=== PATIENT | male | born 1940 | race Caucasian/White ===

== ENCOUNTER 2016-05-23 11:22 | Inpatient (IN) | payer MEDICARE, OTHER ==
[~2016-05-23] VITALS: Ht 175.3 cm; Wt 95.2 kg
[~2016-05-23 11:22] MED LIST: ALBU17IN INH; AMOX500T2 PO; ASPI1TAB PO; BOOSLIQ PO; CALC1CAP31 PO; CARV6.25 PO; DIPH25CA PO; DRIS50002 PO; FERRCAP PO; FURO20TA2 PO; GLIP-163 PO; HYDR-3719 PO; HYDR-4266 PO; ISOS20TAB PO; NITR4TASL SL; OMEP40CA2 PO; PROC1INJ2 IV; REFR1DRO8 OU; SIMV20TA2 PO; TELM1TAB2 PO
[2016-05-23 12:51] LABS: BASO # 0.1 K/mm3 (0.0-0.2); BASO % 1.5 % (0.0-1.0); EOS # 0.1 K/mm3 (0.0-0.50); EOS % 1.3 % (0.0-3.0); LARGE UNSTAINED CELL # 0.1 K/mm3 (0.0-0.4); LARGE UNSTAINED CELL % 1.2 % (0.0-4.0); LYMPH # 0.3 K/mm3 (1.5-4.5); LYMPH % 3.6 % (24.0-44.0); MEAN CORPUSCULAR HEMOGLOBIN 32.7 pg (27.0-33.0); MEAN CORPUSCULAR HGB CONC 31.9 g/dl (32.0-36.5); MEAN CORPUSCULAR VOLUME 102.7 fl (80.0-96.0); MONO # 0.3 K/mm3 (0.0-0.8); MONO % 5.7 % (0.0-5.0); NEUTROPHILS # 4.9 K/mm3 (1.8-7.7); NEUTROPHILS % 86.7 % (36.0-66.0); PLATELET COUNT, AUTOMATED 142 k/mm3 (150-450); RED CELL DISTRIBUTION WIDTH 17.3 % (11.5-14.5); WHITE BLOOD COUNT 5.7 K/mm3 (4.0-10.0)
[2016-05-23 13:06] LABS: CREATININE FOR GFR 1.47 MG/DL (0.70-1.30); GLOMERULAR FILTRATION RATE 49.9 (>42); POTASSIUM SERUM 3.7 MEQ/L (3.5-5.1)
[2016-05-23] MEDS ORDERED: DEXA4TA PO (13:50)
[2016-05-23] MEDS ORDERED: MORP15TA2 PO (13:50)
[2016-05-23] MEDS ORDERED: TELM1TAB2 PO (13:50)
[2016-05-23] MEDS ORDERED: CLAR1TAB2 PO (13:50)
[2016-05-23] MEDS ORDERED: MIRA3350 PO (13:50)
[2016-05-23] MEDS ORDERED: TUMS500C PO (13:50)
[2016-05-23] MEDS ORDERED: RENATAB5 PO (13:50)
[2016-05-23] MEDS ORDERED: CARV3.12 PO (13:50)
[2016-05-23] MEDS ORDERED: REVL5CAP2 PO (13:50)
[2016-05-23] MEDS ORDERED: HYDR25T PO (13:50)
[2016-05-23] MEDS ORDERED: MELA5TAB14 PO (13:50)
[2016-05-23] MEDS ORDERED: NEPHTAB PO (13:50)
--- NOTE | 2016-05-23 13:56 | REP ---
LEFT FOOT SERIES, COMPLETE: 05/23/2016 CLINICAL HISTORY: Diabetic foot ulcer, concern for infection. Four views are provided. There is a dressing over the lateral aspect of the distal forefoot. There appears to be resection of the 2nd toe previously with only the articular aspect of the proximal phalanx remaining. There is extensive subcutaneous emphysema adjacent to the distal ends of the 4th and 5th metatarsals at the MTP joints. There is been fusion of the DIP joint of the 5th toe. The 3rd through 5th toes show no definite or displaced fracture. Lucencies in the subcutaneous tissues are consistent with air in the subcutaneous tissues. They make determination of destruction of bone very difficult. I cannot deftly confirm a pathologic fracture in this region or destructive lesion. Small vessel arterial calcifications noted between metatarsals and into the great toe. There is a Charcot's joint with extensive spurring sclerosis and partial fusion of 2nd and 3rd CMP joints with separation of the 1st and 2nd metatarsals, which all appear to be chronic Charcot's joint changes. Soft tissue swelling over the foot. There is loss of subtalar joint delineation. There are arterial calcifications about the ankle and hind foot as well as plantar and Achilles insertional spurs. Rocker arm/foot appearance on the lateral view from the advanced Charcot foot changes. There is a tiny metallic foreign body about 4 mm long in the tissues adjacent to the proximal shaft of the 1st metatarsal along the plantar aspect of the subcutaneous region. IMPRESSION: Some osteoporosis and advanced Charcot joint changes seen in the tarsal bones with subcutaneous emphysema from large soft tissue ulceration over the distal forefoot at the distal heads of the 4th and 5th metatarsals. Some chronic degenerative changes as described. The possibility of infection within the bone is not excluded. Soft tissue swelling, small vessel arterial calcification and degenerative changes along with those Charcot joint changes particularly in the tarsal bones and TMT joints. Signed by Ajit Lopes MD 05/23/2016 02:56 P
[2016-05-23] MEDS ORDERED: ACETAMINOPHEN TAB 650MG DOSE (2X325MG) PO PRN (14:00)
[2016-05-23] MEDS ORDERED: BISACODYL 5 MG TAB PO PRN (14:00)
[2016-05-23] MEDS ORDERED: MORPHINE 2 MG/ML 1ML SYRINGE IV PRN (14:00)
[2016-05-23] MEDS ORDERED: ONDANSETRON 4MG/2ML VIAL (J2405) IV PRN (14:00)
[2016-05-23] MEDS ORDERED: GLUCOSE 4 GM CHEW TABLET PO PRN (14:15)
[2016-05-23] MEDS ORDERED: GLUCAGON FOR INJ 1 MG VIAL (J1610) SC PRN (14:15)
[2016-05-23] MEDS ORDERED: DEXTROSE 50% 50 ML SYRINGE IV PRN (14:15)
[2016-05-23] MEDS ORDERED: NS 1,000 ML IV SCH (14:30)
[2016-05-23 14:41] LABS: RETIC HEMOGLOBIN CONTENT CHr 35.3 PG (24-36); RETICULOCYTE ABSOLUTE ADVIA212 55 x10(9)/L (17-77)
[2016-05-23 14:56] LABS: REASON FOR REVIEW COMPREHENSIVE REVIEW
[2016-05-23 15:00] LABS: ALBUMIN 2.3 GM/DL (3.2-5.2); ALBUMIN/GLOBULIN RATIO 0.62 (1.00-1.93); BILIRUBIN,DIRECT 0.6 MG/DL (0.0-0.2); BILIRUBIN,TOTAL 0.9 MG/DL (0.2-1.0); PERCENT SATURATION 25.8 % (19.7-37.4)
[2016-05-23] MEDS ORDERED: LORATADINE 10 MG TAB PO PRN (15:30)
[2016-05-23] MEDS ORDERED: CALCIUM CARBONATE 500 MG CHEW U/D PO PRN (15:30)
[2016-05-23] MEDS ORDERED: hydrOXYzine 25 MG TAB PO PRN (15:30)
[2016-05-23] MEDS ORDERED: MIRALAX *UNIT DOSE* 17GM PACKET PO PRN (15:30)
[2016-05-23] MEDS ORDERED: ALBUTEROL 90 MCG/ACT 8GM HFA INHALER INH PRN (15:30)
[2016-05-23] MEDS ORDERED: NITROGLYCERIN 0.4 MG SUBL TABLET SL PRN (15:30)
--- NOTE | 2016-05-23 15:41 | HPEPDOC ---
General Date of Admission May 23, 2016 at 13:58 Chief Complaint The patient is a 75-year-old male admitted with a reason for visit of Gangrene Of Foot. Source: Patient Exam Limitations: No limitations Timing/Duration: Day(s) Severity: Severe Associated Symptoms: Denies Symptoms History of Present Illness Patient hit his toe against a table about a week ago. He started noticing that his toes were becoming darker about 4 days ago. The home health care nurse urged him to go to the hospital but the patient refused. It wasn't until he came for his dialysis session today when he was told to go directly to the ER for his gangrene. Otherwise, he states that if it weren't for them he probably would not have come today either. He is otherwise feeling well and has no complaint. Home Medications Scheduled (Faye-You) 1 Tab Tab 1 TAB PO DAILY (Reported) Aspirin (Aspirin 81) 81 Mg Tab 81 MG PO DAILY (Reported) Calcitriol (Calcitriol) 0.25 Mcg Cap 0.25 MCG PO DAILY (Reported) Carvedilol (Carvedilol) 3.125 Mg Tab 3.125 MG PO BID (Reported) Dexamethasone (Dexamethasone) 4 Mg Tab 20 MG PO QWEEK (Reported) SUNDAYS Glipizide (Glipizide Xl) 2.5 Mg Tab 2.5 MG PO DAILY (Reported) Omeprazole (Omeprazole) 40 Mg Cap 40 MG PO DAILY (Reported) Telmisartan (Telmisartan) 80 Mg Tab 80 MG PO DAILY (Reported) Vitamin B Cmplx/Vitc/Folic Ac (Nephro-You Rx 1 mg) 1 Tab Tab 1 TAB PO DAILY ( Reported) Scheduled PRN Acetaminophen/Hydrocodone (Hydrocodone/Acetaminophen 10-325 mg) 1 Tab Tab 1 TAB PO TID PRN PRN PAIN (Reported) Albuterol Sulfate (Ventolin Hfa) 200 Puff/8 Gm Aers 2 PUFF INH Q4H PRN PRN SHORTNESS OF BREATH (Reported) Calcium Carbonate (Tums) 500 Mg Chw 500 MG PO PRN INDIGESTION (Reported) Hydroxyzine HCl (Hydroxyzine HCl) 25 Mg Tab 25 MG PO QHS PRN PRN SLEEP (Reported ) Loratadine (Claritin) 10 Mg Tab 10 MG PO DAILY PRN PRN ITCHING (Reported) Melatonin (Melatonin) 5 Mg Tab 5 MG PO QHS PRN PRN SLEEP (Reported) Morphine Sulfate (Morphine Sulfate) 15 Mg Tab 1-2 TABS PO Q4H PRN PRN PAIN ( Reported) Nitroglycerin (Nitrostat) 0.4 Mg Subl 0.4 MG SL PRN PRN PRN CHEST PAIN (Reported ) Polyethylene Glycol (Miralax) 1 Pow Pow 17 GM PO DAILY PRN PRN CONSTIPATION ( Reported) Miscellaneous Medications Lenalidomide (Revlimid) 5 Mg Cap 5 MG PO (Reported) Allergies Coded Allergies: No Known Allergies (Unverified , 07/20/15) Past Medical History Medical History Diabetes, CAD, HTN, Hyperlipidemia, Asthma, End stage Kidney failure (been on dialysis since July), and heartburn, Chronic anemia Surgical History Appendicectomy 54 years ago, Hearth cath with stent placement April 2016, 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 Family History Significant Family History: Heart disease (Both his sisters had coronary stent placement as well) Social History * Smoker: former Smoker (quit 25-30 years ago after smoking for 30 years) Alcohol: denies (stopped drinking about a year ago after being diagnosed with kidney failure. ) Drugs: denies Recent Travel/Sick Contacts: Denies: Recent sick contacts, Recent travel Psychosocial History: No pertinent psych hx Review of Symptoms Constitutional: Denies: Chills, Fatigue, Fever, Malaise, Weight Loss Skin: Reports: Lesions (darkening of his left toes) Pulmonary: Reports: Dyspnea (Patient has asthma and uses Albuterol PRN and is not on Oxygen at home), Denies: Cough Cardiovascular: Denies: Chest Pain, Palpitations Gastrointestinal: Reports: Diarrhea (had a bout of diarrhea yesterday. ), Denies: Abdominal Pain, Nausea, Vomiting Genitourinary: Denies: Dysuria, Incontinence Musculoskeletal: Denies: Foot Pain Neurological: Denies: Change in speech, Confusion, Weakness Psych: Reports: Mood Normal Physical Examination General Exam: Positive: Alert, Cooperative, No Acute Distress Eye Exam: Positive: EOMI, PERRLA Neck Exam: Positive: Supple, Negative: JVD Chest Exam: Positive: Clear to auscultation, Normal air movement Heart Exam: Positive: Normal S1, Normal S2, Negative: Gallops, Murmurs, Rubs Abdomen Exam: Positive: Normal bowel sounds, Soft, Negative: Tenderness Extremity Exam: Positive: Edema, Other (black left 3rd, 4th, and 5th toes. There is also an area of gangrene on the lateral side of his left foot and at the bottom of his left heel. There's alos an ulcer on the plantar surface of his left foot. There is darkening and scarring of his left lower leg. On the right leg there's a dark scab on the plantar surface of the first right toe and remnant scar of a healing ulcer of the right heel. Pulse is present in the right foot and not appreciated in dorsalis pedis in the left foot. ), Negative: Clubbing, Tenderness Vital Signs BP 148/70, Pulse 102, Resp 18, T 99.9, O2 100% 2L NC, Weight 51 Kg Laboratory Data Labs 24H Laboratory Tests 2 05/23/16 12:36: Absolute Reticulocyte Count 55, Anion Gap 8, White Blood Count 5.7, Red Blood Count 2.55L, Hemoglobin 8.3L, Hematocrit 26.2L, Mean Corpuscular Volume 102.7H, Mean Corpuscular Hemoglobin 32.7, Mean Corpuscular Hemoglobin Concent 31.9L, Red Cell Distribution Width 17.3H, Platelet Count 142L, Neutrophils (%) (Auto) 86.7H, Lymphocytes (%) (Auto) 3.6L, Monocytes (%) (Auto) 5.7H, Eosinophils (%) ( Auto) 1.3, Basophils (%) (Auto) 1.5H, Neutrophils # (Auto) 4.9, Lymphocytes # ( Auto) 0.3L, Monocytes # (Auto) 0.3, Eosinophils # (Auto) 0.1, Basophils # (Auto ) 0.1, Calcium Level 8.0L, Glomerular Filtration Rate 49.9, Large Unclassified Cells # 0.1, Large Unclassified Cells % 1.2, Percent Reticulocyte Count 2.20H, Reticulocyte Hgb Content (CHr) 35.3 CBC/BMP Laboratory Tests 05/23/16 12:36 Red Blood Count 2.55 L, Mean Corpuscular Volume 102.7 H, Mean Corpuscular Hemoglobin 32.7, Mean Corpuscular Hemoglobin Concent 31.9 L, Red Cell Distribution Width 17.3 H, Neutrophils (%) (Auto) 86.7 H, Lymphocytes (%) (Auto ) 3.6 L, Monocytes (%) (Auto) 5.7 H, Eosinophils (%) (Auto) 1.3, Basophils (%) ( Auto) 1.5 H, Neutrophils # (Auto) 4.9, Lymphocytes # (Auto) 0.3 L, Monocytes # ( Auto) 0.3, Eosinophils # (Auto) 0.1, Basophils # (Auto) 0.1 Microbiology Microbiology 05/23/16 Blood Culture, Received Pending 05/23/16 Wound Culture, Received Pending Assessment/Plan Problems: (1) Gangrene of foot Status: Acute Problem Text: Dr. Pitt is consulted for evaluation. He would likely go to the OR tomorrow for amputation of gangrene. Xray foot showed osteoporosis, advanced charcot joint changes, subcutaneous emphysema. (2) End stage renal disease on dialysis Status: Chronic Problem Text: Patient is on dialysis since last july. Sessions are Monday, Monday, and Monday. Last session was done today. Will need to consult Nephrology for management of dialysis while inpatient. (3) Anemia Status: Chronic (4) Foot ulcer Status: Chronic Problem Text: Being followed by Dr. Kilgore outpatient, will consult her for further recommendations on antibiotics. (5) Diabetes Status: Chronic (6) HTN (hypertension) Status: Chronic (7) PVD (peripheral vascular disease) Status: Chronic (8) CAD (coronary artery disease) Status: Chronic (9) Diabetic neuropathy Status: Chronic Plan / VTE VTE Prophylaxis Ordered?: Yes (TEDs) GME ATTESTATION GME ATTESTATION My preceptor for this patient encounter was physically present in the building during the encounter and was fully available. As needed, all aspects of the patient interview, examination, medical decision making process, and medical care plan development were reviewed and approved by the preceptor. Preceptor is aware and concurs with the plan as stated in the body of this note and will attest to such by his/her cosignature. LUZ MARINA BERGMAN DO May 23, 2016 15:08
[2016-05-23 16:12] VITALS: BP 142/67
--- NOTE | 2016-05-23 16:15 | EDDOCDS ---
Physician Documentation [facility] Name: Charles Figueroa Age: 75 yrs Sex: Male : 1940 Arrival Date: 05/23/2016 Time: 11:22 Bed 10 Private MD: Disposition: 05/23/16 13:43 Hospitalization ordered by Myrna Murry for Inpatient Admission. 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 - Bed requested for 5 Vale. - Status is Inpatient Admission. srm - Condition is Stable. - Problem is chronic. - Symptoms have worsened. Historical: - Allergies: no known allergies; - Home Meds: 1. albuterol sulfate 90 mcg/actuation Inhl HFAA 2 puffs every 6 hours 2. aspirin 81 mg Oral tab 1 tab once daily 3. calcitriol 0.25 mcg oral cap 1 cap once daily 4. Coreg 6.25 mg Oral tab 1 tab 2 times per day 5. melatonin 5 mg Oral tab nightly 6. Miralax 17 gram Oral pwpk 1 packet once daily 7. nephrovite daily 8. omeprazole 40 mg Oral cpDR 1 cap once daily 9. oxycodone 5 mg Oral tab 1 tab every 4 hours 10. Plavix 75 mg Oral tab 1 tab once daily 11. renavite .8 mg 12. Tums 200 mg calcium (500 mg) Oral chew 2 tabs three times a day - PMHx: Anemia; Asthma; Diabetes - NIDDM: controlled; GERD; Hypercholesterolemia; Hypertension; Multiple Myeloma; Myocardial infarction; Renal Failure with Dialysis; - PSHx: Cardiac stents; Appendectomy; Dialysis Catherter Insertion; - Family history: Not pertinent. - Social history: Smoking status: Patient states former smoker of tobacco. No barriers to communication noted, The patient speaks fluent Upper Sorbian, Speaks appropriately for age. - : The pt / caregiver states he / she is on anticoagulants: Plavix. Home medication list is obtained from the patient. - Exposure Risk Screening:: None identified. Vital Signs: 05/23 11:39 BP 141 / 67; Pulse 105; Resp 18; Temp 98.8(TE); Pulse Ox 97% on R/A; Weight 51.26 kg / ct3 113.01 lbs (R); Height 5 ft. 9 in. (175.26 cm) (R); 11:52 Pulse 102 MON; Pulse Ox 90% on R/A; srm 11:53 BP 135 / 72 (auto/); srm 12:08 Pulse 96 MON; Pulse Ox 98% ; srm 12:08 BP 142 / 77 (auto/); srm 12:23 Pulse 98 MON; Pulse Ox 97% ; srm 12:23 BP 154 / 76 (auto/); srm 12:38 BP 129 / 63 (auto/); srm 12:38 Pulse 96 MON; Pulse Ox 99% on 2 lpm NC; srm 12:53 Pulse 94 MON; srm 12:53 BP 146 / 74 (auto/); srm 13:08 BP 148 / 79 (auto/); srm 13:08 Pulse 94 MON; srm 13:23 BP 151 / 79 (auto/); srm 13:23 Pulse 94 MON; srm 13:38 BP 145 / 80 (auto/); srm 13:38 Pulse 96 MON; Pulse Ox 100% on 2 lpm NC; srm 13:53 Pulse 92 MON; srm 13:53 BP 142 / 73 (auto/); srm 14:08 BP 143 / 79 (auto/); srm 14:08 Pulse 92 MON; srm 14:21 Pulse 98 MON; Pulse Ox 93% ; srm 14:23 BP 148 / 80 (auto/); srm 14:38 BP 119 / 56 (auto/); srm 14:38 Pulse 102 MON; Pulse Ox 80% ; srm 15:08 BP 151 / 71 (auto/); srm 15:09 Pulse 102 MON; Pulse Ox 100% ; srm 15:14 BP 148 / 70 (auto/); srm 15:14 Pulse 102 MON; Resp 18; Temp 99.9(TE); Pulse Ox 100% on 2 lpm NC; srm 16:08 BP 141 / 67 (auto/); srm 16:08 Pulse 102 MON; Resp 20; Temp 96.3; Pulse Ox 92% on R/A; Pain 0/10; srm 11:39 Body Mass Index 16.69 (51.26 kg, 175.26 cm) ct3 MDM: 11:32 IV Saline Lock ordered. fg 11:33 CBC with Diff Ordered. EDMS 11:33 Basic Metabolic Profile Ordered. EDMS 11:34 Foot, Complete Ordered. EDMS 11:53 -Blood Culture (Adults Only), peripheral from different site, or from device/port/PICC fg etc. if present ordered. 11:53 -Blood Culture Ordered. EDMS 11:56 -Blood Culture (Adults Only), peripheral from different site, or from device/port/PICC deg etc. if present complete. 11:58 BLOOD CULTURES Ordered. EDMS 13:10 Wound Culture - Other Unlisted Source Ordered. EDMS 13:38 [facility] Payment Agreement was scanned into [employer] and attached to record. jp5 13:38 Financial registration complete. jp5 14:02 ECG WITH READING ER PHYS+CARDIAG ordered. EDMS 14:04 Admission / Observation Status ordered. EDMS 14:04 CONSISTENT CARBOHYDRATES ordered. EDMS 14:06 PHYSICAL THERAPY EVAL & TREAT ordered. EDMS 14:08 PATHOLOGIST REVIEW COMPREHENSI Ordered. EDMS 14:24 LIVER PROFILE Ordered. EDMS 14:26 FERRITIN Ordered. EDMS 14:26 TOTAL IRON BINDING CAPACIT Ordered. EDMS 14:26 RETICULOCYTE COUNT Ordered. EDMS Signatures: Dispatcher [employer] EDMS Teresa Brown, [employer] deg Shiraz BlasRN RN Shaylee Dela Cruz, RN RN [facility] Clark Card jp5 Lexii Orta MD MD fg Andrews, Steven, DUGLAS ARDON sa The chart was reviewed and I authenticate all verbal orders and agree with the evaluation and treatment provided.Corrections: (The following items were deleted from the chart) 14:24 13:02 LIVER PROFILE+LAB ordered. EDMS EDMS 14:27 14:07 IRON (FE) ordered. EDMS EDMS 14:27 14:08 TOTAL IRON BINDING CAPACIT ordered. EDMS EDMS 14:27 14:08 FERRITIN ordered. EDMS EDMS 14:27 14:08 RETICULOCYTE COUNT ordered. EDMS EDMS 15:17 14:05 BLOOD CULTURES ordered. EDMS EDMS Attachments: 13:38 [facility] Payment Agreement jp5 [email or web address]
--- NOTE | 2016-05-23 16:15 | EDDOCDS ---
Nurse's Notes [facility] Name: Charles Figueroa Age: 75 yrs Sex: Male : 1940 Arrival Date: 05/23/2016 Time: 11:22 Bed 10 Private MD: Diagnosis: Idiopathic aseptic necrosis of left foot Presentation: 05/23 11:30 Presenting complaint: EMS states: infected left foot. symptoms for awhile. pt states srm its black- dressing intact at this time. had dialysis today. Adult Sepsis Screening: The patient does not have new or worsening altered mentation. Patient's respiratory rate is less than 22. Systolic blood pressure is greater than 100. Patient has a qSOFA score of 0- Negative Sepsis Screen. Suicide/Homicide risk assessment- the patient denies having any suicidal and/or homicidal ideations and does not present with any other emotional, behavioral or mental health complaints. Status: Patient is not a health services rn or dependent. Transition of care: patient was received from dialysis. 11:30 Acuity: [place] Level 3 [facility] 11:30 Method Of Arrival: Ambulance [facility] 11:34 Presenting complaint: Patient states: states he stubbed his toe on left foot 1 week ago srm and 2 days ago noticed his foot turning black and infectious. Triage Assessment: 11:40 Musculoskeletal: toes 3-5 on left foot black. large areas open and draining to top and srm bottom of lft foot. drainage is purulent and odorous. also blackened area to bottom of left foot. Historical: - Allergies: no known allergies; - Home Meds: 1. albuterol sulfate 90 mcg/actuation Inhl HFAA 2 puffs every 6 hours 2. aspirin 81 mg Oral tab 1 tab once daily 3. calcitriol 0.25 mcg oral cap 1 cap once daily 4. Coreg 6.25 mg Oral tab 1 tab 2 times per day 5. melatonin 5 mg Oral tab nightly 6. Miralax 17 gram Oral pwpk 1 packet once daily 7. nephrovite daily 8. omeprazole 40 mg Oral cpDR 1 cap once daily 9. oxycodone 5 mg Oral tab 1 tab every 4 hours 10. Plavix 75 mg Oral tab 1 tab once daily 11. renavite .8 mg 12. Tums 200 mg calcium (500 mg) Oral chew 2 tabs three times a day - PMHx: Anemia; Asthma; Diabetes - NIDDM: controlled; GERD; Hypercholesterolemia; Hypertension; Multiple Myeloma; Myocardial infarction; Renal Failure with Dialysis; - PSHx: Cardiac stents; Appendectomy; Dialysis Catherter Insertion; - Family history: Not pertinent. - Social history: Smoking status: Patient states former smoker of tobacco. No barriers to communication noted, The patient speaks fluent Latvian, Speaks appropriately for age. - : The pt / caregiver states he / she is on anticoagulants: Plavix. Home medication list is obtained from the patient. - Exposure Risk Screening:: None identified. Screenin:26 Screening information is obtained from the patient. Fall risk: At risk due to gait srm disturbance, The following interventions are performed due to a positive Fall Risk Screen: Fall Risk is added to Special Handling on the patient Summary Screen. A Fall Risk Bracelet was applied to the patient. Side Rails are placed in the up position. A Call Schroeder is given with instruction to call for help when getting out of bed. Fall Alert bracelet is placed on the patient. Assistance ADL's: requires no assistance with activities of daily living. Abuse/DV Screen: The patient / caregiver reports he/she is: not in a situation that causes fear, pain or injury. Nutritional screening: No deficits noted. Advance Directives: Currently, there is a health care proxy, johnie evans or brother amy. home support is adequate. Assessment: 13:09 General: Appears in no apparent distress, Behavior is appropriate for age, cooperative. srm Neurological: No deficits noted. EENT: No deficits noted. Respiratory: No deficits noted. GI: No deficits noted. Derm: Skin is pale. Musculoskeletal: toes 3-5 and johnny;f cuircle looping down top of foot black. large open area draining purulent drainage. also wound to bottom aspect of foot . white large round area noptedt to heel of left foot. wet to dry DSD applied and secured with lyndsey wrap. pedal pulse noted by doppler. 15:20 General: Appears in no apparent distress, Behavior is appropriate for age, cooperative, srm ate lunch. talking with visitor voices no c/oat this time. foot remains dressed. toes 3-5 black in color. 16:11 General: Appears in no apparent distress, Behavior is appropriate for age, cooperative. srm Pain: Denies pain. Neurological: No deficits noted. EENT: No deficits noted. Respiratory: No deficits noted. GI: No deficits noted. Vital Signs: 11:39 BP 141 / 67; Pulse 105; Resp 18; Temp 98.8(TE); Pulse Ox 97% on R/A; Weight 51.26 kg ct3 (R); Height 5 ft. 9 in. (175.26 cm) (R); 11:52 Pulse 102 MON; Pulse Ox 90% on R/A; srm 11:53 BP 135 / 72 (auto/); srm 12:08 Pulse 96 MON; Pulse Ox 98% ; srm 12:08 BP 142 / 77 (auto/); srm 12:23 Pulse 98 MON; Pulse Ox 97% ; srm 12:23 BP 154 / 76 (auto/); srm 12:38 BP 129 / 63 (auto/); srm 12:38 Pulse 96 MON; Pulse Ox 99% on 2 lpm NC; srm 12:53 Pulse 94 MON; srm 12:53 BP 146 / 74 (auto/); srm 13:08 BP 148 / 79 (auto/); srm 13:08 Pulse 94 MON; srm 13:23 BP 151 / 79 (auto/); srm 13:23 Pulse 94 MON; srm 13:38 BP 145 / 80 (auto/); srm 13:38 Pulse 96 MON; Pulse Ox 100% on 2 lpm NC; srm 13:53 Pulse 92 MON; srm 13:53 BP 142 / 73 (auto/); srm 14:08 BP 143 / 79 (auto/); srm 14:08 Pulse 92 MON; srm 14:21 Pulse 98 MON; Pulse Ox 93% ; srm 14:23 BP 148 / 80 (auto/); srm 14:38 BP 119 / 56 (auto/); srm 14:38 Pulse 102 MON; Pulse Ox 80% ; srm 15:08 BP 151 / 71 (auto/); srm 15:09 Pulse 102 MON; Pulse Ox 100% ; srm 15:14 BP 148 / 70 (auto/); srm 15:14 Pulse 102 MON; Resp 18; Temp 99.9(TE); Pulse Ox 100% on 2 lpm NC; srm 16:08 BP 141 / 67 (auto/); srm 16:08 Pulse 102 MON; Resp 20; Temp 96.3; Pulse Ox 92% on R/A; Pain 0/10; srm 11:39 Body Mass Index 16.69 (51.26 kg, 175.26 cm) ct3 Vitals: 11:39 Log In Time N/A - ambulance arrival. ct3 ED Course: 11:23 Patient visited by Teresa Brown, Returned Materials Inspector. deg 11:23 Patient moved to Waiting deg 11:26 Joanne Hernandez,RN is Primary Nurse. deg 11:26 Patient moved to 10 deg 11:27 Patient moved to I9 / 22 deg 11:29 Patient moved to 10 srm 11:31 Triage Initiated srm 11:32 Patient visited by Shaylee High, DUGLAS. srm 11:35 Patient visited by Shaylee High, DUGLAS. srm 11:39 Patient has correct armband on for positive identification. Placed in gown. Bed in low ct3 position. Call light in reach. Side rails up X2. vehicle monitor technician on. Pulse ox on. NIBP on. 11:40 Patient visited by Charlotte Romo PCA. ct3 11:49 Inserted saline lock: 20 gauge in right wrist. pt tolerated well. srm 11:55 Lexii Orta MD is Attending Physician. fg 12:47 Patient visited by Lexii Orta MD. fg 13:01 BLOOD CULTURES Sent. srm 13:12 Patient visited by Shaylee High RN. srm 13:38 [facility] Payment Agreement was scanned into [employer] and attached to record. jp5 13:41 Myrna Murry is Hospitalizing Provider. fg 14:31 Foot, Complete Returned. EDMS 15:24 Patient visited by Shaylee High RN. srm 15:26 The patient / caregiver is instructed regarding the plan of care and ED course. srm 15:37 Patient visited by Shaylee High RN. srm 15:37 REPORT TUBED TO 5 TERRY. srm 16:08 No procedures done that require assistance. srm Order Results: Lab Order: CBC with Diff; SPEC'M 05/23/16 12:36 Test: WHITE BLOOD COUNT; Value: 5.7; Range: 4.0-10.0; Units: K/mm3; Status: F Test: RED BLOOD COUNT; Value: 2.55; Range: 4.30-6.10; Abnormal: Below low normal; Units: M/mm3; Status: F Test: HEMOGLOBIN; Value: 8.3; Range: 14.0-18.0; Abnormal: Below low normal; Units: g/dl; Status: F Test: HEMATOCRIT; Value: 26.2; Range: 42.0-52.0; Abnormal: Below low normal; Units: %; Status: F Test: MEAN CORPUSCULAR VOLUME; Value: 102.7; Range: 80.0-96.0; Abnormal: Above high normal; Units: fl; Status: F Test: MEAN CORPUSCULAR HEMOGLOBIN; Value: 32.7; Range: 27.0-33.0; Units: pg; Status: F Test: MEAN CORPUSCULAR HGB CONC; Value: 31.9; Range: 32.0-36.5; Abnormal: Below low normal; Units: g/dl; Status: F Test: RED CELL DISTRIBUTION WIDTH; Value: 17.3; Range: 11.5-14.5; Abnormal: Above high normal; Units: %; Status: F Test: PLATELET COUNT, AUTOMATED; Value: 142; Range: 150-450; Abnormal: Below low normal; Units: k/mm3; Status: F Test: NEUTROPHILS %; Value: 86.7; Range: 36.0-66.0; Abnormal: Above high normal; Units: %; Status: F Test: LYMPH %; Value: 3.6; Range: 24.0-44.0; Abnormal: Below low normal; Units: %; Status: F Test: MONO %; Value: 5.7; Range: 0.0-5.0; Abnormal: Above high normal; Units: %; Status: F Test: EOS %; Value: 1.3; Range: 0.0-3.0; Units: %; Status: F Test: BASO %; Value: 1.5; Range: 0.0-1.0; Abnormal: Above high normal; Units: %; Status: F Test: LARGE UNSTAINED CELL %; Value: 1.2; Range: 0.0-4.0; Units: %; Status: F Test: NEUTROPHILS #; Value: 4.9; Range: 1.8-7.7; Units: K/mm3; Status: F Test: LYMPH #; Value: 0.3; Range: 1.5-4.5; Abnormal: Below low normal; Units: K/mm3; Status: F Test: MONO #; Value: 0.3; Range: 0.0-0.8; Units: K/mm3; Status: F Test: EOS #; Value: 0.1; Range: 0.0-0.50; Units: K/mm3; Status: F Test: BASO #; Value: 0.1; Range: 0.0-0.2; Units: K/mm3; Status: F Test: LARGE UNSTAINED CELL #; Value: 0.1; Range: 0.0-0.4; Units: K/mm3; Status: F Lab Order: Basic Metabolic Profile; SPEC'M 05/23/16 12:36 Test: GLUCOSE, FASTING; Value: 112; Range: 83-110; Abnormal: Above high normal; Units: MG/DL; Status: F Test: BLOOD UREA NITROGEN; Value: 12; Range: 7-18; Units: MG/DL; Status: F Test: CREATININE FOR GFR; Value: 1.47; Range: 0.70-1.30; Abnormal: Above high normal; Units: MG/DL; Status: F Test: GLOMERULAR FILTRATION RATE; Value: 49.9; Range: >42; Status: F Test: SODIUM LEVEL; Value: 142; Range: 136-145; Units: MEQ/L; Status: F Test: POTASSIUM SERUM; Value: 3.7; Range: 3.5-5.1; Units: MEQ/L; Status: F Test: CHLORIDE LEVEL; Value: 103; Range: 98-107; Units: MEQ/L; Status: F Test: CARBON DIOXIDE LEVEL; Value: 31; Range: 21-32; Units: MEQ/L; Status: F Test: ANION GAP; Value: 8; Range: 8-16; Units: MEQ/L; Status: F Test: CALCIUM LEVEL; Value: 8.0; Range: 8.8-10.2; Abnormal: Below low normal; Units: MG/DL; Status: F Test Note: ; Units are mL/min/1.73 m2 Chronic Kidney Disease Staging per NKF: Stage I & II GFR >=60 Normal to Mildly Decreased Stage III GFR 30-59 Moderately Decreased Stage IV GFR 15-29 Severely Decreased Stage V GFR <15 Very Little GFR Left ESRD GFR <15 on RISK ASSESSOR Lab Order: PATHOLOGIST REVIEW COMPREHENSI; SPEC'M 05/23/16 12:36 Test: SLIDE REVIEW; Value: Report; Status: F Test: SOURCE; Value: PERIPHERAL SMEAR; Status: F Test: REASON FOR REVIEW; Value: COMPREHENSIVE REVIEW; Status: F Test Note: ; Slide and/or specimen referred to Pathologist for review. Results of the review are located in the EMR Pathology module under Peripheral Smear when completed. Lab Order: LIVER PROFILE; SPEC'M 05/23/16 12:36 Test: AST/SGOT; Value: 24; Range: 15-37; Units: U/L; Status: F Test: ALT/SGPT; Value: 29; Range: 12-78; Units: U/L; Status: F Test: ALKALINE PHOSPHATASE; Value: 182; Range: 45-117; Abnormal: Above high normal; Units: U/L; Status: F Test: BILIRUBIN,TOTAL; Value: 0.9; Range: 0.2-1.0; Units: MG/DL; Status: F Test: BILIRUBIN,DIRECT; Value: 0.6; Range: 0.0-0.2; Abnormal: Above high normal; Units: MG/DL; Status: F Test: TOTAL PROTEIN; Value: 6.0; Range: 6.4-8.2; Abnormal: Below low normal; Units: GM/DL; Status: F Test: ALBUMIN; Value: 2.3; Range: 3.2-5.2; Abnormal: Below low normal; Units: GM/DL; Status: F Test: ALBUMIN/GLOBULIN RATIO; Value: 0.62; Range: 1.00-1.93; Abnormal: Below low normal; Status: F Lab Order: FERRITIN; SPEC' 05/23/16 12:36 Test: FERRITIN; Value: 2883; Range: 26-388; Abnormal: Above high normal; Units: NG/ML; Status: F Lab Order: TOTAL IRON BINDING CAPACIT; SPEC' 05/23/16 12:36 Test: IRON (FE); Value: 31; Range: 65-175; Abnormal: Below low normal; Units: UG/DL; Status: F Test: TOTAL IRON BINDING CAPACITY; Value: 120; Range: 250-450; Abnormal: Below low normal; Units: UG/DL; Status: F Test: PERCENT SATURATION; Value: 25.8; Range: 19.7-37.4; Units: %; Status: F Lab Order: RETICULOCYTE COUNT; SPEC'M 05/23/16 12:36 Test: RETICULOCYTE % [id number]; Value: 2.20; Range: 0.5-1.5; Abnormal: Above high normal; Units: %; Status: F Test: RETICULOCYTE ABSOLUTE [id number]; Value: 55; Range: 17-77; Units: x10(9)/L; Status: F Test: RETIC HEMOGLOBIN CONTENT CHr; Value: 35.3; Range: 24-36; Units: PG; Status: F Radiology Order: Foot, Complete Test: Foot, Complete REASON FOR EXAMINATION: concern for infection; LEFT FOOT SERIES, COMPLETE: 05/23/2016; ; CLINICAL HISTORY: Diabetic foot ulcer, concern for infection.; ; Four views are provided.; ; There is a dressing over the lateral aspect of the distal forefoot. There; appears to be resection of the 2nd toe previously with only the articular aspect; of the proximal phalanx remaining. There is extensive subcutaneous emphysema; adjacent to the distal ends of the 4th and 5th metatarsals at the MTP joints.; There is been fusion of the DIP joint of the 5th toe. The 3rd through 5th toes; show no definite or displaced fracture. Lucencies in the subcutaneous tissues are; consistent with air in the subcutaneous tissues. They make determination of; destruction of bone very difficult. I cannot deftly confirm a pathologic; fracture in this region or destructive lesion. Small vessel arterial; calcifications noted between metatarsals and into the great toe. There is a; Charcot's joint with extensive spurring sclerosis and partial fusion of 2nd and; 3rd CMP joints with separation of the 1st and 2nd metatarsals, which all appear; to be chronic Charcot's joint changes. Soft tissue swelling over the foot. There; is loss of subtalar joint delineation. There are arterial calcifications about; the ankle and hind foot as well as plantar and Achilles insertional spurs.; Rocker arm/foot appearance on the lateral view from the advanced Charcot foot; changes. There is a tiny metallic foreign body about 4 mm long in the tissues; adjacent to the proximal shaft of the 1st metatarsal along the plantar aspect of; the subcutaneous region.; ; IMPRESSION: Some osteoporosis and advanced Charcot joint changes seen in the; tarsal bones with subcutaneous emphysema from large soft tissue ulceration over; the distal forefoot at the distal heads of the 4th and 5th metatarsals. Some; chronic degenerative changes as described. The possibility of infection within; the bone is not excluded. Soft tissue swelling, small vessel arterial; calcification and degenerative changes along with those Charcot joint changes; particularly in the tarsal bones and TMT joints.; ; ; Signed by; Ajit Lopes MD 05/23/2016 02:56 P; Outcome: 13:43 Decision to Hospitalize by Provider. fg 16:08 Discharge Assessment: Patient awake, alert and oriented x 3. No cognitive and/or srm functional deficits noted. Patient verbalized understanding of disposition instructions. patient administered narcotics - no. The following High Risk Discharge criteria are identified: None. Admitted to Med/Surg accompanied by tech, via stretcher, with chart. Condition: stable. No special radiology studies were completed. Property :Personal belongings accompany Pt. 16:14 Patient left the ED. [facility] Signatures: Dispatcher [employer] EDTeresa Romano, Returned Materials Inspector Unit deg Shiraz Blas RN RN jmk Michelson, Staci, RN RN [facility] Charlotte Romo, TECHNOLOGY EDUCATION TEACHER TECHNOLOGY EDUCATION TEACHER ct3 Clark Card jp5 Lexii Orta MD MD fg Corrections: (The following items were deleted from the chart) 14:24 13:37 LIVER PROFILE+LAB sent. [facility] MTDD
[2016-05-23 16:30] VITALS: BP 138/62
[2016-05-23] MEDS ORDERED: VANCOMYCIN INTERMITTENT/PULSE DOSING BY CLINICAL PHARMACIST PER DOSING PROTOCOL XX SCH (17:00)
[2016-05-23] MEDS ORDERED: VANCOMYCIN HCL 1,000 MG, VIAL MATE ADAPTER 1 EACH in D5W 250 ML IV ONE (18:00)
[2016-05-23] MEDS: HumaLOG INSULIN (NovoLOG) PER UNIT SC SCH ×2 (18:15→20:38)
[2016-05-23] MEDS: PIPERACILLIN/TAZOBACTAM SOD 2.25 GM in D5W MINI-BAG PLUS 50 ML IV SCH ×2 (18:24→22:49)
--- NOTE | 2016-05-23 19:40 | IPN ---
DATE: 05/23/2016 CHIEF COMPLAINT: 75-year-old male seen for evaluation of gangrene of his left foot. Patient states about a week ago he bumped his left foot. Patient states he has poor eye sight and did not notice that his third, fourth and fifth toes were gangrenous. He was at dialysis and they discovered an odor, took the bandage of his left foot and saw the gangrenous changes, sent him to the emergency room and he was subsequently admitted. PAST MEDICAL HISTORY: 1. Diabetes. 2. Coronary artery disease. 3. Hypertension. 4. Hyperlipidemia. 5. Asthma 6. End stage renal disease on dialysis. 7. Heartburn. 8. Chronic anemia. PAST SURGICAL HISTORY: 1. Appendectomy. 2. Second toe amputation left foot. 3. Heart catheterization with stent. PHYSICAL EXAMINATION: Reveals an alert 75-year-old man. Evaluation of his foot reveals prior amputation of the second toe, gangrenous changes are noted of the third, fourth and fifth toes. There is an ulceration present on the central arch as well but this displays a yellow granulation tissue base. There is some swelling and bruising along the medial malleolar region. The dorsalis pedis and posterior tibial pulses cannot be palpated, however the hallux is viable. Patient does have a good popliteal pulse. No ulcerations are present above the malleoli, however there is a eschar noted superficially on the plantar heel. Small eschar is noted on the right hallux. ASSESSMENT: Gangrenous changes of the forefoot. We discussed with the patient that he may require a below the knee amputation, however he is quite adamant about trying an amputation consisting of removing the gangrenous changes to see if his foot can become viable along the plantar arch ulceration. We did discuss with the patient that if this transmetatarsal amputation is not successful, he would require a below knee amputation. His questions are answered. Informed consent was obtained and signed by the patient. He will be placed nothing by mouth after 7 a.m. His questions were answered.
[2016-05-23] MEDS: CARVedilol 3.125 MG TAB PO SCH (20:38)
[2016-05-23 22:00] VITALS: BP 125/62
[2016-05-24] MEDS: PIPERACILLIN/TAZOBACTAM SOD 2.25 GM in D5W MINI-BAG PLUS 50 ML IV SCH ×3 (05:14→17:00)
[2016-05-24 06:00] VITALS: BP 121/61
[2016-05-24 07:11] LABS: BASO % 0.5 % (0.0-1.0); EOS # 0.2 K/mm3 (0.0-0.50); EOS % 3.7 % (0.0-3.0); LARGE UNSTAINED CELL # 0.1 K/mm3 (0.0-0.4); LARGE UNSTAINED CELL % 3.4 % (0.0-4.0); LYMPH # 0.4 K/mm3 (1.5-4.5); MEAN CORPUSCULAR HEMOGLOBIN 32.9 pg (27.0-33.0); MEAN CORPUSCULAR HGB CONC 32.8 g/dl (32.0-36.5); MEAN CORPUSCULAR VOLUME 100.3 fl (80.0-96.0); MONO # 0.3 K/mm3 (0.0-0.8); NEUTROPHILS # 3.1 K/mm3 (1.8-7.7); NEUTROPHILS % 75.5 % (36.0-66.0); PLATELET COUNT, AUTOMATED 124 k/mm3 (150-450); RED CELL DISTRIBUTION WIDTH 16.3 % (11.5-14.5); WHITE BLOOD COUNT 4.1 K/mm3 (4.0-10.0)
[2016-05-24 07:22] LABS: CALCIUM LEVEL 7.4 MG/DL (8.8-10.2); CREATININE FOR GFR 2.05 MG/DL (0.70-1.30); POTASSIUM SERUM 3.9 MEQ/L (3.5-5.1); VANCOMYCIN RANDOM 10.9 UG/ML
[2016-05-24] MEDS: HumaLOG INSULIN (NovoLOG) PER UNIT SC SCH ×4 (07:30→21:37)
[2016-05-24 08:25] LABS: ERYTHROCYTE SEDIMENTATION RATE 126 mm/hr (0-20)
[2016-05-24] MEDS: OMEPRAZOLE 20 MG CAP PO SCH (08:31)
[2016-05-24] MEDS: CARVedilol 3.125 MG TAB PO SCH ×2 (08:31→21:37)
[2016-05-24] MEDS: TELMISARTAN 20 MG TAB PO SCH (08:31)
[2016-05-24] MEDS: NEPHRO-VIT TAB (NEPHROCAPS) PO SCH (08:31)
[2016-05-24] MEDS: CALCITRIOL 0.25 MCG CAP (S0169) PO SCH (08:31)
[2016-05-24] MEDS ORDERED: ENTER DRUG NAME HERE (PATIENT'S OWN MED) PO SCH ×2 (09:00)
[2016-05-24 10:04] LABS: MEAN CORPUSCULAR HEMOGLOBIN 33.4 pg (27.0-33.0); MEAN CORPUSCULAR HGB CONC 32.4 g/dl (32.0-36.5); MEAN CORPUSCULAR VOLUME 103.3 fl (80.0-96.0); RED CELL DISTRIBUTION WIDTH 17.7 % (11.5-14.5); WHITE BLOOD COUNT 4.4 K/mm3 (4.0-10.0)
[2016-05-24 10:16] LABS: FOLATE 12.2 NG/ML (>5.4)
[2016-05-24 10:18] LABS: PERCENT SATURATION 29.1 % (19.7-37.4)
--- NOTE | 2016-05-24 12:23 | CR ---
DATE OF CONSULTATION: 05/24/2016 REQUESTING PHYSICIAN: Dr. Sammi Morales. REASON FOR CONSULTATION: Management of endstage renal disease and hemodialysis. CHIEF COMPLAINT: The patient was sent from the dialysis center because of foul-smelling gangrene of the left foot. HISTORY OF PRESENT ILLNESS: Mr. Charles Figueroa is a 75-year-old male wit the past medical history of endstage renal disease on hemodialysis every Monday, Monday, Monday. The patient was found to have a very foul-smelling dark-color, necrotic gangrene of the toes of the left foot. The patient was dialyzed yesterday at hemodialysis center and he was asked to report to the emergency room directly. The patient reported that he was noticing dark discoloration of his toes for the last 4 to 5 days and it was foul-smelling as well. He denies any trauma to the foot, but he reports that he might have bumped the foot against the table about a week ago. The patient arrived in the emergency room. He was found to have gangrene of the left three does. The patient was admitted for further management and possible amputation of the left toes. Nephrology service was called for the management of endstage renal disease and hemodialysis. The patient denies any fevers, chills, or rigors. He does report some dull aching pain in the left foot, almost 6 out of 10 in intensity, which is constant, not relieved by any medications and it does not radiate, associated with some pus discharge from the foot and very foul smell. PAST MEDICAL HISTORY: Past medical history of endstage renal disease on hemodialysis every Monday, Monday and Monday. He was started on dialysis last year. Diabetes mellitus type 2,coronary artery disease, hypertension, hyperlipidemia, asthma, anemia secondary to endstage renal disease. History of multiple myeloma currently in remission. PAST SURGICAL HISTORY: Status post appendectomy many years ago. Status post cardiac catheterization with stent placement in the April 2016. History of prior left second toe amputation. ALLERGIES: No known drug allergies. Home MEDICATIONS: The patient's home medications include: - Percocet as needed - albuterol as needed - aspirin 81 mg - Calcitriol 0.25 mcg daily - Tums 500 mg as needed - Coreg 3.125 mg twice a day - glipizide 2.5 mg daily - hydroxyzine as needed - revlimid 5 mg - loratadine 10 mg as needed - melatonin 5 mg as needed - morphine one to two tablets every 4 hours as needed pain - nitroglycerine as needed - omeprazole 40 mg - MiraLAX as needed for constipation - Faye-You - telmisartan 80 mg by mouth daily - multiple vitamin Nephro-You one tablet by mouth daily. CURRENT INPATIENT MEDICATIONS: - The patient is currently on Zosyn 2.25 gram IV every 6 hours. - vancomycin 1 gram IV - Tylenol as needed - Albuterol nebulizations - Dulcolax as needed - Calcitriol - Tums 500 mg as needed - Coreg 3.125 mg twice a day - Decadron 20 mg by mouth every 7 days - Lasix 60 mg IV one dose was ordered with a blood transfusion. - heparin 5000 units subcutaneous every 12 hours - insulin sliding scale - Claritin 10 mg as needed itching - morphine sulfate 50 mg every 4 hours as needed pain - nitroglycerine as needed - omeprazole 40 mg daily - Zofran as needed for nausea - Micardis 80 mg daily - vitamin B complex and Nephro-You FAMILY HISTORY: No significant family history of endstage renal disease requiring hemodialysis. There is positive family history of heart disease in the family. SOCIAL HISTORY: The patient is a former smoker. He quit about 30 years ago. He denied any alcohol abuse. Denies any recreational drug use. REVIEW OF SYSTEMS: Constitutional: The patient denies any fever, chills, rigors, fatigue. Eyes: He denies any blurry vision or double vision. ENT: He denies any ear discharge, dysphagia or odynophagia. Cardiovascular: Denies chest pain or palpitations. Respiratory: He reports a history of asthma but he denies any dyspnea or orthopnea. GI: He denies any diarrhea, vomiting, constipation, pain in the abdomen. Genitourinary: He denies any dysuria or hematuria but he has a history of endstage renal disease. He makes very little urine. Musculoskeletal: He reports left-sided foot ulcer and discoloration of the toes. UNDERWRITING INTERN: He denies any history of strokes, seizures or any weakness recently. Psych: Denies any history of anxiety or depression. Skin: He reports dark discoloration of the left foot toes. Otherwise, he denies any ulcers or rashes. Hematologic/oncologic: He reports anemia secondary to endstage renal disease. Endocrine: The patient reports diabetes, otherwise, denies any history of any thyroid problems. He also reports secondary hyperparathyroidism. All other review of systems is negative. PHYSICAL EXAMINATION: GENERAL: The patient is awake, alert, oriented times three laying in bed in no apparent distress. VITAL SIGNS: Temperature 97.8, degrees Fahrenheit, blood pressure 121/61, pulse 93, respiratory rate 18, saturating 94% in room air. Intake and output: There is no urine output recorded. Weight on the bed scale is recorded as 51.2 kg. HEAD AND NECK: Extraocular muscles intact. Pupils equal, round, reactive to light. Neck is supple. There is no jugular venous distention. CARDIOVASCULAR: S1, S2. Regular rate. No murmur, rub or gallop. RESPIRATORY: Chest is clear to auscultation bilaterally. Bilaterally clear air entry. No rales or rhonchi. ABDOMEN: Soft. Positive bowel sound. Nontender, no ascites. No organomegaly. EXTREMITIES: The patient has gangrene of the left foot three toes, which extends all the way up to the mid foot, which is very foul smelling and there is some drainage of the pus from the healthy tissue site area as well. CENTRAL NERVOUS SYSTEM: No focal neurological deficit. Power is 5/5 in all extremities. PSYCH: Normal mood and affect. SKIN: No rashes or ulcers apart from the gangrene of the left foot. LYMPH NODES: There is no significant cervical, axillary or inguinal lymphadenopathy. LAB REVIEW: CBC showed a WBC 4.4, hemoglobin 7.1, platelets of 118. BMP showed sodium 142, potassium 3.9, chloride 104, bicarbonate 31, BUN 18, creatinine 2.05, calcium 7.4. His ferritin level is 2329. C-reactive protein is 10.4. Microbiology: Blood cultures are pending. Imaging: X-ray of the left foot done yesterday showed advanced Charcot joint disease in the tarsal bones. There is subcutaneous emphysema from the large soft tissue ulceration over the distal forefoot. ASSESSMENT: 75-year-old male with a past medical history of endstage renal disease on hemodialysis admitted this time with gangrene of the left foot. PLAN: 1. Left foot gangrene: The patient has already been started on broad spectrum IV antibiotics. The patient will need an amputation. The patient already got hemodialysis done yesterday. It is okay to do the amputation in the OR today from a nephrology standpoint. 2. Endstage renal disease on hemodialysis: The patient's regular days of dialysis are Monday, Monday and Monday. He was dialyzed yesterday. Next hemodialysis session would be tomorrow. No urgent need to do hemodialysis today. 3. Anemia and endstage renal disease: The patient's iron levels are adequate. His hemoglobin has dropped to 7.1. It is okay to transfuse one unit of packed red blood cells today. The patient got a dose of Lasix 60 mg IV after blood transfusion. I am going to order Aranesp at hemodialysis tomorrow as well. 4. Secondary hyperparathyroidism: Continue current dose of Calcitriol 0.25 mcg by mouth daily. 5. Diabetes mellitus type 2: Management as per primary team. Insulin sliding scale. 6. Hypertension: Blood pressure is acceptable at this time. Continue current dose of telmisartan 80 mg by mouth daily, Coreg 3.125 mg by mouth twice a day. 7. Multiple myeloma as reported by patient is currently in remission. Continue current dose of Decadron once a week. Patient is anemic at this time. Please consider getting hematology/oncology on board as well. Thank you for involving us in the care of this patient. We shall be happy to follow the patient along with you tomorrow morning.
[2016-05-24] MEDS: MORPHINE 30 MG TAB **MSIR PO PRN (13:23)
[2016-05-24 14:00] VITALS: BP 134/70
[2016-05-24] MEDS ORDERED: FUROSEMIDE 100 MG/10 ML VIAL (J1940) IV ONE (14:00)
[2016-05-24] MEDS ORDERED: SLF 3 ML SYR IV PRN (14:00)
[2016-05-24] MEDS: SLF 3 ML SYR IV SCH (14:00)
[2016-05-24] MEDS: HEPARIN SOD (PORCINE) 5000 UNITS/ML VIAL SQ SCH (14:31)
[2016-05-24] MEDS ORDERED: VANCOMYCIN HCL 750 MG, VIAL MATE ADAPTER 1 EACH in D5W 250 ML IV ONE (16:00)
[2016-05-24] MEDS ORDERED: MIDAZOLAM INJ 2 MG/2 ML VIAL (J2250) As Ordered ONE (16:06)
[2016-05-24] MEDS ORDERED: fentaNYL 100 MCG/2 ML INJECTION (J3010) As Ordered ONE ×2 (16:07→19:22)
[2016-05-24] MEDS ORDERED: PROPOFOL 200 MG/20 ML VIAL As Ordered ONE (16:09)
[2016-05-24] MEDS ORDERED: LIDOCAINE 2% INJ 100 MG/5 ML SDV (FOR ANES.) As Ordered ONE (16:09)
[2016-05-24] MEDS ORDERED: GENTAMICIN SULF INJ 80MG/2ML VIAL (J1580) As Ordered ONE (16:17)
[2016-05-24] MEDS ORDERED: BUPIVACAINE HCL 0.5% 30 ML VIAL As Ordered ONE (16:27)
[2016-05-24] MEDS ORDERED: LIDOCAINE 2% MDV 20 ML VIAL As Ordered ONE (16:27)
[2016-05-24] MEDS ORDERED: LIDOCAINE 2% MDV 20 ML VIAL SC ONE (17:34)
[2016-05-24] MEDS ORDERED: BUPIVACAINE HCL 0.5% 30 ML VIAL SC ONE (17:36)
[2016-05-24] MEDS ORDERED: GENTAMICIN SULF INJ 80MG/2ML VIAL (J1580) XX ONE (17:46)
[2016-05-24] MEDS ORDERED: TOBRAMYCIN SULF 1.2 GM VIAL As Ordered ONE (18:03)
[2016-05-24] MEDS ORDERED: TOBRAMYCIN SULF 1.2 GM VIAL TOP ONE (18:10)
[2016-05-24] MEDS ORDERED: PERCOCET 5MG/325MG TAB As Ordered ONE (19:22)
[2016-05-24] MEDS: fentaNYL 100 MCG/2 ML INJECTION (J3010) IV PRN ×2 (19:25→19:40)
[2016-05-24] MEDS ORDERED: NS 1,000 ML IV SCH (19:45)
[2016-05-24] MEDS ORDERED: ONDANSETRON 4MG/2ML VIAL (J2405) IV PRN (19:45)
[2016-05-24] MEDS ORDERED: PERCOCET 5MG/325MG TAB PO PRN (19:45)
--- NOTE | 2016-05-24 20:09 | REP ---
LEFT FOOT, FOUR VIEWS: HISTORY: Postoperative. COMPARISON: 05/23/2016. The patient is status post amputation of the first through 5th digits. This includes the head of the first metatarsal and distal two-thirds of the second through fifth metatarsals. Small ossified densities are present in the overlying soft tissue. Extensive degenerative change is present involving the tarsal joints and tarsometatarsal joints. Drainage tubing is present in the overlying soft tissue. IMPRESSION: The patient is status post amputation of the first through fifth digits as described above. Signed by Steve Smiley MD 05/25/2016 08:19 A
--- NOTE | 2016-05-24 20:38 | IPN ---
DATE: 05/24/2016 Patient seen and examined. Denies any fevers, chills, chest pain, pressure, or discomfort. Denies any shortness of breath, apparently comfortable. Consented for transfusion. VITAL SIGNS: Temperature 97.2, pulse 81, respiration 18, blood pressure 134/70, pulse ox 95% on room air. LABORATORY DATA: WBC 4.4, H H 7.1/22. Platelets 118. CHEMISTRY; Sodium 142, potassium 3.9, chloride 104, bicarbonate 31, BUN 18, creatinine 2.05. PHYSICAL EXAMINATION: GENERAL: Patient alert, cooperative, in no acute distress. HEENT: Normocephalic, atraumatic. PULMONARY: Bilateral clear to auscultation. CARDIAC: Regular rate and rhythm. Normal S1, S2. ABDOMEN: Soft, non-tender, non-distended. EXTREMITIES: Positive edema bilateral lower extremities 2+. Left foot is black. Left third, fourth, fifth toe there was also area of gangrene on the lateral side of the left foot and on the bottom of the left heel there is an ulcer on the plantar surface of his left foot. On the right foot there is dark eschar on the plantar surface of the first right toe and DT/PT pulses on the right foot has been appreciated. DT/PT pulses on the left foot is only threading. ASSESSMENT AND PLAN: This is a 75-year-old male patient with underlying medical history of type 2 diabetes, coronary artery disease, end-stage renal disease on hemodialysis, hypertension, dyslipidemia, asthma, heartburn, chronic anemia admitted for left foot gangrene. PROBLEMS: 1. Left foot gangrene. Dr. Pitt has been consulted. Going to the OR today for amputation. Dr. Kilgore has been consulted with questionable gangrene given subcutaneous emphysema. Continue antibiotics as per Dr. Kilgore. Follow u cultures. Patient currently on Zosyn and vancomycin. 2. End-stage renal disease on dialysis. Nephrology consulted. Patient on dialysis Monday, Monday, Monday. 3. Acute on chronic anemia with underlying multiple myeloma. Case has been discussed with Dr. Loaiza status post waiting a packed red blood cells, anemia work has been sent. Peripheral smear appreciated. Waiting a packed red blood cells. [facility] as per Dr. Loaiza. Case discussed with hematology/oncology as per Dr. Raya. Patient's multiple myeloma has improved with treatment but has not been in remission. But, Dr. Raya does not believe multiple myeloma is the primary cause of the patient's anemia. Follow up fecal occult. 4. Foot ulcer. Right foot ulcer. Follow up Dr. Pitt and Dr. Kilgore. Continue antibiotics. 5. . Type 2 diabetes. Follow up A1c. Insulin as ordered. Follow up fingersticks, adjust as needed. 6. Multiple myeloma. Continue Revlimid and Decadron. Case discussed with Dr. Raya. As per Dr. Raya patient's multiple myeloma has improved with treatment but not yet in remission. We will continue to follow. 7. Hypertension. Continue Coreg. Monitor blood pressure. Continue Micardis. Adjust as needed. 8. Gastroesophageal reflux disease. Continue PPI. 9. Peripheral vascular disease. Patient undergoing amputation at this time. Refuse below knee amputation. We will restart aspirin. 10. Coronary artery disease. Continue aspirin, Micardis, Coreg. Outpatient follow up. 11. Deep vein thrombosis prophylaxis. Heparin subcutaneous. DISPOSITION PLANNING: Depending anemic work up. Infectious disease and follow up. Clinical improvement. Patient with multiple comorbidity. Poor fdc prognosis.
[2016-05-24 20:50] VITALS: BP 104/53
[2016-05-24] MEDS ORDERED: PHENYLephrine HCL 500 MCG/5 ML (100MCG/ML) SYRINGE (J2370) As Ordered ONE (21:01)
[2016-05-24 21:20] VITALS: BP 83/49
[2016-05-24] MEDS: SILVER SULFADIAZINE 1% CR 50 GM JAR TOP SCH (21:36)
[2016-05-24] MEDS ORDERED: SODIUM CHLORIDE 0.9% 1000 ML IV ONE (22:15)
[2016-05-24 22:20] VITALS: BP 85/45
[2016-05-24 23:30] VITALS: BP 90/50
[2016-05-25] MEDS: SLF 3 ML SYR IV SCH ×4 (00:13→21:18)
[2016-05-25] MEDS: PIPERACILLIN/TAZOBACTAM SOD 2.25 GM in D5W MINI-BAG PLUS 50 ML IV SCH ×5 (00:13→22:43)
[2016-05-25 01:00] VITALS: BP 85/50
--- NOTE | 2016-05-25 02:07 | CR ---
DATE OF CONSULTATION: 05/24/2016 I was asked to consult by Dr. Gallegos for evaluation of left foot gangrene. HISTORY OF PRESENT ILLNESS: Mr. Figueroa is a 75-year-old gentleman with a history of end-stage renal disease on hemodialysis, multiple myeloma who went to dialysis today and was admitted to the hospital after the nurses noted that he was having a foul-smelling odor from his foot. The patient was noted to have gangrene. The patient states that he cannot see what is happening in his foot and he was not having significant pain, so he did not come to the hospital even though his home health care nurse had urged him to go be seen. He had refused. When he came to dialysis, he was told to go directly to the emergency room. The patient denies having any fever or chills. No nausea, vomiting or diarrhea. No abdominal pain. He had an arteriovenous (AV) fistula done a couple months ago and he is getting dialysis through that. He gets chemotherapy for his multiple myeloma and sees Dr. Anu Raya weekly. He had a history of chronic osteomyelitis of the left foot, same foot with a large ulcer on the plantar aspect of the foot, had refused to followup with Dr. Levi for debridement and hyperbaric as he did not have transportation. He had been on Augmentin for over 6 months, which has been recently discontinued. PAST MEDICAL HISTORY: Diabetes, coronary artery disease, hyperlipidemia, asthma, end-stage kidney disease from multiple myeloma on dialysis through an AV fistula, has gastroesophageal reflux disease, chronic anemia. PAST SURGICAL HISTORY: Appendectomy, cardiac catheterization April 2016, prior second left toe amputation. FAMILY HISTORY: Heart disease in both sisters. SOCIAL HISTORY: Quit smoking over 30 years ago. Denies alcohol use for over a year. Lives alone, does not have too much support. PHYSICAL EXAMINATION: He is a healthy looking gentleman in no acute distress, somewhat upset because of his anticipated surgery with a transmetatarsal amputation. Temperature is 97.4. He has been afebrile for the past 24 hours. Pulse 80, respirations 16, blood pressure 97/55, oxygen saturation 100% on 2 liters nasal cannula. Heart: Normal S1, S2, distant. Lungs: Clear. No wheezes, rales or rhonchi. Abdomen: Soft, nontender, obese. Extremities: Left arm AV fistula with a thrill. Left foot gangrene of the third, fourth and fifth toe extending a third into the foot with foul smell, but no purulent discharge. Prior second toe amputation, ulceration on the plantar aspect of the foot with an ulcer measuring about 6 x 5 cm with yellow granulation tissue. He has a good popliteal pulse, but dorsalis pedis could not be appreciated. Right foot has also along the heel ecchymosis and on the dorsal aspect of the foot another ecchymotic area. MEDICATIONS: - Decadron 20 mg every 7 days - aspirin 81 mg by mouth daily - Aranesp 300 mcg intravenously (IV) with hemodialysis - fentanyl patch - Percocet as needed - vancomycin 750 mg IV once given on 05/24 - multivitamin - omeprazole 40 mg by mouth daily - Micardis 81 mg by mouth daily - Zosyn 2.25 grams IV every 6 hours - calcium carbonate 500 mg by mouth three times a day as needed - hydroxyzine as needed - Claritin 10 mg by mouth as needed - MiraLAX as needed ALLERGIES: No known drug allergies. LABORATORY DATA: White count was 5.7 yesterday, today 4.4, hemoglobin 7.1, hematocrit 22, platelets 118. He received two units of blood preoperatively. Sodium 142, potassium 3.9, chloride 104, bicarbonate 31, BUN 18, creatinine 2, glucose 124, calcium 7.4, iron 25, TIBC 86, ferritin 2329, CRP 10.4. Vitamin B12 511 and folate 12.2. IMPRESSION: This is a 75-year-old gentleman with a history of chronic ulceration and osteomyelitis of the left foot, who had received previously over 6 months of oral Augmentin, who is admitted with gangrene of the left third, fourth and fifth toe extending into the foot. The patient has refused a below-knee amputation (BKA) and has accepted a transmetatarsal amputation, which is scheduled to be done by Dr. Sweetie harris. I have concern about his recovery and his healing. PLAN: Suggest obtaining aerobic, anaerobic culture from the plantar ulcer to see whether he would benefit from further intravenous (IV) or oral antibiotic to help with the healing of his foot that is going to be resected through an ulcer that is already infected. The patient is also already very immunocompromised with multiple myeloma, as well as end-stage renal disease and his chance of recovery of left foot is pretty low, especially that he refused in the past to go to the wound center and followup with Dr. Levi as well. Thank you for the consult.
[2016-05-25] MEDS: HEPARIN SOD (PORCINE) 5000 UNITS/ML VIAL SQ SCH ×2 (04:51→16:33)
[2016-05-25 06:00] VITALS: BP 112/55
[2016-05-25 06:54] LABS: BASO % 0.7 % (0.0-1.0); EOS # 0.1 K/mm3 (0.0-0.50); EOS % 2.8 % (0.0-3.0); LARGE UNSTAINED CELL # 0.1 K/mm3 (0.0-0.4); LARGE UNSTAINED CELL % 2.9 % (0.0-4.0); LYMPH # 0.6 K/mm3 (1.5-4.5); LYMPH % 9.6 % (24.0-44.0); MEAN CORPUSCULAR HEMOGLOBIN 32.2 pg (27.0-33.0); MEAN CORPUSCULAR HGB CONC 31.9 g/dl (32.0-36.5); MEAN CORPUSCULAR VOLUME 100.9 fl (80.0-96.0); MONO # 0.3 K/mm3 (0.0-0.8); MONO % 7.2 % (0.0-5.0); NEUTROPHILS # 3.7 K/mm3 (1.8-7.7); NEUTROPHILS % 76.8 % (36.0-66.0); PLATELET COUNT, AUTOMATED 117 k/mm3 (150-450); RED CELL DISTRIBUTION WIDTH 17.8 % (11.5-14.5); WHITE BLOOD COUNT 4.8 K/mm3 (4.0-10.0)
[2016-05-25 07:03] LABS: CALCIUM LEVEL 6.9 MG/DL (8.8-10.2); CREATININE FOR GFR 2.7 MG/DL (0.70-1.30); GLOMERULAR FILTRATION RATE 24.7 (>42); POTASSIUM SERUM 4.1 MEQ/L (3.5-5.1)
[2016-05-25] MEDS ORDERED: DARBEPOETIN 300 MCG/0.6 ML *DIALYSIS* SYRINGE (J0882) IV SCH (08:00)
[2016-05-25] MEDS: HumaLOG INSULIN (NovoLOG) PER UNIT SC SCH ×4 (08:23→21:00)
[2016-05-25] MEDS: TELMISARTAN 20 MG TAB PO SCH (08:23)
[2016-05-25] MEDS: OMEPRAZOLE 20 MG CAP PO SCH (08:23)
[2016-05-25] MEDS: CALCITRIOL 0.25 MCG CAP (S0169) PO SCH (08:23)
[2016-05-25] MEDS: NEPHRO-VIT TAB (NEPHROCAPS) PO SCH (08:24)
[2016-05-25] MEDS: CARVedilol 3.125 MG TAB PO SCH ×2 (08:24→21:18)
[2016-05-25] MEDS: ASPIRIN 81 MG ENTERIC TAB PO SCH (08:24)
[2016-05-25] MEDS: MORPHINE 30 MG TAB **MSIR PO PRN ×2 (08:31→18:06)
[2016-05-25] MEDS ORDERED: PREVNAR 13 VACCINE SYRINGE (CPT CODE:90670) IM ONE (09:00)
--- NOTE | 2016-05-25 10:01 | RO ---
DATE OF PROCEDURE: 05/24/2016 PREPROCEDURE DIAGNOSIS: Gangrenous forefoot left foot. POSTPROCEDURE DIAGNOSIS: Gangrenous forefoot left foot. PROCEDURE: Transmetatarsal amputation left foot. SURGEON: Jeffrey Pitt DPM CESSPOOL CLEANER: None. ANESTHESIA: Local, monitored anesthesia care (MAC). HEMOSTASIS: None. IMPLANTABLES: 15, 5 mm Tobramycin impregnated beads. DRAINS UTILIZED: TLS drain. IRRIGATION: Dilute gentamicin solution 3 liters with a low pressure pulse lavage system. CULTURES OBTAINED: Bone culture left forefoot. DESCRIPTION OF OPERATION: On 05/24/2016, this 75-year-old male was taken from his hospital room to the operating room and placed on the operating room table in a supine position. Following the induction of IV sedation, local and regional anesthesia, the left lower extremity was prepped and draped in the usual aseptic manner. Attention was directed to the patient's left forefoot where there was necrosis of the third, fourth and fifth digits with necrotic change to the mid shaft area. Utilizing sharp dissection, dissection was carried down straight to the bone on the lesser digits encompassing the entire necrotic tissue. An incision was then made on the lateral side of the hallux crossing the interphalangeal joint and this section of the hallux was removed. The entire medial skin around the hallux and base of the second metatarsal was then filleted open to allow a medial rotation flap. Utilizing a power saw, an osteotomy was performed through the first metatarsal at the level of the neck slightly biased in a medial and plantar direction. After this was cut and removed, the metatarsals were cut in a staggered fashion across the second, third, fourth and fifth metatarsals. The flap was then adjusted; however, slightly more bone had to be taken from all the metatarsals to allow a closure of this rotational flap. Therefore, the bone was again cut, shortening an additional centimeter. Hemostasis was obtained with #3-0 Monocryl as well as electrocautery. After adequate hemostasis was obtained, the wound was pulse lavaged with 3 liters of dilute gentamicin solution. There was a dog ear noted on the medial section which was then ellipsed. The wound was then completely closed with finger tension to assess the flap. Minimal tension was noted. A TLS drain was then placed through the dorsal aspect of the foot and sutured with #2-0 silk. Fifteen 5 mm Tobramycin beads were then placed into the wound and the wound was closed with #3-0 nylon suture in a simple interrupted type fashion. A sterile dressing was then applied consisting of Adaptic, ABDs, Kerlix and Coban. The patient having apparently tolerated the surgical procedure well was taken from the operating room (OR) to the recovery room with vital signs stable and the patient afebrile for further monitoring by the anesthesia department. Aerobic and anaerobic bone cultures were obtained.
[2016-05-25] MEDS ORDERED: LIDOCAINE 1% SDV 5 ML VIAL SQ ONE (12:00)
[2016-05-25] MEDS ORDERED: HEPARIN 1,000 UNITS/ML 10ML VIAL (FOR RADIOLOGY& DIALYSIS ONLY) XX ONE (12:00)
--- NOTE | 2016-05-25 12:14 | IPN ---
DATE: 05/25/2016 SUBJECTIVE: The patient was seen and examined this morning during hemodialysis procedure. He was tolerating the hemodialysis procedure well. He is status post left foot transmetatarsal amputation postop day 1 today. The patient denies any active complaints at this time. The patient's hemoglobin has also dropped to 6.1. He is going to get packed red blood cells transfusion with hemodialysis at this time. REVIEW OF SYSTEMS: The patient denies any fevers, chills, rigors, headache, nausea, vomiting, chest pain, shortness of breath, pain in the abdomen, constipation or diarrhea. He reports some pain in the left transmetatarsal amputation site. The rest of the review of systems is negative. OBJECTIVE: VITAL SIGNS: Temperature is 97.5 degrees Fahrenheit, blood pressure is 120/61, pulse 83, respiratory rate of 18, saturating 100% on nasal cannula. Intake and output: There is no urine output recorded. Estimated blood loss during surgery was about 200 mL yesterday. GENERAL: The patient is awake, alert, oriented times three laying in the bed getting hemodialysis done. HEAD AND NECK: Extraocular muscles intact. Pupils equal, round, reactive to light. Neck is supple. There is no jugular venous distention. CARDIOVASCULAR: S1, S2. Regular rate. No murmur, rub or gallop. RESPIRATORY: Chest is clear to auscultation bilaterally. Bilaterally good air entry. No rale or rhonchi. ABDOMEN: Soft, positive bowel sounds. Nontender. No ascites. No organomegaly. EXTREMITIES: The patient has a dressing on the left foot transmetatarsal amputation site and he has a drain in the surgical site as well. CENTRAL NERVOUS SYSTEM: No focal neurological deficit. Power is 5/5 in all extremities. PSYCH: Normal mood and affect. AV ACCESS: The patient has a left forearm arteriovenous fistula which is being used for hemodialysis at this time. LAB REVIEW: CBC showed a WBC 4.8, hemoglobin 6.1, platelets of 117, BMP showed sodium 140, potassium 4.1, chloride 103, bicarbonate 29, BUN 26, creatinine is 2.7, calcium 6.9. Microbiology: Blood cultures are negative so far. Wound cultures are pending. Imaging: X-ray of the left foot showed patient is status post amputation of the 1st through 5th digits. CURRENT MEDICATIONS: The patient's medications are all reviewed by me. He continues to be on IV antibiotics and there is no other change in the medications at this time. ASSESSMENT: 76-year-old male with the past medical history of endstage renal disease on hemodialysis every Monday, Monday and Monday, history of multiple myeloma, currently undergoing chemotherapy, admitted this time with gangrene of the left foot, status post transmetatarsal amputation of the left foot on May 24, 2016. PLAN: 1. Left foot gangrene status post left transmetatarsal amputation. Management is as per podiatry. Pain is well optimized. The patient lost blood during surgery. He will get packed red blood cells transfusion with hemodialysis. 2. Anemia secondary to blood loss and endstage renal disease. Two units of packed red blood cells transfusion will be given during hemodialysis procedure today. I have also ordered the Aranesp 300 mcg IV with hemodialysis. 3. Endstage renal disease on hemodialysis. The patient is being dialyzed according to his regular schedule today. I shall try to do an ultrafiltration around 2.5 to 3 kg as tolerated by his blood pressure. 4. Multiple myeloma: The patient gets Decadron once a week and he is also due for his chemotherapy injection. Primary team has already coordinated with hematology/oncology for his chemotherapy. 5. Hypertension: Blood pressure is well controlled at this time. Continue current dose of telmisartan and Coreg. 6. Secondary hyperparathyroidism: Continue current dose of Calcitriol 0.25 mcg by mouth daily. The plan of care was discussed with the hospitalist team, Dr. Sammi Morales.
[2016-05-25] MEDS: SILVER SULFADIAZINE 1% CR 50 GM JAR TOP SCH (13:30)
--- NOTE | 2016-05-25 15:52 | REP ---
LEFT FOOT, THREE VIEWS: HISTORY: Amputation. 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 This includes the head of the first metatarsal and distal two-thirds of the second through fifth metatarsals. Small calcified densities are present in the overlying soft tissue. Extensive degenerative change is present in the tarsal and metatarsal phalangeal joints. Drainage tubing is present in the overlying subcutaneus tissue. IMPRESSION: The patient is status post amputation of the first through fifth digits. Signed by Steve Smiley MD 05/25/2016 04:07 P
--- NOTE | 2016-05-25 17:15 | EDDOCDS ---
Nurse's Notes [facility] Name: Charles Figueroa Age: 75 yrs Sex: Male : 1940 Arrival Date: 05/23/2016 Time: 11:22 Bed 10 Private MD: Diagnosis: Idiopathic aseptic necrosis of left foot Presentation: 05/23 11:30 Presenting complaint: EMS states: infected left foot. symptoms for awhile. pt states srm its black- dressing intact at this time. had dialysis today. Adult Sepsis Screening: The patient does not have new or worsening altered mentation. Patient's respiratory rate is less than 22. Systolic blood pressure is greater than 100. Patient has a qSOFA score of 0- Negative Sepsis Screen. Suicide/Homicide risk assessment- the patient denies having any suicidal and/or homicidal ideations and does not present with any other emotional, behavioral or mental health complaints. Status: Patient is not a services host or dependent. Transition of care: patient was received from dialysis. 11:30 Acuity: [place] Level 3 [facility] 11:30 Method Of Arrival: Ambulance [facility] 11:34 Presenting complaint: Patient states: states he stubbed his toe on left foot 1 week ago srm and 2 days ago noticed his foot turning black and infectious. Triage Assessment: 11:40 Musculoskeletal: toes 3-5 on left foot black. large areas open and draining to top and srm bottom of lft foot. drainage is purulent and odorous. also blackened area to bottom of left foot. Historical: - Allergies: no known allergies; - Home Meds: 1. albuterol sulfate 90 mcg/actuation Inhl HFAA 2 puffs every 6 hours 2. aspirin 81 mg Oral tab 1 tab once daily 3. calcitriol 0.25 mcg oral cap 1 cap once daily 4. Coreg 6.25 mg Oral tab 1 tab 2 times per day 5. melatonin 5 mg Oral tab nightly 6. Miralax 17 gram Oral pwpk 1 packet once daily 7. nephrovite daily 8. omeprazole 40 mg Oral cpDR 1 cap once daily 9. oxycodone 5 mg Oral tab 1 tab every 4 hours 10. Plavix 75 mg Oral tab 1 tab once daily 11. renavite .8 mg 12. Tums 200 mg calcium (500 mg) Oral chew 2 tabs three times a day - PMHx: Anemia; Asthma; Diabetes - NIDDM: controlled; GERD; Hypercholesterolemia; Hypertension; Multiple Myeloma; Myocardial infarction; Renal Failure with Dialysis; - PSHx: Cardiac stents; Appendectomy; Dialysis Catherter Insertion; - Family history: Not pertinent. - Social history: Smoking status: Patient states former smoker of tobacco. No barriers to communication noted, The patient speaks fluent Irish, Speaks appropriately for age. - : The pt / caregiver states he / she is on anticoagulants: Plavix. Home medication list is obtained from the patient. - Exposure Risk Screening:: None identified. Screenin:26 Screening information is obtained from the patient. Fall risk: At risk due to gait srm disturbance, The following interventions are performed due to a positive Fall Risk Screen: Fall Risk is added to Special Handling on the patient Summary Screen. A Fall Risk Bracelet was applied to the patient. Side Rails are placed in the up position. A Call Schroeder is given with instruction to call for help when getting out of bed. Fall Alert bracelet is placed on the patient. Assistance ADL's: requires no assistance with activities of daily living. Abuse/DV Screen: The patient / caregiver reports he/she is: not in a situation that causes fear, pain or injury. Nutritional screening: No deficits noted. Advance Directives: Currently, there is a health care proxy, johnie evans or brother amy. home support is adequate. Assessment: 13:09 General: Appears in no apparent distress, Behavior is appropriate for age, cooperative. srm Neurological: No deficits noted. EENT: No deficits noted. Respiratory: No deficits noted. GI: No deficits noted. Derm: Skin is pale. Musculoskeletal: toes 3-5 and johnny;f cuircle looping down top of foot black. large open area draining purulent drainage. also wound to bottom aspect of foot . white large round area noptedt to heel of left foot. wet to dry DSD applied and secured with lyndsey wrap. pedal pulse noted by doppler. 15:20 General: Appears in no apparent distress, Behavior is appropriate for age, cooperative, srm ate lunch. talking with visitor voices no c/oat this time. foot remains dressed. toes 3-5 black in color. 16:11 General: Appears in no apparent distress, Behavior is appropriate for age, cooperative. srm Pain: Denies pain. Neurological: No deficits noted. EENT: No deficits noted. Respiratory: No deficits noted. GI: No deficits noted. Vital Signs: 11:39 BP 141 / 67; Pulse 105; Resp 18; Temp 98.8(TE); Pulse Ox 97% on R/A; Weight 51.26 kg ct3 (R); Height 5 ft. 9 in. (175.26 cm) (R); 11:52 Pulse 102 MON; Pulse Ox 90% on R/A; srm 11:53 BP 135 / 72 (auto/); srm 12:08 Pulse 96 MON; Pulse Ox 98% ; srm 12:08 BP 142 / 77 (auto/); srm 12:23 Pulse 98 MON; Pulse Ox 97% ; srm 12:23 BP 154 / 76 (auto/); srm 12:38 BP 129 / 63 (auto/); srm 12:38 Pulse 96 MON; Pulse Ox 99% on 2 lpm NC; srm 12:53 Pulse 94 MON; srm 12:53 BP 146 / 74 (auto/); srm 13:08 BP 148 / 79 (auto/); srm 13:08 Pulse 94 MON; srm 13:23 BP 151 / 79 (auto/); srm 13:23 Pulse 94 MON; srm 13:38 BP 145 / 80 (auto/); srm 13:38 Pulse 96 MON; Pulse Ox 100% on 2 lpm NC; srm 13:53 Pulse 92 MON; srm 13:53 BP 142 / 73 (auto/); srm 14:08 BP 143 / 79 (auto/); srm 14:08 Pulse 92 MON; srm 14:21 Pulse 98 MON; Pulse Ox 93% ; srm 14:23 BP 148 / 80 (auto/); srm 14:38 BP 119 / 56 (auto/); srm 14:38 Pulse 102 MON; Pulse Ox 80% ; srm 15:08 BP 151 / 71 (auto/); srm 15:09 Pulse 102 MON; Pulse Ox 100% ; srm 15:14 BP 148 / 70 (auto/); srm 15:14 Pulse 102 MON; Resp 18; Temp 99.9(TE); Pulse Ox 100% on 2 lpm NC; srm 16:08 BP 141 / 67 (auto/); srm 16:08 Pulse 102 MON; Resp 20; Temp 96.3; Pulse Ox 92% on R/A; Pain 0/10; srm 11:39 Body Mass Index 16.69 (51.26 kg, 175.26 cm) ct3 Vitals: 11:39 Log In Time N/A - ambulance arrival. ct3 ED Course: 11:23 Patient visited by Teresa Brown, Bushel Girl. deg 11:23 Patient moved to Waiting deg 11:26 Joanne Hernandez,RN is Primary Nurse. deg 11:26 Patient moved to 10 deg 11:27 Patient moved to I9 / 22 deg 11:29 Patient moved to 10 srm 11:31 Triage Initiated srm 11:32 Patient visited by Shaylee High, DUGLAS. srm 11:35 Patient visited by Shaylee High, DUGLAS. srm 11:39 Patient has correct armband on for positive identification. Placed in gown. Bed in low ct3 position. Call light in reach. Side rails up X2. environmental monitoring technician on. Pulse ox on. NIBP on. 11:40 Patient visited by Charlotte oRmo PCA. ct3 11:49 Inserted saline lock: 20 gauge in right wrist. pt tolerated well. srm 11:55 Lexii rOta MD is Attending Physician. fg 12:47 Patient visited by Lexii Orta MD. fg 13:01 BLOOD CULTURES Sent. srm 13:12 Patient visited by Shaylee High RN. srm 13:38 [facility] Payment Agreement was scanned into [employer] and attached to record. jp5 13:41 Myrna Murry is Hospitalizing Provider. fg 14:31 Foot, Complete Returned. EDMS 15:24 Patient visited by Shaylee High RN. srm 15:26 The patient / caregiver is instructed regarding the plan of care and ED course. srm 15:37 Patient visited by Shaylee iHgh RN. srm 15:37 REPORT TUBED TO 5 TERRY. srm 16:08 No procedures done that require assistance. srm 05/24 09:56 T-Sheet-- Draft Copy was scanned into [employer] and attached to record. gb 09:56 Trend VS was scanned into [employer] and attached to record. gb Attachments: 09:56 Trend VS gb Order Results: Lab Order: CBC with Diff; SPEC'M 05/23/16 12:36 Test: WHITE BLOOD COUNT; Value: 5.7; Range: 4.0-10.0; Units: K/mm3; Status: F Test: RED BLOOD COUNT; Value: 2.55; Range: 4.30-6.10; Abnormal: Below low normal; Units: M/mm3; Status: F Test: HEMOGLOBIN; Value: 8.3; Range: 14.0-18.0; Abnormal: Below low normal; Units: g/dl; Status: F Test: HEMATOCRIT; Value: 26.2; Range: 42.0-52.0; Abnormal: Below low normal; Units: %; Status: F Test: MEAN CORPUSCULAR VOLUME; Value: 102.7; Range: 80.0-96.0; Abnormal: Above high normal; Units: fl; Status: F Test: MEAN CORPUSCULAR HEMOGLOBIN; Value: 32.7; Range: 27.0-33.0; Units: pg; Status: F Test: MEAN CORPUSCULAR HGB CONC; Value: 31.9; Range: 32.0-36.5; Abnormal: Below low normal; Units: g/dl; Status: F Test: RED CELL DISTRIBUTION WIDTH; Value: 17.3; Range: 11.5-14.5; Abnormal: Above high normal; Units: %; Status: F Test: PLATELET COUNT, AUTOMATED; Value: 142; Range: 150-450; Abnormal: Below low normal; Units: k/mm3; Status: F Test: NEUTROPHILS %; Value: 86.7; Range: 36.0-66.0; Abnormal: Above high normal; Units: %; Status: F Test: LYMPH %; Value: 3.6; Range: 24.0-44.0; Abnormal: Below low normal; Units: %; Status: F Test: MONO %; Value: 5.7; Range: 0.0-5.0; Abnormal: Above high normal; Units: %; Status: F Test: EOS %; Value: 1.3; Range: 0.0-3.0; Units: %; Status: F Test: BASO %; Value: 1.5; Range: 0.0-1.0; Abnormal: Above high normal; Units: %; Status: F Test: LARGE UNSTAINED CELL %; Value: 1.2; Range: 0.0-4.0; Units: %; Status: F Test: NEUTROPHILS #; Value: 4.9; Range: 1.8-7.7; Units: K/mm3; Status: F Test: LYMPH #; Value: 0.3; Range: 1.5-4.5; Abnormal: Below low normal; Units: K/mm3; Status: F Test: MONO #; Value: 0.3; Range: 0.0-0.8; Units: K/mm3; Status: F Test: EOS #; Value: 0.1; Range: 0.0-0.50; Units: K/mm3; Status: F Test: BASO #; Value: 0.1; Range: 0.0-0.2; Units: K/mm3; Status: F Test: LARGE UNSTAINED CELL #; Value: 0.1; Range: 0.0-0.4; Units: K/mm3; Status: F Lab Order: Basic Metabolic Profile; [facility]' 05/23/16 12:36 Test: GLUCOSE, FASTING; Value: 112; Range: 83-110; Abnormal: Above high normal; Units: MG/DL; Status: F Test: BLOOD UREA NITROGEN; Value: 12; Range: 7-18; Units: MG/DL; Status: F Test: CREATININE FOR GFR; Value: 1.47; Range: 0.70-1.30; Abnormal: Above high normal; Units: MG/DL; Status: F Test: GLOMERULAR FILTRATION RATE; Value: 49.9; Range: >42; Status: F Test: SODIUM LEVEL; Value: 142; Range: 136-145; Units: MEQ/L; Status: F Test: POTASSIUM SERUM; Value: 3.7; Range: 3.5-5.1; Units: MEQ/L; Status: F Test: CHLORIDE LEVEL; Value: 103; Range: 98-107; Units: MEQ/L; Status: F Test: CARBON DIOXIDE LEVEL; Value: 31; Range: 21-32; Units: MEQ/L; Status: F Test: ANION GAP; Value: 8; Range: 8-16; Units: MEQ/L; Status: F Test: CALCIUM LEVEL; Value: 8.0; Range: 8.8-10.2; Abnormal: Below low normal; Units: MG/DL; Status: F Test Note: ; Units are mL/min/1.73 m2 Chronic Kidney Disease Staging per NKF: Stage I & II GFR >=60 Normal to Mildly Decreased Stage III GFR 30-59 Moderately Decreased Stage IV GFR 15-29 Severely Decreased Stage V GFR <15 Very Little GFR Left ESRD GFR <15 on RESEARCH SOIL SCIENTIST Lab Order: PATHOLOGIST REVIEW COMPREHENSI; SPEC'M 05/23/16 12:36 Test: SLIDE REVIEW; Value: Report; Status: F Test: SOURCE; Value: PERIPHERAL SMEAR; Status: F Test: REASON FOR REVIEW; Value: COMPREHENSIVE REVIEW; Status: F Test Note: ; Slide and/or specimen referred to Pathologist for review. Results of the review are located in the EMR Pathology module under Peripheral Smear when completed. Lab Order: LIVER PROFILE; SPEC'M 05/23/16 12:36 Test: AST/SGOT; Value: 24; Range: 15-37; Units: U/L; Status: F Test: ALT/SGPT; Value: 29; Range: 12-78; Units: U/L; Status: F Test: ALKALINE PHOSPHATASE; Value: 182; Range: 45-117; Abnormal: Above high normal; Units: U/L; Status: F Test: BILIRUBIN,TOTAL; Value: 0.9; Range: 0.2-1.0; Units: MG/DL; Status: F Test: BILIRUBIN,DIRECT; Value: 0.6; Range: 0.0-0.2; Abnormal: Above high normal; Units: MG/DL; Status: F Test: TOTAL PROTEIN; Value: 6.0; Range: 6.4-8.2; Abnormal: Below low normal; Units: GM/DL; Status: F Test: ALBUMIN; Value: 2.3; Range: 3.2-5.2; Abnormal: Below low normal; Units: GM/DL; Status: F Test: ALBUMIN/GLOBULIN RATIO; Value: 0.62; Range: 1.00-1.93; Abnormal: Below low normal; Status: F Lab Order: FERRITIN; SPEC'M 05/23/16 12:36 Test: FERRITIN; Value: 2883; Range: 26-388; Abnormal: Above high normal; Units: NG/ML; Status: F Lab Order: TOTAL IRON BINDING CAPACIT; SPEC'M 05/23/16 12:36 Test: IRON (FE); Value: 31; Range: 65-175; Abnormal: Below low normal; Units: UG/DL; Status: F Test: TOTAL IRON BINDING CAPACITY; Value: 120; Range: 250-450; Abnormal: Below low normal; Units: UG/DL; Status: F Test: PERCENT SATURATION; Value: 25.8; Range: 19.7-37.4; Units: %; Status: F Lab Order: RETICULOCYTE COUNT; SPEC'M 05/23/16 12:36 Test: RETICULOCYTE % [id number]; Value: 2.20; Range: 0.5-1.5; Abnormal: Above high normal; Units: %; Status: F Test: RETICULOCYTE ABSOLUTE [id number]; Value: 55; Range: 17-77; Units: x10(9)/L; Status: F Test: RETIC HEMOGLOBIN CONTENT CHr; Value: 35.3; Range: 24-36; Units: PG; Status: F Radiology Order: Foot, Complete Test: Foot, Complete REASON FOR EXAMINATION: concern for infection; LEFT FOOT SERIES, COMPLETE: 05/23/2016; ; CLINICAL HISTORY: Diabetic foot ulcer, concern for infection.; ; Four views are provided.; ; There is a dressing over the lateral aspect of the distal forefoot. There; appears to be resection of the 2nd toe previously with only the articular aspect; of the proximal phalanx remaining. There is extensive subcutaneous emphysema; adjacent to the distal ends of the 4th and 5th metatarsals at the MTP joints.; There is been fusion of the DIP joint of the 5th toe. The 3rd through 5th toes; show no definite or displaced fracture. Lucencies in the subcutaneous tissues are; consistent with air in the subcutaneous tissues. They make determination of; destruction of bone very difficult. I cannot deftly confirm a pathologic; fracture in this region or destructive lesion. Small vessel arterial; calcifications noted between metatarsals and into the great toe. There is a; Charcot's joint with extensive spurring sclerosis and partial fusion of 2nd and; 3rd CMP joints with separation of the 1st and 2nd metatarsals, which all appear; to be chronic Charcot's joint changes. Soft tissue swelling over the foot. There; is loss of subtalar joint delineation. There are arterial calcifications about; the ankle and hind foot as well as plantar and Achilles insertional spurs.; Rocker arm/foot appearance on the lateral view from the advanced Charcot foot; changes. There is a tiny metallic foreign body about 4 mm long in the tissues; adjacent to the proximal shaft of the 1st metatarsal along the plantar aspect of; the subcutaneous region.; ; IMPRESSION: Some osteoporosis and advanced Charcot joint changes seen in the; tarsal bones with subcutaneous emphysema from large soft tissue ulceration over; the distal forefoot at the distal heads of the 4th and 5th metatarsals. Some; chronic degenerative changes as described. The possibility of infection within; the bone is not excluded. Soft tissue swelling, small vessel arterial; calcification and degenerative changes along with those Charcot joint changes; particularly in the tarsal bones and TMT joints.; ; ; Signed by; Ajit Lopes MD 05/23/2016 02:56 P; Outcome: 05/23 13:43 Decision to Hospitalize by Provider. fg 16:08 Discharge Assessment: Patient awake, alert and oriented x 3. No cognitive and/or srm functional deficits noted. Patient verbalized understanding of disposition instructions. patient administered narcotics - no. The following High Risk Discharge criteria are identified: None. Admitted to Med/Surg accompanied by tech, via stretcher, with chart. Condition: stable. No special radiology studies were completed. Property :Personal belongings accompany Pt. 16:14 Patient left the ED. [facility] Signatures: Dispatcher [employer] EDTeresa Romano, Bushel Girl Unit deg Shiraz Blas,DUGLAS RN Shaylee Dela Cruz RN RN [facility] Dulce De Los Santos, Reg Reg gb Charlotte Romo, MUSEUM ATTENDANT MUSEUM ATTENDANT ct3 Clark Card jp5 Lexii Orta MD MD fg Corrections: (The following items were deleted from the chart) 14:24 13:37 LIVER PROFILE+LAB sent. [facility] EDMS Chart Complete MTDD
--- NOTE | 2016-05-25 17:15 | EDDOCDS ---
Physician Documentation [facility] Name: Charles Figueroa Age: 75 yrs Sex: Male : 1940 Arrival Date: 05/23/2016 Time: 11:22 Bed 10 Private MD: Disposition: 05/23/16 13:43 Hospitalization ordered by Myrna Murry for Inpatient Admission. 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 - Bed requested for 5 Vale. - Status is Inpatient Admission. srm - Condition is Stable. - Problem is chronic. - Symptoms have worsened. Historical: - Allergies: no known allergies; - Home Meds: 1. albuterol sulfate 90 mcg/actuation Inhl HFAA 2 puffs every 6 hours 2. aspirin 81 mg Oral tab 1 tab once daily 3. calcitriol 0.25 mcg oral cap 1 cap once daily 4. Coreg 6.25 mg Oral tab 1 tab 2 times per day 5. melatonin 5 mg Oral tab nightly 6. Miralax 17 gram Oral pwpk 1 packet once daily 7. nephrovite daily 8. omeprazole 40 mg Oral cpDR 1 cap once daily 9. oxycodone 5 mg Oral tab 1 tab every 4 hours 10. Plavix 75 mg Oral tab 1 tab once daily 11. renavite .8 mg 12. Tums 200 mg calcium (500 mg) Oral chew 2 tabs three times a day - PMHx: Anemia; Asthma; Diabetes - NIDDM: controlled; GERD; Hypercholesterolemia; Hypertension; Multiple Myeloma; Myocardial infarction; Renal Failure with Dialysis; - PSHx: Cardiac stents; Appendectomy; Dialysis Catherter Insertion; - Family history: Not pertinent. - Social history: Smoking status: Patient states former smoker of tobacco. No barriers to communication noted, The patient speaks fluent Ukrainian, Speaks appropriately for age. - : The pt / caregiver states he / she is on anticoagulants: Plavix. Home medication list is obtained from the patient. - Exposure Risk Screening:: None identified. Vital Signs: 05/23 11:39 BP 141 / 67; Pulse 105; Resp 18; Temp 98.8(TE); Pulse Ox 97% on R/A; Weight 51.26 kg / ct3 113.01 lbs (R); Height 5 ft. 9 in. (175.26 cm) (R); 11:52 Pulse 102 MON; Pulse Ox 90% on R/A; srm 11:53 BP 135 / 72 (auto/); srm 12:08 Pulse 96 MON; Pulse Ox 98% ; srm 12:08 BP 142 / 77 (auto/); srm 12:23 Pulse 98 MON; Pulse Ox 97% ; srm 12:23 BP 154 / 76 (auto/); srm 12:38 BP 129 / 63 (auto/); srm 12:38 Pulse 96 MON; Pulse Ox 99% on 2 lpm NC; srm 12:53 Pulse 94 MON; srm 12:53 BP 146 / 74 (auto/); srm 13:08 BP 148 / 79 (auto/); srm 13:08 Pulse 94 MON; srm 13:23 BP 151 / 79 (auto/); srm 13:23 Pulse 94 MON; srm 13:38 BP 145 / 80 (auto/); srm 13:38 Pulse 96 MON; Pulse Ox 100% on 2 lpm NC; srm 13:53 Pulse 92 MON; srm 13:53 BP 142 / 73 (auto/); srm 14:08 BP 143 / 79 (auto/); srm 14:08 Pulse 92 MON; srm 14:21 Pulse 98 MON; Pulse Ox 93% ; srm 14:23 BP 148 / 80 (auto/); srm 14:38 BP 119 / 56 (auto/); srm 14:38 Pulse 102 MON; Pulse Ox 80% ; srm 15:08 BP 151 / 71 (auto/); srm 15:09 Pulse 102 MON; Pulse Ox 100% ; srm 15:14 BP 148 / 70 (auto/); srm 15:14 Pulse 102 MON; Resp 18; Temp 99.9(TE); Pulse Ox 100% on 2 lpm NC; srm 16:08 BP 141 / 67 (auto/); srm 16:08 Pulse 102 MON; Resp 20; Temp 96.3; Pulse Ox 92% on R/A; Pain 0/10; srm 11:39 Body Mass Index 16.69 (51.26 kg, 175.26 cm) ct3 MDM: 11:32 IV Saline Lock ordered. fg 11:33 CBC with Diff Ordered. EDMS 11:33 Basic Metabolic Profile Ordered. EDMS 11:34 Foot, Complete Ordered. EDMS 11:53 -Blood Culture (Adults Only), peripheral from different site, or from device/port/PICC fg etc. if present ordered. 11:53 -Blood Culture Ordered. EDMS 11:56 -Blood Culture (Adults Only), peripheral from different site, or from device/port/PICC deg etc. if present complete. 11:58 BLOOD CULTURES Ordered. EDMS 13:10 Wound Culture - Other Unlisted Source Ordered. EDMS 13:38 [facility] Payment Agreement was scanned into [employer] and attached to record. jp5 13:38 Financial registration complete. jp5 14:02 ECG WITH READING ER PHYS+CARDIAG ordered. EDMS 14:04 Admission / Observation Status ordered. EDMS 14:04 CONSISTENT CARBOHYDRATES ordered. EDMS 14:06 PHYSICAL THERAPY EVAL & TREAT ordered. EDMS 14:08 PATHOLOGIST REVIEW COMPREHENSI Ordered. EDMS 14:24 LIVER PROFILE Ordered. EDMS 14:26 FERRITIN Ordered. EDMS 14:26 TOTAL IRON BINDING CAPACIT Ordered. EDMS 14:26 RETICULOCYTE COUNT Ordered. EDMS 05/24 09:56 T-Sheet-- Draft Copy was scanned into [employer] and attached to record. gb 09:56 Trend VS was scanned into [employer] and attached to record. gb Signatures: Dispatcher [employer] EDMS Teresa Brown, Marker Assembler Unit deg Shiraz Blas,RN RN Shaylee Dela Cruz, RN RN srm Filiberto, Dulce, Reg Reg gb Clark Card jp5 Lexii Orta MD MD fg Andrews, Steven, RN RN sa The chart was reviewed and I authenticate all verbal orders and agree with the evaluation and treatment provided.Corrections: (The following items were deleted from the chart) 05/23 14:24 13:02 LIVER PROFILE+LAB ordered. EDMS EDMS 14:27 14:07 IRON (FE) ordered. EDMS EDMS 14:27 14:08 TOTAL IRON BINDING CAPACIT ordered. EDMS EDMS 14:27 14:08 FERRITIN ordered. EDMS EDMS 14:27 14:08 RETICULOCYTE COUNT ordered. EDMS EDMS 15:17 14:05 BLOOD CULTURES ordered. EDMS EDMS Attachments: 13:38 [facility] Payment Agreement jp5 05/24 09:56 T-Sheet-- Draft Copy gb Chart Complete MTDD
--- NOTE | 2016-05-25 17:16 | EDDOCDS ---
Physician Documentation [facility] Name: Charles Figueroa Age: 75 yrs Sex: Male : 1940 Arrival Date: 05/23/2016 Time: 11:22 Bed 10 Private MD: Disposition: 05/23/16 13:43 Hospitalization ordered by Myrna Murry for Inpatient Admission. 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 - Bed requested for 5 Vale. - Status is Inpatient Admission. srm - Condition is Stable. - Problem is chronic. - Symptoms have worsened. Historical: - Allergies: no known allergies; - Home Meds: 1. albuterol sulfate 90 mcg/actuation Inhl HFAA 2 puffs every 6 hours 2. aspirin 81 mg Oral tab 1 tab once daily 3. calcitriol 0.25 mcg oral cap 1 cap once daily 4. Coreg 6.25 mg Oral tab 1 tab 2 times per day 5. melatonin 5 mg Oral tab nightly 6. Miralax 17 gram Oral pwpk 1 packet once daily 7. nephrovite daily 8. omeprazole 40 mg Oral cpDR 1 cap once daily 9. oxycodone 5 mg Oral tab 1 tab every 4 hours 10. Plavix 75 mg Oral tab 1 tab once daily 11. renavite .8 mg 12. Tums 200 mg calcium (500 mg) Oral chew 2 tabs three times a day - PMHx: Anemia; Asthma; Diabetes - NIDDM: controlled; GERD; Hypercholesterolemia; Hypertension; Multiple Myeloma; Myocardial infarction; Renal Failure with Dialysis; - PSHx: Cardiac stents; Appendectomy; Dialysis Catherter Insertion; - Family history: Not pertinent. - Social history: Smoking status: Patient states former smoker of tobacco. No barriers to communication noted, The patient speaks fluent Slovenian, Speaks appropriately for age. - : The pt / caregiver states he / she is on anticoagulants: Plavix. Home medication list is obtained from the patient. - Exposure Risk Screening:: None identified. Vital Signs: 05/23 11:39 BP 141 / 67; Pulse 105; Resp 18; Temp 98.8(TE); Pulse Ox 97% on R/A; Weight 51.26 kg / ct3 113.01 lbs (R); Height 5 ft. 9 in. (175.26 cm) (R); 11:52 Pulse 102 MON; Pulse Ox 90% on R/A; srm 11:53 BP 135 / 72 (auto/); srm 12:08 Pulse 96 MON; Pulse Ox 98% ; srm 12:08 BP 142 / 77 (auto/); srm 12:23 Pulse 98 MON; Pulse Ox 97% ; srm 12:23 BP 154 / 76 (auto/); srm 12:38 BP 129 / 63 (auto/); srm 12:38 Pulse 96 MON; Pulse Ox 99% on 2 lpm NC; srm 12:53 Pulse 94 MON; srm 12:53 BP 146 / 74 (auto/); srm 13:08 BP 148 / 79 (auto/); srm 13:08 Pulse 94 MON; srm 13:23 BP 151 / 79 (auto/); srm 13:23 Pulse 94 MON; srm 13:38 BP 145 / 80 (auto/); srm 13:38 Pulse 96 MON; Pulse Ox 100% on 2 lpm NC; srm 13:53 Pulse 92 MON; srm 13:53 BP 142 / 73 (auto/); srm 14:08 BP 143 / 79 (auto/); srm 14:08 Pulse 92 MON; srm 14:21 Pulse 98 MON; Pulse Ox 93% ; srm 14:23 BP 148 / 80 (auto/); srm 14:38 BP 119 / 56 (auto/); srm 14:38 Pulse 102 MON; Pulse Ox 80% ; srm 15:08 BP 151 / 71 (auto/); srm 15:09 Pulse 102 MON; Pulse Ox 100% ; srm 15:14 BP 148 / 70 (auto/); srm 15:14 Pulse 102 MON; Resp 18; Temp 99.9(TE); Pulse Ox 100% on 2 lpm NC; srm 16:08 BP 141 / 67 (auto/); srm 16:08 Pulse 102 MON; Resp 20; Temp 96.3; Pulse Ox 92% on R/A; Pain 0/10; srm 11:39 Body Mass Index 16.69 (51.26 kg, 175.26 cm) ct3 MDM: 11:32 IV Saline Lock ordered. fg 11:33 CBC with Diff Ordered. EDMS 11:33 Basic Metabolic Profile Ordered. EDMS 11:34 Foot, Complete Ordered. EDMS 11:53 -Blood Culture (Adults Only), peripheral from different site, or from device/port/PICC fg etc. if present ordered. 11:53 -Blood Culture Ordered. EDMS 11:56 -Blood Culture (Adults Only), peripheral from different site, or from device/port/PICC deg etc. if present complete. 11:58 BLOOD CULTURES Ordered. EDMS 13:10 Wound Culture - Other Unlisted Source Ordered. EDMS 13:38 [facility] Payment Agreement was scanned into ELENZA and attached to record. jp5 13:38 Financial registration complete. jp5 14:02 ECG WITH READING ER PHYS+CARDIAG ordered. EDMS 14:04 Admission / Observation Status ordered. EDMS 14:04 CONSISTENT CARBOHYDRATES ordered. EDMS 14:06 PHYSICAL THERAPY EVAL & TREAT ordered. EDMS 14:08 PATHOLOGIST REVIEW COMPREHENSI Ordered. EDMS 14:24 LIVER PROFILE Ordered. EDMS 14:26 FERRITIN Ordered. EDMS 14:26 TOTAL IRON BINDING CAPACIT Ordered. EDMS 14:26 RETICULOCYTE COUNT Ordered. EDMS 05/24 09:56 T-Sheet-- Draft Copy was scanned into ELENZA and attached to record. gb 09:56 Trend VS was scanned into ELENZA and attached to record. gb Signatures: Dispatcher [employer] EDMS Teresa Brown, Slipcover Cutter Unit deg Shiraz Blas,RN RN Shaylee Dela Cruz, RN RN srm Filiberto, Dulce, Reg Reg gb Clark Card jp5 Lexii Orta MD MD fg Andrews, Steven, RN RN sa The chart was reviewed and I authenticate all verbal orders and agree with the evaluation and treatment provided.Corrections: (The following items were deleted from the chart) 05/23 14:24 13:02 LIVER PROFILE+LAB ordered. EDMS EDMS 14:27 14:07 IRON (FE) ordered. EDMS EDMS 14:27 14:08 TOTAL IRON BINDING CAPACIT ordered. EDMS EDMS 14:27 14:08 FERRITIN ordered. EDMS EDMS 14:27 14:08 RETICULOCYTE COUNT ordered. EDMS EDMS 15:17 14:05 BLOOD CULTURES ordered. EDMS EDMS Attachments: 13:38 [facility] Payment Agreement jp5 05/24 09:56 T-Sheet-- Draft Copy gb Chart Complete MTDD
[2016-05-25] MEDS ORDERED: VANCOMYCIN HCL 1,000 MG, VIAL MATE ADAPTER 1 EACH in D5W 250 ML IV ONE (18:00)
--- NOTE | 2016-05-25 19:14 | IPN ---
DATE: 05/25/2016 The patient seen and examined. Status post amputation transmetatarsal yesterday with significant blood loss. Denies any fever or chills, chest pain, pressure or discomfort. Currently comfortable. VITAL SIGNS: Temperature 97.5, pulse 83, respirations 16, blood pressure 120/61, pulse oximetry 100% on 2 liters nasal cannula. LABORATORY: WBC 4.8, hemoglobin and hematocrit 6.1/19.1, platelets 117. Chemistry: Sodium 140, potassium 4.1, chloride 103, bicarbonate 29, BUN 26, creatinine 2.7. PHYSICAL EXAMINATION: GENERAL: The patient alert, cooperative, in no acute distress. HEENT: Normocephalic, atraumatic. PULMONARY: Bilateral clear to auscultation. CARDIAC: Regular rate and rhythm. Normal S1, S2. ABDOMEN: Soft, nontender, nondistended. EXTREMITIES: Positive for bilateral lower extremity edema. Left lower extremity: Dressing clean, dry and intact. Right lower extremity: Dorsalis pedis/posterior tibial (DP/PT) pulses 1+. Left lower extremity: Dorsalis pedis/posterior tibial (DP/PT) pulses thready. ASSESSMENT AND PLAN: This is a 75-year-old male patient with underlying medical history of type 2 diabetes, coronary arterial disease, end-stage renal disease on hemodialysis, hypertension, dyslipidemia, asthma, gastroesophageal reflux disease (GERD), chronic anemia, admitted for left foot gangrene. PROBLEM LIST: 1. Left foot gangrene. Dr. Pitt has been consulted. Initially offered below knee amputation. The patient refused. The patient status post OR with transmetatarsal amputation. Dr. Kilgore has been consulted. Questionable gas gangrene with subcutaneous emphysema. Antibiotics as per Dr. Kilgore. The patient currently on vancomycin and Zosyn. Followup cultures. 2. End-stage renal disease. On hemodialysis. Nephrology consulted. Continue hemodialysis Monday, Monday and Monday. Followup electrolytes. 3. Acute on chronic anemia. Underlying multiple myeloma. Case has been discussed with Dr. Loaiza. The patient has significant blood loss also from the surgery. Initially transfused one unit packed red blood cells. Will transfuse two more units of packed red blood cells today for a total of 3 units packed red blood cells. Followup hemoglobin and hematocrit. Peripheral smear appreciated. 4. Patient with macrocytic anemia. Likely anemia multifactorial. Possible anemia of chronic disease. Case was discussed with hematology/oncology, Dr. Raya. As per Dr. Raya, multiple myeloma has improved with treatment, but not in remission. Dr. Raya does not believe multiple myeloma is the primary cause of the patient's anemia. Fecal occult just returned as positive. Will place the patient on Protonix twice a day. Followup hemoglobin and hematocrit. Will consult gastroenterology for possible esophagogastroduodenoscopy (EGD) given the patient is on steroids. 5. Right foot ulcer. Followup Dr. Pitt and Dr. Kilgore for further care. 6. Type 2 diabetes. Followup A1c. Insulin as ordered. Followup fingersticks. 7. Multiple myeloma. Patient on Revlimid and Decadron. Case discussed with Dr. Raya. As per Dr. Raya, the patient's multiple myeloma has improved with treatment, not yet in remission. Continue to follow. As per Dr. Raya, it is not emergent to restart Revlimid. Okay to restart later. 8. Hypertension. Continue Coreg and Micardis. Adjust as needed. 9. Gastroesophageal reflux disease (GERD). Continue proton pump inhibitor (PPI). 10. Peripheral vascular disease. The patient undergoing amputation at this time. Refused below knee amputation, holding aspirin due to fecal occult positive. 11. Coronary arterial disease, holding aspirin due to fecal occult positive. Bridger Lidna, outpatient followup. 12. Deep venous thrombosis (DVT) prophylaxis. Heparin subcutaneous has been discontinued due to fecal occult positive. DISPOSITION: Pending further workup, infectious disease followup. Clinical improvement. Patient with multiple comorbidities. Poor prognosis in the manager terminal.
[2016-05-25] MEDS: PANTOPRAZOLE 40MG INJ (PROTONIX) (C9113) IV SCH (21:18)
[2016-05-25 22:00] VITALS: BP 120/62
[2016-05-26] MEDS: PERCOCET 5MG/325MG TAB PO PRN ×2 (01:49→08:31)
[2016-05-26] MEDS: PIPERACILLIN/TAZOBACTAM SOD 2.25 GM in D5W MINI-BAG PLUS 50 ML IV SCH ×4 (05:37→21:55)
[2016-05-26] MEDS: SLF 3 ML SYR IV SCH ×3 (05:38→21:52)
[2016-05-26 06:00] VITALS: BP 122/71
[2016-05-26 07:28] LABS: EOS # 0.1 K/mm3 (0.0-0.50); EOS % 2.5 % (0.0-3.0); LARGE UNSTAINED CELL # 0.2 K/mm3 (0.0-0.4); LARGE UNSTAINED CELL % 3.9 % (0.0-4.0); LYMPH # 1.1 K/mm3 (1.5-4.5); LYMPH % 17.1 % (24.0-44.0); MEAN CORPUSCULAR HEMOGLOBIN 31.1 pg (27.0-33.0); MEAN CORPUSCULAR HGB CONC 32.9 g/dl (32.0-36.5); MONO # 0.4 K/mm3 (0.0-0.8); MONO % 7.4 % (0.0-5.0); NEUTROPHILS # 3.5 K/mm3 (1.8-7.7); NEUTROPHILS % 68.2 % (36.0-66.0); PLATELET COUNT, AUTOMATED 118 k/mm3 (150-450); RED CELL DISTRIBUTION WIDTH 18.4 % (11.5-14.5); WHITE BLOOD COUNT 5.2 K/mm3 (4.0-10.0)
[2016-05-26 07:39] LABS: MEAN CORPUSCULAR VOLUME 94.6 fl (80.0-96.0)
[2016-05-26 07:54] LABS: CALCIUM LEVEL 7.5 MG/DL (8.8-10.2); CREATININE FOR GFR 1.92 MG/DL (0.70-1.30); GLOMERULAR FILTRATION RATE 36.6 (>42)
[2016-05-26] MEDS: TELMISARTAN 20 MG TAB PO SCH (08:30)
[2016-05-26] MEDS: HumaLOG INSULIN (NovoLOG) PER UNIT SC SCH ×4 (08:30→21:00)
[2016-05-26] MEDS: ASPIRIN 81 MG ENTERIC TAB PO SCH (08:31)
[2016-05-26] MEDS: CARVedilol 3.125 MG TAB PO SCH ×2 (08:31→21:51)
[2016-05-26] MEDS: NEPHRO-VIT TAB (NEPHROCAPS) PO SCH (08:31)
[2016-05-26] MEDS: PANTOPRAZOLE 40MG INJ (PROTONIX) (C9113) IV SCH (08:32)
[2016-05-26] MEDS: CALCITRIOL 0.25 MCG CAP (S0169) PO SCH (08:32)
[2016-05-26] MEDS: SILVER SULFADIAZINE 1% CR 50 GM JAR TOP SCH (08:33)
--- NOTE | 2016-05-26 10:16 | IPN ---
DATE: 05/26/2016 CHIEF COMPLAINT: The patient is seen today at bedside for evaluation status post transmetatarsal amputation of the left foot. The patient has a TLS drain in place. He has his foot floated on a pillow with a boot protector on the right foot. The patient denies pain, shortness of breath, or chest pain. PHYSICAL EXAMINATION: The bandage has mild breakthrough bleeding. The TLS drain is functioning. The bandage was removed today. The flap is viable. There is some slight discoloration at the most distal aspect of the flap, but this is viable. There is no hematoma formation inferior to the graft site. There is some black eschar on the heel; however, there was no fluid under this eschar. There is a stage IV ulceration on the central arch down to the plantar fascia with yellow fibrinous tissue, no discharge in that location. The patient's bone culture is pending. The patient's laboratory studies reveal white count of 5.2. The patient's GFR is 24.7. He is a dialysis patient. ASSESSMENT: 1. Healing transmetatarsal amputation of the left foot. 2. Stage IV ulcer on center arch without infection with peripheral vascular disease. PLAN: A dry, sterile dressing was applied. Continue with Silvadene and a dressing to the ulcer on the arch. Did discuss with the patient discharge when his bone culture is available. The patient would be a good candidate for the wound clinic to see if he is a candidate for hyperbaric oxygen therapy. The patient's questions are answered.
--- NOTE | 2016-05-26 13:17 | IPNPDOC ---
Date/Time Seen The patient was seen on 05/26/16 at 13:05. Progress Note DATE OF ENCOUNTER: 05/26/2016 SUBJECTIVE: Mr. Figueroa was seen this morning at bedside. He had hemodialysis yesterday which was well tolerated; 2000ml of fluid was removed. He reports that his pain is controlled, status post TMA. No acute overnight issues. Review of systems is negative for chest pain, palpitations, shortness of breath , nausea, vomiting, abdominal pain, diarrhea, fevers, chills, headache, lightheadedness, dizziness. OBJECTIVE: Vital Signs Date Time Temp Pulse Resp B/P Pulse Ox O2 Delivery O2 Flow Rate FiO2 05/26/16 09:38 18 05/26/16 08:31 82 122/71 05/26/16 06:00 95.8 95 Nasal Cannula 2.0 I&O- Last 24 Hours up to 6 AM 05/26/16 05:59 Intake Total 1710 ml Output Total 2020 ml Balance -310 ml General: Patient is awake and alert. In no acute distress. HEENT: Normocephalic, atraumatic. Extraocular muscles are intact. Moist mucosa. Neck: Supple. No thyromegaly. No jugular venous distension appreciated. Heart: Normal S1, S2. Regular rate and rhythm. Lungs: Clear to auscultation bilaterally. No rales, rhonchi or wheezing. Abdomen: Soft, nontender, nondistended. Positive bowel sounds. Extremities: Mild lower extremity edema. Left foot is wrapped status post TMA, drain still in placer. Right foot has soft boot due to small ulceration. Neurologic: No focal deficits. Cranial nerves II through XII are grossly intact. Moving all extremities. LABORATORY DATA: 05/26/16 07:19 Red Blood Count 2.63 L, Mean Corpuscular Volume 94.6 #, Mean Corpuscular Hemoglobin 31.1, Mean Corpuscular Hemoglobin Concent 32.9, Red Cell Distribution Width 18.4 H, Calcium Level 7.5L, Glomerular Filtration Rate 36.6L ASSESSMENT AND PLAN: 76-year-old male with the past medical history of endstage renal disease on hemodialysis every Monday, Monday and Monday, history of multiple myeloma, currently undergoing chemotherapy, admitted with gangrene of the left foot, status post transmetatarsal amputation of the left foot on May 24, 2016. 1. End-stage renal disease. Patient had hemodialysis yesterday where 2000ml was removed, he tolerated it well. Continue with normal schedule of Monday, Monday and Monday. Next dialysis session is tomorrow 05/27. 2. Left foot gangrene status post left transmetatarsal amputation. Pain is controlled. He is being managed by podiatry. Wound culture was positive for Proteus Vulgaris and Staphylococcus aureus. He is currently on vancomycin and Zosyn, which will likely be de-escalated now that cultures are back. 3. Acute blood loss anemia on top of his chronic anemia in endstage renal disease. He has received a total of 3 units of packed red blood cells status post surgery. He has also received 300 mcg IV with hemodialysis. Continue to monitor hemoglobin. Fecal occult was also positive and he is scheduled for EGD today. 4. Multiple myeloma: The patient gets Decadron once a week and chemotherapy. The management of this is being coordinated by primary team and his berry planter /oncologist. 5. Hypertension: Blood pressure is stable. Continue with Coreg and telmisartan. 6. Secondary hyperparathyroidism: Continue Calcitriol 0.25 mcg daily. GME ATTESTATION GME ATTESTATION My preceptor for this patient encounter was physically present in the building during the encounter and was fully available. As needed, all aspects of the patient interview, examination, medical decision making process, and medical care plan development were reviewed and approved by the preceptor. Preceptor is aware and concurs with the plan as stated in the body of this note and will attest to such by his/her cosignature. ATTENDING NOTE Nephrology: Pt was examined today morning with the resident. I agree with above Assessment and Plan. ISMAEL LOUIS DO May 26, 2016 13:17 BOLIVAR OLIVO MD May 26, 2016 21:49
[2016-05-26] MEDS ORDERED: ISOVUE-370 76% 100ML VIAL (Q9967) As Ordered ONE (13:52)
[2016-05-26 14:00] VITALS: BP 97/64
[2016-05-26] MEDS ORDERED: PROPOFOL 200 MG/20 ML VIAL As Ordered ONE (16:36)
[2016-05-26] MEDS ORDERED: LIDOCAINE 2% INJ 100 MG/5 ML SDV (FOR ANES.) As Ordered ONE (16:36)
--- NOTE | 2016-05-26 16:40 | REP ---
Abdominal, pelvic and lower extremity runoff CT angiogram: With IV contrast: History: Gangrene. Renal failure on dialysis. CT contrast dose: 100 ml of Isovue 370 is administered. Technique: Helical scanning is acquired. 3 mm axial slices are reformatted. Coronal and sagittal multiplanar re-formation images are generated. Maximal intensity projection images and surface rendered 3-D images are generated along with oblique axis MPR images. CT nonvascular findings: There are bilateral pleural effusions, left larger than right. Some compressive atelectatic changes are seen in the lower lobes of the lungs bilaterally associated with this. There is impaired contrast enhancement in the renal parenchyma bilaterally consistent with renal insufficiency. There is a tiny opacity in the neck of the gallbladder consistent with a small gallstone. There is sigmoid colon diverticulosis. Dystrophic calcifications are seen in the prostate. CT angiographic vascular findings: The suprarenal and infrarenal abdominal aorta are normal in caliber. Celiac and superior mesenteric artery origins are intact. The inferior mesenteric artery is widely patent and intact as well. No aneurysm is seen. There is vascular calcification at the origin of the right main renal artery, but no significant stenosis is seen. Singular non-stenotic renal arteries are noted bilaterally. The common iliac arteries are widely patent on both sides. The internal and external iliac arteries are patent bilaterally. There is some vascular calcification in the common femoral artery bifurcation bilaterally, left more so than right with 60% a 70% stenosis associated with a calcific plaquing on the left. On the right, 40% to 50% luminal narrowing is seen. The profunda and superficial femoral artery origins are clear. Some vascular calcification is seen bilaterally in the superficial femoral arteries. On the right, there is extensive calcific plaquing without focal high-grade stenosis along the course of the superficial femoral artery. Good caliber popliteal artery is seen on the right. Some calcification is seen in the calf trifurcation vessels in the proximal calf. There is a high-grade stenosis at the origin of the peroneal artery on the right. The anterior and posterior tibial arteries are seen crossing the ankle and appear to be patent. On the left, there is heavy vascular calcification along the course of the superficial femoral artery, but no high-grade stenosis. There is a 50% stenotic lesion at the level of the adductor canal in the superficial femoral artery on the left. Left popliteal artery is of good caliber. There is vascular calcification at the trifurcation. There is a high-grade stenosis at the origin of the peroneal artery on the left versus possibly a very short segment occlusion. The anterior and posterior tibial arteries appear patent across the ankle. On the left side, the patient is status post transmetatarsal amputation of the forefoot. No soft tissue gas is seen. Impression: Multifocal atherosclerotic changes. There is a 60 to 70% stenosis due to calcific plaquing at the bifurcation of the common femoral artery on the left. There is proximal calf runoff atherosclerotic disease bilaterally most prominently affecting the peroneal arteries. Diffuse vascular calcification is noted. Bilateral pleural effusions, left colonic diverticulosis, and a possible small gallstone are noted incidentally. Signed by Tarik Delaney MD 05/27/2016 08:29 A
--- NOTE | 2016-05-26 16:52 | ROOR ---
Patient Name: Charles Figueroa Procedure Date: 05/26/2016 4:28 PM Date of : 1940 Age: 75 Room: Main OR Gender: Male Note Status: Finalized Procedure: Upper GI endoscopy Indications: Heme positive stool Providers: Henry LORENZANA MD Referring MD: 2. Inpatient 2. Inpatient Requesting Provider: Medicines: Monitored Anesthesia Care Complications: No immediate complications. Procedure: Pre-Anesthesia Assessment: - The heart rate, respiratory rate, oxygen saturations, blood pressure, adequacy of pulmonary ventilation, and response to care were monitored throughout the procedure. The Endoscope was introduced through the mouth, and advanced to the third part of duodenum. The upper GI endoscopy was accomplished without difficulty. The patient tolerated the procedure well. Findings: The examined esophagus was normal. The entire examined stomach was normal. A single 7 mm semi-sessile polyp with no bleeding was found in the duodenal bulb. This was biopsied with a cold forceps for histology. Polypectomy was not attempted due to patient is on Plavix. Impression: - Normal esophagus. - Normal stomach. - A single duodenal polyp. Resection not attempted. Biopsied. -(This EGD is negative for bleeding source) Recommendation: - Telephone endoscopist for pathology results in 2 weeks. - If polyp is adenomatous, then will need stopping Plavix for 5 days before attempting endoscopic polypectomy. - If polyp is not adenomatous, then no additional procedures need to be done. Henry Lorenzana MD Henry LORENZANA MD 05/26/2016 4:52:20 PM This report has been signed electronically. Number of Addenda: 0 Note Initiated On: 05/26/2016 4:28 PM Estimated Blood Loss: Estimated blood loss: none.
[2016-05-26 18:00] VITALS: BP 134/63
[2016-05-26] MEDS ORDERED: VANCOMYCIN HCL 1,000 MG, VIAL MATE ADAPTER 1 EACH in D5W 250 ML IV SCH (18:00)
[2016-05-26 22:00] VITALS: BP 105/56
[2016-05-27] MEDS: PIPERACILLIN/TAZOBACTAM SOD 2.25 GM in D5W MINI-BAG PLUS 50 ML IV SCH ×3 (05:00→16:11)
[2016-05-27 06:00] VITALS: BP 127/67
[2016-05-27] MEDS: SLF 3 ML SYR IV SCH ×2 (06:00→14:00)
--- NOTE | 2016-05-27 06:06 | IPN ---
DATE: 05/26/2016 Patient seen and examined. No acute events overnight. Denies any fevers, chills, chest pain, pressure or discomfort. Patient comfortable, in no acute distress. Vital signs: Temperature 98, pulse 94, respirations 17, blood pressure 134/63, pulse ox 98% on room air. Laboratory: WBC 5.2, hemoglobin and hematocrit 8.2/24.9, platelets 118. Chemistry: Sodium 137, potassium 4, chloride 102, bicarbonate 28, BUN 15, creatinine 1.92. PHYSICAL EXAMINATION: General: Patient alert, cooperative, in no acute distress. HEENT: Normocephalic, atraumatic. Pulmonary: Bilateral clear to auscultation. Cardiac: Irregular rate and rhythm. Normal S1, S2. Abdomen: Soft, nontender, nondistended. Extremities: Positive bilateral lower extremity edema. Left lower extremity dressing clear, dry and intact. Right lower extremity: Dorsalis pedis and posterior tibial (DPPT) pulses 1+. Left lower extremity: Dorsalis pedis and posterior tibial (DPPT) pulses thready. ASSESSMENT AND PLAN: This is a 75-year-old male patient with underlying medical history of type 2 diabetes, coronary arterial disease, end stage renal disease on hemodialysis, hypertension, dyslipidemia, asthma, gastroesophageal reflux disease (GERD), chronic anemia, admitted for left foot gangrene. PROBLEMS: 1. Left foot gangrene. Dr. Pitt has been consulted initially, offered below knee amputation. Patient refused. Status post OR with transmetatarsal amputation. Dr. Kilgore has been consulted. Questionable gas gangrene with subcutaneous emphysema. Cultures appreciated. Vancomycin discontinued given Methicillin-sensitive staphylococcus aureus (MSSA). Continue Zosyn follow cultures. Antibiotics recommendations as per Dr. Kilgore. After discussion with Dr. Pitt, Dr. Pitt recommended outpatient followup with Dr. Levi for possible hyperbaric oxygen. Dr. Levi recommended getting a CT angio with runoff to assess the vascular perfusion to see if patient needs any vascular intervention. 2. End stage renal disease. Hemodialysis. Nephrology consulted. Continue hemodialysis Monday, Monday, Monday. Followup electrolytes. 3. Acute on chronic anemia. Underlying multiple myeloma. Case discussed with Dr. Loaiza. Significant blood loss from surgery. Transfused a total of 3 units packed red blood cells. Fecal occult is positive. Peripheral smear appreciated. Consulted Dr. Loaiza. Status post EGD with duodenal polyp. Followup pathology. Case also discussed with Dr. Raya. As per Dr. Raya, patient was macrocytic anemia less likely secondary to multiple myeloma. Given patient's multiple myeloma is improving with treatment, possible other etiology, possible anemia of chronic disease due to renal disease. Continue PPI. Patient on steroid. 4. Right foot ulcer. Followup with Dr. Pitt, Dr. Kilgore. Outpatient followup with Dr. Levi. 5. Type 2 diabetes. Followup A1c. Insulin as ordered. Follow fingersticks. 6. Multiple myeloma. Patient on Revlimid and Decadron. Case discussed with Dr. Raya. As per Dr. Raya, patient's multiple myeloma has improved with treatment but not yet in remission. There is no emergent need to restart Revlimid. Okay to restart it later if cannot be obtained in the hospital setting. 7. Hypertension. Continue Coreg, Micardis. Continue to monitor. 8. Gastroesophageal reflux disease (GERD), continue PPI. 9. Peripheral vascular disease, undergoing amputation. Refused below knee amputation. Will restart aspirin. 10. Coronary arterial disease, restart aspirin given EGD was negative. Continue Micardis, Coreg. Outpatient followup. 11. Deep venous thrombosis (DVT) prophylaxis. Heparin subcutaneous has been on hold given fecal occult positive. Discussed with Dr. Loaiza for further recommendation. DISPOSITION: Pending infectious disease (ID) for final recommendation. Will discuss with gastroenterology. CT angio. Patient with multiple comorbidities. 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
[2016-05-27] MEDS: PERCOCET 5MG/325MG TAB PO PRN (06:59)
[2016-05-27 08:01] VITALS: BP 116/59
[2016-05-27] MEDS: CALCITRIOL 0.25 MCG CAP (S0169) PO SCH (08:01)
[2016-05-27] MEDS: HumaLOG INSULIN (NovoLOG) PER UNIT SC SCH ×3 (08:01→16:44)
[2016-05-27] MEDS: CARVedilol 3.125 MG TAB PO SCH (08:01)
[2016-05-27] MEDS: ASPIRIN 81 MG ENTERIC TAB PO SCH (08:03)
[2016-05-27] MEDS: TELMISARTAN 20 MG TAB PO SCH (08:03)
[2016-05-27] MEDS: NEPHRO-VIT TAB (NEPHROCAPS) PO SCH (08:03)
[2016-05-27 08:59] LABS: BASO % 0.7 % (0.0-1.0); EOS # 0.1 K/mm3 (0.0-0.50); EOS % 2.4 % (0.0-3.0); LARGE UNSTAINED CELL # 0.1 K/mm3 (0.0-0.4); LARGE UNSTAINED CELL % 2.7 % (0.0-4.0); LYMPH # 0.9 K/mm3 (1.5-4.5); LYMPH % 16.1 % (24.0-44.0); MEAN CORPUSCULAR HEMOGLOBIN 31.5 pg (27.0-33.0); MEAN CORPUSCULAR HGB CONC 33.8 g/dl (32.0-36.5); MEAN CORPUSCULAR VOLUME 93.2 fl (80.0-96.0); MONO # 0.3 K/mm3 (0.0-0.8); MONO % 5.5 % (0.0-5.0); NEUTROPHILS # 3.9 K/mm3 (1.8-7.7); NEUTROPHILS % 72.6 % (36.0-66.0); PLATELET COUNT, AUTOMATED 133 k/mm3 (150-450); RED CELL DISTRIBUTION WIDTH 16.9 % (11.5-14.5); WHITE BLOOD COUNT 5.3 K/mm3 (4.0-10.0)
[2016-05-27] MEDS ORDERED: PANTOPRAZOLE 20 MG TAB PO SCH (09:00)
[2016-05-27] MEDS: SILVER SULFADIAZINE 1% CR 50 GM JAR TOP SCH (09:00)
[2016-05-27 09:11] LABS: CALCIUM LEVEL 7.4 MG/DL (8.8-10.2); CREATININE FOR GFR 2.44 MG/DL (0.70-1.30); GLOMERULAR FILTRATION RATE 27.8 (>42); POTASSIUM SERUM 4.2 MEQ/L (3.5-5.1)
[2016-05-27] MEDS ORDERED: LIDOCAINE 1% SDV 5 ML VIAL SQ ONE (10:15)
[2016-05-27] MEDS ORDERED: HEPARIN 1,000 UNITS/ML 10ML VIAL (FOR RADIOLOGY& DIALYSIS ONLY) IV ONE (10:15)
--- NOTE | 2016-05-27 12:57 | IPN ---
DATE: 05/27/2016 SUBJECTIVE: The patient was seen and examined at the bedside today in the morning during hemodialysis procedure. He was tolerating the hemodialysis procedure well. Last 24 hour events were noted. The patient got the esophagogastroduodenoscopy (EGD) done, which showed no active source of bleeding. He also got the CT angiogram of the lower extremities, which showed left common femoral artery had 70% stenosis. REVIEW OF SYSTEMS: The patient denies any fevers, chills, rigors, headache, nausea, vomiting, chest pain, shortness of breath, pain in the abdomen, constipation or diarrhea. The rest of the review of systems is negative. OBJECTIVE: VITAL SIGNS: Temperature is 98.2 degrees Fahrenheit, blood pressure is 115/59, pulse is 87, respiratory rate of 18, saturating 97% on room air. Intake and output: There is no urine output recorded. Weight in the bed scale is 95.2 kg. GENERAL: The patient is awake, alert, oriented times three laying in the bed. No apparent distress. HEAD AND NECK EXAM: Extraocular muscles intact. Pupils equal, round, reactive to light. Neck is supple. There is no jugular venous distention. CARDIOVASCULAR: S1, S2. Regular rate. No murmur, rub or gallop. RESPIRATORY: Chest is clear to auscultation bilaterally. Bilaterally good air entry. No rale or rhonchi. ABDOMEN: Soft, positive bowel sounds. Nontender. No ascites. No organomegaly. EXTREMITIES: The patient has a dressing on the left foot and there is a drain in the left foot dressing. He is status post left transmetatarsal amputation. Otherwise, no clubbing or cyanosis. CENTRAL NERVOUS SYSTEM: No focal neurological deficit. Power is 5/5 in all extremities. PSYCHIATRIC: Normal mood and affect. LAB REVIEW: CBC showed a WBC 5.3, hemoglobin 8.4, platelets are 133, BMP showed sodium 139, potassium 4.2, chloride 103, bicarbonate 27, BUN 23, creatinine is 2.4, calcium is 7.4. Microbiology: Stool for occult blood was done 05/25/2016, which was positive. Last cultures from the foot are from 05/24/2016 and they were growing Proteus and Staphylococcus aureus. CURRENT MEDICATIONS: The patient's current medications are all reviewed by me. There is no change in the medications at this time. He continues to be on intravenous Zosyn at this time. ASSESSMENT: 76-year-old male with the past medical history of end stage renal disease on hemodialysis every Monday, Monday and Monday, history of multiple myeloma, admitted this time with gangrene of the left foot, he is status post transmetatarsal amputation of the left foot on 05/24/2016. PLAN: 1. End stage renal disease. The patient is getting hemodialysis according to his regular schedule today. We shall try to do an ultrafiltration of 2 liters as tolerated by his blood pressure. 2. Left foot gangrene status post left transmetatarsal amputation. The patient is growing two organisms with Proteus and methicillin sensitive Staphylococcus aureus (MSSA) on the cutlures. He is currently on vancomycin and Zosyn. Deescalation of antibiotics is as per primary team and infectious disease recommendations. The patient can probably be switched to oral antibiotics. 3. Peripheral vascular disease. The patient got the CT angiogram done Alzheimer's dementia it showed 70% left femoral stenosis. The patient is to be evaluated by vascular surgery for possible stenting of the left femoral artery. 4. Anemia and endstage renal disease. The got an EGD done yesterday as well to rule out source of upper gastrointestinal bleed, but there was no active bleeding at that time. Hemoglobin is stable at this time. It is 8.4. The patient is getting Aranesp 300 mcg IV with hemodialysis. Continue current dose. 5. Multiple myeloma. Continue Decadron once a week and chemotherapy is as per hematology/oncology recommendations. 6. Hypertension. Blood pressure is well controlled at this time with the current regimen of Coreg 3.125 mg twice a day and telmisartan 80 mg by mouth daily.
--- NOTE | 2016-05-27 14:32 | REPKIM ---
CLINICAL HISTORY: ESRD with left arm AVF, diabetes, PVD and left foot infection. Patient needs central venous access for intermediate-term IV meds/ antibiotics. PROCEDURE PERFORMED: Right IJ Non-tunneled Kvng Central Venous Catheter Placement INTERVENTIONALIST: Ana Ross MD MEDICATIONS: Local Lidocaine 2% EBL: 5 mL DEVICE USED: 7F Double Lumen Kvng Catheter Lot#[id number] FLUORO TIME: 0.4 minutes CONSENT: The risks, benefits and alternatives to the procedure were explained to the patient and informed written consent was obtained. PROCEDURE/FINDINGS: The patient was brought to the interventional radiology suite and placed in the supine position. Time out procedure was performed. The right neck was prepped and draped in a usual sterile fashion. Real time ultrasound was used and permanent image stored. Using ultrasound guidance the right IJ vein was punctured, after infiltration of the skin and deep tissues with local anesthetic. The guidewire was advanced and positioned in the inferior vena cava. Using this access, a double lumen 7-Serbian Kvng catheter was inserted. Post procedure chest radiograph showed the tip of the catheter at the cavoatrial junction. The catheter was secured at the skin exit site with 2-0 suture. Each port of the catheter was flushed with saline then locked with heparin (concentration 10 units/cc). A sterile dressing was then applied. The patient tolerated the procedure well with no immediate complications. This procedure was performed using ultrasound and fluoroscopy. Dr. Ross was present. IMPRESSION: 1. Ultrasound of the neck demonstrates patent right IJ vein and compressible. 2. Successful right IJ Kvng catheter placement as discussed above. The catheter is ready for immediate use. cc: Sammi Morales MD [facility] CENTERJulia
[2016-05-27] MEDS ORDERED: SODIUM CHLORIDE 0.9% INJ 10 ML SYR IV PRN (14:45)
[2016-05-27 14:55] VITALS: BP 113/59
[2016-05-27] MEDS ORDERED: ZOSY2INJ2 IV (15:01)
--- NOTE | 2016-05-27 16:24 | DSES ---
DATE OF ADMISSION: 05/23/2016 DATE OF DISCHARGE: 05/27/2016 (Transferred to [facility]) KILN DOOR REPAIRER: Dr. Baldo Fernandes PODIATRY: Dr. Jeffrey Pitt WOUND CARE: Surgeon, Dr. Jeffrey Levi INFECTIOUS DISEASE SPECIALIST: Dr. Lauro Kilgore FINAL DIAGNOSES: 1. Left foot gangrene with osteomyelitis. 2. End-stage renal disease. 3. Acute on chronic anemia. 4. Fecal occult positive. 5. Right foot ulcer. 6. Type 2 diabetes with diabetic neuropathy. 7. Multiple myeloma, followed by Dr. Raya. 8. Hypertension. 9. Hypertension. 10. Gastroesophageal reflux disease (GERD). 11. Peripheral vascular disease. 12. Coronary artery disease. HISTORY OF PRESENT ILLNESS: This is a 75-year-old male patient with underlying medical history of end-stage renal disease, type 2 diabetes, coronary artery disease, hypertension, dyslipidemia, asthma, GERD, chronic anemia. Patient reported injuring his toes on his left foot about a week ago, prior to admission, and healthcare nurses urged him to go to the hospital but the patient refused. Patient was at his dialysis session today and was told to go directly to the emergency room for the gangrene. Subsequently, patient was admitted to the hospital. HOSPITAL COURSE: Patient was admitted to the hospital. Cultures were obtained. Intravenous (IV) antibiotics, patient was initially placed on Zosyn and vancomycin. Podiatry consulted as well as nephrology, Dr. Loaiza, was consulted for continuation of his hemodialysis and Dr. Kilgore, infectious disease, was also consulted. Patient was initially offered left-sided below knee amputation but subsequently patient refused and agreeable to transmetatarsal amputation, understanding that potentially it might not work given the poor vascular perfusion. Subsequently, patient underwent transmetatarsal amputation of the left foot. Cultures returned showing proteus vulgaris and methicillin-sensitive Staphylococcus aureus (MSSA). Antibiotic vancomycin stopped, Zosyn was continued. As per infectious disease, Dr. Kilgore, patient will need a total of 4 weeks of IV Zosyn. Furthermore, during the hospital course patient had worsening anemia. Peripheral smears were obtained. Anemia workup was obtained. Patient was fecal occult positive. EGD was done by Dr. Lorenzana. Case was also discussed with Dr. Raya, hematology/oncology, given patient has multiple myeloma. As per Dr. Raya, patient's multiple myeloma has improved with treatment, but not yet in remission, but she does not believe that the anemia is due to multiple myeloma. Dr. Lorenzana was consulted status post EGD with no acute bleeding. Patient was transfused. Subsequently, hemoglobin and hematocrit has been stable with oral supplementation. Case was discussed with Dr. Levi for possible hyperbaric oxygen. Per Dr. Levi, needs to be certain that vascular perfusion to the distal extremities of left lower extremity is optimal prior to hyperbaric oxygen. Subsequently, CT angio was obtained. Patient has 60-70% stenosis on left femoral artery bifurcation. Subsequently, Dr. Miller Navarro was contacted from [facility] for possible angioplasty and arrangements are made for patient to be transferred to [facility] for vascular procedure given vascular procedure is not available at [facility]. Home catheter was placed for prolonged IV antibiotic placement. Patient and family services (PFS) was consulted for potential placement, physical therapy. Patient currently tolerating diet, comfortable, afebrile, in no acute distress. VITAL SIGNS: Temperature 98.2, pulse 87, respirations 18, blood pressure 116/59, pulse oximetry 97% on room air. LABORATORY DATA: WBC 5.3, hemoglobin and hematocrit 8.4/24.7, platelets 113. Chemistry: Sodium 139, potassium 4.2, chloride 103, bicarbonate 27, BUN 23, creatinine 2.44. Dialysis Monday, Monday, Monday. INPATIENT MEDICATIONS: Patient currently is on: - Zosyn 2.5 grams IV every 6 hours - acetaminophen 650 mg by mouth every 4 hours as needed - Proventil inhaler two puff inhalation every 4 hours as needed - aspirin 81 mg by mouth daily - Dulcolax 5 mg by mouth daily as needed - calcitriol 0.25 mcg by mouth daily - Tums 500 mg by mouth three times a day as needed - Coreg 3.125 mg by mouth twice a day - Aranesp 300 mcg IV with dialysis - Decadron 20 mg by mouth every Monday - insulin via scale - hydroxyzine 25 mg by mouth nightly as needed - Claritin 10 mg by mouth daily as needed - morphine 15 mg by mouth every 4 hours as needed - morphine 2 mg IV every 2 hours as needed - nitroglycerin 0.4 mg sublingual as needed - Zofran 4 mg IV every 6 hours as needed - Percocet 5/325 mg one tablet by mouth every 4 hours as needed - Protonix 20 mg by mouth daily - MiraLax one packet by mouth daily as needed - Micardis 80 mg by mouth daily - Revlimid 5 mg capsule by mouth every Monday DISCHARGE INSTRUCTIONS: Patient is instructed to followup with vascular surgery at [facility] for further care. After discharge, followup with wound care, Dr. Levi, and infectious disease, Dr. Kilgore, for further care, and primary care provider and field contractor.
[2016-05-27] MEDS ORDERED: SODIUM CHLORIDE 0.9% INJ 10 ML SYR IV SCH (22:00)
--- NOTE | 2016-05-28 05:16 | IPN ---
DATE OF SERVICE: 05/27/2016 Mr. Figueroa is seen today, had dialysis. He was seen after dialysis and had a Kvng's catheter placed for home intravenous (IV) antibiotics. He was also accepted at [facility] for evaluation by vascular surgery and possible intervention on his left leg. He is doing fairly well. He denies any fever or chills. No nausea, vomiting or diarrhea. No significant pain. Temperature was 97.8, pulse 81, respirations 18, blood pressure 113/97, oxygen saturation 97% on room air. Heart: Normal S1, S2, regular. No murmurs, rubs or gallops. Lungs are clear with good air entry bilaterally. Abdomen: Soft, nontender. No organomegaly. Extremities: Left foot amputation of second to fifth toe. There is a drain in the foot. Hemodialysis catheter on the right side. LABORATORY DATA: White count is 5.3, hemoglobin 8.4, hematocrit 24.7, platelets 133, 72% neutrophils, 16% lymphocytes, 5% monocytes. Sodium 139, potassium 4.2, chloride 103, bicarbonate 27, BUN 23, creatinine 2.4, glucose 146, calcium 7.4. Wound cultures from the bone of the left foot intraoperatively were positive for methicillin-susceptible Staphylococcus aureus (MSSA) and Proteus mirabilis. Anaerobic cultures are still pending. Blood cultures two sets from admission were negative. A stool Hemoccult was positive. IMPRESSION: 1. Chronic osteomyelitis of the left foot with bone cultures positive for Staphylococcus aureus and Proteus. Anaerobic cultures are still pending. These are cultures from the metatarsal bones. 2. Gangrene of the left foot status post transmetatarsal amputation of third, fourth and fifth toe, but there are persistent bones that are infected and therefore the patient will need continued intravenous (IV) antibiotic. 3. Peripheral vascular disease. Needs vascular intervention therefore will be transferred to [facility]. 4. Multiple myeloma with secondary end-stage renal disease and dialysis dependent. PLAN: The patient currently is on IV Zosyn and will be continued at current dose 2.25 grams every 6 hours. He is currently day #4. I would suggest the patient to continue 4 weeks of IV antibiotics for chronic osteomyelitis that could be given through a continuous infusion or if that is not an option, especially with group home, he could be as a second choice switched to IV ceftriaxone that should cover the Staphylococcus aureus and Proteus as a second option. Continue Zosyn for 4 weeks through Kvng's catheter that was placed today.
--- NOTE | 2016-05-28 13:09 | EDDOCDS ---
Physician Documentation [facility] Name: Charles Figueroa Age: 75 yrs Sex: Male : 1940 Arrival Date: 05/23/2016 Time: 11:22 Bed 10 Private MD: Disposition: 05/23/16 13:43 Hospitalization ordered by Myrna Murry for Inpatient Admission. 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 - Bed requested for 5 Vale. - Status is Inpatient Admission. srm - Condition is Stable. - Problem is chronic. - Symptoms have worsened. Historical: - Allergies: no known allergies; - Home Meds: 1. albuterol sulfate 90 mcg/actuation Inhl HFAA 2 puffs every 6 hours 2. aspirin 81 mg Oral tab 1 tab once daily 3. calcitriol 0.25 mcg oral cap 1 cap once daily 4. Coreg 6.25 mg Oral tab 1 tab 2 times per day 5. melatonin 5 mg Oral tab nightly 6. Miralax 17 gram Oral pwpk 1 packet once daily 7. nephrovite daily 8. omeprazole 40 mg Oral cpDR 1 cap once daily 9. oxycodone 5 mg Oral tab 1 tab every 4 hours 10. Plavix 75 mg Oral tab 1 tab once daily 11. renavite .8 mg 12. Tums 200 mg calcium (500 mg) Oral chew 2 tabs three times a day - PMHx: Anemia; Asthma; Diabetes - NIDDM: controlled; GERD; Hypercholesterolemia; Hypertension; Multiple Myeloma; Myocardial infarction; Renal Failure with Dialysis; - PSHx: Cardiac stents; Appendectomy; Dialysis Catherter Insertion; - Family history: Not pertinent. - Social history: Smoking status: Patient states former smoker of tobacco. No barriers to communication noted, The patient speaks fluent Chinese, Speaks appropriately for age. - : The pt / caregiver states he / she is on anticoagulants: Plavix. Home medication list is obtained from the patient. - Exposure Risk Screening:: None identified. Vital Signs: 05/23 11:39 BP 141 / 67; Pulse 105; Resp 18; Temp 98.8(TE); Pulse Ox 97% on R/A; Weight 51.26 kg / ct3 113.01 lbs (R); Height 5 ft. 9 in. (175.26 cm) (R); 11:52 Pulse 102 MON; Pulse Ox 90% on R/A; srm 11:53 BP 135 / 72 (auto/); srm 12:08 Pulse 96 MON; Pulse Ox 98% ; srm 12:08 BP 142 / 77 (auto/); srm 12:23 Pulse 98 MON; Pulse Ox 97% ; srm 12:23 BP 154 / 76 (auto/); srm 12:38 BP 129 / 63 (auto/); srm 12:38 Pulse 96 MON; Pulse Ox 99% on 2 lpm NC; srm 12:53 Pulse 94 MON; srm 12:53 BP 146 / 74 (auto/); srm 13:08 BP 148 / 79 (auto/); srm 13:08 Pulse 94 MON; srm 13:23 BP 151 / 79 (auto/); srm 13:23 Pulse 94 MON; srm 13:38 BP 145 / 80 (auto/); srm 13:38 Pulse 96 MON; Pulse Ox 100% on 2 lpm NC; srm 13:53 Pulse 92 MON; srm 13:53 BP 142 / 73 (auto/); srm 14:08 BP 143 / 79 (auto/); srm 14:08 Pulse 92 MON; srm 14:21 Pulse 98 MON; Pulse Ox 93% ; srm 14:23 BP 148 / 80 (auto/); srm 14:38 BP 119 / 56 (auto/); srm 14:38 Pulse 102 MON; Pulse Ox 80% ; srm 15:08 BP 151 / 71 (auto/); srm 15:09 Pulse 102 MON; Pulse Ox 100% ; srm 15:14 BP 148 / 70 (auto/); srm 15:14 Pulse 102 MON; Resp 18; Temp 99.9(TE); Pulse Ox 100% on 2 lpm NC; srm 16:08 BP 141 / 67 (auto/); srm 16:08 Pulse 102 MON; Resp 20; Temp 96.3; Pulse Ox 92% on R/A; Pain 0/10; srm 11:39 Body Mass Index 16.69 (51.26 kg, 175.26 cm) ct3 MDM: 11:32 IV Saline Lock ordered. fg 11:33 CBC with Diff Ordered. EDMS 11:33 Basic Metabolic Profile Ordered. EDMS 11:34 Foot, Complete Ordered. EDMS 11:53 -Blood Culture (Adults Only), peripheral from different site, or from device/port/PICC fg etc. if present ordered. 11:53 -Blood Culture Ordered. EDMS 11:56 -Blood Culture (Adults Only), peripheral from different site, or from device/port/PICC deg etc. if present complete. 11:58 BLOOD CULTURES Ordered. EDMS 13:10 Wound Culture - Other Unlisted Source Ordered. EDMS 13:38 [facility] Payment Agreement was scanned into [employer] and attached to record. jp5 13:38 Financial registration complete. jp5 14:02 ECG WITH READING ER PHYS+CARDIAG ordered. EDMS 14:04 Admission / Observation Status ordered. EDMS 14:04 CONSISTENT CARBOHYDRATES ordered. EDMS 14:06 PHYSICAL THERAPY EVAL & TREAT ordered. EDMS 14:08 PATHOLOGIST REVIEW COMPREHENSI Ordered. EDMS 14:24 LIVER PROFILE Ordered. EDMS 14:26 FERRITIN Ordered. EDMS 14:26 TOTAL IRON BINDING CAPACIT Ordered. EDMS 14:26 RETICULOCYTE COUNT Ordered. EDMS 05/24 09:56 T-Sheet-- Draft Copy was scanned into [employer] and attached to record. gb 09:56 Trend VS was scanned into [employer] and attached to record. gb Signatures: Dispatcher [employer] EDMS Teresa Brown, Laser Print Operator Unit deg Shiraz Blas,RN RN Shaylee Dela Cruz, RN RN srm Filiberto, Dulce, Reg Reg gb Clark Card jp5 Lexii Orta MD MD fg Andrews, Steven, RN RN sa The chart was reviewed and I authenticate all verbal orders and agree with the evaluation and treatment provided.Corrections: (The following items were deleted from the chart) 05/23 14:24 13:02 LIVER PROFILE+LAB ordered. EDMS EDMS 14:27 14:07 IRON (FE) ordered. EDMS EDMS 14:27 14:08 TOTAL IRON BINDING CAPACIT ordered. EDMS EDMS 14:27 14:08 FERRITIN ordered. EDMS EDMS 14:27 14:08 RETICULOCYTE COUNT ordered. EDMS EDMS 15:17 14:05 BLOOD CULTURES ordered. EDMS EDMS Attachments: 13:38 [facility] Payment Agreement jp5 05/24 09:56 T-Sheet-- Draft Copy gb MTDD
--- NOTE | 2016-05-28 13:09 | EDDOCDS ---
Physician Documentation [facility] Name: Charles Figueroa Age: 75 yrs Sex: Male : 1940 Arrival Date: 05/23/2016 Time: 11:22 Bed 10 Private MD: Disposition: 05/23/16 13:43 Hospitalization ordered by Myrna Murry for Inpatient Admission. 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 - Bed requested for 5 Vale. - Status is Inpatient Admission. srm - Condition is Stable. - Problem is chronic. - Symptoms have worsened. Historical: - Allergies: no known allergies; - Home Meds: 1. albuterol sulfate 90 mcg/actuation Inhl HFAA 2 puffs every 6 hours 2. aspirin 81 mg Oral tab 1 tab once daily 3. calcitriol 0.25 mcg oral cap 1 cap once daily 4. Coreg 6.25 mg Oral tab 1 tab 2 times per day 5. melatonin 5 mg Oral tab nightly 6. Miralax 17 gram Oral pwpk 1 packet once daily 7. nephrovite daily 8. omeprazole 40 mg Oral cpDR 1 cap once daily 9. oxycodone 5 mg Oral tab 1 tab every 4 hours 10. Plavix 75 mg Oral tab 1 tab once daily 11. renavite .8 mg 12. Tums 200 mg calcium (500 mg) Oral chew 2 tabs three times a day - PMHx: Anemia; Asthma; Diabetes - NIDDM: controlled; GERD; Hypercholesterolemia; Hypertension; Multiple Myeloma; Myocardial infarction; Renal Failure with Dialysis; - PSHx: Cardiac stents; Appendectomy; Dialysis Catherter Insertion; - Family history: Not pertinent. - Social history: Smoking status: Patient states former smoker of tobacco. No barriers to communication noted, The patient speaks fluent Sami, Speaks appropriately for age. - : The pt / caregiver states he / she is on anticoagulants: Plavix. Home medication list is obtained from the patient. - Exposure Risk Screening:: None identified. Vital Signs: 05/23 11:39 BP 141 / 67; Pulse 105; Resp 18; Temp 98.8(TE); Pulse Ox 97% on R/A; Weight 51.26 kg / ct3 113.01 lbs (R); Height 5 ft. 9 in. (175.26 cm) (R); 11:52 Pulse 102 MON; Pulse Ox 90% on R/A; srm 11:53 BP 135 / 72 (auto/); srm 12:08 Pulse 96 MON; Pulse Ox 98% ; srm 12:08 BP 142 / 77 (auto/); srm 12:23 Pulse 98 MON; Pulse Ox 97% ; srm 12:23 BP 154 / 76 (auto/); srm 12:38 BP 129 / 63 (auto/); srm 12:38 Pulse 96 MON; Pulse Ox 99% on 2 lpm NC; srm 12:53 Pulse 94 MON; srm 12:53 BP 146 / 74 (auto/); srm 13:08 BP 148 / 79 (auto/); srm 13:08 Pulse 94 MON; srm 13:23 BP 151 / 79 (auto/); srm 13:23 Pulse 94 MON; srm 13:38 BP 145 / 80 (auto/); srm 13:38 Pulse 96 MON; Pulse Ox 100% on 2 lpm NC; srm 13:53 Pulse 92 MON; srm 13:53 BP 142 / 73 (auto/); srm 14:08 BP 143 / 79 (auto/); srm 14:08 Pulse 92 MON; srm 14:21 Pulse 98 MON; Pulse Ox 93% ; srm 14:23 BP 148 / 80 (auto/); srm 14:38 BP 119 / 56 (auto/); srm 14:38 Pulse 102 MON; Pulse Ox 80% ; srm 15:08 BP 151 / 71 (auto/); srm 15:09 Pulse 102 MON; Pulse Ox 100% ; srm 15:14 BP 148 / 70 (auto/); srm 15:14 Pulse 102 MON; Resp 18; Temp 99.9(TE); Pulse Ox 100% on 2 lpm NC; srm 16:08 BP 141 / 67 (auto/); srm 16:08 Pulse 102 MON; Resp 20; Temp 96.3; Pulse Ox 92% on R/A; Pain 0/10; srm 11:39 Body Mass Index 16.69 (51.26 kg, 175.26 cm) ct3 MDM: 11:32 IV Saline Lock ordered. fg 11:33 CBC with Diff Ordered. EDMS 11:33 Basic Metabolic Profile Ordered. EDMS 11:34 Foot, Complete Ordered. EDMS 11:53 -Blood Culture (Adults Only), peripheral from different site, or from device/port/PICC fg etc. if present ordered. 11:53 -Blood Culture Ordered. EDMS 11:56 -Blood Culture (Adults Only), peripheral from different site, or from device/port/PICC deg etc. if present complete. 11:58 BLOOD CULTURES Ordered. EDMS 13:10 Wound Culture - Other Unlisted Source Ordered. EDMS 13:38 [facility] Payment Agreement was scanned into [employer] and attached to record. jp5 13:38 Financial registration complete. jp5 14:02 ECG WITH READING ER PHYS+CARDIAG ordered. EDMS 14:04 Admission / Observation Status ordered. EDMS 14:04 CONSISTENT CARBOHYDRATES ordered. EDMS 14:06 PHYSICAL THERAPY EVAL & TREAT ordered. EDMS 14:08 PATHOLOGIST REVIEW COMPREHENSI Ordered. EDMS 14:24 LIVER PROFILE Ordered. EDMS 14:26 FERRITIN Ordered. EDMS 14:26 TOTAL IRON BINDING CAPACIT Ordered. EDMS 14:26 RETICULOCYTE COUNT Ordered. EDMS 05/24 09:56 T-Sheet-- Draft Copy was scanned into [employer] and attached to record. gb 09:56 Trend VS was scanned into [employer] and attached to record. gb Signatures: Dispatcher [employer] EDMS Teresa Brown, Physical Medicine Physician Unit deg Shiraz Blas,RN RN Shaylee Dela Cruz, RN RN srm Filiberto, Dulce, Reg Reg gb Clark Card jp5 Lexii Orta MD MD fg Andrews, Steven, RN RN sa The chart was reviewed and I authenticate all verbal orders and agree with the evaluation and treatment provided.Corrections: (The following items were deleted from the chart) 05/23 14:24 13:02 LIVER PROFILE+LAB ordered. EDMS EDMS 14:27 14:07 IRON (FE) ordered. EDMS EDMS 14:27 14:08 TOTAL IRON BINDING CAPACIT ordered. EDMS EDMS 14:27 14:08 FERRITIN ordered. EDMS EDMS 14:27 14:08 RETICULOCYTE COUNT ordered. EDMS EDMS 15:17 14:05 BLOOD CULTURES ordered. EDMS EDMS Attachments: 13:38 [facility] Payment Agreement jp5 05/24 09:56 T-Sheet-- Draft Copy gb MTDD
--- NOTE | 2016-05-28 13:09 | EDDOCDS ---
Nurse's Notes [facility] Name: Charles Figueroa Age: 75 yrs Sex: Male : 1940 Arrival Date: 05/23/2016 Time: 11:22 Bed 10 Private MD: Diagnosis: Idiopathic aseptic necrosis of left foot Presentation: 05/23 11:30 Presenting complaint: EMS states: infected left foot. symptoms for awhile. pt states srm its black- dressing intact at this time. had dialysis today. Adult Sepsis Screening: The patient does not have new or worsening altered mentation. Patient's respiratory rate is less than 22. Systolic blood pressure is greater than 100. Patient has a qSOFA score of 0- Negative Sepsis Screen. Suicide/Homicide risk assessment- the patient denies having any suicidal and/or homicidal ideations and does not present with any other emotional, behavioral or mental health complaints. Status: Patient is not a patient financial services manager or dependent. Transition of care: patient was received from dialysis. 11:30 Acuity: [place] Level 3 [facility] 11:30 Method Of Arrival: Ambulance [facility] 11:34 Presenting complaint: Patient states: states he stubbed his toe on left foot 1 week ago srm and 2 days ago noticed his foot turning black and infectious. Triage Assessment: 11:40 Musculoskeletal: toes 3-5 on left foot black. large areas open and draining to top and srm bottom of lft foot. drainage is purulent and odorous. also blackened area to bottom of left foot. Historical: - Allergies: no known allergies; - Home Meds: 1. albuterol sulfate 90 mcg/actuation Inhl HFAA 2 puffs every 6 hours 2. aspirin 81 mg Oral tab 1 tab once daily 3. calcitriol 0.25 mcg oral cap 1 cap once daily 4. Coreg 6.25 mg Oral tab 1 tab 2 times per day 5. melatonin 5 mg Oral tab nightly 6. Miralax 17 gram Oral pwpk 1 packet once daily 7. nephrovite daily 8. omeprazole 40 mg Oral cpDR 1 cap once daily 9. oxycodone 5 mg Oral tab 1 tab every 4 hours 10. Plavix 75 mg Oral tab 1 tab once daily 11. renavite .8 mg 12. Tums 200 mg calcium (500 mg) Oral chew 2 tabs three times a day - PMHx: Anemia; Asthma; Diabetes - NIDDM: controlled; GERD; Hypercholesterolemia; Hypertension; Multiple Myeloma; Myocardial infarction; Renal Failure with Dialysis; - PSHx: Cardiac stents; Appendectomy; Dialysis Catherter Insertion; - Family history: Not pertinent. - Social history: Smoking status: Patient states former smoker of tobacco. No barriers to communication noted, The patient speaks fluent Tajik, Speaks appropriately for age. - : The pt / caregiver states he / she is on anticoagulants: Plavix. Home medication list is obtained from the patient. - Exposure Risk Screening:: None identified. Screenin:26 Screening information is obtained from the patient. Fall risk: At risk due to gait srm disturbance, The following interventions are performed due to a positive Fall Risk Screen: Fall Risk is added to Special Handling on the patient Summary Screen. A Fall Risk Bracelet was applied to the patient. Side Rails are placed in the up position. A Call Schroeder is given with instruction to call for help when getting out of bed. Fall Alert bracelet is placed on the patient. Assistance ADL's: requires no assistance with activities of daily living. Abuse/DV Screen: The patient / caregiver reports he/she is: not in a situation that causes fear, pain or injury. Nutritional screening: No deficits noted. Advance Directives: Currently, there is a health care proxy, johnie evans or brother amy. home support is adequate. Assessment: 13:09 General: Appears in no apparent distress, Behavior is appropriate for age, cooperative. srm Neurological: No deficits noted. EENT: No deficits noted. Respiratory: No deficits noted. GI: No deficits noted. Derm: Skin is pale. Musculoskeletal: toes 3-5 and johnny;f cuircle looping down top of foot black. large open area draining purulent drainage. also wound to bottom aspect of foot . white large round area noptedt to heel of left foot. wet to dry DSD applied and secured with lyndsey wrap. pedal pulse noted by doppler. 15:20 General: Appears in no apparent distress, Behavior is appropriate for age, cooperative, srm ate lunch. talking with visitor voices no c/oat this time. foot remains dressed. toes 3-5 black in color. 16:11 General: Appears in no apparent distress, Behavior is appropriate for age, cooperative. srm Pain: Denies pain. Neurological: No deficits noted. EENT: No deficits noted. Respiratory: No deficits noted. GI: No deficits noted. Vital Signs: 11:39 BP 141 / 67; Pulse 105; Resp 18; Temp 98.8(TE); Pulse Ox 97% on R/A; Weight 51.26 kg ct3 (R); Height 5 ft. 9 in. (175.26 cm) (R); 11:52 Pulse 102 MON; Pulse Ox 90% on R/A; srm 11:53 BP 135 / 72 (auto/); srm 12:08 Pulse 96 MON; Pulse Ox 98% ; srm 12:08 BP 142 / 77 (auto/); srm 12:23 Pulse 98 MON; Pulse Ox 97% ; srm 12:23 BP 154 / 76 (auto/); srm 12:38 BP 129 / 63 (auto/); srm 12:38 Pulse 96 MON; Pulse Ox 99% on 2 lpm NC; srm 12:53 Pulse 94 MON; srm 12:53 BP 146 / 74 (auto/); srm 13:08 BP 148 / 79 (auto/); srm 13:08 Pulse 94 MON; srm 13:23 BP 151 / 79 (auto/); srm 13:23 Pulse 94 MON; srm 13:38 BP 145 / 80 (auto/); srm 13:38 Pulse 96 MON; Pulse Ox 100% on 2 lpm NC; srm 13:53 Pulse 92 MON; srm 13:53 BP 142 / 73 (auto/); srm 14:08 BP 143 / 79 (auto/); srm 14:08 Pulse 92 MON; srm 14:21 Pulse 98 MON; Pulse Ox 93% ; srm 14:23 BP 148 / 80 (auto/); srm 14:38 BP 119 / 56 (auto/); srm 14:38 Pulse 102 MON; Pulse Ox 80% ; srm 15:08 BP 151 / 71 (auto/); srm 15:09 Pulse 102 MON; Pulse Ox 100% ; srm 15:14 BP 148 / 70 (auto/); srm 15:14 Pulse 102 MON; Resp 18; Temp 99.9(TE); Pulse Ox 100% on 2 lpm NC; srm 16:08 BP 141 / 67 (auto/); srm 16:08 Pulse 102 MON; Resp 20; Temp 96.3; Pulse Ox 92% on R/A; Pain 0/10; srm 11:39 Body Mass Index 16.69 (51.26 kg, 175.26 cm) ct3 Vitals: 11:39 Log In Time N/A - ambulance arrival. ct3 ED Course: 11:23 Patient visited by Teresa Brown, Family Dinner Service Specialist. deg 11:23 Patient moved to Waiting deg 11:26 Joanne Hernandez,RN is Primary Nurse. deg 11:26 Patient moved to 10 deg 11:27 Patient moved to I9 / 22 deg 11:29 Patient moved to 10 srm 11:31 Triage Initiated srm 11:32 Patient visited by Shaylee High, DUGLAS. srm 11:35 Patient visited by Shaylee High, DUGLAS. srm 11:39 Patient has correct armband on for positive identification. Placed in gown. Bed in low ct3 position. Call light in reach. Side rails up X2. security monitor on. Pulse ox on. NIBP on. 11:40 Patient visited by Charlotte Romo PCA. ct3 11:49 Inserted saline lock: 20 gauge in right wrist. pt tolerated well. srm 11:55 Lexii Orta MD is Attending Physician. fg 12:47 Patient visited by Lexii Orta MD. fg 13:01 BLOOD CULTURES Sent. srm 13:12 Patient visited by Shaylee High RN. srm 13:38 [facility] Payment Agreement was scanned into [employer] and attached to record. jp5 13:41 Myrna Murry is Hospitalizing Provider. fg 14:31 Foot, Complete Returned. EDMS 15:24 Patient visited by Shaylee High RN. srm 15:26 The patient / caregiver is instructed regarding the plan of care and ED course. srm 15:37 Patient visited by Shaylee High RN. srm 15:37 REPORT TUBED TO 5 TERRY. srm 16:08 No procedures done that require assistance. srm 05/24 09:56 T-Sheet-- Draft Copy was scanned into [employer] and attached to record. gb 09:56 Trend VS was scanned into [employer] and attached to record. gb Attachments: 09:56 Trend VS gb Order Results: Lab Order: CBC with Diff; SPEC'M 05/23/16 12:36 Test: WHITE BLOOD COUNT; Value: 5.7; Range: 4.0-10.0; Units: K/mm3; Status: F Test: RED BLOOD COUNT; Value: 2.55; Range: 4.30-6.10; Abnormal: Below low normal; Units: M/mm3; Status: F Test: HEMOGLOBIN; Value: 8.3; Range: 14.0-18.0; Abnormal: Below low normal; Units: g/dl; Status: F Test: HEMATOCRIT; Value: 26.2; Range: 42.0-52.0; Abnormal: Below low normal; Units: %; Status: F Test: MEAN CORPUSCULAR VOLUME; Value: 102.7; Range: 80.0-96.0; Abnormal: Above high normal; Units: fl; Status: F Test: MEAN CORPUSCULAR HEMOGLOBIN; Value: 32.7; Range: 27.0-33.0; Units: pg; Status: F Test: MEAN CORPUSCULAR HGB CONC; Value: 31.9; Range: 32.0-36.5; Abnormal: Below low normal; Units: g/dl; Status: F Test: RED CELL DISTRIBUTION WIDTH; Value: 17.3; Range: 11.5-14.5; Abnormal: Above high normal; Units: %; Status: F Test: PLATELET COUNT, AUTOMATED; Value: 142; Range: 150-450; Abnormal: Below low normal; Units: k/mm3; Status: F Test: NEUTROPHILS %; Value: 86.7; Range: 36.0-66.0; Abnormal: Above high normal; Units: %; Status: F Test: LYMPH %; Value: 3.6; Range: 24.0-44.0; Abnormal: Below low normal; Units: %; Status: F Test: MONO %; Value: 5.7; Range: 0.0-5.0; Abnormal: Above high normal; Units: %; Status: F Test: EOS %; Value: 1.3; Range: 0.0-3.0; Units: %; Status: F Test: BASO %; Value: 1.5; Range: 0.0-1.0; Abnormal: Above high normal; Units: %; Status: F Test: LARGE UNSTAINED CELL %; Value: 1.2; Range: 0.0-4.0; Units: %; Status: F Test: NEUTROPHILS #; Value: 4.9; Range: 1.8-7.7; Units: K/mm3; Status: F Test: LYMPH #; Value: 0.3; Range: 1.5-4.5; Abnormal: Below low normal; Units: K/mm3; Status: F Test: MONO #; Value: 0.3; Range: 0.0-0.8; Units: K/mm3; Status: F Test: EOS #; Value: 0.1; Range: 0.0-0.50; Units: K/mm3; Status: F Test: BASO #; Value: 0.1; Range: 0.0-0.2; Units: K/mm3; Status: F Test: LARGE UNSTAINED CELL #; Value: 0.1; Range: 0.0-0.4; Units: K/mm3; Status: F Lab Order: Basic Metabolic Profile; [facility]' 05/23/16 12:36 Test: GLUCOSE, FASTING; Value: 112; Range: 83-110; Abnormal: Above high normal; Units: MG/DL; Status: F Test: BLOOD UREA NITROGEN; Value: 12; Range: 7-18; Units: MG/DL; Status: F Test: CREATININE FOR GFR; Value: 1.47; Range: 0.70-1.30; Abnormal: Above high normal; Units: MG/DL; Status: F Test: GLOMERULAR FILTRATION RATE; Value: 49.9; Range: >42; Status: F Test: SODIUM LEVEL; Value: 142; Range: 136-145; Units: MEQ/L; Status: F Test: POTASSIUM SERUM; Value: 3.7; Range: 3.5-5.1; Units: MEQ/L; Status: F Test: CHLORIDE LEVEL; Value: 103; Range: 98-107; Units: MEQ/L; Status: F Test: CARBON DIOXIDE LEVEL; Value: 31; Range: 21-32; Units: MEQ/L; Status: F Test: ANION GAP; Value: 8; Range: 8-16; Units: MEQ/L; Status: F Test: CALCIUM LEVEL; Value: 8.0; Range: 8.8-10.2; Abnormal: Below low normal; Units: MG/DL; Status: F Test Note: ; Units are mL/min/1.73 m2 Chronic Kidney Disease Staging per NKF: Stage I & II GFR >=60 Normal to Mildly Decreased Stage III GFR 30-59 Moderately Decreased Stage IV GFR 15-29 Severely Decreased Stage V GFR <15 Very Little GFR Left ESRD GFR <15 on HORTICULTURALIST Lab Order: PATHOLOGIST REVIEW COMPREHENSI; SPEC'M 05/23/16 12:36 Test: SLIDE REVIEW; Value: Report; Status: F Test: SOURCE; Value: PERIPHERAL SMEAR; Status: F Test: REASON FOR REVIEW; Value: COMPREHENSIVE REVIEW; Status: F Test Note: ; Slide and/or specimen referred to Pathologist for review. Results of the review are located in the EMR Pathology module under Peripheral Smear when completed. Lab Order: LIVER PROFILE; SPEC'M 05/23/16 12:36 Test: AST/SGOT; Value: 24; Range: 15-37; Units: U/L; Status: F Test: ALT/SGPT; Value: 29; Range: 12-78; Units: U/L; Status: F Test: ALKALINE PHOSPHATASE; Value: 182; Range: 45-117; Abnormal: Above high normal; Units: U/L; Status: F Test: BILIRUBIN,TOTAL; Value: 0.9; Range: 0.2-1.0; Units: MG/DL; Status: F Test: BILIRUBIN,DIRECT; Value: 0.6; Range: 0.0-0.2; Abnormal: Above high normal; Units: MG/DL; Status: F Test: TOTAL PROTEIN; Value: 6.0; Range: 6.4-8.2; Abnormal: Below low normal; Units: GM/DL; Status: F Test: ALBUMIN; Value: 2.3; Range: 3.2-5.2; Abnormal: Below low normal; Units: GM/DL; Status: F Test: ALBUMIN/GLOBULIN RATIO; Value: 0.62; Range: 1.00-1.93; Abnormal: Below low normal; Status: F Lab Order: FERRITIN; SPEC'M 05/23/16 12:36 Test: FERRITIN; Value: 2883; Range: 26-388; Abnormal: Above high normal; Units: NG/ML; Status: F Lab Order: TOTAL IRON BINDING CAPACIT; SPEC'M 05/23/16 12:36 Test: IRON (FE); Value: 31; Range: 65-175; Abnormal: Below low normal; Units: UG/DL; Status: F Test: TOTAL IRON BINDING CAPACITY; Value: 120; Range: 250-450; Abnormal: Below low normal; Units: UG/DL; Status: F Test: PERCENT SATURATION; Value: 25.8; Range: 19.7-37.4; Units: %; Status: F Lab Order: RETICULOCYTE COUNT; SPEC'M 05/23/16 12:36 Test: RETICULOCYTE % [id number]; Value: 2.20; Range: 0.5-1.5; Abnormal: Above high normal; Units: %; Status: F Test: RETICULOCYTE ABSOLUTE [id number]; Value: 55; Range: 17-77; Units: x10(9)/L; Status: F Test: RETIC HEMOGLOBIN CONTENT CHr; Value: 35.3; Range: 24-36; Units: PG; Status: F Radiology Order: Foot, Complete Test: Foot, Complete REASON FOR EXAMINATION: concern for infection; LEFT FOOT SERIES, COMPLETE: 05/23/2016; ; CLINICAL HISTORY: Diabetic foot ulcer, concern for infection.; ; Four views are provided.; ; There is a dressing over the lateral aspect of the distal forefoot. There; appears to be resection of the 2nd toe previously with only the articular aspect; of the proximal phalanx remaining. There is extensive subcutaneous emphysema; adjacent to the distal ends of the 4th and 5th metatarsals at the MTP joints.; There is been fusion of the DIP joint of the 5th toe. The 3rd through 5th toes; show no definite or displaced fracture. Lucencies in the subcutaneous tissues are; consistent with air in the subcutaneous tissues. They make determination of; destruction of bone very difficult. I cannot deftly confirm a pathologic; fracture in this region or destructive lesion. Small vessel arterial; calcifications noted between metatarsals and into the great toe. There is a; Charcot's joint with extensive spurring sclerosis and partial fusion of 2nd and; 3rd CMP joints with separation of the 1st and 2nd metatarsals, which all appear; to be chronic Charcot's joint changes. Soft tissue swelling over the foot. There; is loss of subtalar joint delineation. There are arterial calcifications about; the ankle and hind foot as well as plantar and Achilles insertional spurs.; Rocker arm/foot appearance on the lateral view from the advanced Charcot foot; changes. There is a tiny metallic foreign body about 4 mm long in the tissues; adjacent to the proximal shaft of the 1st metatarsal along the plantar aspect of; the subcutaneous region.; ; IMPRESSION: Some osteoporosis and advanced Charcot joint changes seen in the; tarsal bones with subcutaneous emphysema from large soft tissue ulceration over; the distal forefoot at the distal heads of the 4th and 5th metatarsals. Some; chronic degenerative changes as described. The possibility of infection within; the bone is not excluded. Soft tissue swelling, small vessel arterial; calcification and degenerative changes along with those Charcot joint changes; particularly in the tarsal bones and TMT joints.; ; ; Signed by; Ajit Lopes MD 05/23/2016 02:56 P; Outcome: 05/23 13:43 Decision to Hospitalize by Provider. fg 16:08 Discharge Assessment: Patient awake, alert and oriented x 3. No cognitive and/or srm functional deficits noted. Patient verbalized understanding of disposition instructions. patient administered narcotics - no. The following High Risk Discharge criteria are identified: None. Admitted to Med/Surg accompanied by tech, via stretcher, with chart. Condition: stable. No special radiology studies were completed. Property :Personal belongings accompany Pt. 16:14 Patient left the ED. [facility] Addendum: 05/28/2016 13:04 Narrative: Peripheral smear review report received and reviewed by Dr. Orta. Per , jc4 report to be sent to PMD. Pt was admitted to [address] [place] [address], and then transferred to [place]. Copy of report faxed to [address] where patient is currently hospitalized. Signatures: Dispatcher [employer] EDMS Teresa rBown, Family Dinner Service Specialist Unit deg Shiraz Blas RN RN jmk Michelson, Staci, DUGLAS ARDON [facility] Dulce De Los Santos, Reg Reg Gabby Hinojosa RN RN jc4 Charlotte Romo, ROCKY DYE HOUSE SUPERVISOR eber3 Clark Card jp5 Lexii Orta MD MD fg Corrections: (The following items were deleted from the chart) 05/23 14:24 13:37 LIVER PROFILE+LAB sent. [facility] EDOK MTDD
--- NOTE | 2016-05-28 13:10 | EDDOCDS ---
Physician Documentation [facility] Name: Charles Figueroa Age: 75 yrs Sex: Male : 1940 Arrival Date: 05/23/2016 Time: 11:22 Bed 10 Private MD: Disposition: 05/23/16 13:43 Hospitalization ordered by Myrna Murry for Inpatient Admission. 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 - Bed requested for 5 Vale. - Status is Inpatient Admission. srm - Condition is Stable. - Problem is chronic. - Symptoms have worsened. Historical: - Allergies: no known allergies; - Home Meds: 1. albuterol sulfate 90 mcg/actuation Inhl HFAA 2 puffs every 6 hours 2. aspirin 81 mg Oral tab 1 tab once daily 3. calcitriol 0.25 mcg oral cap 1 cap once daily 4. Coreg 6.25 mg Oral tab 1 tab 2 times per day 5. melatonin 5 mg Oral tab nightly 6. Miralax 17 gram Oral pwpk 1 packet once daily 7. nephrovite daily 8. omeprazole 40 mg Oral cpDR 1 cap once daily 9. oxycodone 5 mg Oral tab 1 tab every 4 hours 10. Plavix 75 mg Oral tab 1 tab once daily 11. renavite .8 mg 12. Tums 200 mg calcium (500 mg) Oral chew 2 tabs three times a day - PMHx: Anemia; Asthma; Diabetes - NIDDM: controlled; GERD; Hypercholesterolemia; Hypertension; Multiple Myeloma; Myocardial infarction; Renal Failure with Dialysis; - PSHx: Cardiac stents; Appendectomy; Dialysis Catherter Insertion; - Family history: Not pertinent. - Social history: Smoking status: Patient states former smoker of tobacco. No barriers to communication noted, The patient speaks fluent Kazakh, Speaks appropriately for age. - : The pt / caregiver states he / she is on anticoagulants: Plavix. Home medication list is obtained from the patient. - Exposure Risk Screening:: None identified. Vital Signs: 05/23 11:39 BP 141 / 67; Pulse 105; Resp 18; Temp 98.8(TE); Pulse Ox 97% on R/A; Weight 51.26 kg / ct3 113.01 lbs (R); Height 5 ft. 9 in. (175.26 cm) (R); 11:52 Pulse 102 MON; Pulse Ox 90% on R/A; srm 11:53 BP 135 / 72 (auto/); srm 12:08 Pulse 96 MON; Pulse Ox 98% ; srm 12:08 BP 142 / 77 (auto/); srm 12:23 Pulse 98 MON; Pulse Ox 97% ; srm 12:23 BP 154 / 76 (auto/); srm 12:38 BP 129 / 63 (auto/); srm 12:38 Pulse 96 MON; Pulse Ox 99% on 2 lpm NC; srm 12:53 Pulse 94 MON; srm 12:53 BP 146 / 74 (auto/); srm 13:08 BP 148 / 79 (auto/); srm 13:08 Pulse 94 MON; srm 13:23 BP 151 / 79 (auto/); srm 13:23 Pulse 94 MON; srm 13:38 BP 145 / 80 (auto/); srm 13:38 Pulse 96 MON; Pulse Ox 100% on 2 lpm NC; srm 13:53 Pulse 92 MON; srm 13:53 BP 142 / 73 (auto/); srm 14:08 BP 143 / 79 (auto/); srm 14:08 Pulse 92 MON; srm 14:21 Pulse 98 MON; Pulse Ox 93% ; srm 14:23 BP 148 / 80 (auto/); srm 14:38 BP 119 / 56 (auto/); srm 14:38 Pulse 102 MON; Pulse Ox 80% ; srm 15:08 BP 151 / 71 (auto/); srm 15:09 Pulse 102 MON; Pulse Ox 100% ; srm 15:14 BP 148 / 70 (auto/); srm 15:14 Pulse 102 MON; Resp 18; Temp 99.9(TE); Pulse Ox 100% on 2 lpm NC; srm 16:08 BP 141 / 67 (auto/); srm 16:08 Pulse 102 MON; Resp 20; Temp 96.3; Pulse Ox 92% on R/A; Pain 0/10; srm 11:39 Body Mass Index 16.69 (51.26 kg, 175.26 cm) ct3 MDM: 11:32 IV Saline Lock ordered. fg 11:33 CBC with Diff Ordered. EDMS 11:33 Basic Metabolic Profile Ordered. EDMS 11:34 Foot, Complete Ordered. EDMS 11:53 -Blood Culture (Adults Only), peripheral from different site, or from device/port/PICC fg etc. if present ordered. 11:53 -Blood Culture Ordered. EDMS 11:56 -Blood Culture (Adults Only), peripheral from different site, or from device/port/PICC deg etc. if present complete. 11:58 BLOOD CULTURES Ordered. EDMS 13:10 Wound Culture - Other Unlisted Source Ordered. EDMS 13:38 COUNT INCLUDES THE [facility] Payment Agreement was scanned into [employer] and attached to record. jp5 13:38 Financial registration complete. jp5 14:02 ECG WITH READING ER PHYS+CARDIAG ordered. EDMS 14:04 Admission / Observation Status ordered. EDMS 14:04 CONSISTENT CARBOHYDRATES ordered. EDMS 14:06 PHYSICAL THERAPY EVAL & TREAT ordered. EDMS 14:08 PATHOLOGIST REVIEW COMPREHENSI Ordered. EDMS 14:24 LIVER PROFILE Ordered. EDMS 14:26 FERRITIN Ordered. EDMS 14:26 TOTAL IRON BINDING CAPACIT Ordered. EDMS 14:26 RETICULOCYTE COUNT Ordered. EDMS 05/24 09:56 T-Sheet-- Draft Copy was scanned into [employer] and attached to record. gb 09:56 Trend VS was scanned into [employer] and attached to record. gb Signatures: Dispatcher [employer] EDMS Teresa Brown, [place]yer Assistant Unit deg Shiraz Blas,RN RN Shaylee Dela Cruz, RN RN srm Filiberto, Dulce, Reg Reg gb Clark Card jp5 Lexii Orta MD MD fg Andrews, Steven, RN RN sa The chart was reviewed and I authenticate all verbal orders and agree with the evaluation and treatment provided.Corrections: (The following items were deleted from the chart) 05/23 14:24 13:02 LIVER PROFILE+LAB ordered. EDMS EDMS 14:27 14:07 IRON (FE) ordered. EDMS EDMS 14:27 14:08 TOTAL IRON BINDING CAPACIT ordered. EDMS EDMS 14:27 14:08 FERRITIN ordered. EDMS EDMS 14:27 14:08 RETICULOCYTE COUNT ordered. EDMS EDMS 15:17 14:05 BLOOD CULTURES ordered. EDMS EDMS Attachments: 13:38 COUNT INCLUDES THE [facility] Payment Agreement jp5 05/24 09:56 T-Sheet-- Draft Copy gb Chart Complete MTDD
--- NOTE | 2016-05-28 13:10 | EDDOCDS ---
Physician Documentation [facility] Name: Charles Figueroa Age: 75 yrs Sex: Male : 1940 Arrival Date: 05/23/2016 Time: 11:22 Bed 10 Private MD: Disposition: 05/23/16 13:43 Hospitalization ordered by Myrna Murry for Inpatient Admission. 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 - Bed requested for 5 Vale. - Status is Inpatient Admission. srm - Condition is Stable. - Problem is chronic. - Symptoms have worsened. Historical: - Allergies: no known allergies; - Home Meds: 1. albuterol sulfate 90 mcg/actuation Inhl HFAA 2 puffs every 6 hours 2. aspirin 81 mg Oral tab 1 tab once daily 3. calcitriol 0.25 mcg oral cap 1 cap once daily 4. Coreg 6.25 mg Oral tab 1 tab 2 times per day 5. melatonin 5 mg Oral tab nightly 6. Miralax 17 gram Oral pwpk 1 packet once daily 7. nephrovite daily 8. omeprazole 40 mg Oral cpDR 1 cap once daily 9. oxycodone 5 mg Oral tab 1 tab every 4 hours 10. Plavix 75 mg Oral tab 1 tab once daily 11. renavite .8 mg 12. Tums 200 mg calcium (500 mg) Oral chew 2 tabs three times a day - PMHx: Anemia; Asthma; Diabetes - NIDDM: controlled; GERD; Hypercholesterolemia; Hypertension; Multiple Myeloma; Myocardial infarction; Renal Failure with Dialysis; - PSHx: Cardiac stents; Appendectomy; Dialysis Catherter Insertion; - Family history: Not pertinent. - Social history: Smoking status: Patient states former smoker of tobacco. No barriers to communication noted, The patient speaks fluent Frisian, Speaks appropriately for age. - : The pt / caregiver states he / she is on anticoagulants: Plavix. Home medication list is obtained from the patient. - Exposure Risk Screening:: None identified. Vital Signs: 05/23 11:39 BP 141 / 67; Pulse 105; Resp 18; Temp 98.8(TE); Pulse Ox 97% on R/A; Weight 51.26 kg / ct3 113.01 lbs (R); Height 5 ft. 9 in. (175.26 cm) (R); 11:52 Pulse 102 MON; Pulse Ox 90% on R/A; srm 11:53 BP 135 / 72 (auto/); srm 12:08 Pulse 96 MON; Pulse Ox 98% ; srm 12:08 BP 142 / 77 (auto/); srm 12:23 Pulse 98 MON; Pulse Ox 97% ; srm 12:23 BP 154 / 76 (auto/); srm 12:38 BP 129 / 63 (auto/); srm 12:38 Pulse 96 MON; Pulse Ox 99% on 2 lpm NC; srm 12:53 Pulse 94 MON; srm 12:53 BP 146 / 74 (auto/); srm 13:08 BP 148 / 79 (auto/); srm 13:08 Pulse 94 MON; srm 13:23 BP 151 / 79 (auto/); srm 13:23 Pulse 94 MON; srm 13:38 BP 145 / 80 (auto/); srm 13:38 Pulse 96 MON; Pulse Ox 100% on 2 lpm NC; srm 13:53 Pulse 92 MON; srm 13:53 BP 142 / 73 (auto/); srm 14:08 BP 143 / 79 (auto/); srm 14:08 Pulse 92 MON; srm 14:21 Pulse 98 MON; Pulse Ox 93% ; srm 14:23 BP 148 / 80 (auto/); srm 14:38 BP 119 / 56 (auto/); srm 14:38 Pulse 102 MON; Pulse Ox 80% ; srm 15:08 BP 151 / 71 (auto/); srm 15:09 Pulse 102 MON; Pulse Ox 100% ; srm 15:14 BP 148 / 70 (auto/); srm 15:14 Pulse 102 MON; Resp 18; Temp 99.9(TE); Pulse Ox 100% on 2 lpm NC; srm 16:08 BP 141 / 67 (auto/); srm 16:08 Pulse 102 MON; Resp 20; Temp 96.3; Pulse Ox 92% on R/A; Pain 0/10; srm 11:39 Body Mass Index 16.69 (51.26 kg, 175.26 cm) ct3 MDM: 11:32 IV Saline Lock ordered. fg 11:33 CBC with Diff Ordered. EDMS 11:33 Basic Metabolic Profile Ordered. EDMS 11:34 Foot, Complete Ordered. EDMS 11:53 -Blood Culture (Adults Only), peripheral from different site, or from device/port/PICC fg etc. if present ordered. 11:53 -Blood Culture Ordered. EDMS 11:56 -Blood Culture (Adults Only), peripheral from different site, or from device/port/PICC deg etc. if present complete. 11:58 BLOOD CULTURES Ordered. EDMS 13:10 Wound Culture - Other Unlisted Source Ordered. EDMS 13:38 [facility] Payment Agreement was scanned into Appian and attached to record. jp5 13:38 Financial registration complete. jp5 14:02 ECG WITH READING ER PHYS+CARDIAG ordered. EDMS 14:04 Admission / Observation Status ordered. EDMS 14:04 CONSISTENT CARBOHYDRATES ordered. EDMS 14:06 PHYSICAL THERAPY EVAL & TREAT ordered. EDMS 14:08 PATHOLOGIST REVIEW COMPREHENSI Ordered. EDMS 14:24 LIVER PROFILE Ordered. EDMS 14:26 FERRITIN Ordered. EDMS 14:26 TOTAL IRON BINDING CAPACIT Ordered. EDMS 14:26 RETICULOCYTE COUNT Ordered. EDMS 05/24 09:56 T-Sheet-- Draft Copy was scanned into Appian and attached to record. gb 09:56 Trend VS was scanned into [employer] and attached to record. gb Signatures: Dispatcher MedHost EDMS Teresa Brown, Lining Stuffer Unit deg Shiraz Blas,RN RN Shaylee Dela Cruz, RN RN srm Filiberto, Dulce, Reg Reg gb Clark Card jp5 Lexii Orta MD MD fg Andrews, Steven, RN RN sa The chart was reviewed and I authenticate all verbal orders and agree with the evaluation and treatment provided.Corrections: (The following items were deleted from the chart) 05/23 14:24 13:02 LIVER PROFILE+LAB ordered. EDMS EDMS 14:27 14:07 IRON (FE) ordered. EDMS EDMS 14:27 14:08 TOTAL IRON BINDING CAPACIT ordered. EDMS EDMS 14:27 14:08 FERRITIN ordered. EDMS EDMS 14:27 14:08 RETICULOCYTE COUNT ordered. EDMS EDMS 15:17 14:05 BLOOD CULTURES ordered. EDMS EDMS Attachments: 13:38 [facility] Payment Agreement jp5 05/24 09:56 T-Sheet-- Draft Copy gb Chart Complete MTDD
--- NOTE | 2016-05-28 13:10 | EDDOCDS ---
Nurse's Notes [facility] Name: Charles Figueroa Age: 75 yrs Sex: Male : 1940 Arrival Date: 05/23/2016 Time: 11:22 Bed 10 Private MD: Diagnosis: Idiopathic aseptic necrosis of left foot Presentation: 05/23 11:30 Presenting complaint: EMS states: infected left foot. symptoms for awhile. pt states srm its black- dressing intact at this time. had dialysis today. Adult Sepsis Screening: The patient does not have new or worsening altered mentation. Patient's respiratory rate is less than 22. Systolic blood pressure is greater than 100. Patient has a qSOFA score of 0- Negative Sepsis Screen. Suicide/Homicide risk assessment- the patient denies having any suicidal and/or homicidal ideations and does not present with any other emotional, behavioral or mental health complaints. Status: Patient is not a surgical services asst or dependent. Transition of care: patient was received from dialysis. 11:30 Acuity: [place] Level 3 [facility] 11:30 Method Of Arrival: Ambulance [facility] 11:34 Presenting complaint: Patient states: states he stubbed his toe on left foot 1 week ago srm and 2 days ago noticed his foot turning black and infectious. Triage Assessment: 11:40 Musculoskeletal: toes 3-5 on left foot black. large areas open and draining to top and srm bottom of lft foot. drainage is purulent and odorous. also blackened area to bottom of left foot. Historical: - Allergies: no known allergies; - Home Meds: 1. albuterol sulfate 90 mcg/actuation Inhl HFAA 2 puffs every 6 hours 2. aspirin 81 mg Oral tab 1 tab once daily 3. calcitriol 0.25 mcg oral cap 1 cap once daily 4. Coreg 6.25 mg Oral tab 1 tab 2 times per day 5. melatonin 5 mg Oral tab nightly 6. Miralax 17 gram Oral pwpk 1 packet once daily 7. nephrovite daily 8. omeprazole 40 mg Oral cpDR 1 cap once daily 9. oxycodone 5 mg Oral tab 1 tab every 4 hours 10. Plavix 75 mg Oral tab 1 tab once daily 11. renavite .8 mg 12. Tums 200 mg calcium (500 mg) Oral chew 2 tabs three times a day - PMHx: Anemia; Asthma; Diabetes - NIDDM: controlled; GERD; Hypercholesterolemia; Hypertension; Multiple Myeloma; Myocardial infarction; Renal Failure with Dialysis; - PSHx: Cardiac stents; Appendectomy; Dialysis Catherter Insertion; - Family history: Not pertinent. - Social history: Smoking status: Patient states former smoker of tobacco. No barriers to communication noted, The patient speaks fluent Tamazight, Speaks appropriately for age. - : The pt / caregiver states he / she is on anticoagulants: Plavix. Home medication list is obtained from the patient. - Exposure Risk Screening:: None identified. Screenin:26 Screening information is obtained from the patient. Fall risk: At risk due to gait srm disturbance, The following interventions are performed due to a positive Fall Risk Screen: Fall Risk is added to Special Handling on the patient Summary Screen. A Fall Risk Bracelet was applied to the patient. Side Rails are placed in the up position. A Call Schroeder is given with instruction to call for help when getting out of bed. Fall Alert bracelet is placed on the patient. Assistance ADL's: requires no assistance with activities of daily living. Abuse/DV Screen: The patient / caregiver reports he/she is: not in a situation that causes fear, pain or injury. Nutritional screening: No deficits noted. Advance Directives: Currently, there is a health care proxy, johnie evans or brother amy. home support is adequate. Assessment: 13:09 General: Appears in no apparent distress, Behavior is appropriate for age, cooperative. srm Neurological: No deficits noted. EENT: No deficits noted. Respiratory: No deficits noted. GI: No deficits noted. Derm: Skin is pale. Musculoskeletal: toes 3-5 and johnny;f cuircle looping down top of foot black. large open area draining purulent drainage. also wound to bottom aspect of foot . white large round area noptedt to heel of left foot. wet to dry DSD applied and secured with lyndsey wrap. pedal pulse noted by doppler. 15:20 General: Appears in no apparent distress, Behavior is appropriate for age, cooperative, srm ate lunch. talking with visitor voices no c/oat this time. foot remains dressed. toes 3-5 black in color. 16:11 General: Appears in no apparent distress, Behavior is appropriate for age, cooperative. srm Pain: Denies pain. Neurological: No deficits noted. EENT: No deficits noted. Respiratory: No deficits noted. GI: No deficits noted. Vital Signs: 11:39 BP 141 / 67; Pulse 105; Resp 18; Temp 98.8(TE); Pulse Ox 97% on R/A; Weight 51.26 kg ct3 (R); Height 5 ft. 9 in. (175.26 cm) (R); 11:52 Pulse 102 MON; Pulse Ox 90% on R/A; srm 11:53 BP 135 / 72 (auto/); srm 12:08 Pulse 96 MON; Pulse Ox 98% ; srm 12:08 BP 142 / 77 (auto/); srm 12:23 Pulse 98 MON; Pulse Ox 97% ; srm 12:23 BP 154 / 76 (auto/); srm 12:38 BP 129 / 63 (auto/); srm 12:38 Pulse 96 MON; Pulse Ox 99% on 2 lpm NC; srm 12:53 Pulse 94 MON; srm 12:53 BP 146 / 74 (auto/); srm 13:08 BP 148 / 79 (auto/); srm 13:08 Pulse 94 MON; srm 13:23 BP 151 / 79 (auto/); srm 13:23 Pulse 94 MON; srm 13:38 BP 145 / 80 (auto/); srm 13:38 Pulse 96 MON; Pulse Ox 100% on 2 lpm NC; srm 13:53 Pulse 92 MON; srm 13:53 BP 142 / 73 (auto/); srm 14:08 BP 143 / 79 (auto/); srm 14:08 Pulse 92 MON; srm 14:21 Pulse 98 MON; Pulse Ox 93% ; srm 14:23 BP 148 / 80 (auto/); srm 14:38 BP 119 / 56 (auto/); srm 14:38 Pulse 102 MON; Pulse Ox 80% ; srm 15:08 BP 151 / 71 (auto/); srm 15:09 Pulse 102 MON; Pulse Ox 100% ; srm 15:14 BP 148 / 70 (auto/); srm 15:14 Pulse 102 MON; Resp 18; Temp 99.9(TE); Pulse Ox 100% on 2 lpm NC; srm 16:08 BP 141 / 67 (auto/); srm 16:08 Pulse 102 MON; Resp 20; Temp 96.3; Pulse Ox 92% on R/A; Pain 0/10; srm 11:39 Body Mass Index 16.69 (51.26 kg, 175.26 cm) ct3 Vitals: 11:39 Log In Time N/A - ambulance arrival. ct3 ED Course: 11:23 Patient visited by Teresa Brown, Storage Solutions Architect. deg 11:23 Patient moved to Waiting deg 11:26 Joanne Hernandez,RN is Primary Nurse. deg 11:26 Patient moved to 10 deg 11:27 Patient moved to I9 / 22 deg 11:29 Patient moved to 10 srm 11:31 Triage Initiated srm 11:32 Patient visited by Shaylee High, DUGLAS. srm 11:35 Patient visited by Shaylee High, DUGLAS. srm 11:39 Patient has correct armband on for positive identification. Placed in gown. Bed in low ct3 position. Call light in reach. Side rails up X2. satellite project site monitor on. Pulse ox on. NIBP on. 11:40 Patient visited by Charlotte Romo PCA. ct3 11:49 Inserted saline lock: 20 gauge in right wrist. pt tolerated well. srm 11:55 Lexii Orta MD is Attending Physician. fg 12:47 Patient visited by Lexii Orta MD. fg 13:01 BLOOD CULTURES Sent. srm 13:12 Patient visited by Shaylee High RN. srm 13:38 [facility] Payment Agreement was scanned into coin4ce and attached to record. jp5 13:41 Myrna Murry is Hospitalizing Provider. fg 14:31 Foot, Complete Returned. EDMS 15:24 Patient visited by Shaylee High RN. srm 15:26 The patient / caregiver is instructed regarding the plan of care and ED course. srm 15:37 Patient visited by Shaylee High RN. srm 15:37 REPORT TUBED TO 5 TERRY. srm 16:08 No procedures done that require assistance. srm 05/24 09:56 T-Sheet-- Draft Copy was scanned into coin4ce and attached to record. gb 09:56 Trend VS was scanned into coin4ce and attached to record. gb Attachments: 09:56 Trend VS gb Order Results: Lab Order: CBC with Diff; SPEC'M 05/23/16 12:36 Test: WHITE BLOOD COUNT; Value: 5.7; Range: 4.0-10.0; Units: K/mm3; Status: F Test: RED BLOOD COUNT; Value: 2.55; Range: 4.30-6.10; Abnormal: Below low normal; Units: M/mm3; Status: F Test: HEMOGLOBIN; Value: 8.3; Range: 14.0-18.0; Abnormal: Below low normal; Units: g/dl; Status: F Test: HEMATOCRIT; Value: 26.2; Range: 42.0-52.0; Abnormal: Below low normal; Units: %; Status: F Test: MEAN CORPUSCULAR VOLUME; Value: 102.7; Range: 80.0-96.0; Abnormal: Above high normal; Units: fl; Status: F Test: MEAN CORPUSCULAR HEMOGLOBIN; Value: 32.7; Range: 27.0-33.0; Units: pg; Status: F Test: MEAN CORPUSCULAR HGB CONC; Value: 31.9; Range: 32.0-36.5; Abnormal: Below low normal; Units: g/dl; Status: F Test: RED CELL DISTRIBUTION WIDTH; Value: 17.3; Range: 11.5-14.5; Abnormal: Above high normal; Units: %; Status: F Test: PLATELET COUNT, AUTOMATED; Value: 142; Range: 150-450; Abnormal: Below low normal; Units: k/mm3; Status: F Test: NEUTROPHILS %; Value: 86.7; Range: 36.0-66.0; Abnormal: Above high normal; Units: %; Status: F Test: LYMPH %; Value: 3.6; Range: 24.0-44.0; Abnormal: Below low normal; Units: %; Status: F Test: MONO %; Value: 5.7; Range: 0.0-5.0; Abnormal: Above high normal; Units: %; Status: F Test: EOS %; Value: 1.3; Range: 0.0-3.0; Units: %; Status: F Test: BASO %; Value: 1.5; Range: 0.0-1.0; Abnormal: Above high normal; Units: %; Status: F Test: LARGE UNSTAINED CELL %; Value: 1.2; Range: 0.0-4.0; Units: %; Status: F Test: NEUTROPHILS #; Value: 4.9; Range: 1.8-7.7; Units: K/mm3; Status: F Test: LYMPH #; Value: 0.3; Range: 1.5-4.5; Abnormal: Below low normal; Units: K/mm3; Status: F Test: MONO #; Value: 0.3; Range: 0.0-0.8; Units: K/mm3; Status: F Test: EOS #; Value: 0.1; Range: 0.0-0.50; Units: K/mm3; Status: F Test: BASO #; Value: 0.1; Range: 0.0-0.2; Units: K/mm3; Status: F Test: LARGE UNSTAINED CELL #; Value: 0.1; Range: 0.0-0.4; Units: K/mm3; Status: F Lab Order: Basic Metabolic Profile; [facility]' 05/23/16 12:36 Test: GLUCOSE, FASTING; Value: 112; Range: 83-110; Abnormal: Above high normal; Units: MG/DL; Status: F Test: BLOOD UREA NITROGEN; Value: 12; Range: 7-18; Units: MG/DL; Status: F Test: CREATININE FOR GFR; Value: 1.47; Range: 0.70-1.30; Abnormal: Above high normal; Units: MG/DL; Status: F Test: GLOMERULAR FILTRATION RATE; Value: 49.9; Range: >42; Status: F Test: SODIUM LEVEL; Value: 142; Range: 136-145; Units: MEQ/L; Status: F Test: POTASSIUM SERUM; Value: 3.7; Range: 3.5-5.1; Units: MEQ/L; Status: F Test: CHLORIDE LEVEL; Value: 103; Range: 98-107; Units: MEQ/L; Status: F Test: CARBON DIOXIDE LEVEL; Value: 31; Range: 21-32; Units: MEQ/L; Status: F Test: ANION GAP; Value: 8; Range: 8-16; Units: MEQ/L; Status: F Test: CALCIUM LEVEL; Value: 8.0; Range: 8.8-10.2; Abnormal: Below low normal; Units: MG/DL; Status: F Test Note: ; Units are mL/min/1.73 m2 Chronic Kidney Disease Staging per NKF: Stage I & II GFR >=60 Normal to Mildly Decreased Stage III GFR 30-59 Moderately Decreased Stage IV GFR 15-29 Severely Decreased Stage V GFR <15 Very Little GFR Left ESRD GFR <15 on MANAGER WILLOW Lab Order: PATHOLOGIST REVIEW COMPREHENSI; SPEC'M 05/23/16 12:36 Test: SLIDE REVIEW; Value: Report; Status: F Test: SOURCE; Value: PERIPHERAL SMEAR; Status: F Test: REASON FOR REVIEW; Value: COMPREHENSIVE REVIEW; Status: F Test Note: ; Slide and/or specimen referred to Pathologist for review. Results of the review are located in the EMR Pathology module under Peripheral Smear when completed. Lab Order: LIVER PROFILE; SPEC'M 05/23/16 12:36 Test: AST/SGOT; Value: 24; Range: 15-37; Units: U/L; Status: F Test: ALT/SGPT; Value: 29; Range: 12-78; Units: U/L; Status: F Test: ALKALINE PHOSPHATASE; Value: 182; Range: 45-117; Abnormal: Above high normal; Units: U/L; Status: F Test: BILIRUBIN,TOTAL; Value: 0.9; Range: 0.2-1.0; Units: MG/DL; Status: F Test: BILIRUBIN,DIRECT; Value: 0.6; Range: 0.0-0.2; Abnormal: Above high normal; Units: MG/DL; Status: F Test: TOTAL PROTEIN; Value: 6.0; Range: 6.4-8.2; Abnormal: Below low normal; Units: GM/DL; Status: F Test: ALBUMIN; Value: 2.3; Range: 3.2-5.2; Abnormal: Below low normal; Units: GM/DL; Status: F Test: ALBUMIN/GLOBULIN RATIO; Value: 0.62; Range: 1.00-1.93; Abnormal: Below low normal; Status: F Lab Order: FERRITIN; SPEC'M 05/23/16 12:36 Test: FERRITIN; Value: 2883; Range: 26-388; Abnormal: Above high normal; Units: NG/ML; Status: F Lab Order: TOTAL IRON BINDING CAPACIT; SPEC'M 05/23/16 12:36 Test: IRON (FE); Value: 31; Range: 65-175; Abnormal: Below low normal; Units: UG/DL; Status: F Test: TOTAL IRON BINDING CAPACITY; Value: 120; Range: 250-450; Abnormal: Below low normal; Units: UG/DL; Status: F Test: PERCENT SATURATION; Value: 25.8; Range: 19.7-37.4; Units: %; Status: F Lab Order: RETICULOCYTE COUNT; SPEC'M 05/23/16 12:36 Test: RETICULOCYTE % [id number]; Value: 2.20; Range: 0.5-1.5; Abnormal: Above high normal; Units: %; Status: F Test: RETICULOCYTE ABSOLUTE [id number]; Value: 55; Range: 17-77; Units: x10(9)/L; Status: F Test: RETIC HEMOGLOBIN CONTENT CHr; Value: 35.3; Range: 24-36; Units: PG; Status: F Radiology Order: Foot, Complete Test: Foot, Complete REASON FOR EXAMINATION: concern for infection; LEFT FOOT SERIES, COMPLETE: 05/23/2016; ; CLINICAL HISTORY: Diabetic foot ulcer, concern for infection.; ; Four views are provided.; ; There is a dressing over the lateral aspect of the distal forefoot. There; appears to be resection of the 2nd toe previously with only the articular aspect; of the proximal phalanx remaining. There is extensive subcutaneous emphysema; adjacent to the distal ends of the 4th and 5th metatarsals at the MTP joints.; There is been fusion of the DIP joint of the 5th toe. The 3rd through 5th toes; show no definite or displaced fracture. Lucencies in the subcutaneous tissues are; consistent with air in the subcutaneous tissues. They make determination of; destruction of bone very difficult. I cannot deftly confirm a pathologic; fracture in this region or destructive lesion. Small vessel arterial; calcifications noted between metatarsals and into the great toe. There is a; Charcot's joint with extensive spurring sclerosis and partial fusion of 2nd and; 3rd CMP joints with separation of the 1st and 2nd metatarsals, which all appear; to be chronic Charcot's joint changes. Soft tissue swelling over the foot. There; is loss of subtalar joint delineation. There are arterial calcifications about; the ankle and hind foot as well as plantar and Achilles insertional spurs.; Rocker arm/foot appearance on the lateral view from the advanced Charcot foot; changes. There is a tiny metallic foreign body about 4 mm long in the tissues; adjacent to the proximal shaft of the 1st metatarsal along the plantar aspect of; the subcutaneous region.; ; IMPRESSION: Some osteoporosis and advanced Charcot joint changes seen in the; tarsal bones with subcutaneous emphysema from large soft tissue ulceration over; the distal forefoot at the distal heads of the 4th and 5th metatarsals. Some; chronic degenerative changes as described. The possibility of infection within; the bone is not excluded. Soft tissue swelling, small vessel arterial; calcification and degenerative changes along with those Charcot joint changes; particularly in the tarsal bones and TMT joints.; ; ; Signed by; Ajit Lopes MD 05/23/2016 02:56 P; Outcome: 05/23 13:43 Decision to Hospitalize by Provider. fg 16:08 Discharge Assessment: Patient awake, alert and oriented x 3. No cognitive and/or srm functional deficits noted. Patient verbalized understanding of disposition instructions. patient administered narcotics - no. The following High Risk Discharge criteria are identified: None. Admitted to Med/Surg accompanied by tech, via stretcher, with chart. Condition: stable. No special radiology studies were completed. Property :Personal belongings accompany Pt. 16:14 Patient left the ED. [facility] Addendum: 05/28/2016 13:04 Narrative: Peripheral smear review report received and reviewed by Dr. Orta. Per , jc4 report to be sent to PMD. Pt was admitted to [address] [place] [address], and then transferred to [place]. Copy of report faxed to [address] where patient is currently hospitalized. Signatures: Dispatcher MedHost EDMS Teresa Brown, Storage Solutions Architect Unit deg Shiraz Blas RN RN jmk Michelson, Staci, DUGLAS ARDON [facility] Dulce De Los Santos, Reg Reg Gabby Hinojosa RN RN [email or web address] Charlotte Romo, ROCKY BUNG SEWER [id number] Clark Card jp5 Lexii Orta MD MD fg Corrections: (The following items were deleted from the chart) 05/23 14:24 13:37 LIVER PROFILE+LAB sent. [facility] EDVA Chart Complete MTDD
== END 2016-05-27 17:30 | disposition short-term general hospital (02) | DRG 255 ==
LOC: M ED 11:22 → M ED INP 13:58 → M MS5PR 16:25
PROVIDERS: ADMIT General Practice; ATTEND Hospitalist
PROC: 0Y6W0Z3 Detachment at Left 4th Toe, Low, Open Approach (ICD-10-PCS; 2016-05-24)
PROC: 0Y6Y0Z3 Detachment at Left 5th Toe, Low, Open Approach (ICD-10-PCS; 2016-05-24)
PROC: 30253N1 (ICD-10-PCS; 2016-05-24)
PROC: 0Y6Q0Z3 Detachment at Left 1st Toe, Low, Open Approach (ICD-10-PCS; 2016-05-24)
PROC: 0Y6S0Z3 Detachment at Left 2nd Toe, Low, Open Approach (ICD-10-PCS; 2016-05-24)
PROC: 0Y6U0Z3 Detachment at Left 3rd Toe, Low, Open Approach (ICD-10-PCS; principal; 2016-05-24 16:30)
PROC: 5A1D60Z (ICD-10-PCS; 2016-05-25)
PROC: 0DB98ZX Excision of Duodenum, Via Natural or Artificial Opening Endoscopic, Diagnostic (ICD-10-PCS; 2016-05-26)
PROC: 06H033Z Insertion of Infusion Device into Inferior Vena Cava, Percutaneous Approach (ICD-10-PCS; 2016-05-27)
DX: E11.52 Type 2 diabetes mellitus with diabetic peripheral angiopathy with gangrene (principal); N18.6 End stage renal disease; I12.0 Hypertensive chronic kidney disease with stage 5 chronic kidney disease or end stage renal disease; N25.81 Secondary hyperparathyroidism of renal origin; C90.00 Multiple myeloma not having achieved remission; D62 Acute posthemorrhagic anemia; M86.472 Chronic osteomyelitis with draining sinus, left ankle and foot; E11.621 Type 2 diabetes mellitus with foot ulcer; D63.1 Anemia in chronic kidney disease; M14.672 Charcot's joint, left ankle and foot; E11.51 Type 2 diabetes mellitus with diabetic peripheral angiopathy without gangrene; I25.10 Atherosclerotic heart disease of native coronary artery without angina pectoris; E11.40 Type 2 diabetes mellitus with diabetic neuropathy, unspecified; R12 Heartburn; Z95.5 Presence of coronary angioplasty implant and graft; L97.519 Non-pressure chronic ulcer of other part of right foot with unspecified severity; L97.529 Non-pressure chronic ulcer of other part of left foot with unspecified severity; K31.7 Polyp of stomach and duodenum; B95.61 Methicillin susceptible Staphylococcus aureus infection as the cause of diseases classified elsewhere; B96.4 Proteus (mirabilis) (morganii) as the cause of diseases classified elsewhere; Z79.82 Long term (current) use of aspirin; Z79.84 Long term (current) use of oral hypoglycemic drugs; Z79.899 Other long term (current) drug therapy; Z99.2 Dependence on renal dialysis; Z87.891 Personal history of nicotine dependence

== ENCOUNTER → 2016-07-13 | Outpatient (REF) | payer MEDICARE ==
[~2016-07-13] MED LIST changes: +CARV3.12 PO; +CLAR1TAB2 PO; +DEXA4TA PO; +HYDR25T PO; +MELA5TAB14 PO; +MIRA3350 PO; +MORP15TA2 PO; +NEPHTAB PO; +RENATAB5 PO; +REVL5CAP2 PO; +TUMS500C PO; +ZOSY2INJ2 IV
[2016-07-13 14:06] LABS: IMMUNOGLOBULIN G 1550 MG/DL (681-1648); IMMUNOGLOBULIN M 53.8 MG/DL (40-230); TOTAL PROTEIN 6.5 GM/DL (6.4-8.2)
[2016-07-14 13:11] LABS: ALBUMIN 2.81 GM/DL (3.29-5.55); ALBUMIN % 43.3 % (55.8-66.1); GAMMA GLOBULIN % 24.2 % (11.1-18.8)
[2016-07-15 00:08] LABS: FREE KAPPA LIGHT CHAINS SERUM 133.98 mg/L (3.30-19.40); FREE LAMBDA LIGHT CHAINS SERUM 145.46 mg/L (5.71-26.30); KAPPA/LAMBDA RATIO SERUM 0.92 (0.26-1.65)
== END ==
LOC: M LAB REF 13:22
PROVIDERS: ATTEND Internal Medicine Medical Oncology
DX: C90.00 Multiple myeloma not having achieved remission (principal)

== ENCOUNTER 2016-08-17 14:37 | Inpatient (IN) | payer MEDICARE ==
[~2016-08-17 14:37] MED LIST changes: +**UNRESOLVED NON-FORMULARY MED ORDER XX SCH
[2016-08-17 14:45] VITALS: BP 134/69
[2016-08-17] MEDS ORDERED: diazePAM 2 MG TAB PO PRN (14:45)
[2016-08-17] MEDS ORDERED: MIRALAX *UNIT DOSE* 17GM PACKET PO PRN (14:45)
[2016-08-17] MEDS ORDERED: NITROGLYCERIN 0.4 MG SUBL TABLET SL PRN (14:45)
[2016-08-17] MEDS ORDERED: ALBUTEROL 90 MCG/ACT 8GM HFA INHALER INH PRN (14:45)
[2016-08-17] MEDS ORDERED: oxyCODONE 5MG TAB PO PRN (14:45)
[2016-08-17] MEDS ORDERED: CARV6.25 PO (15:57)
[2016-08-17] MEDS ORDERED: REVL5CAP2 PO (15:57)
[2016-08-17] MEDS ORDERED: OXYC-517 PO (15:57)
[2016-08-17] MEDS ORDERED: FERR325T3 PO (15:57)
[2016-08-17] MEDS ORDERED: COLA100C3 PO (15:57)
[2016-08-17] MEDS ORDERED: OXYC10TA12 PO (15:57)
[2016-08-17] MEDS ORDERED: DIPH25CA PO (15:57)
[2016-08-17] MEDS ORDERED: DIAZ2TAB PO (15:57)
[2016-08-17] MEDS ORDERED: VITA100066 PO (16:02)
[2016-08-17] MEDS ORDERED: TETRAHYDROZOLINE OPHTH 0.05% 15 ML BTL OU PRN (16:30)
[2016-08-17] MEDS: DOCUSATE SODIUM 100 MG CAP PO SCH (17:15)
[2016-08-17] MEDS: traMADol 50 MG TAB PO SCH ×2 (17:16→20:42)
[2016-08-17 20:30] VITALS: BP 128/70
[2016-08-17] MEDS: diphenhydrAMINE 25 MG CAP PO SCH (20:39)
[2016-08-17] MEDS: oxyCODONE 5MG TAB PO PRN (20:40)
[2016-08-17] MEDS: CARVedilol 6.25 MG TAB PO SCH (20:41)
--- NOTE | 2016-08-18 01:52 | PMRHPE ---
DATE OF ADMISSION: 08/17/2016 REASON FOR ADMISSION: Rehabilitation of right below-knee amputation with ulcerated and non-weightbearing left foot status post transmetatarsal amputation. HISTORY OF PRESENT ILLNESS: The patient is a 76-year-old white male with type 2 diabetes mellitus that has had difficulty with control of secondary neuropathy along with peripheral vascular disease secondary to the type 2 diabetes and end-stage renal disease related to the diabetes. Patient also with history of congestive heart failure. These result in patient having breakdown and developing gangrene of the right lower extremity and this was unable to be cleared and so on. Hospital day number three of 08/10/2016, after 48 hours of intravenous (IV) vancomycin and Zosyn, patient had his right below-knee amputation performed. He did require one unit of packed red blood cells. He has been undergoing dressings to it with good healing, but also having continued drainage from his left foot ulcers, principally at the heel. Patient has stabilized to the point that he can now start training on adaptive mobility for return to home and was transferred from [facility] in [place] following his morning dialysis to [facility] Acute Rehabilitation Unit today. PAST MEDICAL HISTORY: Includes: 1. Osteoarthritis. 2. Asthma. 3. Blood dyscrasia. 4. Bone marrow malignant lymphoma. 5. Congestive heart failure. 6. Coronary artery disease. 7. Type 2 diabetes. 8. Diverticulosis. 9. End-stage renal disease, stage IV on renal dialysis 3 days a week. 10. Ganglion cyst of the left foot with open sore. 11. Gangrene of the foot. 12. Hypertension. 13. Hypertensive heart disease. 14. Hemorrhoids. 15. Ischemic cardiomyopathy. 16. Multiple myeloma. 17. Prior myocardial infarction. 18. Peripheral vascular disease secondary to hyperparathyroidism. 19. Sigmoid polyp. FAMILY HISTORY: Includes coronary artery disease in his sisters. SOCIAL HISTORY: Patient lives alone with his dogs and has built a ramp to his home for mobility, as well as reports having a StairGlide in place in the house with wheelchairs at the top and bottom of it to allow him access to his basement. Patient has a multi pack-year history of smoking, but has not smoked for more than a decade. He does not drink. Does not use illicit drugs. ALLERGIES: No known drug allergies. MEDICATIONS: - dexamethasone 20 mg every Monday morning with food - iron 325 mg per day for anemia - aspirin 81 mg by mouth daily for heart - Claritin 10 mg daily for allergies - Prilosec 40 mg daily for gastroesophageal reflux disease (GERD) - Micardis 80 mg daily for blood pressure - vitamin D 1000 units daily - Revlimid, patient to bring his own in, one tablet per day - glipizide 2.5 mg daily - Coreg 6.25 mg twice a day - Benadryl 25 mg nightly - Visine one drop each eye at bedtime for dry eyes - patient being started on a trial of Ultram 100 mg three times a day to facilitate his pain relief - patient on Valium 2 mg every 12 hours as needed for anxiety - oxycodone 5-10 mg for moderate to severe pain every 6 hours - Proventil two puffs every 6 hours as needed for shortness of breath - calcium carbonate 500 mg twice a day as needed for indigestion - Nitrostat 1/150 for chest pain - MiraLAX one packet daily as needed for constipation - Colace 100 mg daily REVIEW OF SYSTEMS: 10-point system review. Patient notes his pain, but otherwise is negative. PHYSICAL EXAMINATION: Patient is a well-nourished, well-developed elderly white male who appears stated age of 76, who is alert and oriented times four. Speech is clear, coherent and appropriate. Affect is pleasant and cooperative. Memory is fairly good. Patient with right below-knee amputation (BKA) and left foot transmetatarsal amputation where the amputation has healed; however, the patient has ulceration and gangrene and drainage of the left heel, principally in the lateral aspect. VITAL SIGNS: Temperature 99.8, pulse 91, blood pressure 134/69, respirations 19 , and pulse oximetry 93% on room air. HEENT: Normocephalic, atraumatic. Extraocular motions are intact. Speech is clear. No dysarthria noted. NECK: Supple. No goiter found. UPPER EXTREMITIES: With full active range of motion; however, some distal atrophy is noted in the hand intrinsics bilaterally. LUNGS: Clear in all drake to auscultation. CORONARY: Regular rate and rhythm with normal S1, S2 and 2/4 radial pulses. ABDOMEN: Mildly obese. Bowel sounds are present throughout. No palpable tenderness. EXTREMITIES: Hips with functional range of motion as does the left knee. Right knee -10 degrees of extension leg and full 90+ degrees of flexion. The incision on the right BKA is stapled together and well-approximated. There is no enveloping or dog ears. There is no drainage and no inflammation is noted. There is, however, moderate edema and the limb will need to start training to be shaped as the wound continues to heal. Left heel is as noted above. Decreased, very mild, light touch in bilateral upper extremity and the left lower extremity is bound, greater distally than proximally consistent with diabetic neuropathy. MAIN DIAGNOSES AND ASSESSMENT/PLAN: 1. Rehabilitation of right below-knee amputation. Start preprosthetic mobility and activities of daily living (ADL) training as patient not able to bear weight on the lower extremity. The foot is not issued an immediate postoperative prosthesis and so will need to learn how to adapt, unfortunately. 2. Gangrene and ulcerations of the left heel. Patient is not able to bear weight on the left lower extremity, so will need to learn sliding board and other appropriate transfers and techniques. 3. End-stage renal disease. Nephrology has been consulted. Patient to continue with three times a week renal dialysis therapy and physical and occupational therapy will be adjusted accordingly. POST ADMISSION PHYSICAL EVALUATION: Patient is consistent with the preadmission screen with extensive amount of medical, as well as functional training needs and he is alert and willing to participate in therapy to achieve this. I feel he has a good prognosis for this. At this time, I am uncertain, especially with dialysis, about 3 hours a day 5 days a week therapy; however, I do think patient is able to participate in greater than 7-1/2 hours per week working around his dialysis schedule. I think he will be to make progress and will look towards discharge to home with home services. Estimated length of stay 14 days. Time spent on chart review, history and physical (H and P) and documentation was greater than 70 minutes. ELY
[2016-08-18 05:02] VITALS: BP 129/68
[2016-08-18] MEDS: oxyCODONE 5MG TAB PO PRN ×3 (05:53→21:08)
[2016-08-18 06:55] LABS: BASO % 1.1 % (0.0-1.0); EOS # 0.1 K/mm3 (0.0-0.50); EOS % 2.9 % (0.0-3.0); LARGE UNSTAINED CELL # 0.1 K/mm3 (0.0-0.4); LYMPH # 0.7 K/mm3 (1.5-4.5); LYMPH % 12.6 % (24.0-44.0); MEAN CORPUSCULAR HEMOGLOBIN 30.3 pg (27.0-33.0); MEAN CORPUSCULAR HGB CONC 31.9 g/dl (32.0-36.5); MEAN CORPUSCULAR VOLUME 95.2 fl (80.0-96.0); MONO # 0.3 K/mm3 (0.0-0.8); MONO % 5.3 % (0.0-5.0); NEUTROPHILS # 3.7 K/mm3 (1.8-7.7); NEUTROPHILS % 76.1 % (36.0-66.0); PLATELET COUNT, AUTOMATED 220 k/mm3 (150-450); RED CELL DISTRIBUTION WIDTH 15.3 % (11.5-14.5); WHITE BLOOD COUNT 4.8 K/mm3 (4.0-10.0)
[2016-08-18 07:12] LABS: ALBUMIN 1.4 GM/DL (3.2-5.2); ALBUMIN/GLOBULIN RATIO 0.33 (1.00-1.93); BILIRUBIN,TOTAL 0.3 MG/DL (0.2-1.0); CALCIUM LEVEL 7.6 MG/DL (8.8-10.2); CREATININE FOR GFR 2.52 MG/DL (0.70-1.30); GLOMERULAR FILTRATION RATE 26.7 (>42); POTASSIUM SERUM 4.4 MEQ/L (3.5-5.1); TOTAL PROTEIN 5.7 GM/DL (6.4-8.2)
[2016-08-18] MEDS: VITAMIN D 1,000 INTERNATIONAL UNITS TABLET PO SCH (08:20)
[2016-08-18] MEDS: DOCUSATE SODIUM 100 MG CAP PO SCH (08:20)
[2016-08-18] MEDS: OMEPRAZOLE 20 MG CAP PO SCH (08:21)
[2016-08-18] MEDS: ASPIRIN 81 MG ENTERIC TAB PO SCH (08:21)
[2016-08-18] MEDS: LORATADINE 10 MG TAB PO SCH (08:22)
[2016-08-18] MEDS: traMADol 50 MG TAB PO SCH ×3 (08:22→21:07)
[2016-08-18] MEDS: FERROUS GLUCONATE 324 MG TAB PO SCH (08:22)
[2016-08-18] MEDS: glipiZIDE *XL* 2.5MG TABLET PO SCH (08:23)
[2016-08-18] MEDS: CARVedilol 6.25 MG TAB PO SCH ×2 (08:26→21:06)
[2016-08-18] MEDS: TELMISARTAN 20 MG TAB PO SCH (08:27)
[2016-08-18] MEDS ORDERED: NON-FORMULARY 1 EA EA PO SCH ×2 (09:00)
--- NOTE | 2016-08-18 12:31 | CR ---
DATE OF CONSULTATION: 08/18/2016 REQUESTING PHYSICIAN: Dr. Steve De La O. CONSULTING PHYSICIAN: Dr. Loaiza. REASON FOR CONSULTATION: Management of end stage renal disease and hemodialysis. CHIEF COMPLAINT: Patient was admitted to acute rehabilitation unit after right below knee amputation and an ulcerated and non-weight bearing left foot which had a transmetatarsal amputation as well. HISTORY OF PRESENT ILLNESS: Mr. Charles Figueroa is a 76-year-old male with a past medical history of end stage renal disease on hemodialysis every Monday, Monday, Monday. Last hemodialysis session was yesterday. He has multiple other comorbidities including diabetes mellitus type 2, peripheral vascular disease. He recently developed right lower extremity infection which did not respond well to IV antibiotics. Patient underwent right below knee amputation at an outside hospital. Patient also reports that he recently got left transmetatarsal amputation as well. After the surgery, patient has been transferred to acute rehabilitation unit at [facility] for further management. Nephrology service has been called for management of end stage renal disease and hemodialysis. Patient is otherwise awake, alert, in no apparent distress at this time. PAST MEDICAL HISTORY: End stage renal disease on hemodialysis. Osteoarthritis. Peripheral vascular disease. History of malignant lymphoma. Congestive heart failure. Coronary artery disease. Diabetes mellitus type 2. History of gangrene of the foot. Hypertension. Multiple myeloma. PAST SURGICAL HISTORY: Status post left transmetatarsal amputation. Status post right below knee amputation. Status post left forearm AV fistula placement. ALLERGIES: No known drug allergies. FAMILY HISTORY: No significant family history of end stage renal disease requiring hemodialysis. There is positive history of coronary artery disease in the siblings. SOCIAL HISTORY: Patient lives alone. He denies any recent smoking. He denies any recreational drug use or alcohol abuse. Patient was recently at [facility] in [place] for surgeries. REVIEW OF SYSTEMS: Constitutional: Patient denies any fevers, chills, rigors or weakness. Eyes: He denies any blurry vision or double vision. ENT: He denies any dysphagia or odynophagia or ear discharge. Cardiovascular: He denies any chest pain or palpitations. Respiratory: He denies any cough or shortness of breath. Gastrointestinal (GI): He denies any pain in abdomen, constipation, diarrhea or nausea. Genitourinary: He denies any dysuria, hematuria. He reports history of end stage renal disease. Musculoskeletal: Patient reports right below knee amputation and left metatarsal amputation which was done recently. Central nervous system: Patient denies any recent seizures or strokes. Hematological/oncological: He reports history of multiple myeloma and anemia secondary to end stage renal disease. Psych: He denies any depression or anxiety at this time. All other review of system is negative. MEDICATIONS ON TRANSFER: - dexamethasone 20 mg every Monday - iron tablet - aspirin 81 mg daily - Claritin 10 mg - Prilosec 40 mg - Micardis 80 mg - vitamin D 1000 units - Revlimid one tablet daily - glipizide 2.5 mg daily - Coreg 6.5 mg twice daily - Benadryl 25 mg - Visine eye drops - Ultram 100 mg three times daily for pain - Valium 2 mg every 12 hours for anxiety - oxycodone as needed - Proventil as needed - calcium carbonate 500 mg twice a day - MiraLax as needed - Colace 100 mg by mouth daily PHYSICAL EXAMINATION: Patient is awake, alert, oriented times three, lying in bed, no apparent distress. Vital signs: Temperature is 97.7 degrees Fahrenheit, blood pressure is 128/64, pulse is 83, respiratory rate of 20, saturating 95% on room air. Head and neck exam: Extraocular muscles intact. Pupils equally round and reactive to light. Mucous membranes are moist. Neck is supple. There is no jugular venous distention (JVD). Cardiovascular: S1, S2, regular rate. No murmur, rub or gallop. Respiratory: Chest is clear to auscultation bilaterally. Bilateral equal air entry. No rales or rhonchi. Abdomen: Soft, positive bowel sounds, nontender, no ascites, no organomegaly. Extremities: Patient has a dressing on the left transmetatarsal amputation site and patient has a dressing on the right below knee amputation stump. No active bleeding or oozing. Central nervous system: No focal neurological deficit. He follows commands. Power is 5/5 in bilateral upper extremities. Skin: No rashes or ulcers. Psych: Normal mood and affect. LAB REVIEW: CBC showed WBC 4.8, hemoglobin is 10, platelets 220. BMP showed sodium 134, potassium 4.4, chloride 98, bicarbonate 29, BUN 20, creatinine 2.5. Calcium is 7.6, albumin is 1.4. ASSESSMENT: 76-year-old male with past medical history of end stage renal disease on hemodialysis status post left transmetatarsal amputation and status right below knee amputation admitted this time to rehabilitation unit. Nephrology service following the patient for management of end stage renal disease and hemodialysis. PLAN: 1. End stage renal disease. Patient's regular dialysis days are Monday, Monday, Monday. He was dialyzed according to his scheduled yesterday. No urgent need of hemodialysis today. Patient will be dialyzed according to his regular schedule tomorrow. 2. Status post right below knee amputation. Patient is getting physical therapy at this time. Continue the pain medications. 3. Ulceration of the left heel and status post left transmetatarsal amputation. Patient is getting daily dressing. Rest of the management is as per physical medicine and rehabilitation. 4. Anemia and end stage renal disease. Patient's hemoglobin is 10 at this time. He will get a dose of Aranesp with hemodialysis as needed. 5. Hypertension. Continue current dose of Micardis 80 mg by mouth daily, Coreg 6.25 mg by mouth twice daily. Blood pressure is acceptable at this time. 6. Multiple myeloma. Continue current dose of Revlimid and dexamethasone. Rest of the management is as per hematology/oncology. 7. Diabetes mellitus type 2. Continue current dose of glipizide 2.5 mg by mouth daily. Avoid metformin in this patient who has end stage renal disease.
--- NOTE | 2016-08-18 13:41 | CR.PDOC ---
[facility] Consultation Consultation ATTENDING: Dr. De La O PCP: Marvin IDAZ [facility] HPI: 76yoM transferred from [facility] to [facility] s/p Rt BKA for H/O Rt foot gangrene. Pt states pain is controlled. Denies any fevers, chills, weakness, fatigue, COBOS, CP, SOB, cough, palpitations, abdominal pain, N/V/D or changes in bowel or bladder habits. Upon presentation to the hospital the hospitalist team was consulted to assist with medical management. PMHx: CAD/Stent. RENETTA. Dr Garvey. TTE 2016 EF 60%, WM abnormalities Acute diastolic CHF H/O rectal bleeding from hemorrhoids Multiple myeloma ESRD on HD. Dr Dena HULL Chronic pain DM Anemia in CKD Charcot deformity Left foot Chronic Left heel ulcer Asthma PSHX: Cardiac Stents TERESITA to LAD 2013, BMS to RCA 2015. appendectomy toe amputation left, history of recent left transmetatarsal amputation. cataract bone marrow biopsy Rt BKA 08/11/16 AV fistula 10/13/15 EGD 05/24 [place]. SOCHX: Resides in: [place] Marital Status: single Tobacco use: denies ETOH: denies Illicit Drugs: Denies ROS: As noted in HPI, otherwise 11pt ROS of systems reviewed and unremarkable. PE: GEN: 76yoM, appears stated age. No acute distress. Alert and oriented x 3. Sitting at side of bed. HEENT: Normocephalic, atraumatic. Pupils are equal, round, and reactive to light. Extraocular movements are intact. No nystagmus appreciated. Sclera are nonicteric. Conjunctiva without injection. Nose midline. No facial asymmetry. Moist mucous membranes. Dentition poor. Pharynx pink and moist. Neck supple, trachea midline. No lymphadenopathy or thyromegaly appreciated. CHEST: Regular rate and rhythm, +S1, +S2 LUNGS: Clear to auscultation bilaterally. No wheezes, rales, or rhonchi. Breathing appears symmetric and easy. Patient is speaking in full sentences. No accessory muscle use. ABD: Round, soft, non-tender, non-distended. +Bowel sounds throughout. No rebound or guarding. No costovertebral angle tenderness. EXT: Rt BKA. Dressing left foot. SKIN: no rashes NEURO: Alert and oriented x 3. No focal deficits appreciated. A&P: 76yoM transferred from [facility] to ARU s/p Rt BKA for H/O Rt foot gangrene. The patient is admitted to ARU to Dr. De La O's service. 1. S/P Rt BKA Rehab as per ARU. PT/OT Pain control Bowel care 2. Left heel ulcer/recent transmetatarsal amputation left foot/PAOD. Cont with dressing changes. 3. CAD/Stents/H/O Diastolic CHF. Micardis, Coreg, aspirin, when necessary sublingual nitroglycerin. Patient denies shortness of breath or chest discomfort at this time. Monitor. Patient states he follows with Dr. Garvey as an outpatient. 4. ESRD/HD. Hemodialysis as per nephrology. 5. MM. Patient remains on Revlimid, dexamethasone as per outpatient regimen. Follow-up with hematology/oncology as outpatient. 6. H/O rectal bleeding related to hemorrhoids. 7. Asthma. Albuterol prn. 8. GERD. Continue Prilosec. 9. Anemia in ESRD. Management as per nephrology. Aranesp as per nephrology. Remains on iron supplement. Monitor. 10. NIDDM. Patient remains on glipizide. Avoid metformin. Fingerstick blood sugar twice a day. DVT prophylaxis. Vital Signs/I&O Vital Signs Date Time Temp Pulse Resp B/P Pulse Ox O2 Delivery O2 Flow Rate FiO2 08/18/16 12:26 16 08/18/16 08:26 83 128/64 08/18/16 08:20 Room Air 08/18/16 05:02 97.7 95 I&O- Last 24 Hours up to 6 AM 08/18/16 06:00 Intake Total 840 ml Output Total 75 ml Balance 765 ml Laboratory Data Labs 24H Laboratory Tests 2 08/17/16 16:42: Bedside Glucose (Misc Panel) 136H 08/18/16 06:22: Blood Urea Nitrogen 20H, Creatinine 2.52H, Sodium Level 134L, Potassium Level 4.4, Chloride Level 98, Carbon Dioxide Level 29, Calcium Level 7.6L, Aspartate Amino Transf (AST/SGOT) 19, Alanine Aminotransferase (ALT/SGPT) 20, Alkaline Phosphatase 118H, Total Bilirubin 0.3, Total Protein 5.7L, Albumin 1.4L, Albumin /Globulin Ratio 0.33L, Anion Gap 7L, White Blood Count 4.8, Red Blood Count 3.30L, Hemoglobin 10.0L, Hematocrit 31.4L, Mean Corpuscular Volume 95.2, Mean Corpuscular Hemoglobin 30.3, Mean Corpuscular Hemoglobin Concent 31.9L, Red Cell Distribution Width 15.3H, Platelet Count 220, Neutrophils (%) (Auto) 76.1H , Lymphocytes (%) (Auto) 12.6L, Monocytes (%) (Auto) 5.3H, Eosinophils (%) (Auto ) 2.9, Basophils (%) (Auto) 1.1H, Neutrophils # (Auto) 3.7, Lymphocytes # (Auto ) 0.7L, Monocytes # (Auto) 0.3, Eosinophils # (Auto) 0.1, Basophils # (Auto) 0.0 , Glomerular Filtration Rate 26.7L, Large Unclassified Cells # 0.1, Large Unclassified Cells % 2.0 CBC/BMP Laboratory Tests 08/18/16 06:22 Calcium Level 7.6 L, Aspartate Amino Transf (AST/SGOT) 19, Alanine Aminotransferase (ALT/SGPT) 20, Alkaline Phosphatase 118 H, Total Bilirubin 0.3 , Total Protein 5.7 L, Albumin 1.4 L, Red Blood Count 3.30 L, Mean Corpuscular Volume 95.2, Mean Corpuscular Hemoglobin 30.3, Mean Corpuscular Hemoglobin Concent 31.9 L, Red Cell Distribution Width 15.3 H, Neutrophils (%) (Auto) 76.1 H, Lymphocytes (%) (Auto) 12.6 L, Monocytes (%) (Auto) 5.3 H, Eosinophils (%) ( Auto) 2.9, Basophils (%) (Auto) 1.1 H, Neutrophils # (Auto) 3.7, Lymphocytes # ( Auto) 0.7 L, Monocytes # (Auto) 0.3, Eosinophils # (Auto) 0.1, Basophils # (Auto ) 0.0 Allergies Coded Allergies: No Known Allergies (Unverified , 07/20/15) Home Medications Scheduled Aspirin (Aspirin 81) 81 Mg Tab 81 MG PO DAILY (Reported) Calcium Carbonate (Tums) 500 Mg Chw 500 MG PO WM (Reported) Carvedilol (Carvedilol) 6.25 Mg Tab 6.25 MG PO BID (Reported) Cholecalciferol (Vitamin D) 1,000 Unit Tab 1,000 UNIT PO DAILY (Reported) Dexamethasone (Dexamethasone) 4 Mg Tab 20 MG PO QWEEK (Reported) WEDNESDAYS Docusate Sodium (Colace) 100 Mg Cap 100 MG PO DAILY (Reported) Ferrous Sulfate (Ferrous Sulfate) 325 Mg Tab 325 MG PO DAILY (Reported) Glipizide (Glipizide Xl) 2.5 Mg Tab 2.5 MG PO DAILY (Reported) Lenalidomide (Revlimid) 5 Mg Cap 5 MG PO ASDIRECTED (Reported) TAKE FOR 14 DAYS ON, 7 DAYS OFF Omeprazole (Omeprazole) 40 Mg Cap 40 MG PO DAILY (Reported) Telmisartan (Telmisartan) 80 Mg Tab 80 MG PO DAILY (Reported) Scheduled PRN Albuterol Sulfate (Ventolin Hfa) 200 Puff/8 Gm Aers 2 PUFF INH Q4H PRN PRN SHORTNESS OF BREATH (Reported) Diazepam (Diazepam) 2 Mg Tab 2 MG PO Q12H PRN PRN ANXIETY (Reported) Diphenhydramine HCl (Diphenhydramine HCl) 25 Mg Cap 25 MG PO QHS PRN PRN SLEEP ( Reported) Hydroxyzine HCl (Hydroxyzine HCl) 25 Mg Tab 25 MG PO QHS PRN PRN SLEEP (Reported ) Loratadine (Claritin) 10 Mg Tab 10 MG PO DAILY PRN PRN ITCHING (Reported) Melatonin (Melatonin) 5 Mg Tab 5 MG PO QHS PRN PRN SLEEP (Reported) Nitroglycerin (Nitrostat) 0.4 Mg Subl 0.4 MG SL PRN PRN PRN CHEST PAIN (Reported ) Oxycodone HCl (Oxycodone HCl) 5 Mg Tab 5 MG PO Q4H PRN PRN PAIN (Reported) Oxycodone HCl (Oxycodone HCl) 10 Mg Tab 10 MG PO Q4H PRN PRN PAIN (Reported) Polyethylene Glycol (Miralax) 1 Pow Pow 17 GM PO DAILY PRN PRN CONSTIPATION ( Reported) Lauren Rendon Aug 18, 2016 13:41 Lauren Rnedon Aug 18, 2016 13:41 Lauren Rendon Aug 18, 2016 13:41
[2016-08-18 16:02] VITALS: BP 128/65
--- NOTE | 2016-08-18 16:44 | IPNPDOC ---
[employer] [employer] Progress Note DATE OF SERVICE: 08/18/2016 DATE OF ADMISSION: Aug 17, 2016 at 14:37 INPATIENT REHABILITATION ADMISSION DAY: #1 SUBJECTIVE: Patient is a 76-year-old white male with right BKA and infected ulcerated left heel that appears gangrenous related to type 2 diabetes. Patient began assessment for rehabilitation pre-prosthetic phase of amputee training. Patient with some improvement in pain control with adjustment of his medications overall expresses no other complaints and being in good spirits. ALLERGIES: See Below MEDICATIONS: Reviewed, see below. OBJECTIVE: VITAL SIGNS: Please see below. PHYSICAL EXAMINATION: GENERAL: And general well-nourished well-developed elderly white male in mild musculoskeletal distress with serous drainage from the left heel a tendency to slide out of the little and put weight on the which we are working with patient to decrease. HEENT: Normocephalic/atraumatic. CARDIOVASCULAR: Regular rate and rhythm with normal S1 and S2 in 2 out of 4 radial pulses. LUNGS: All drake clear to auscultation. ABDOMEN: Bowel sounds present in all quadrants abdomen overall benign and nontender. NEUROLOGICAL: Alert and oriented to person, place, time, and situation though questionable historian. Good to full upper extremity function and motion and fair to good hip and knee strength with functional motion present. SKIN: Right BKA incision line looks good healing well with good approximation by the princess and no appreciable drainage. Left heel with large black eschar approximately 3-1/2 cm in diameter with significant serous drainage. No odor is found. LABORATORY DATA: Reviewed. Please see below. MICROBIOLOGY: Please see below. ASSESSMENT AND PLAN: 1. Rehabilitation of right below-knee amputation with protection of left heel ulceration: I have consulted Mr Nicho Cobian CPO to get patient a Flothrough knee orthosis to prevent intact the right BKA stump and maintain knee extension as patient goes through training. Also to fabricate a custom PTB AFO to offload left foot and protect left heel from contact when patient is up. They should provide greater safety and allow patient to progress well in learning wheelchair mobilities and ADLs. Patient will probably need a home evaluation before discharge to be sure that he has proper ramping in home access. Estimated length of stay is 9 days. 2. End-stage renal disease: Patient start a good dialysis here under Dr Loaiza. 3. Pain management: Overall is progressing we'll continue to adjust medications to allow patient to function and is best in therapies and make the best progress. TIME SPENT: Chart Review, examination, team conference and documentation greater than 35 minutes. Allergies Coded Allergies: No Known Allergies (Unverified , 07/20/15) Vital Signs Vital Signs Date Time Temp Pulse Resp B/P Pulse Ox O2 Delivery O2 Flow Rate FiO2 08/18/16 16:21 18 08/18/16 16:02 98.0 81 128/65 97 Room Air Laboratory Data CBC/BMP Laboratory Tests 08/18/16 06:22 Calcium Level 7.6 L, Aspartate Amino Transf (AST/SGOT) 19, Alanine Aminotransferase (ALT/SGPT) 20, Alkaline Phosphatase 118 H, Total Bilirubin 0.3 , Total Protein 5.7 L, Albumin 1.4 L, Red Blood Count 3.30 L, Mean Corpuscular Volume 95.2, Mean Corpuscular Hemoglobin 30.3, Mean Corpuscular Hemoglobin Concent 31.9 L, Red Cell Distribution Width 15.3 H, Neutrophils (%) (Auto) 76.1 H, Lymphocytes (%) (Auto) 12.6 L, Monocytes (%) (Auto) 5.3 H, Eosinophils (%) ( Auto) 2.9, Basophils (%) (Auto) 1.1 H, Neutrophils # (Auto) 3.7, Lymphocytes # ( Auto) 0.7 L, Monocytes # (Auto) 0.3, Eosinophils # (Auto) 0.1, Basophils # (Auto ) 0.0 Labs 24H Laboratory Tests 2 08/17/16 16:42: Bedside Glucose (Misc Panel) 136H 08/18/16 06:22: Blood Urea Nitrogen 20H, Creatinine 2.52H, Sodium Level 134L, Potassium Level 4.4, Chloride Level 98, Carbon Dioxide Level 29, Calcium Level 7.6L, Aspartate Amino Transf (AST/SGOT) 19, Alanine Aminotransferase (ALT/SGPT) 20, Alkaline Phosphatase 118H, Total Bilirubin 0.3, Total Protein 5.7L, Albumin 1.4L, Albumin /Globulin Ratio 0.33L, Anion Gap 7L, White Blood Count 4.8, Red Blood Count 3.30L, Hemoglobin 10.0L, Hematocrit 31.4L, Mean Corpuscular Volume 95.2, Mean Corpuscular Hemoglobin 30.3, Mean Corpuscular Hemoglobin Concent 31.9L, Red Cell Distribution Width 15.3H, Platelet Count 220, Neutrophils (%) (Auto) 76.1H , Lymphocytes (%) (Auto) 12.6L, Monocytes (%) (Auto) 5.3H, Eosinophils (%) (Auto ) 2.9, Basophils (%) (Auto) 1.1H, Neutrophils # (Auto) 3.7, Lymphocytes # (Auto ) 0.7L, Monocytes # (Auto) 0.3, Eosinophils # (Auto) 0.1, Basophils # (Auto) 0.0 , Glomerular Filtration Rate 26.7L, Large Unclassified Cells # 0.1, Large Unclassified Cells % 2.0 Current Medications Current Medications Current Medications Albuterol Sulfate (Proventil, Ventolin Hfa) 2 puff Q6HP PRN INH SHORTNESS OF BREATH; Start 08/17/16 at 14:45; Stop 09/16/16 at 14:44 Aspirin (Ecotrin) 81 mg DAILY PO Last administered on 08/18/16 08:21; Start at 09:00; Stop 09/17/16 at 08:59 Calcium Carbonate (Tums) 500 mg BID PRN PO INDIGESTION; Start 08/17/16 at 14:45 ; Stop 09/16/16 at 14:44 Carvedilol (COReg) 6.25 mg BID PO Last administered on 08/18/16 08:26; Start 08/17/16 at 21:00; Stop 09/16/16 at 20:59 Dexamethasone (Decadron) 20 mg We@08 PO ; Start 08/24/16 at 08:00; Stop at 07:59 Diazepam (Valium) 2 mg Q12HP PRN PO Anxiety; Start 08/17/16 at 14:45; Stop at 12:00 Diphenhydramine HCl (Benadryl) 25 mg QHS PO Last administered on 08/17/16 20: 39; Start 08/17/16 at 21:00; Stop 09/16/16 at 20:59 Docusate Sodium (Colace) 100 mg DAILY PO Last administered on 08/18/16 08:20; Start 08/17/16 at 09:00; Stop 09/16/16 at 08:59 Ferrous Gluconate (Fergon) 324 mg DAILY PO Last administered on 08/18/16 08:22 ; Start 08/18/16 at 09:00; Stop 09/17/16 at 08:59 Glipizide (Glucotrol Xl) 2.5 mg DAILY@0730 PO Last administered on 08/18/16 08 :23; Start 08/18/16 at 07:30; Stop 09/17/16 at 07:29 Home Med (Med Rec Complete!) ASDIRECTED XX ; Start 08/17/16 at 16:15; Stop 04/23 at 16:16; Status DC Loratadine (Claritin) 10 mg DAILY PO Last administered on 08/18/16 08:22; Start 08/18/16 at 09:00; Stop 09/17/16 at 08:59 Miscellaneous (Unresolved Clarification Entry) SEE LABEL COMMENTS UNRESOLVED XX ; Start 08/17/16 at 00:01; Stop 08/17/16 at 16:21; Status DC Miscellaneous (Unresolved Non-Formulary Med Order) SEE LABEL COMMENTS UNRESOLVED XX ; Start 08/17/16 at 00:01; Stop 08/17/16 at 16:50; Status DC Miscellaneous (Unresolved Patient Own Med Order) SEE LABEL COMMENTS UNRESOLVED XX ; Start 08/17/16 at 00:01; Stop 09/16/16 at 00:00 Nitroglycerin (Nitrostat (1/ 150)) 0.4 mg Q5MP PRN SL CHEST PAIN; Start at 14:45; Stop 09/16/16 at 14:44 Non-Formulary Medication Dexamethasone 20mg po Ev... QAM PO ; Start 08/18/16 at 09:00; Stop 08/18/16 at 09:00; Status DC Non-Formulary Medication Patient's own Revlimid (lenalidomi... DAILY PO ; Start 08/18/16 at 09:00; Stop 09/17/16 at 08:59; Status UNV Non-Formulary Medication Revlimid 5 mg PO daily ... DAILY PO ; Start 08/18/16 at 09:00; Stop 08/18/16 at 09:00; Status DC Omeprazole (PriLOSEC) 40 mg DAILY PO Last administered on 08/18/16 08:21; Start 08/18/16 at 09:00; Stop 09/17/16 at 08:59 Oxycodone HCl (Roxicodone, Oxyir) 5 mg Q6HP PRN PO MODERATE PAIN (PS 5-7); Start 08/17/16 at 14:45; Stop 08/24/16 at 12:00 Oxycodone HCl (Roxicodone, Oxyir) 10 mg Q6HP PRN PO SEVERE PAIN (PS 8-10) Last administered on 08/18/16 12:26; Start 08/17/16 at 14:45; Stop 08/24/16 at 12:00 Polyethylene Glycol (Miralax) 1 pkt DAILYPRN PRN PO CONSTIPATION; Start at 14:45; Stop 09/16/16 at 14:44 Telmisartan (Micardis) 80 mg DAILY PO Last administered on 08/18/16 08:27; Start 08/18/16 at 09:00; Stop 09/17/16 at 08:59 Tetrahydrozoline HCl (Visine) 1 drop QHS PRN OU DRY EYES; Start 08/17/16 at 16: 30; Stop 09/16/16 at 16:29 Tramadol HCl (Ultram) 100 mg TID PO Last administered on 08/18/16 16:21; Start 08/17/16 at 16:00; Stop 08/24/16 at 15:59 Vitamin D (Vitamin D) 1,000 units DAILY PO Last administered on 08/18/16 08:20 ; Start 08/18/16 at 09:00; Stop 09/17/16 at 08:59 ABDIRIZAK COKER MD Aug 18, 2016 16:44
[2016-08-18 20:23] VITALS: BP 138/70
[2016-08-18] MEDS: diphenhydrAMINE 25 MG CAP PO SCH (21:05)
[2016-08-19] MEDS: oxyCODONE 5MG TAB PO PRN ×2 (03:28→19:48)
[2016-08-19 05:18] VITALS: BP 131/67
[2016-08-19] MEDS: CARVedilol 6.25 MG TAB PO SCH ×2 (08:46→21:31)
[2016-08-19] MEDS: DOCUSATE SODIUM 100 MG CAP PO SCH (08:46)
[2016-08-19] MEDS: OMEPRAZOLE 20 MG CAP PO SCH (08:46)
[2016-08-19] MEDS: glipiZIDE *XL* 2.5MG TABLET PO SCH (08:46)
[2016-08-19] MEDS: FERROUS GLUCONATE 324 MG TAB PO SCH (08:46)
[2016-08-19] MEDS: LORATADINE 10 MG TAB PO SCH (08:54)
[2016-08-19] MEDS: traMADol 50 MG TAB PO SCH ×3 (08:54→21:31)
[2016-08-19] MEDS: ASPIRIN 81 MG ENTERIC TAB PO SCH (08:54)
[2016-08-19] MEDS: VITAMIN D 1,000 INTERNATIONAL UNITS TABLET PO SCH (08:54)
[2016-08-19] MEDS: TELMISARTAN 20 MG TAB PO SCH (08:54)
[2016-08-19] MEDS ORDERED: REVLIMID PO SCH (09:00)
[2016-08-19] MEDS ORDERED: HEPARIN 1,000 UNITS/ML 10ML VIAL (FOR RADIOLOGY& DIALYSIS ONLY) IV ONE (10:00)
[2016-08-19] MEDS ORDERED: DARBEPOETIN 100 MCG/0.5 ML *DIALYSIS* SYRINGE (J0882) IV SCH (11:30)
--- NOTE | 2016-08-19 12:01 | IPNPDOC ---
Subjective Date Seen The patient was seen on 08/19/16. Subjective Chief Complaint/HPI The patient is a 76-year-old male admitted with a reason for visit of Right Bka. Events since last encounter Pt in [facility] in W/C with therapy. States he is doing well. No concerns, just wants to make sure he goes to HD on time. No SOB/CP/Abdominal pain. ENT: Denies: Dysphagia, Ear Pain, Head Aches Pulmonary: Denies: Cough, Dyspnea Cardiovascular: Denies: Chest Pain, Lt Headedness, Orthopnea, Palpitations, Paroxysmal Noc. Dyspnea Gastrointestinal: Denies: Abdominal Pain, Constipation, Diarrhea, Nausea, Vomiting Genitourinary: Denies: Dysuria, Frequency, Retention Objective Physical Examination General Exam: Positive: Alert Eye Exam: Positive: PERRLA ENT Exam: Positive: Atraumatic Neck Exam: Positive: Supple, Negative: JVD, thyromegaly Chest Exam: Positive: Clear to auscultation, Normal air movement Heart Exam: Positive: Normal S1, Normal S2, Rate Normal, Regular Rhythm, Negative: Murmurs, Rubs Abdomen Exam: Positive: Normal bowel sounds, Soft, Negative: Hepatospenomegaly, Tenderness Skin Exam: Positive: Nl turgor and temperature Assessment /Plan Problems (1) Hx of right BKA Status: Chronic Problem Text: * Rehab as per ARU * PT/OT * Pain control * Bowel care (2) Diabetes Status: Chronic Response to Treatment: Stable Problem Text: * Glipizide * FSBS BID * Monitor. (3) Anemia Status: Chronic Response to Treatment: Stable Problem Text: * Mgmt as per nephrology * Aranesp * Fe supplement. (4) End stage renal disease on dialysis Status: Chronic Response to Treatment: Stable Problem Text: * HD as per Nephrology (5) CAD (coronary artery disease) Status: Chronic Response to Treatment: Stable Problem Text: * Micardis/Coreg/ASA/prn NTG (6) PVD (peripheral vascular disease) Status: Chronic Response to Treatment: Stable Problem Text: * Cont with wound care left foot. (7) Multiple myeloma Status: Chronic Response to Treatment: Stable Problem Text: * Revlimid/dexamethasone. Outpt f/u with heme/Onc. (8) Asthma Status: Chronic Response to Treatment: Stable Problem Text: * alb prn. Plan/VTE VTE Prophylaxis Ordered?: No (as per attending) Disposition as per ARU. VS, I&O, 24H, Fishbone Vital Signs/I&O Vital Signs Date Time Temp Pulse Resp B/P Pulse Ox O2 Delivery O2 Flow Rate FiO2 08/19/16 08:54 20 Room Air 08/19/16 08:46 85 131/67 08/19/16 05:18 98.0 97 I&O- Last 24 Hours up to 6 AM 08/19/16 06:00 Intake Total 600 ml Balance 600 ml Lauren Rendon Aug 19, 2016 12:01
--- NOTE | 2016-08-19 12:26 | IPNPDOC ---
[employer] Progress Note DATE OF SERVICE: 08/19/2016 DATE OF ADMISSION: Aug 17, 2016 at 14:37 INPATIENT REHABILITATION ADMISSION DAY: #2 SUBJECTIVE: Patient is a 76-year-old white male with polyneuropathy and peripheral vascular disease secondary to diabetes mellitus that has resulted in right below-knee amputation secondary to gangrene and large draining left heel ulcer. Patient overall noting fairly good pain control on current regimen. ALLERGIES: See Below MEDICATIONS: Reviewed, see below. OBJECTIVE: VITAL SIGNS: Please see below. PHYSICAL EXAMINATION: GENERAL: Elderly white male with right BKA and left transmetatarsal amputation and large calcaneal ulcer. Patient is resting comfortably in bed. He does tend to let that he'll come down to the mattress rather than keep it suspended with the pillow. HEENT: Normocephalic/atraumatic. CARDIOVASCULAR: Regular rate and rhythm with normal S1-S2 without S3 murmurs or rubs. 2 out 4 bilateral radial pulses. LUNGS: All drake clear to auscultation with good air movement. ABDOMEN: Bowel sounds present in all quadrants nontender. NEUROLOGICAL: Alert and oriented person place time and general situation. Patient is in good mood and pleasant and general and cooperative with caregivers. However patient does not keep good track on positioning of his left heel also the amount of flexion in his right knee. Therefore the ordered orthotic should be helpful for this. Patient with notable distal sensory decrease. SKIN: Continued weeping from the left heel of serous drainage. Right BK incision line is clean without significant drainage good color and no odor. LABORATORY DATA: Reviewed. Please see below. MICROBIOLOGY: Please see below. IMAGING: No new DVT prophylaxis ordered?: Enteric-coated aspirin. ASSESSMENT AND PLAN: 1. Rehabilitation of right BKA: Working on shaping stump with figure 8H wrapping over dressing. Continue pre-prosthetic training with wheelchair mobility and sliding board transfers. Flow through orthotic should provide good extension control and protection for the residual limb. PTB AFO for the left lower extremity should help protect this keep weight off to heal better. Patient states that he does have someone who can get his ramp built and also allow for home evaluation prior to discharge. 2. Dialysis: Patient will have session today for Dr. Loaiza. Patient should be followed therapy Monday and Monday. 3. Left heel ulcer: I will have Dr Nash consult regarding the heel ulcer and care options as current dressing recommendations by the surgeon [facility]. [facility]rientos are not showing improvement in the ulcer as drainage continues to be vigorous. TIME SPENT: Chart Review, examination and documentation greater than 25 minutes. Allergies Coded Allergies: No Known Allergies (Unverified , 07/20/15) Vital Signs Vital Signs Date Time Temp Pulse Resp B/P Pulse Ox O2 Delivery O2 Flow Rate FiO2 08/19/16 08:54 20 Room Air 08/19/16 08:46 85 131/67 08/19/16 05:18 98.0 97 Current Medications Current Medications Current Medications Albuterol Sulfate (Proventil, Ventolin Hfa) 2 puff Q6HP PRN INH SHORTNESS OF BREATH; Start 08/17/16 at 14:45; Stop 09/16/16 at 14:44 Aspirin (Ecotrin) 81 mg DAILY PO Last administered on 08/19/16 08:54; Start at 09:00; Stop 09/17/16 at 08:59 Calcium Carbonate (Tums) 500 mg BID PRN PO INDIGESTION; Start 08/17/16 at 14:45 ; Stop 09/16/16 at 14:44 Carvedilol (COReg) 6.25 mg BID PO Last administered on 08/19/16 08:46; Start 08/17/16 at 21:00; Stop 09/16/16 at 20:59 Darbepoetin Skip (Aranesp (Dialysis Use)) 100 mcg HD IV ; Start 08/19/16 at 11: 30; Stop 09/18/16 at 11:29 Dexamethasone (Decadron) 20 mg We@08 PO ; Start 08/24/16 at 08:00; Stop at 07:59 Diazepam (Valium) 2 mg Q12HP PRN PO Anxiety; Start 08/17/16 at 14:45; Stop at 12:00 Diphenhydramine HCl (Benadryl) 25 mg QHS PO Last administered on 08/18/16 21: 05; Start 08/17/16 at 21:00; Stop 09/16/16 at 20:59 Docusate Sodium (Colace) 100 mg DAILY PO Last administered on 08/19/16 08:46; Start 08/17/16 at 09:00; Stop 09/16/16 at 08:59 Ferrous Gluconate (Fergon) 324 mg DAILY PO Last administered on 08/19/16 08:46 ; Start 08/18/16 at 09:00; Stop 09/17/16 at 08:59 Glipizide (Glucotrol Xl) 2.5 mg DAILY@0730 PO Last administered on 08/19/16 08 :46; Start 08/18/16 at 07:30; Stop 09/17/16 at 07:29 Home Med (Med Rec Complete!) ASDIRECTED XX ; Start 08/17/16 at 16:15; Stop 04/23 at 16:16; Status DC Loratadine (Claritin) 10 mg DAILY PO Last administered on 08/19/16 08:54; Start 08/18/16 at 09:00; Stop 09/17/16 at 08:59 Miscellaneous (Unresolved Clarification Entry) SEE LABEL COMMENTS UNRESOLVED XX ; Start 08/17/16 at 00:01; Stop 08/17/16 at 16:21; Status DC Miscellaneous (Unresolved Non-Formulary Med Order) SEE LABEL COMMENTS UNRESOLVED XX ; Start 08/17/16 at 00:01; Stop 08/17/16 at 16:50; Status DC Miscellaneous (Unresolved Patient Own Med Order) SEE LABEL COMMENTS UNRESOLVED XX ; Start 08/17/16 at 00:01; Stop 09/16/16 at 00:00 Nitroglycerin (Nitrostat (1/ 150)) 0.4 mg Q5MP PRN SL CHEST PAIN; Start at 14:45; Stop 09/16/16 at 14:44 Non-Formulary Medication Dexamethasone 20mg po Ev... QAM PO ; Start 08/18/16 at 09:00; Stop 08/18/16 at 09:00; Status DC Non-Formulary Medication Patient's own Revlimid (lenalidomi... DAILY PO ; Start 08/18/16 at 09:00; Stop 09/17/16 at 08:59; Status UNV Non-Formulary Medication Revlimid 5 mg PO daily ... DAILY PO ; Start 08/18/16 at 09:00; Stop 08/18/16 at 09:00; Status DC Omeprazole (PriLOSEC) 40 mg DAILY PO Last administered on 08/19/16 08:46; Start 08/18/16 at 09:00; Stop 09/17/16 at 08:59 Oxycodone HCl (Roxicodone, Oxyir) 5 mg Q6HP PRN PO MODERATE PAIN (PS 5-7); Start 08/17/16 at 14:45; Stop 08/24/16 at 12:00 Oxycodone HCl (Roxicodone, Oxyir) 10 mg Q6HP PRN PO SEVERE PAIN (PS 8-10) Last administered on 08/19/16 03:28; Start 08/17/16 at 14:45; Stop 08/24/16 at 12:00 Polyethylene Glycol (Miralax) 1 pkt DAILYPRN PRN PO CONSTIPATION; Start at 14:45; Stop 09/16/16 at 14:44 Telmisartan (Micardis) 80 mg DAILY PO Last administered on 08/19/16 08:54; Start 08/18/16 at 09:00; Stop 09/17/16 at 08:59 Tetrahydrozoline HCl (Visine) 1 drop QHS PRN OU DRY EYES; Start 08/17/16 at 16: 30; Stop 09/16/16 at 16:29 Tramadol HCl (Ultram) 100 mg TID PO Last administered on 08/19/16 08:54; Start 08/17/16 at 16:00; Stop 08/24/16 at 15:59 Vitamin D (Vitamin D) 1,000 units DAILY PO Last administered on 08/19/16 08:54 ; Start 08/18/16 at 09:00; Stop 09/17/16 at 08:59 ABDIRIZAK COKER MD Aug 19, 2016 12:26
[2016-08-19 15:45] VITALS: BP 133/68
--- NOTE | 2016-08-19 17:10 | IPN ---
DATE: 08/19/2016 SUBJECTIVE: The patient was seen and examined at the bedside today in the morning during work rounds, and again during hemodialysis procedure. The patient is lying in the bed in no apparent distress at this time; however, there is a very foul smell coming from his left foot gangrenous site. REVIEW OF SYSTEMS: The patient denies any fevers, chills, rigors, headaches, nausea, vomiting, chest pain, shortness of breath, pain abdomen, constipation, or diarrhea. He reports mild pain in he right below-knee amputation (BKA) site, and he denies any pain in the left foot. Rest of review of systems is negative. OBJECTIVE: VITAL SIGNS: Temperature is 98 degrees Fahrenheit, blood pressure is 131/67, pulse is 85, respiratory rate of 18, saturating 97% on room air. INTAKE AND OUTPUT: Urine output recorded as 75 mL yesterday, 100 mL so far today since overnight. Weight in the bed scale is 84.4 kg. PHYSICAL EXAMINATION: GENERAL: The patient is awake, alert, and oriented times three, lying in bed, no apparent distress. HEAD/NECK: Extraocular muscles intact. Pupils equal, round, and reactive to light. Mucous membranes are moist. Neck is supple. There is no jugular venous distention (JVD). CARDIOVASCULAR: S1, S2. Regular rate. No murmur, rub, or gallop. RESPIRATORY: Chest is clear to auscultation bilaterally, bilaterally equal air entry. No rales or rhonchi. ABDOMEN: Soft. Positive bowel sounds. Nontender. No ascites. No organomegaly. EXTREMITIES: The patient has a dressing on the left transmetatarsal (TM) amputation site. The left foot dressing was removed. The patient has necrotic left heel with gangrene and very foul smell, and the patient has a dressing on the right below-knee amputation site as well. 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 Power is 5/5 in bilateral upper extremities. SKIN: No other rashes or ulcers apart from the bilateral lower extremity ulcers. PSYCHIATRIC: Normal mood and affect. LABORATORY DATA: CBC showed a WBC 4.8, hemoglobin is 10, platelets are 220. BMP showed sodium 134, potassium 4.4, chloride 98, creatinine is 2.5. CURRENT MEDICATIONS: The patient's medications were all reviewed by me. There is no change in the medications today as compared with yesterday. ASSESSMENT: A 76-year-old male with past medical history of end-stage renal disease on hemodialysis, status post left transmetatarsal amputation and status post right below-knee amputation, admitted this time to the rehabilitation unit. Nephrology service following the patient for management of end-stage renal disease and hemodialysis. PLAN: 1. End-stage renal disease. Today is the patient's regular dialysis day. The patient is being dialyzed right now, and he is tolerating the hemodialysis procedure well. 2. Status post right below-knee amputation. The patient is getting dressing and physical therapy. Rest of the management is as per physical therapy. 3. Ulceration and gangrene of the left heel. The patient has a very foul smell coming from the left foot. I do not think it is healing well at this time. The patient needs evaluation by afternoon babysitter. Plan of care was discussed with Dr. De La O today in the morning. 4. Anemia in end-stage renal disease. Hemoglobin is acceptable at this time. I would start the patient on Aranesp with hemodialysis. 5. Hypertension. Continue current dose of Micardis 80 mg daily and Coreg 6.25 mg by mouth twice a day. Blood pressure is acceptable at this time. 6. Multiple myeloma. Continue current dose of Revlimid and dexamethasone. The rest of the management is as per hematology/oncology. 7. Diabetes mellitus type 2. Continue glipizide.
[2016-08-19] MEDS: diphenhydrAMINE 25 MG CAP PO SCH (21:31)
[2016-08-19 22:00] VITALS: BP 108/56
--- NOTE | 2016-08-20 04:07 | CR ---
DATE OF CONSULTATION: 08/19/2016 This is regarding left lower extremity wounds. Elderly male diabetic in poor health on dialysis with a diagnosis of multiple myeloma recently underwent a right below-knee amputation for ischemic limb at [facility] on 08/10/2016. This has healed. The patient has a problem with the left lower extremity where a transmetatarsal amputation was performed approximately 3 weeks ago. This shows multiple wounds with black dry eschar consistent with nonhealing. There are three wounds involving the left foot. The left heel shows a dry fixed eschar measuring 9.0 cm x 7.2 cm. The left mid foot shows a dry eschar measuring 3.0 cm x 2.0 cm and the left forefoot on the lateral aspect of the transmetatarsal amputation shows a dry eschar measuring 6.0 cm x 2.0 cm. All eschars are fixed, dry and nonfluctuant. There is no drainage involving any of the wound edges and the periwounds show no erythema, maceration or ischemic change. The extent of the three black eschar nonhealing wounds involving the left lower extremity raises the question of the need for a higher amputation. As the patient is in the perioperative period and these wounds are not infected at this time, a conservative approach can be taken. This would include painting the eschars with Betadine and covering with a foam dressing. A heel float boot for offloading is mandatory. Wounds can be covered with foam dressings and changed on an every other day basis. The general progression of wounds such as this is for deterioration of the tissues below the eschar with liquefication, which will soften the eschar, lift the eschar, make it become fluctuant and have purulent drainage. When this occurs, partial excision of the eschar to promote drainage is indicated and depending upon the state of the wound and/or the patient's general condition, he most probably will require a left below-knee and/or a left above-knee amputation. The patient never followed up with a vascular and/or orthopedic surgeon who performed the procedures at [facility]. His name should be obtained and the surgeon should be contacted to keep him apprised of what is occurring at this time. Please feel free to contact the wound clinic if changes occur and/or clarification of dressing changes are needed. The patient has been seen in the wound clinic in the past. He is a noncompliant patient who did not followup with many of his appointments and flatly refused treatment at certain times.
[2016-08-20 06:00] VITALS: BP 108/56
[2016-08-20] MEDS: ASPIRIN 81 MG ENTERIC TAB PO SCH (08:51)
[2016-08-20] MEDS: glipiZIDE *XL* 2.5MG TABLET PO SCH (08:51)
[2016-08-20] MEDS: OMEPRAZOLE 20 MG CAP PO SCH (08:51)
[2016-08-20] MEDS: CARVedilol 6.25 MG TAB PO SCH ×2 (08:52→21:41)
[2016-08-20] MEDS: LORATADINE 10 MG TAB PO SCH (08:52)
[2016-08-20] MEDS: VITAMIN D 1,000 INTERNATIONAL UNITS TABLET PO SCH (08:52)
[2016-08-20] MEDS: TELMISARTAN 20 MG TAB PO SCH (08:52)
[2016-08-20] MEDS: DOCUSATE SODIUM 100 MG CAP PO SCH (08:52)
[2016-08-20] MEDS: FERROUS GLUCONATE 324 MG TAB PO SCH (08:52)
[2016-08-20] MEDS: traMADol 50 MG TAB PO SCH ×3 (08:53→21:41)
[2016-08-20] MEDS: oxyCODONE 5MG TAB PO PRN ×2 (11:07→20:03)
[2016-08-20 14:04] VITALS: BP 112/63
[2016-08-20 20:48] VITALS: BP 144/77
--- NOTE | 2016-08-20 21:05 | IPN ---
DATE: 08/20/2016 SUBJECTIVE: Mr. Figueroa is seen this morning on his bedside. He underwent right ejgdu-reg-cxet amputation recently and is currently undergoing acute rehabilitation. He also has a gangrenous ulcer on his left heel and has a dressing on his foot. The patient is dialysis dependent and was dialyzed just yesterday. He also has history of multiple myeloma which has been treated and he has received ongoing therapy with Dr. Raya. PHYSICAL EXAMINATION VITAL SIGNS: Temperature 97.5 degrees Fahrenheit, heart rate 95 per minute and respiratory rate 16 per minute. Blood pressure 108/56 mmHg and oxygen saturation 97% on room air. HEENT: Face and head is atraumatic. He is somewhat pale looking but not in any acute distress. His neck is supple and without jugular venous distention (JVD) or thyroid enlargement. Ears, nose and throat are unremarkable. HEART: Sounds are regular and without a pericardial friction rub. LUNGS: Clear to auscultation. ABDOMEN: Soft and nontender and without palpable organomegaly. EXTREMITIES: Have no cyanosis or clubbing. He has right jvtjk-gtn-hhxb amputation and stump is covered with dressing. He has an ulcer reported on his left heel and the foot is also wrapped in dressing. LABORATORY DATA: The patient did not have any labs other than a hemoglobin A1c today which is 5.1. PROBLEMS: 1. End-stage renal disease. Mr. Figueroa is dialysis dependent and his last dialysis was performed yesterday. We will plan to schedule his next hemodialysis next week. We will repeat his labs on Monday. 2. Anemia. The patient has been on Aranesp 100 mcg once a week and oral ferrous gluconate 100 mg daily. His last complete blood count (CBC) was done on August 18 when hemoglobin was 10 and hematocrit 31. 3. Hypertension. Blood pressure has been somewhat on the low side. He is on low-dose beta harris which will be continued. 4. Multiple myeloma. The patient has been in remission and currently he is not on any medication other than dexamethasone. Due to ongoing infections, he is not suitable for any chemotherapy. 5. Peripheral vascular disease with gangrenous ulcers. The patient had a right kkyxq-iez-bsik amputation and he was evaluated by Dr. Levi for his left heel ulcer and dressing changes have been advised. He is currently not receiving any antibiotics.
[2016-08-20] MEDS: diphenhydrAMINE 25 MG CAP PO SCH (21:40)
[2016-08-21 06:35] VITALS: BP 134/66
[2016-08-21] MEDS: glipiZIDE *XL* 2.5MG TABLET PO SCH (07:30)
[2016-08-21] MEDS: CALCIUM CARBONATE 500 MG CHEW U/D PO PRN (08:13)
[2016-08-21] MEDS: DOCUSATE SODIUM 100 MG CAP PO SCH (09:00)
[2016-08-21] MEDS: VITAMIN D 1,000 INTERNATIONAL UNITS TABLET PO SCH (12:52)
[2016-08-21] MEDS: LORATADINE 10 MG TAB PO SCH (12:52)
[2016-08-21] MEDS: FERROUS GLUCONATE 324 MG TAB PO SCH (12:52)
[2016-08-21] MEDS: CARVedilol 6.25 MG TAB PO SCH ×2 (12:53→21:17)
[2016-08-21] MEDS: traMADol 50 MG TAB PO SCH ×3 (12:53→21:16)
[2016-08-21] MEDS: ASPIRIN 81 MG ENTERIC TAB PO SCH (12:53)
[2016-08-21] MEDS: OMEPRAZOLE 20 MG CAP PO SCH (12:54)
[2016-08-21] MEDS: TELMISARTAN 20 MG TAB PO SCH (12:54)
[2016-08-21 14:00] VITALS: BP 148/78
[2016-08-21 20:00] VITALS: BP 120/69
[2016-08-21] MEDS: diphenhydrAMINE 25 MG CAP PO SCH (21:16)
[2016-08-22 06:00] VITALS: BP 131/71
[2016-08-22 08:08] LABS: MEAN CORPUSCULAR HGB CONC 31.1 g/dl (32.0-36.5); MEAN CORPUSCULAR VOLUME 96.4 fl (80.0-96.0); RED CELL DISTRIBUTION WIDTH 15.6 % (11.5-14.5); WHITE BLOOD COUNT 5.6 K/mm3 (4.0-10.0)
[2016-08-22 08:17] LABS: ALBUMIN 1.6 GM/DL (3.2-5.2); CALCIUM LEVEL 7.1 MG/DL (8.8-10.2); CREATININE FOR GFR 2.96 MG/DL (0.70-1.30); GLOMERULAR FILTRATION RATE 22.2 (>42); PHOSPHORUS LEVEL 3.6 MG/DL (2.5-4.9); POTASSIUM SERUM 4.2 MEQ/L (3.5-5.1)
[2016-08-22] MEDS: LORATADINE 10 MG TAB PO SCH (08:31)
[2016-08-22] MEDS: OMEPRAZOLE 20 MG CAP PO SCH (08:31)
[2016-08-22] MEDS: CARVedilol 6.25 MG TAB PO SCH ×2 (08:31→20:10)
[2016-08-22] MEDS: DOCUSATE SODIUM 100 MG CAP PO SCH (08:31)
[2016-08-22] MEDS: FERROUS GLUCONATE 324 MG TAB PO SCH (08:31)
[2016-08-22] MEDS: TELMISARTAN 20 MG TAB PO SCH (08:31)
[2016-08-22] MEDS: ASPIRIN 81 MG ENTERIC TAB PO SCH (08:31)
[2016-08-22] MEDS: traMADol 50 MG TAB PO SCH ×3 (08:32→20:12)
[2016-08-22] MEDS: VITAMIN D 1,000 INTERNATIONAL UNITS TABLET PO SCH (08:32)
[2016-08-22] MEDS: glipiZIDE *XL* 2.5MG TABLET PO SCH (08:33)
[2016-08-22] MEDS ORDERED: EMLA CREAM 5GM (LIDOCAINE/PRILOCAINE) TOP SCH (09:45)
--- NOTE | 2016-08-22 10:11 | IPN ---
DATE: 08/21/2016 Mr. Figueroa is seen this afternoon on his bedside. He refused his breakfast and medications this morning per nursing staff. The patient reports that he was nauseated and did not feel good. He is feeling better now and denies any vomiting, abdominal pain or diarrhea. There is no dyspnea or chest pain. PHYSICAL EXAMINATION: Temperature 98.3 degrees Fahrenheit, heart rate 92 per minute and respiratory rate 18 per minute. Blood pressure 134/66 mmHg and oxygen saturation 96%. His head is atraumatic. Neck is supple and without JVD or thyroid enlargement. Pupils equal and reactive to light. Sclera is anicteric. Heart: Sounds regular and lungs clear to auscultation. Abdomen: Soft and nontender. Extremities: No cyanosis or clubbing. His left foot is wrapped in dressing and has foul smelling odor. His right rqdst-qzm-vhlu amputation with stump is wrapped in dressing. The patient has no new labs today. PROBLEM: 1. End-stage renal disease. The patient was dialyzed on Monday. His next dialysis will be scheduled for tomorrow. We will reevaluate him and also check his labs tomorrow morning. 2. Anemia. This will be managed with dialysis. Will check his CBC tomorrow and consider Venofer if he needs. He is receiving Aranesp 100 mcg once a week. 3. Peripheral vascular disease, status post right utuvu-jtx-vjel amputation and gangrenous changes in left foot. The patient has been evaluated by Dr. Levi and wound care is being done, however, it is quite possible that he will require a left xgxdy-nsw-chza amputation too. 4. History of multiple myeloma, status post chemotherapy. At present the patient is off his chemo due to ongoing infections and complications. He will follow up with Dr. Raya as an outpatient.
[2016-08-22] MEDS ORDERED: HEPARIN 1,000 UNITS/ML 10ML VIAL (FOR RADIOLOGY& DIALYSIS ONLY) XX ONE (10:45)
[2016-08-22] MEDS ORDERED: LIDOCAINE 1% SDV 5 ML VIAL SQ ONE (10:45)
[2016-08-22] MEDS ORDERED: HEPARIN 1,000 UNITS/ML 10ML VIAL (FOR RADIOLOGY& DIALYSIS ONLY) IV ONE (10:45)
--- NOTE | 2016-08-22 11:17 | IPNPDOC ---
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 Patient denies any fevers or chills his pain is under fairly good control and he is happy with therapy. He has somebody proceeding with getting a ramp in. And his dialysis on Monday went well. Orthotics are pending for both lower extremities. ALLERGIES: See Below MEDICATIONS: Reviewed, see below. OBJECTIVE: VITAL SIGNS: Please see below. PHYSICAL EXAMINATION: GENERAL: Well-nourished well-developed elderly white male with right BKA with well vascularized incision line that is healing but will diabetic ulcers of the left foot and ankle that appear consistent with osteomyelitis and do not appear to be progressing in healing. HEENT: Normocephalic/atraumatic. CARDIOVASCULAR: Regular rate and rhythm with normal S1 and S2. No ectopic beats. 2 out 4 bilateral radial pulses. LUNGS: [place] clear to auscultation. ABDOMEN: Benign with normal bowel sounds in all quadrants. NEUROLOGICAL: Alert and oriented 4. Speech is clear coherent and appropriate. However patient does seem a little questionable as a historian at times. SKIN: BKA incision on right healing well. Left transmetatarsal amputation with foot and heel ulcerations not progressing well as noted above. Please see Dr. Levi note. LABORATORY DATA: Reviewed. Please see below. MICROBIOLOGY: Please see below. ASSESSMENT AND PLAN: 1. Rehabilitation of right BKA: Patient participating well in therapies with PT and OT. His mobility and transfers are progressing. In light of patient's right BKA (transtibial amputation)with PVD secondary to Type 2 Diabetes Mellitus and LLE foot/heel ulcers, it is extremely important to protect the Right BKA surgery site with staple closure and residual limb and knee from trauma and contractures. To do this a Right custom fit transtibial temporary protective shell (Env-Yjxg-Flc), waist belt, anterior suspension strap , two IPS socks, two (5 ply) prosthetic socks, two (3 ply) prosthetic socks, and reticulated distal end pad has been ordered. This will also be used in transition to temporary BKA prosthesis as well as appropriately shaping the residual limb. 2. Left lower extremity ulcers: I will contact patient's surgeon down [place] and see if he has a change in care recommendations from his current use of Betadine and dressings for the left lower extremity. For now, it is crucial to protect this already compromised foot and ankle region that has ulcers that can not withstand weight bearing yet are insensate enought to prevent normal protective reflexes of the patient to keep all the area from touching/weight bearing. He therefore needs the precise fit of a custom molded PTB AFO to control and support the distal Left Lower Extremity and ulcerated areas in multiple planes and offload any weight directed toward the distal LLE from the compromised area for optimal circulation and avoidance of further tissue damage. Prefabricated will not provide the level of fit to provide these functions. A Left custom molded patellar tendon bearing articulating AFO, dual action joints, custom molded foot plate with custom contoured stirrups, soft interface, toe filler and Left Post Op shoe to wear with this device are ordered. 3. Diabetes/ESRD: currently stable, M-W-F dialysis proceeding. 4. Team Conference: Plan discharge for this Monday to home pending continued progress, home evaluation and ramp are completed. Patient will also require sliding board, comode, and pending review of his w/c's a manual w/c with removal arms to allow sliding board transfers. Patient is progressing in therapies inspite of some memory problems, but is transferring and performing ADL's now at minimum assist to modified independence level. Please refer to FIM tracking in chart. TIME SPENT: Chart Review, examination and documentation greater than 35 minutes. Allergies Coded Allergies: No Known Allergies (Unverified , 07/20/15) Vital Signs Vital Signs Date Time Temp Pulse Resp B/P Pulse Ox O2 Delivery O2 Flow Rate FiO2 08/22/16 08:32 18 Room Air 08/22/16 08:31 78 131/71 08/22/16 06:00 98.3 97 Laboratory Data CBC/BMP Laboratory Tests 08/22/16 07:37 Anion Gap 7 L, Red Blood Count 3.22 L, Mean Corpuscular Volume 96.4 H, Mean Corpuscular Hemoglobin 30.0, Mean Corpuscular Hemoglobin Concent 31.1 L, Red Cell Distribution Width 15.6 H Labs 24H Laboratory Tests 2 08/22/16 07:37: Albumin 1.6L, Blood Urea Nitrogen 35H, Creatinine 2.96H, Sodium Level 137, Potassium Level 4.2, Chloride Level 101, Carbon Dioxide Level 29, Anion Gap 7L, Calcium Level 7.1L, Glomerular Filtration Rate 22.2L, Phosphorus Level 3.6 08/22/16 10:21: Bedside Glucose (Misc Panel) 100 Current Medications Current Medications Current Medications Albuterol Sulfate (Proventil, Ventolin Hfa) 2 puff Q6HP PRN INH SHORTNESS OF BREATH; Start 08/17/16 at 14:45; Stop 09/16/16 at 14:44 Aspirin (Ecotrin) 81 mg DAILY PO Last administered on 08/22/16 08:31; Start at 09:00; Stop 09/17/16 at 08:59 Calcium Carbonate (Tums) 500 mg BID PRN PO INDIGESTION Last administered on 08:13; Start 08/17/16 at 14:45; Stop 09/16/16 at 14:44 Carvedilol (COReg) 6.25 mg BID PO Last administered on 08/22/16 08:31; Start 08/17/16 at 21:00; Stop 09/16/16 at 20:59 Darbepoetin Skip (Aranesp (Dialysis Use)) 100 mcg HD IV ; Start 08/19/16 at 11: 30; Stop 09/18/16 at 11:29 Dexamethasone (Decadron) 20 mg We@08 PO ; Start 08/24/16 at 08:00; Stop at 07:59 Diazepam (Valium) 2 mg Q12HP PRN PO Anxiety; Start 08/17/16 at 14:45; Stop at 12:00 Diphenhydramine HCl (Benadryl) 25 mg QHS PO Last administered on 08/21/16 21: 16; Start 08/17/16 at 21:00; Stop 09/16/16 at 20:59 Docusate Sodium (Colace) 100 mg DAILY PO Last administered on 08/22/16 08:31; Start 08/17/16 at 09:00; Stop 09/16/16 at 08:59 Ferrous Gluconate (Fergon) 324 mg DAILY PO Last administered on 08/22/16 08:31 ; Start 08/18/16 at 09:00; Stop 09/17/16 at 08:59 Glipizide (Glucotrol Xl) 2.5 mg DAILY@0730 PO Last administered on 08/22/16 08 :33; Start 08/18/16 at 07:30; Stop 09/17/16 at 07:29 Home Med (Med Rec Complete!) ASDIRECTED XX ; Start 08/17/16 at 16:15; Stop 04/23 at 16:16; Status DC Lidocaine/ Prilocaine (Emla) Apply to dialysis fist... ASDIRECTED TOP Last administered on 08/22/16 10:53; Start 08/22/16 at 09:45; Stop 09/21/16 at 09:44 Loratadine (Claritin) 10 mg DAILY PO Last administered on 08/22/16 08:31; Start 08/18/16 at 09:00; Stop 09/17/16 at 08:59 Miscellaneous (Unresolved Clarification Entry) SEE LABEL COMMENTS UNRESOLVED XX ; Start 08/17/16 at 00:01; Stop 08/17/16 at 16:21; Status DC Miscellaneous (Unresolved Non-Formulary Med Order) SEE LABEL COMMENTS UNRESOLVED XX ; Start 08/17/16 at 00:01; Stop 08/17/16 at 16:50; Status DC Miscellaneous (Unresolved Patient Own Med Order) SEE LABEL COMMENTS UNRESOLVED XX ; Start 08/17/16 at 00:01; Stop 09/16/16 at 00:00 Nitroglycerin (Nitrostat (1/ 150)) 0.4 mg Q5MP PRN SL CHEST PAIN; Start at 14:45; Stop 09/16/16 at 14:44 Non-Formulary Medication Dexamethasone 20mg po Ev... QAM PO ; Start 08/18/16 at 09:00; Stop 08/18/16 at 09:00; Status DC Non-Formulary Medication Revlimid 5 mg PO daily ... DAILY PO ; Start 08/18/16 at 09:00; Stop 08/18/16 at 09:00; Status DC Omeprazole (PriLOSEC) 40 mg DAILY PO Last administered on 08/22/16 08:31; Start 08/18/16 at 09:00; Stop 09/17/16 at 08:59 Oxycodone HCl (Roxicodone, Oxyir) 5 mg Q6HP PRN PO MODERATE PAIN (PS 5-7); Start 08/17/16 at 14:45; Stop 08/24/16 at 12:00 Oxycodone HCl (Roxicodone, Oxyir) 10 mg Q6HP PRN PO SEVERE PAIN (PS 8-10) Last administered on 08/20/16 20:03; Start 08/17/16 at 14:45; Stop 08/24/16 at 12:00 Patient Own Medication (Patient'S Own Med) Patient's own Revlimid ( lenalidomi... DAILY PO ; Start 08/19/16 at 09:00; Stop 09/18/16 at 08:59; Status UNV Polyethylene Glycol (Miralax) 1 pkt DAILYPRN PRN PO CONSTIPATION; Start at 14:45; Stop 09/16/16 at 14:44 Telmisartan (Micardis) 80 mg DAILY PO Last administered on 08/22/16 08:31; Start 08/18/16 at 09:00; Stop 09/17/16 at 08:59 Tetrahydrozoline HCl (Visine) 1 drop QHS PRN OU DRY EYES; Start 08/17/16 at 16: 30; Stop 09/16/16 at 16:29 Tramadol HCl (Ultram) 100 mg TID PO Last administered on 08/22/16 08:32; Start 08/17/16 at 16:00; Stop 08/24/16 at 15:59 Vitamin D (Vitamin D) 1,000 units DAILY PO Last administered on 08/22/16 08:32 ; Start 08/18/16 at 09:00; Stop 09/17/16 at 08:59 ABDIRIZAK COKER MD Aug 22, 2016 11:17
--- NOTE | 2016-08-22 11:35 | REP ---
AP AND LATERAL LEFT FOOT: HISTORY: Osteomyelitis. COMPARISON: 05/25/2016. The patient is status post amputation of the first through fifth digits. This is at the level of the head of the first metatarsal and bases of the second through fifth metatarsals. There is extensive degenerative change in the tarsal and tarsometatarsal joints. Several small calcified densities are present in the overlying subcutaneous tissue. A small linear metallic density is 4.3 mm in length is present in the ventral soft tissue. There are several defects in the overlying soft tissue. Extensive vascular calcification is present. IMPRESSION: The patient is status post amputation of the first through fifth digits. There is no definite osteomyelitis. Signed by Steve Smiley MD 08/22/2016 11:39 A
[2016-08-22 16:45] VITALS: BP 140/78
[2016-08-22 20:00] VITALS: BP 137/69
[2016-08-22] MEDS: diphenhydrAMINE 25 MG CAP PO SCH (20:11)
--- NOTE | 2016-08-22 20:47 | IPN ---
DATE: 08/22/2016 Mr. Figueroa is seen this afternoon on his bedside in hemodialysis. I saw him earlier in his room. He continues to have foul-smelling discharge from his left foot stump. An x-ray was ordered earlier and was done. There is no obvious evidence of osteomyelitis. The patient has no fever or chills at this time. He continues with rehabilitation for his right rxcyo-zdl-ewwd amputation. PHYSICAL EXAMINATION: Temperature 98 degrees Fahrenheit, heart rate 85 per minute, respiratory rate 20 per minute, blood pressure 140/78 mm of mercury, and oxygen saturation 96% on room air. HEAD: Atraumatic. EARS, NOSE AND THROAT: Unremarkable. Neck veins are not abnormally distended. His neck is supple, and there is no thyroid enlargement. HEART: Sounds are regular. LUNGS: Clear to auscultation. ABDOMEN: Soft and nontender. Bowel sounds are normal. EXTREMITIES have no cyanosis or clubbing. His left foot stump is wrapped in dressing. Right leg stump is also wrapped in dressing. Today's labs show WBC count 5.6, hemoglobin 9.6 and hematocrit 31. Platelets 214. Sodium 137, potassium 4.2, BUN 35, and creatinine 2.96. Calcium level 7.1 and phosphorus 3.6. Albumin 1.6. PROBLEMS: 1. End-stage renal disease. The patient is being dialyzed today, and he is tolerating his dialysis treatment very well. We are attempting to remove about 1.5 liters fluid as tolerated. 2. Anemia. This is related to blood loss and end-stage renal disease. The patient is receiving ferrous gluconate and also Aranesp 100 mcg once a week. Most likely left foot infection is affecting improvement in anemia. 3. Left foot infected ulcers. The patient has been seen by Dr. Levi. He is currently not on any broad-spectrum antibiotic, and wound care is being done. 4. Multiple myeloma. No chemotherapy at this point due to ongoing acute complications. 5. Hypertension. Blood pressure is very well controlled, and he remains on low-dose beta harris.
[2016-08-23] MEDS: oxyCODONE 5MG TAB PO PRN ×3 (00:05→22:11)
[2016-08-23 06:00] VITALS: BP 138/67
[2016-08-23] MEDS: glipiZIDE *XL* 2.5MG TABLET PO SCH (08:48)
[2016-08-23] MEDS: FERROUS GLUCONATE 324 MG TAB PO SCH (08:48)
[2016-08-23] MEDS: DOCUSATE SODIUM 100 MG CAP PO SCH (08:49)
[2016-08-23] MEDS: LORATADINE 10 MG TAB PO SCH (08:49)
[2016-08-23] MEDS: ASPIRIN 81 MG ENTERIC TAB PO SCH (08:49)
[2016-08-23] MEDS: traMADol 50 MG TAB PO SCH ×3 (08:49→22:09)
[2016-08-23] MEDS: VITAMIN D 1,000 INTERNATIONAL UNITS TABLET PO SCH (08:49)
[2016-08-23] MEDS: CARVedilol 6.25 MG TAB PO SCH ×2 (08:50→22:07)
[2016-08-23] MEDS: OMEPRAZOLE 20 MG CAP PO SCH (08:50)
[2016-08-23] MEDS: TELMISARTAN 20 MG TAB PO SCH (08:50)
--- NOTE | 2016-08-23 10:49 | IPNPDOC ---
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 Patient without complaints who wishes to be able bear weight through his left foot and heel in spite of the ulcer we have repeatedly in nursing, physical therapy, occupational therapy and physiatry reinforced to the patient that he cannot bear weight through his left heel with the ulcer thought if he wishes it to recover. Patient denies fever or chills or other complaints, but still is trying to persuade us that he should be using his left foot to walk on in spite of the ulcers. ALLERGIES: See Below MEDICATIONS: Reviewed, see below. OBJECTIVE: VITAL SIGNS: Please see below. PHYSICAL EXAMINATION: GENERAL: Well-nourished well-developed elderly white male with some distal atrophy in the hands and diabetic polyneuropathy, who is alert and oriented 4. Speech is clear coherent and appropriate, affect is pleasant and cooperative. Patient no acute distress. CARDIOVASCULAR: Regular rate and rhythm with normal S1 and S2 and 2 out 4 radial pulses in the upper extremities. LUNGS: All drake clear to auscultation. NEUROLOGICAL: As noted above. SKIN: Right BKA healing well now has Tre-Thru orthotic on keeping the knee in good position protecting the residual limb. Left heel continues to have drainage. LABORATORY DATA: Reviewed. Please see below. ASSESSMENT AND PLAN: 1. Rehabilitation of right BKA: Limb healing well patient wearing how do sliding board transfers without weightbearing on the residual limbs of his 2 amputations. Patient has informed consent about why he cannot put weight on his left foot and heel, but I am dubious as to whether he will heed our training on this. He does understand what we are telling him about it, but I do not think he accepts the information and I think he believes he will manage things in his own way like he always has. TIME SPENT: Chart Review, examination and documentation greater than 15 minutes. Allergies Coded Allergies: No Known Allergies (Unverified , 07/20/15) Vital Signs Vital Signs Date Time Temp Pulse Resp B/P Pulse Ox O2 Delivery O2 Flow Rate FiO2 08/23/16 09:00 Room Air 08/23/16 08:50 82 138/67 08/23/16 08:50 20 08/23/16 06:00 98.0 97 Current Medications Current Medications Current Medications Albuterol Sulfate (Proventil, Ventolin Hfa) 2 puff Q6HP PRN INH SHORTNESS OF BREATH; Start 08/17/16 at 14:45; Stop 09/16/16 at 14:44 Aspirin (Ecotrin) 81 mg DAILY PO Last administered on 08/23/16 08:49; Start at 09:00; Stop 09/17/16 at 08:59 Calcium Carbonate (Tums) 500 mg BID PRN PO INDIGESTION Last administered on 08:13; Start 08/17/16 at 14:45; Stop 09/16/16 at 14:44 Carvedilol (COReg) 6.25 mg BID PO Last administered on 08/23/16 08:50; Start 08/17/16 at 21:00; Stop 09/16/16 at 20:59 Darbepoetin Skip (Aranesp (Dialysis Use)) 100 mcg HD IV ; Start 08/19/16 at 11: 30; Stop 09/18/16 at 11:29 Dexamethasone (Decadron) 20 mg We@08 PO ; Start 08/24/16 at 08:00; Stop at 07:59 Diazepam (Valium) 2 mg Q12HP PRN PO Anxiety; Start 08/17/16 at 14:45; Stop at 12:00 Diphenhydramine HCl (Benadryl) 25 mg QHS PO Last administered on 08/22/16 20: 11; Start 08/17/16 at 21:00; Stop 09/16/16 at 20:59 Docusate Sodium (Colace) 100 mg DAILY PO Last administered on 08/23/16 08:49; Start 08/17/16 at 09:00; Stop 09/16/16 at 08:59 Ferrous Gluconate (Fergon) 324 mg DAILY PO Last administered on 08/23/16 08:48 ; Start 08/18/16 at 09:00; Stop 09/17/16 at 08:59 Glipizide (Glucotrol Xl) 2.5 mg DAILY@0730 PO Last administered on 08/23/16 08 :48; Start 08/18/16 at 07:30; Stop 09/17/16 at 07:29 Home Med (Med Rec Complete!) ASDIRECTED XX ; Start 08/17/16 at 16:15; Stop 04/23 at 16:16; Status DC Lidocaine/ Prilocaine (Emla) Apply to dialysis fist... ASDIRECTED TOP Last administered on 08/22/16 10:53; Start 08/22/16 at 09:45; Stop 09/21/16 at 09:44 Loratadine (Claritin) 10 mg DAILY PO Last administered on 08/23/16 08:49; Start 08/18/16 at 09:00; Stop 09/17/16 at 08:59 Miscellaneous (Unresolved Clarification Entry) SEE LABEL COMMENTS UNRESOLVED XX ; Start 08/17/16 at 00:01; Stop 08/17/16 at 16:21; Status DC Miscellaneous (Unresolved Non-Formulary Med Order) SEE LABEL COMMENTS UNRESOLVED XX ; Start 08/17/16 at 00:01; Stop 08/17/16 at 16:50; Status DC Miscellaneous (Unresolved Patient Own Med Order) SEE LABEL COMMENTS UNRESOLVED XX ; Start 08/17/16 at 00:01; Stop 09/16/16 at 00:00 Nitroglycerin (Nitrostat (1/ 150)) 0.4 mg Q5MP PRN SL CHEST PAIN; Start at 14:45; Stop 09/16/16 at 14:44 Non-Formulary Medication Dexamethasone 20mg po Ev... QAM PO ; Start 08/18/16 at 09:00; Stop 08/18/16 at 09:00; Status DC Non-Formulary Medication Revlimid 5 mg PO daily ... DAILY PO ; Start 08/18/16 at 09:00; Stop 08/18/16 at 09:00; Status DC Omeprazole (PriLOSEC) 40 mg DAILY PO Last administered on 08/23/16 08:50; Start 08/18/16 at 09:00; Stop 09/17/16 at 08:59 Oxycodone HCl (Roxicodone, Oxyir) 5 mg Q6HP PRN PO MODERATE PAIN (PS 5-7); Start 08/17/16 at 14:45; Stop 08/24/16 at 12:00 Oxycodone HCl (Roxicodone, Oxyir) 10 mg Q6HP PRN PO SEVERE PAIN (PS 8-10) Last administered on 08/23/16 08:50; Start 08/17/16 at 14:45; Stop 08/24/16 at 12:00 Patient Own Medication (Patient'S Own Med) Patient's own Revlimid ( lenalidomi... DAILY PO ; Start 08/19/16 at 09:00; Stop 09/18/16 at 08:59; Status UNV Polyethylene Glycol (Miralax) 1 pkt DAILYPRN PRN PO CONSTIPATION; Start at 14:45; Stop 09/16/16 at 14:44 Telmisartan (Micardis) 80 mg DAILY PO Last administered on 08/23/16 08:50; Start 08/18/16 at 09:00; Stop 09/17/16 at 08:59 Tetrahydrozoline HCl (Visine) 1 drop QHS PRN OU DRY EYES; Start 08/17/16 at 16: 30; Stop 09/16/16 at 16:29 Tramadol HCl (Ultram) 100 mg TID PO Last administered on 08/23/16 08:49; Start 08/17/16 at 16:00; Stop 08/30/16 at 15:59 Vitamin D (Vitamin D) 1,000 units DAILY PO Last administered on 08/23/16 08:49 ; Start 08/18/16 at 09:00; Stop 09/17/16 at 08:59 ABDIRIZAK COKER MD Aug 23, 2016 10:49
[2016-08-23 14:00] VITALS: BP 155/84
--- NOTE | 2016-08-23 18:42 | IPN ---
DATE: 08/23/2016 Mr. Figueroa is seen this morning on his bedside. He is sitting in the chair at the time of my visit. He is quite concerned about his condition and potential plans for discharge to home on Monday. He is worried that he would not be able to handle himself at home as he is totally dependent for care at this point. He remains dialysis dependent and his last dialysis was performed yesterday. He is unable to bear weight on his left foot due to ongoing infection and right leg stump has not healed yet completely following the amputation of his right leg. He has not been able to use prosthesis well. The patient denies any dyspnea or chest pain. He reports that his appetite is fair. He is eating well. PHYSICAL EXAMINATION: VITALS: Temperature 98 degrees Fahrenheit, heart rate 82 per minute and respiratory rate 18 per minute. Blood pressure 138/67 mmHg and oxygen saturation 97% on room air. HEAD: Is atraumatic. Ears, nose and throat are unremarkable. NECK: Supple and without jugular venous distension (JVD) or thyroid enlargement. HEART: Sounds are regular. LUNGS: Clear to auscultation. ABDOMEN: Soft and benign. EXTREMITIES: Without cyanosis or clubbing. Left arm arteriovenous (AV) fistula is patent. His left foot stump is wrapped in dressing. Right leg stump is wrapped in dressing. PROBLEMS: 1. End-stage renal disease. The patient is dialysis dependent and he was dialyzed yesterday. We will plan to schedule his dialysis for tomorrow. Volume status has been well compensated and electrolytes have been normal so far. 2. Anemia. His anemia was slightly worse. We are giving him Aranesp once a week and will continue with the same. His CBC will be checked again tomorrow morning. 3. Peripheral vascular disease, status post right vbfzr-uku-uizn amputation and left foot ischemic ulcers. The patient continues with wound care of his left foot wound. He is not on any broad-spectrum antibiotics. He continues to have foul smelling discharge from his foot. The right leg stump is reportedly healing well and he continues with rehab. 4. Hypertension. Blood pressure has been well controlled and we will continue with current antihypertensive medications. 5. Multiple myeloma. The patient has been on chemotherapy in the past with at least partial or complete remission. At present his chemo is on hold due to ongoing infective problems. DISPOSITION: The patient is quite concerned about discharge plans to home. I discussed this situation with Dr. Steve De La O who is in charge of rehab. They feel that arrangements will be made for him to be safely discharged to home.
[2016-08-23 20:30] VITALS: BP 149/82
[2016-08-23] MEDS: diphenhydrAMINE 25 MG CAP PO SCH (22:07)
[2016-08-24] MEDS: oxyCODONE 5MG TAB PO PRN (04:07)
[2016-08-24 04:24] VITALS: BP 157/88
[2016-08-24 07:50] LABS: MEAN CORPUSCULAR HEMOGLOBIN 30.9 pg (27.0-33.0); MEAN CORPUSCULAR HGB CONC 32.1 g/dl (32.0-36.5); MEAN CORPUSCULAR VOLUME 96.4 fl (80.0-96.0); RED CELL DISTRIBUTION WIDTH 15.3 % (11.5-14.5)
[2016-08-24] MEDS: OMEPRAZOLE 20 MG CAP PO SCH (08:17)
[2016-08-24] MEDS: DOCUSATE SODIUM 100 MG CAP PO SCH (08:17)
[2016-08-24] MEDS: TELMISARTAN 20 MG TAB PO SCH (08:17)
[2016-08-24 08:18] LABS: ALBUMIN 1.7 GM/DL (3.2-5.2); CALCIUM LEVEL 7.4 MG/DL (8.8-10.2); CREATININE FOR GFR 2.41 MG/DL (0.70-1.30); GLOMERULAR FILTRATION RATE 28.1 (>42); PHOSPHORUS LEVEL 2.8 MG/DL (2.5-4.9)
[2016-08-24] MEDS: FERROUS GLUCONATE 324 MG TAB PO SCH (08:18)
[2016-08-24] MEDS: VITAMIN D 1,000 INTERNATIONAL UNITS TABLET PO SCH (08:18)
[2016-08-24] MEDS: traMADol 50 MG TAB PO SCH ×3 (08:18→21:04)
[2016-08-24] MEDS: ASPIRIN 81 MG ENTERIC TAB PO SCH (08:18)
[2016-08-24] MEDS: LORATADINE 10 MG TAB PO SCH (08:18)
[2016-08-24] MEDS: CARVedilol 6.25 MG TAB PO SCH ×2 (08:19→21:03)
[2016-08-24] MEDS: glipiZIDE *XL* 2.5MG TABLET PO SCH (08:20)
[2016-08-24 10:34] VITALS: BP 157/88
[2016-08-24] MEDS ORDERED: LIDOCAINE 1% SDV 5 ML VIAL SQ ONE (11:30)
[2016-08-24] MEDS ORDERED: HEPARIN 1,000 UNITS/ML 10ML VIAL (FOR RADIOLOGY& DIALYSIS ONLY) IV ONE (11:30)
--- NOTE | 2016-08-24 12:08 | IPNPDOC ---
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 Patient denies any fever chills & pain control is good at this time. Patient not yet using left lower extremity ORTHOSIS. ALLERGIES: See Below MEDICATIONS: Reviewed, see below. OBJECTIVE: VITAL SIGNS: Please see below. PHYSICAL EXAMINATION: GENERAL: Well-nourished well-developed elderly white male who is alert and well oriented. Patient with a somewhat independent streak who I think understands recommendations but rationalizes doing what he wants to do. Patient no appreciable muscle skeletal distress. HEENT: Normocephalic atraumatic with good eye movement and control. CARDIOVASCULAR: Regular rate and rhythm with normal S1 and S2 and 2 out 4 radial pulses. LUNGS: All drake clear to auscultation. ABDOMEN: Bowel sounds present in all quadrants no tenderness is found in the abdomen. NEUROLOGICAL: Marked decreased sensorium in the left leg and foot distally as well as fingers. SKIN: BKA healing well, left heel not showing significant improvement. LABORATORY DATA: Reviewed. Please see below. MICROBIOLOGY: Please see below. IMAGING: No new. ASSESSMENT AND PLAN: 1. Rehabilitation of right BKA: Patient doing very well with transfer techniques and wheelchair however discharge may be delayed due to gaining appropriate access with a ramp. Once ramp is in home about can proceed. 2. Left heel ulcers: Continued to have copious serous drainage. Need to have patient use the PTB AFO whenever he is up especially for therapies to protect the foot. 3. Dialysis for end-stage renal disease this is going well patient has session today. TIME SPENT: Chart Review, examination and documentation greater than 25 minutes. Allergies Coded Allergies: No Known Allergies (Unverified , 07/20/15) Vital Signs Vital Signs Date Time Temp Pulse Resp B/P Pulse Ox O2 Delivery O2 Flow Rate FiO2 08/24/16 10:34 98.0 93 16 157/88 95 Room Air Laboratory Data CBC/BMP Laboratory Tests 08/24/16 07:19 Anion Gap 7 L, Red Blood Count 3.19 L, Mean Corpuscular Volume 96.4 H, Mean Corpuscular Hemoglobin 30.9, Mean Corpuscular Hemoglobin Concent 32.1, Red Cell Distribution Width 15.3 H Labs 24H Laboratory Tests 2 08/24/16 07:19: Albumin 1.7L, Blood Urea Nitrogen 24H, Creatinine 2.41H, Sodium Level 140, Potassium Level 4.0, Chloride Level 107, Carbon Dioxide Level 26, Anion Gap 7L, Calcium Level 7.4L, Glomerular Filtration Rate 28.1L, Phosphorus Level 2.8# 08/24/16 11:29: Bedside Glucose (Misc Panel) 107 Current Medications Current Medications Current Medications Albuterol Sulfate (Proventil, Ventolin Hfa) 2 puff Q6HP PRN INH SHORTNESS OF BREATH; Start 08/17/16 at 14:45; Stop 09/16/16 at 14:44 Aspirin (Ecotrin) 81 mg DAILY PO Last administered on 08/24/16 08:18; Start at 09:00; Stop 09/17/16 at 08:59 Calcium Carbonate (Tums) 500 mg BID PRN PO INDIGESTION Last administered on 08:13; Start 08/17/16 at 14:45; Stop 09/16/16 at 14:44 Carvedilol (COReg) 6.25 mg BID PO Last administered on 08/24/16 08:19; Start 08/17/16 at 21:00; Stop 09/16/16 at 20:59 Darbepoetin Skip (Aranesp (Dialysis Use)) 100 mcg HD IV ; Start 08/19/16 at 11: 30; Stop 09/18/16 at 11:29 Dexamethasone (Decadron) 20 mg We@08 PO Last administered on 08/24/16 08:16; Start 08/24/16 at 08:00; Stop 09/23/16 at 07:59 Diazepam (Valium) 2 mg Q12HP PRN PO Anxiety; Start 08/17/16 at 14:45; Stop at 12:00; Status DC Diphenhydramine HCl (Benadryl) 25 mg QHS PO Last administered on 08/23/16 22: 07; Start 08/17/16 at 21:00; Stop 09/16/16 at 20:59 Docusate Sodium (Colace) 100 mg DAILY PO Last administered on 08/24/16 08:17; Start 08/17/16 at 09:00; Stop 09/16/16 at 08:59 Ferrous Gluconate (Fergon) 324 mg DAILY PO Last administered on 08/24/16 08:18 ; Start 08/18/16 at 09:00; Stop 09/17/16 at 08:59 Glipizide (Glucotrol Xl) 2.5 mg DAILY@0730 PO Last administered on 08/24/16 08 :20; Start 08/18/16 at 07:30; Stop 09/17/16 at 07:29 Home Med (Med Rec Complete!) ASDIRECTED XX ; Start 08/17/16 at 16:15; Stop 04/23 at 16:16; Status DC Lidocaine/ Prilocaine (Emla) Apply to dialysis fist... ASDIRECTED TOP Last administered on 08/22/16 10:53; Start 08/22/16 at 09:45; Stop 09/21/16 at 09:44 Loratadine (Claritin) 10 mg DAILY PO Last administered on 08/24/16 08:18; Start 08/18/16 at 09:00; Stop 09/17/16 at 08:59 Miscellaneous (Unresolved Clarification Entry) SEE LABEL COMMENTS UNRESOLVED XX ; Start 08/17/16 at 00:01; Stop 08/17/16 at 16:21; Status DC Miscellaneous (Unresolved Non-Formulary Med Order) SEE LABEL COMMENTS UNRESOLVED XX ; Start 08/17/16 at 00:01; Stop 08/17/16 at 16:50; Status DC Miscellaneous (Unresolved Patient Own Med Order) SEE LABEL COMMENTS UNRESOLVED XX Last administered on 08/23/16 00:01; Start 08/17/16 at 00:01; Stop at 00:00 Nitroglycerin (Nitrostat (1/ 150)) 0.4 mg Q5MP PRN SL CHEST PAIN; Start at 14:45; Stop 09/16/16 at 14:44 Non-Formulary Medication Dexamethasone 20mg po Ev... QAM PO ; Start 08/18/16 at 09:00; Stop 08/18/16 at 09:00; Status DC Non-Formulary Medication Revlimid 5 mg PO daily ... DAILY PO ; Start 08/18/16 at 09:00; Stop 08/18/16 at 09:00; Status DC Omeprazole (PriLOSEC) 40 mg DAILY PO Last administered on 08/24/16 08:17; Start 08/18/16 at 09:00; Stop 09/17/16 at 08:59 Oxycodone HCl (Roxicodone, Oxyir) 5 mg Q6HP PRN PO MODERATE PAIN (PS 5-7); Start 08/17/16 at 14:45; Stop 08/24/16 at 12:00; Status DC Oxycodone HCl (Roxicodone, Oxyir) 10 mg Q6HP PRN PO SEVERE PAIN (PS 8-10) Last administered on 08/24/16 04:07; Start 08/17/16 at 14:45; Stop 08/24/16 at 12:00 ; Status DC Patient Own Medication (Patient'S Own Med) Patient's own Revlimid ( lenalidomi... DAILY PO ; Start 08/19/16 at 09:00; Stop 09/18/16 at 08:59; Status UNV Polyethylene Glycol (Miralax) 1 pkt DAILYPRN PRN PO CONSTIPATION; Start at 14:45; Stop 09/16/16 at 14:44 Telmisartan (Micardis) 80 mg DAILY PO Last administered on 08/24/16 08:17; Start 08/18/16 at 09:00; Stop 09/17/16 at 08:59 Tetrahydrozoline HCl (Visine) 1 drop QHS PRN OU DRY EYES; Start 08/17/16 at 16: 30; Stop 09/16/16 at 16:29 Tramadol HCl (Ultram) 100 mg TID PO Last administered on 08/24/16 08:18; Start 08/17/16 at 16:00; Stop 08/30/16 at 15:59 Vitamin D (Vitamin D) 1,000 units DAILY PO Last administered on 08/24/16 08:18 ; Start 08/18/16 at 09:00; Stop 09/17/16 at 08:59 ABDIRIZAK COKER MD Aug 24, 2016 12:08
[2016-08-24 20:00] VITALS: BP 126/67
[2016-08-24] MEDS: diphenhydrAMINE 25 MG CAP PO SCH (21:02)
--- NOTE | 2016-08-24 21:24 | IPN ---
DATE: 08/24/2016 Mr. Figueroa undergoing hemodialysis this afternoon. He has known history of end-stage renal disease and has been dialysis dependent. He is admitted for acute rehabilitation following his right gwesk-[id number]-bcmx amputation. He also has ischemic ulcer with foul smelling discharge on his left foot. He has known history of multiple myeloma. The patient tolerates dialysis treatment very well. He has no dyspnea or chest pain. There is no fever or chills. He continues to receive wound care but not any systemic antibiotics. PHYSICAL EXAMINATION: Temperature 98 degrees Fahrenheit, heart rate 92 per minute and respiratory rate 18 per minute. Blood pressure 148/78 mmHg and oxygen saturation 95% on room air. His heart sounds are regular. Lungs: Clear to auscultation. Head is atraumatic. Neck is supple and without jugular venous distention (JVD) or thyroid enlargement. Extremities have no cyanosis or clubbing. His right hlyur-wlm-arxr amputation and left foot is wrapped in dressing with very foul smelling discharge. Today's labs show WBC count 5.0, hemoglobin 9.9 and hematocrit 30.8. Platelets 207. Sodium 140 and potassium 4.0. BUN 24 and creatinine 2.41. Albumin is only 1.7 and calcium 7.4. PROBLEMS: 1. End-stage renal disease. The patient is being dialyzed for 3 hours today. His electrolytes are within normal range. Volume status is reasonably well-compensated. 1.5 liters of fluid is being removed today. 2. Anemia. His anemia is stable and he continues to receive Aranesp once a week. 3. Protein calorie malnutrition. The patient is being encouraged to increase his protein intake. He can also benefit from Nepro 1 can daily. 4. Left foot gangrenous ulcer and ischemia. I am quite concerned about his situation. I feel that the patient is not suitable for discharge as he has no support at home and he lives by himself. He just recently had a right dkxgp-wpn-dukx amputation done and left foot is also nonweightbearing due to ongoing gangrenous ulceration. He is very much likely to require a ornrz-rsz-tbnn amputation. 5. Multiple myeloma. At present his chemotherapy remains on hold due to infective complications.
[2016-08-25] MEDS ORDERED: oxyCODONE 5MG TAB PO PRN (01:00)
[2016-08-25] MEDS: oxyCODONE 5MG TAB PO PRN ×2 (02:25→13:11)
[2016-08-25 06:00] VITALS: BP 124/70
[2016-08-25] MEDS: CALCIUM CARBONATE 500 MG CHEW U/D PO PRN (08:19)
[2016-08-25] MEDS: VITAMIN D 1,000 INTERNATIONAL UNITS TABLET PO SCH (08:20)
[2016-08-25] MEDS: LORATADINE 10 MG TAB PO SCH (08:20)
[2016-08-25 08:22] VITALS: BP 124/70
[2016-08-25] MEDS: OMEPRAZOLE 20 MG CAP PO SCH (08:22)
[2016-08-25] MEDS: traMADol 50 MG TAB PO SCH (08:22)
[2016-08-25] MEDS: DOCUSATE SODIUM 100 MG CAP PO SCH (08:22)
[2016-08-25] MEDS: ASPIRIN 81 MG ENTERIC TAB PO SCH (08:22)
[2016-08-25] MEDS: CARVedilol 6.25 MG TAB PO SCH (08:22)
[2016-08-25] MEDS: glipiZIDE *XL* 2.5MG TABLET PO SCH (08:23)
[2016-08-25] MEDS: TELMISARTAN 20 MG TAB PO SCH (08:23)
[2016-08-25] MEDS: FERROUS GLUCONATE 324 MG TAB PO SCH (08:23)
--- NOTE | 2016-08-25 11:31 | IPN ---
DATE: 08/25/2016 Mr. Figueroa is seen this morning on his bedside. He is sitting in a wheelchair and has his left foot prosthesis used. He is currently undergoing rehabilitation due to right erecd-tyf-hmtc amputation. He also has a necrotic ulcer which is quite deep on his left foot and it is not healing. He continues to have a foul odor from it. The patient was dialyzed yesterday and he is tolerating his dialysis treatment well. On physical examination, temperature 97.8 degrees Fahrenheit, heart rate 92 per minute and respiratory rate 18 per minute. Blood pressure 124/70 mmHg and oxygen saturation 97% on room air. Head is atraumatic. Ears, nose and throat are unremarkable. Neck is supple and without jugular venous distention (JVD) or thyroid enlargement. Lungs sound clear to auscultation. Heart sounds are regular. Abdomen is soft and nontender. Extremities have no cyanosis or clubbing. His right leg has a aeecq-sch-anrn amputation and left foot is in a dressing and a brace. There are no new labs done today. PROBLEMS: 1. End-stage renal disease. The patient was dialyzed yesterday and he tolerated it very well. His next dialysis will be scheduled for tomorrow. 2. Anemia. His anemia has been stable and he receives Aranesp during dialysis. So far, there is no indication for transfusion. 3. Left foot necrotic ulcer and peripheral vascular disease. I have discussed with Dr. De La O and also with the patient at length about his left foot condition. It is my opinion that the patient is in need for a left ysdqk-ywf-gwri amputation as his wound is not likely to heal due to poor circulation. The patient is now agreeable to go ahead with amputation. We will try to contact his surgeon in [place] and see if we can transfer him for amputation right from the hospital before he gets discharged. 4. Generalized weakness and deconditioning. The patient is undergoing acute rehab. There is a tentative plan for discharge to home tomorrow which in my opinion is premature. The patient has great difficulty with his transfers and he is dialysis dependent and outpatient dialysis will be a big burden. He has no support of family and only friends and neighbors help him. 5. Protein calorie malnutrition. This is mostly related to ongoing infection and necrosis in his left foot. I feel that the left pdneq-cuh-oonm amputation will help as the patient is eating much better now.
[2016-08-25] MEDS ORDERED: TRAM50TA2 PO (11:59)
[2016-08-25] MEDS ORDERED: DARB100SYR IV (11:59)
--- NOTE | 2016-08-25 12:37 | DS.PDOC ---
[facility] Note DATE OF ADMISSION: Aug 17, 2016 at 14:37 DATE OF DISCHARGE: 08/25/2016 DISCHARGE DIAGNOSES: 1. 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 2. Diabetic ulcer and infection of left heel and foot. 3. End-stage renal disease on dialysis. 4. 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 PAST MEDICAL HISTORY: 1. Osteoarthritis. 2. Asthma. 3. History of multiple myeloma with blood dyscrasia. 4. Congestive heart failure with coronary artery disease, hypertension, hypertensive heart disease, ischemic cardiomyopathy, and status post SD. 5. Diverticulosis. 6. Hyperparathyroidism. 7. History of sigmoid polyp. PAST SURGICAL HISTORY: 1. Right BKA on 08/10/16. HOSPITAL COURSE: Patient admitted on 08/17/16 and started on evaluation with physical occupational and speech therapy. Patient also assessed by and start him 3 times a week dialysis by nephrology who has continued to follow the patient and also treat him for his anemia with DARBEPOETIN. Patient also seen by [facility] orthopedic laboratory, Mr. Nicho Cobian, [employer] and fitted with a protective sleeve and knee orthosis to guard the incision and help with stump shaping and prevention of flexion contracture as well as a patellar tendon bearing AFO to protect and keep patient off his left heel and it's ulcers. Patient has made fairly good progress in learning how to use sliding board transfers and do bed mobility while remained nonweightbearing on his lower extremities. His diabetes has been stable and his renal functions have been also stable. However patient's left heel ulcer has continued to have copious serous drainage and has developed the aroma of Pseudomonas. Dr. Rasheed at [facility] was contacted today as patient has now excepted the need for a left below-knee amputation. Patient is therefore to be transferred to [facility] surgery service with Dr. Rasheed today for evaluation and probable left below-knee amputation. PHYSICAL EXAMINATION: VITAL SIGNS: Temperature 97.8 degrees Fahrenheit, pulse 93, respiratory rate 18 , blood pressure 124/70, 97 % on room air. GENERAL: Well nourished, well developed, sitting up in w/c, no acute distress. Patient with right BKA in [facility]. HEENT: Normocephalic, atraumatic. No facial droop. Pupils Equal, Round, Reactive to Light (PERRL), Extraocular movements are intact. CARDIOVASCULAR: S1, S2, regular rate. 2 out 4 radial pulses. LUNGS: Clear to auscultation bilaterally, no wheezing or rhonchi. ABDOMEN: Soft, nontender, nondistended. Normoactive bowel sounds throughout. NEUROLOGICAL: Alert and oriented times four. Answers all questions appropriately. Able to follow commands. Good to full strength in bilateral upper extremity with good range of motion. Good hip strength with fair plus to good range of motion. No right knee contracture at this time with good healing of the BK incision princess intact. Left heel with notable decreased sensation as patient has stocking glove decrease for distal two thirds of the left lower leg and in bilateral hands with some atrophy of hand muscles. LABORATORY DATA: Please see below. ALLERGIES: See below. MEDICATIONS: See Below. DISCHARGE DISPOSITION: Patient being discharge from [facility] acute rehabilitation unit and transferred to [facility] surgery service for assessment and management of draining ulcer on the left heel and foot which is likely infected though our evaluations appear has not shown clear gangrene. Patient now in agreement that he needs BKA to get this healed and to move on. Patient has essentially completed his rehabilitation goals and was looking towards discharge to home once ramp access ability and home evaluation were completed. He will not need in my opinion acute intensive inpatient rehabilitation following left BKA as he is already been trained to be nonweightbearing on the lower extremities and do his transfers and mobility via wheelchair in including basic ADLs. Patient is therefore discharged today. Vital Signs/I&O Vital Sign - Last 24 Hours 08/24/16 08/24/16 08/24/16 08/24/16 16:46 20:00 20:00 21:03 Temp 98.6 Pulse 90 90 Resp 18 18 B/P 126/67 126/67 Pulse Ox 95 O2 Delivery Room Air Room Air 08/24/16 08/25/16 08/25/16 08/25/16 21:04 02:25 02:55 06:00 Temp 97.8 Pulse 93 Resp 18 18 18 18 B/P 124/70 Pulse Ox 97 O2 Delivery Room Air 08/25/16 08/25/16 08/25/16 08:00 08:22 08:22 Pulse 93 Resp 18 B/P 124/70 O2 Delivery Room Air Room Air I&O- Last 24 Hours up to 6 AM 08/25/16 06:00 Intake Total 960 ml Output Total 1500 ml Balance -540 ml Laboratory Data CBC/BMP Laboratory Tests 08/24/16 07:19 Anion Gap 7 L, Red Blood Count 3.19 L, Mean Corpuscular Volume 96.4 H, Mean Corpuscular Hemoglobin 30.9, Mean Corpuscular Hemoglobin Concent 32.1, Red Cell Distribution Width 15.3 H Labs 48H Laboratory Tests 08/24/16 07:19: Albumin 1.7L, Blood Urea Nitrogen 24H, Creatinine 2.41H, Sodium Level 140, Potassium Level 4.0, Chloride Level 107, Carbon Dioxide Level 26, Anion Gap 7L, Calcium Level 7.4L, Fasting Glucose 97, Glomerular Filtration Rate 28.1L, White Blood Count 5.0, Red Blood Count 3.19L, Hemoglobin 9.9L, Hematocrit 30.8L, Mean Corpuscular Volume 96.4H, Mean Corpuscular Hemoglobin 30.9, Mean Corpuscular Hemoglobin Concent 32.1, Red Cell Distribution Width 15.3H, Platelet Count 207, Phosphorus Level 2.8# 08/24/16 11:29: Bedside Glucose (Misc Panel) 107 Medications Medications Current Medications Albuterol Sulfate (Proventil, Ventolin Hfa) 2 puff Q6HP PRN INH SHORTNESS OF BREATH; Start 08/17/16 at 14:45; Stop 09/16/16 at 14:44 Aspirin (Ecotrin) 81 mg DAILY PO Last administered on 08/25/16 08:22; Start at 09:00; Stop 09/17/16 at 08:59 Calcium Carbonate (Tums) 500 mg BID PRN PO INDIGESTION Last administered on 08:19; Start 08/17/16 at 14:45; Stop 09/16/16 at 14:44 Carvedilol (COReg) 6.25 mg BID PO Last administered on 08/25/16 08:22; Start 08/17/16 at 21:00; Stop 09/16/16 at 20:59 Darbepoetin Skip (Aranesp (Dialysis Use)) 100 mcg HD IV ; Start 08/19/16 at 11: 30; Stop 09/18/16 at 11:29 Dexamethasone (Decadron) 20 mg We@08 PO Last administered on 08/24/16 08:16; Start 08/24/16 at 08:00; Stop 09/23/16 at 07:59 Diazepam (Valium) 2 mg Q12HP PRN PO Anxiety; Start 08/17/16 at 14:45; Stop at 12:00; Status DC Diphenhydramine HCl (Benadryl) 25 mg QHS PO Last administered on 08/24/16 21: 02; Start 08/17/16 at 21:00; Stop 09/16/16 at 20:59 Docusate Sodium (Colace) 100 mg DAILY PO Last administered on 08/25/16 08:22; Start 08/17/16 at 09:00; Stop 09/16/16 at 08:59 Ferrous Gluconate (Fergon) 324 mg DAILY PO Last administered on 08/25/16 08:23 ; Start 08/18/16 at 09:00; Stop 09/17/16 at 08:59 Glipizide (Glucotrol Xl) 2.5 mg DAILY@0730 PO Last administered on 08/25/16 08 :23; Start 08/18/16 at 07:30; Stop 09/17/16 at 07:29 Home Med (Med Rec Complete!) ASDIRECTED XX ; Start 08/17/16 at 16:15; Stop 04/23 at 16:16; Status DC Lidocaine/ Prilocaine (Emla) Apply to dialysis fist... ASDIRECTED TOP Last administered on 08/22/16 10:53; Start 08/22/16 at 09:45; Stop 09/21/16 at 09:44 Loratadine (Claritin) 10 mg DAILY PO Last administered on 08/25/16 08:20; Start 08/18/16 at 09:00; Stop 09/17/16 at 08:59 Miscellaneous (Unresolved Clarification Entry) SEE LABEL COMMENTS UNRESOLVED XX ; Start 08/17/16 at 00:01; Stop 08/17/16 at 16:21; Status DC Miscellaneous (Unresolved Non-Formulary Med Order) SEE LABEL COMMENTS UNRESOLVED XX ; Start 08/17/16 at 00:01; Stop 08/17/16 at 16:50; Status DC Miscellaneous (Unresolved Patient Own Med Order) SEE LABEL COMMENTS UNRESOLVED XX Last administered on 08/23/16 00:01; Start 08/17/16 at 00:01; Stop at 00:00 Nitroglycerin (Nitrostat (1/ 150)) 0.4 mg Q5MP PRN SL CHEST PAIN; Start at 14:45; Stop 09/16/16 at 14:44 Non-Formulary Medication Dexamethasone 20mg po Ev... QAM PO ; Start 08/18/16 at 09:00; Stop 08/18/16 at 09:00; Status DC Non-Formulary Medication Revlimid 5 mg PO daily ... DAILY PO ; Start 08/18/16 at 09:00; Stop 08/18/16 at 09:00; Status DC Omeprazole (PriLOSEC) 40 mg DAILY PO Last administered on 08/25/16 08:22; Start 08/18/16 at 09:00; Stop 09/17/16 at 08:59 Oxycodone HCl (Roxicodone, Oxyir) 5 mg Q6HP PRN PO MODERATE PAIN (PS 5-7); Start 08/17/16 at 14:45; Stop 08/24/16 at 12:00; Status DC Oxycodone HCl (Roxicodone, Oxyir) 5 mg Q6HP PRN PO MODERATE PAIN (PS 5-7); Start 08/25/16 at 01:00; Stop 09/01/16 at 00:59 Oxycodone HCl (Roxicodone, Oxyir) 10 mg Q6HP PRN PO SEVERE PAIN (PS 8-10) Last administered on 08/24/16 04:07; Start 08/17/16 at 14:45; Stop 08/24/16 at 12:00 ; Status DC Oxycodone HCl (Roxicodone, Oxyir) 10 mg Q6HP PRN PO SEVERE PAIN (PS 8-10) Last administered on 08/25/16 02:25; Start 08/25/16 at 01:00; Stop 09/01/16 at 00:59 Patient Own Medication (Patient'S Own Med) Patient's own Revlimid ( lenalidomi... DAILY PO ; Start 08/19/16 at 09:00; Stop 09/18/16 at 08:59; Status UNV Polyethylene Glycol (Miralax) 1 pkt DAILYPRN PRN PO CONSTIPATION; Start at 14:45; Stop 09/16/16 at 14:44 Telmisartan (Micardis) 80 mg DAILY PO Last administered on 08/25/16 08:23; Start 08/18/16 at 09:00; Stop 09/17/16 at 08:59 Tetrahydrozoline HCl (Visine) 1 drop QHS PRN OU DRY EYES Last administered on 19:53; Start 08/17/16 at 16:30; Stop 09/16/16 at 16:29 Tramadol HCl (Ultram) 100 mg TID PO Last administered on 08/25/16 08:22; Start 08/17/16 at 16:00; Stop 08/30/16 at 15:59 Vitamin D (Vitamin D) 1,000 units DAILY PO Last administered on 08/25/16 08:20 ; Start 08/18/16 at 09:00; Stop 09/17/16 at 08:59 Scheduled Aspirin (Aspirin 81) 81 Mg Tab 81 MG PO DAILY (Reported) Calcium Carbonate (Tums) 500 Mg Chw 500 MG PO WM (Reported) Carvedilol (Carvedilol) 6.25 Mg Tab 6.25 MG PO BID (Reported) Cholecalciferol (Vitamin D) 1,000 Unit Tab 1,000 UNIT PO DAILY (Reported) Darbepoetin (Aranesp Albumin Free) 100 Mcg/0.5 Ml Inj 100 MCG IV HD Dexamethasone (Dexamethasone) 4 Mg Tab 20 MG PO QWEEK (Reported) WEDNESDAYS Docusate Sodium (Colace) 100 Mg Cap 100 MG PO DAILY (Reported) Ferrous Sulfate (Ferrous Sulfate) 325 Mg Tab 325 MG PO DAILY (Reported) Glipizide (Glipizide Xl) 2.5 Mg Tab 2.5 MG PO DAILY (Reported) Lenalidomide (Revlimid) 5 Mg Cap 5 MG PO ASDIRECTED (Reported) TAKE FOR 14 DAYS ON, 7 DAYS OFF Omeprazole (Omeprazole) 40 Mg Cap 40 MG PO DAILY (Reported) Telmisartan (Telmisartan) 80 Mg Tab 80 MG PO DAILY (Reported) Tramadol HCl (Tramadol HCl) 50 Mg Tab 100 MG PO TID Scheduled PRN Albuterol Sulfate (Ventolin Hfa) 200 Puff/8 Gm Aers 2 PUFF INH Q4H PRN PRN SHORTNESS OF BREATH (Reported) Diazepam (Diazepam) 2 Mg Tab 2 MG PO Q12H PRN PRN ANXIETY (Reported) Diphenhydramine HCl (Diphenhydramine HCl) 25 Mg Cap 25 MG PO QHS PRN PRN SLEEP ( Reported) Hydroxyzine HCl (Hydroxyzine HCl) 25 Mg Tab 25 MG PO QHS PRN PRN SLEEP (Reported ) Loratadine (Claritin) 10 Mg Tab 10 MG PO DAILY PRN PRN ITCHING (Reported) Melatonin (Melatonin) 5 Mg Tab 5 MG PO QHS PRN PRN SLEEP (Reported) Nitroglycerin (Nitrostat) 0.4 Mg Subl 0.4 MG SL PRN PRN PRN CHEST PAIN (Reported ) Oxycodone HCl (Oxycodone HCl) 5 Mg Tab 5 MG PO Q4H PRN PRN PAIN (Reported) Oxycodone HCl (Oxycodone HCl) 10 Mg Tab 10 MG PO Q4H PRN PRN PAIN (Reported) Polyethylene Glycol (Miralax) 1 Pow Pow 17 GM PO DAILY PRN PRN CONSTIPATION ( Reported) Allergies Coded Allergies: No Known Allergies (Unverified , 07/20/15) ABDIRIZAK COKER MD Aug 25, 2016 12:37
== END 2016-08-25 14:00 | disposition short-term general hospital (02) | DRG 559 ==
LOC: M PM&R 14:37
PROVIDERS: ADMIT Physical Medicine & Rehabilitation; ATTEND Physical Medicine & Rehabilitation
PROC: 5A1D00Z (ICD-10-PCS; principal; 2016-08-19)
DX: Z47.81 Encounter for orthopedic aftercare following surgical amputation (principal); N18.6 End stage renal disease; I50.32 Chronic diastolic (congestive) heart failure; I13.2 Hypertensive heart and chronic kidney disease with heart failure and with stage 5 chronic kidney disease, or end stage renal disease; E11.52 Type 2 diabetes mellitus with diabetic peripheral angiopathy with gangrene; C90.01 Multiple myeloma in remission; E46 Unspecified protein-calorie malnutrition; E11.40 Type 2 diabetes mellitus with diabetic neuropathy, unspecified; E11.621 Type 2 diabetes mellitus with foot ulcer; E11.22 Type 2 diabetes mellitus with diabetic chronic kidney disease; E11.610 Type 2 diabetes mellitus with diabetic neuropathic arthropathy; L97.529 Non-pressure chronic ulcer of other part of left foot with unspecified severity; J45.909 Unspecified asthma, uncomplicated; E66.9 Obesity, unspecified; R53.1 Weakness; I25.5 Ischemic cardiomyopathy; I25.10 Atherosclerotic heart disease of native coronary artery without angina pectoris; D75.9 Disease of blood and blood-forming organs, unspecified; D63.1 Anemia in chronic kidney disease; M19.90 Unspecified osteoarthritis, unspecified site; Z99.2 Dependence on renal dialysis; Z87.891 Personal history of nicotine dependence; Z79.82 Long term (current) use of aspirin; Z79.84 Long term (current) use of oral hypoglycemic drugs; Z79.899 Other long term (current) drug therapy; Z79.891 Long term (current) use of opiate analgesic; Z89.511 Acquired absence of right leg below knee; I25.2 Old myocardial infarction; Z82.49 Family history of ischemic heart disease and other diseases of the circulatory system; Z89.422 Acquired absence of other left toe(s); Z89.412 Acquired absence of left great toe; Z85.72 Personal history of non-Hodgkin lymphomas; Z95.9 Presence of cardiac and vascular implant and graft, unspecified; Z92.21 Personal history of antineoplastic chemotherapy

== ENCOUNTER 2016-09-12 11:27 | Emergency (ER) | payer MEDICARE ==
[~2016-09-12] VITALS: Ht 175.3 cm; Wt 90.7 kg
[~2016-09-12 11:27] MED LIST changes: -**UNRESOLVED NON-FORMULARY MED ORDER XX SCH; +COLA100C3 PO; +DARB100SYR IV; +DIAZ2TAB PO; +FERR325T3 PO; +OXYC-517 PO; +OXYC10TA12 PO; +TRAM50TA2 PO; +VITA100066 PO
--- NOTE | 2016-09-12 13:30 | REP ---
RIGHT KNEE: Four views right knee are performed. Patient has had below knee amputation. No fracture or dislocation is seen. Multiple metallic skin princess are seen in the soft tissues of the distal stump. There are extensive vascular calcifications. There are calcifications in the distal quadriceps tendon. There is a small joint effusion. IMPRESSION: No acute fracture or dislocation. Signed by Jaylon Gomez MD 09/13/2016 04:02 P
[2016-09-12] MEDS ORDERED: LIDOCAINE 1% MDV 20ML VIAL As Ordered ONE (13:38)
[2016-09-12] MEDS ORDERED: ceFAZolin SOD 1 GM in D5W MINI-BAG PLUS 50 ML IV ONE (13:45)
[2016-09-12] MEDS ORDERED: LIDOCAINE 1% MDV 20ML VIAL SC ONE (13:45)
[2016-09-12 17:37] VITALS: BP 135/78
== END 2016-09-12 17:59 | disposition home or self-care (01) ==
LOC: EDBD 11:27 → M ED 12:58
DX: T81.30XA Disruption of wound, unspecified, initial encounter (principal)

== ENCOUNTER 2016-09-14 15:02 | Inpatient (IN) | payer MEDICARE ==
[~2016-09-14] VITALS: Ht 175.3 cm; Wt 85.9 kg
--- NOTE | 2016-09-14 16:54 | REP ---
Portable chest x-ray: Single view: History: Altered mental status. Findings: EKG monitoring electrodes overlie the chest. Heart is mildly enlarged unchanged from comparison study 08/06/2015. There is increased density in the right base medially and a right middle or lower lobe infiltrate must be suspected. Hazy increased markings are seen in the left base as well. There is an old healed left distal clavicle fracture. No other acute abnormality. Impression: Hazy increased density both bases. Right middle or lower lobe infiltrate suspected. Signed by Tarik Delaney MD 09/15/2016 12:52 P
--- NOTE | 2016-09-14 16:54 | REP ---
Head CT without contrast: History: Altered mental status. Comparison head CT study 12/08/2015. 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 Bone window settings demonstrate heavy vascular calcification in the distal vertebral and distal carotid arteries as before. The visualized paranasal sinuses are clear. The bony calvarium remains intact. No skull fracture or bony destructive lesion is seen. No scalp hematoma is noted. There are dystrophic calcifications in the scalp soft tissues bilaterally unchanged. There is mild diffuse cerebral atrophy. There is no evidence of intracranial hemorrhage. No extra-axial fluid collection is seen. No mass, infarct, or midline shift is seen. Impression: Diffuse atrophy and vascular calcification again noted. No acute intracranial abnormality. Signed by Tarik Delaney MD 09/15/2016 12:52 P
[2016-09-14] MEDS ORDERED: LevoFLOXacin IV 750 MG in APPROPRIATE DILUENT 1 EA IV ONE (17:15)
[2016-09-14] MEDS ORDERED: VANCOMYCIN HCL 1,000 MG, VIAL MATE ADAPTER 1 EACH in D5W 250 ML IV ONE (17:15)
[2016-09-14] MEDS ORDERED: CEFEPIME HCL 2 GM in D5W MINI-BAG PLUS 50 ML IV ONE (17:15)
[2016-09-14 17:43] LABS: BASO % 0.4 % (0.0-1.0); EOS # 0.1 K/mm3 (0.0-0.50); EOS % 1.4 % (0.0-3.0); LARGE UNSTAINED CELL # 0.1 K/mm3 (0.0-0.4); LARGE UNSTAINED CELL % 2.6 % (0.0-4.0); LYMPH # 0.6 K/mm3 (1.5-4.5); LYMPH % 10.4 % (24.0-44.0); MEAN CORPUSCULAR HEMOGLOBIN 31.6 pg (27.0-33.0); MEAN CORPUSCULAR HGB CONC 32.7 g/dl (32.0-36.5); MEAN CORPUSCULAR VOLUME 96.5 fl (80.0-96.0); MONO # 0.3 K/mm3 (0.0-0.8); MONO % 6.2 % (0.0-5.0); NEUTROPHILS # 3.9 K/mm3 (1.8-7.7); PLATELET COUNT, AUTOMATED 225 k/mm3 (150-450); RED CELL DISTRIBUTION WIDTH 17.2 % (11.5-14.5); WHITE BLOOD COUNT 4.9 K/mm3 (4.0-10.0)
[2016-09-14] MEDS ORDERED: TRAM50TA2 PO (17:43)
[2016-09-14] MEDS ORDERED: MORP15TA2 PO (17:43)
[2016-09-14] MEDS ORDERED: GABA-279 PO (17:43)
[2016-09-14] MEDS ORDERED: PATIENT COMMENT (17:44)
[2016-09-14] MEDS ORDERED: NALOXONE INJ 2 MG/2 ML SYRINGE (J2310) IV STA (18:12)
[2016-09-14 18:21] LABS: ALBUMIN 1.6 GM/DL (3.2-5.2); ALBUMIN/GLOBULIN RATIO 0.52 (1.00-1.93); ALKALINE PHOSPHATASE 81 U/L (45-117); ALT/SGPT 10 U/L (12-78); ANION GAP 8 MEQ/L (8-16); AST/SGOT 13 U/L (15-37); BILIRUBIN,DIRECT 0.2 MG/DL (0.0-0.2); BILIRUBIN,TOTAL 0.4 MG/DL (0.2-1.0); BLOOD UREA NITROGEN 44 MG/DL (7-18); CALCIUM LEVEL 7.4 MG/DL (8.8-10.2); CARBON DIOXIDE LEVEL 30 MEQ/L (21-32); CHLORIDE LEVEL 104 MEQ/L (98-107); CREATININE FOR GFR 2.43 MG/DL (0.70-1.30); GLOMERULAR FILTRATION RATE 27.8 (>42); GLUCOSE, FASTING 98 MG/DL (83-110); POTASSIUM SERUM 4.4 MEQ/L (3.5-5.1); SODIUM LEVEL 142 MEQ/L (136-145); TOTAL PROTEIN 4.7 GM/DL (6.4-8.2)
[2016-09-14] MEDS ORDERED: IPRATROPIUM 0.5MG/ALBUTEROL 2.5MG INH SOL UD 3ML (DUONEB)(J7620) NEB ONE (18:30)
[2016-09-14] MEDS ORDERED: ALBUTEROL SULFATE 2.5 MG/0.5 ML INH NEB SOLN INH ONE (18:30)
[2016-09-14 18:59] LABS: ABG BASE EXCESS 1.8 (-2.0-2.0); ABG HCO3 23.2 MEQ/L (22.0-26.0); ABG PARTIAL PRESSURE CO2 24.9 mmHg (35.0-45.0); ABG PARTIAL PRESSURE O2 432.9 mmHg (75.0-100.0); ABG STANDARD HCO3 26.1 MEQ/L (22.0-26.0); ABG pH (ARTERIAL) 7.587 UNITS (7.350-7.450)
[2016-09-14] MEDS: HumaLOG INSULIN (NovoLOG) PER UNIT SC SCH (21:00)
[2016-09-14] MEDS ORDERED: ACETAMINOPHEN TAB 650MG DOSE (2X325MG) PO PRN (21:30)
[2016-09-14] MEDS ORDERED: NITROGLYCERIN 0.4 MG SUBL TABLET SL PRN (21:30)
[2016-09-14] MEDS ORDERED: diphenhydrAMINE 25 MG CAP PO PRN (21:30)
[2016-09-14] MEDS ORDERED: LACTULOSE 20 GM/30 ML SYRUP UD PO ONE (21:30)
[2016-09-14] MEDS ORDERED: MIRALAX *UNIT DOSE* 17GM PACKET PO PRN (21:30)
[2016-09-14] MEDS ORDERED: ALBUTEROL 90 MCG/ACT 8GM HFA INHALER INH PRN (21:30)
[2016-09-14] MEDS ORDERED: LORATADINE 10 MG TAB PO PRN (21:30)
[2016-09-14 22:12] LABS: ABG BASE EXCESS 5.9 (-2.0-2.0); ABG HCO3 29.8 MEQ/L (22.0-26.0); ABG PARTIAL PRESSURE CO2 40.6 mmHg (35.0-45.0); ABG PARTIAL PRESSURE O2 128.2 mmHg (75.0-100.0); ABG STANDARD HCO3 29.8 MEQ/L (22.0-26.0); ABG TOTAL CO2 31.1 MEQ/L (23.0-31.0); ABG pH (ARTERIAL) 7.484 UNITS (7.350-7.450)
[2016-09-14 22:27] VITALS: BP 103/56
[2016-09-14] MEDS ORDERED: VANCOMYCIN HCL 500 MG, VIAL MATE ADAPTER 1 EACH in D5W 250 ML IV ONE (22:41)
[2016-09-14] MEDS ORDERED: VANCOMYCIN INTERMITTENT/PULSE DOSING BY CLINICAL PHARMACIST PER DOSING PROTOCOL XX SCH (22:45)
[2016-09-14] MEDS ORDERED: GLUCOSE 4 GM CHEW TABLET PO PRN (22:45)
[2016-09-14] MEDS ORDERED: GLUCAGON FOR INJ 1 MG VIAL (J1610) SC PRN (22:45)
[2016-09-14] MEDS ORDERED: DEXTROSE 50% 50 ML SYRINGE IV PRN (22:45)
--- NOTE | 2016-09-14 22:53 | PHACANCOPD ---
PHARMACY VANCOMYCIN DOSING Pt Demographics Demographics Patient Age:76 , Weight: , Gender: male Adjusted Body Weight Date: 09/14/16, Adjusted Body Weight: [71] Kg Events Past 24 Hours Events Past 24 Hours: NO: Dialysis, Diuretic Therapy, Change in CrCl, Fever, Elevation in WBC, Pending Diagnostics, Pending Procedures, Other Vancomycin Vancomycin Target Ranges: 15-20 mcg/ml Vancomycin Load Y/N: Yes Load Dose Date Time Vancomycin Load Dose: 1500MG Date: 09-14 Time: 2300 Vancomycin Dose Date: 09/14/16. Current Vancomycin Dose: Intermittent Dosing?: Yes Labs Labs Item Value Date Time White Blood Count 4.9 K/mm3 09/14/16 1710 Creatinine 2.43 MG/DL H 09/14/16 1710 Blood Urea Nitrogen 44 MG/DL H 09/14/16 1710 Vital Signs Label Value Date Time Patient Temperature 98.2 degrees F 09/14/16 2209 Micro Microbiology 09/14/16 Blood Culture, Received Pending 09/14/16 Blood Culture, Received Pending Creatinine Clearance Date:09/14/16. Creatinine Clearance: [HD ]. Pending Labs Random 5-11 in am Assessment and Plan Maintaining Current Dose?: Yes Reason for dose change: No Dose Change Pharmacist Note Pharmacist Note Date: 09/14/16. Pharmacist note: dosing intermittent by levels, with first level ordered for 5-11 in am. Will continue to monitor and make adjustments as needed. [facility] September 14, 2016 22:53
[2016-09-14 23:00] VITALS: BP 106/61
[2016-09-15] VITALS (21 sets, daily range): BP systolic 100–124; BP diastolic 55–70; O2SAT 95–100
[2016-09-15] MEDS ORDERED: VANCOMYCIN HCL 1,000 MG, VIAL MATE ADAPTER 1 EACH in D5W 250 ML IV ONE ×2 (01:00→09:00)
[2016-09-15] MEDS: PIPERACILLIN/TAZOBACTAM SOD 3.375 GM in D5W MINI-BAG PLUS 50 ML IV SCH ×2 (04:44→16:01)
[2016-09-15 05:15] LABS: BASO % 0.3 % (0.0-1.0); EOS % 0.6 % (0.0-3.0); LARGE UNSTAINED CELL # 0.2 K/mm3 (0.0-0.4); LARGE UNSTAINED CELL % 3.8 % (0.0-4.0); LYMPH # 0.5 K/mm3 (1.5-4.5); LYMPH % 10.6 % (24.0-44.0); MEAN CORPUSCULAR HEMOGLOBIN 29.8 pg (27.0-33.0); MEAN CORPUSCULAR HGB CONC 32.1 g/dl (32.0-36.5); MEAN CORPUSCULAR VOLUME 93.1 fl (80.0-96.0); MONO # 0.3 K/mm3 (0.0-0.8); MONO % 7.4 % (0.0-5.0); NEUTROPHILS # 3.5 K/mm3 (1.8-7.7); NEUTROPHILS % 77.4 % (36.0-66.0); PLATELET COUNT, AUTOMATED 187 k/mm3 (150-450); RED CELL DISTRIBUTION WIDTH 19.8 % (11.5-14.5); WHITE BLOOD COUNT 4.5 K/mm3 (4.0-10.0)
[2016-09-15 05:34] LABS: ALBUMIN 1.6 GM/DL (3.2-5.2); ALBUMIN/GLOBULIN RATIO 0.55 (1.00-1.93); BILIRUBIN,TOTAL 0.6 MG/DL (0.2-1.0); CALCIUM LEVEL 7.3 MG/DL (8.8-10.2); CREATININE FOR GFR 2.87 MG/DL (0.70-1.30); MAGNESIUM LEVEL 1.6 MG/DL (1.8-2.4); POTASSIUM SERUM 4.7 MEQ/L (3.5-5.1); TOTAL PROTEIN 4.5 GM/DL (6.4-8.2); VANCOMYCIN RANDOM 17.9 UG/ML
--- NOTE | 2016-09-15 05:41 | REP ---
Persistent dyspnea, assess for central venous catheter repositioning. The technique utilized in obtaining the radiograph has magnified the cardiac silhouette and accentuated the interstitial markings. Cardiomediastinal silhouette is unchanged. The central venous catheter is now in the superior vena cava. The right lung opacities are less dense and the lung drake are better aerated. There are no other changes. Signed by Kevin Rust DO 09/15/2016 03:36 P
--- NOTE | 2016-09-15 05:48 | PHACANCOPD ---
PHARMACY VANCOMYCIN DOSING Pt Demographics Demographics Patient Age:76 , Weight:83.600 , Gender: male Adjusted Body Weight Date: 09/14/16, Adjusted Body Weight: [71] Kg Events Past 24 Hours Events Past 24 Hours: NO: Dialysis, Diuretic Therapy, Change in CrCl, Fever, Elevation in WBC, Pending Diagnostics, Pending Procedures, Other Vancomycin Vancomycin Target Ranges: 15-20 mcg/ml Vancomycin Load Y/N: Yes Load Dose Date Time Vancomycin Load Dose: 1500MG Date: 09-14 Time: 2300 Vancomycin Dose Date: 09/14/16. Current Vancomycin Dose: Intermittent Dosing?: Yes Labs Labs Item Value Date Time White Blood Count 4.5 K/mm3 09/15/16446 Creatinine 2.87 MG/DL H 09/15/16446 Random Vancomycin Level 17.9 UG/ML 09/15/16446 Vital Signs Label Value Date Time Patient Temperature 97.9 degrees F 09/15/16 032 Temperature Source Temporal 09/15/16 0325 Micro Microbiology 09/14/16 Blood Culture, Received Pending 09/14/16 Blood Culture, Received Pending Creatinine Clearance Date:09/14/16. Creatinine Clearance: [HD ]. Pending Labs Random 5-12 in am Assessment and Plan Maintaining Current Dose?: Yes Reason for dose change: No Dose Change Pharmacist Note Pharmacist Note Date: 09/14/16. Pharmacist note: Random level of 17.9 is within target range. Will dose with 1000mg at 0900 today. Random level ordered for 5-12 in am. Will continue to monitor and make adjustments as needed. [facility] September 15, 2016 05:48
[2016-09-15] MEDS: CALCIUM CARBONATE 500 MG CHEW U/D PO SCH ×3 (07:53→17:33)
[2016-09-15] MEDS: HumaLOG INSULIN (NovoLOG) PER UNIT SC SCH ×4 (07:53→21:00)
[2016-09-15] MEDS: VITAMIN D 1,000 INTERNATIONAL UNITS TABLET PO SCH (07:54)
[2016-09-15] MEDS: DOCUSATE SODIUM 100 MG CAP PO SCH (07:54)
[2016-09-15] MEDS: OMEPRAZOLE 20 MG CAP PO SCH (07:54)
[2016-09-15] MEDS: CARVedilol 6.25 MG TAB PO SCH ×2 (07:55→21:00)
--- NOTE | 2016-09-15 08:33 | HPE ---
DATE OF ADMISSION: 09/14/2016 PRIMARY CARE PHYSICIAN/REMOTE SENSING SCIENTIST: Baldo Fernandes MD CHIEF COMPLAINT: Altered mental status. CODE STATUS: FULL CODE HISTORY OF PRESENT ILLNESS: Mr. Figueroa is a 76-year-old male with multiple past medical history who presented due to altered mental status during dialysis. When patient was transferred to the ER, the patient was noticed to have anemia (hemoglobin 5.9). On 09/12/2016, patient had an episode of bleeding from his left lower extremity surgical wound due to direct impact of his left lower extremity to the table and presented ER due to wound dehiscence. ER was instructed by surgery to staple the wound and patient was discharged home. The patient also is on chronic opioid medication, however, patient was recently started on morphine due to increased pain after recent amputation. Patient lives alone however has a caregiver. The night before, the patient also had an episode of altered mental status and the caregiver thought that this was secondary to opioid medications, therefore she hold his opioid medications. At the ER, the patient was tachypneic. The first ABG indicated respiratory alkalosis. The patient received one dose of Narcan at the ER and after that, the patient's altered mental status increased and the pulse ox decreased. The patient was started on BiPAP and after he became more stable it was changed to CPAP. Patient's healthcare proxy is Indu Ochoa ([phone]). Patient's brother name is Harvey ([phone] and [phone]) PAST MEDICAL HISTORY: 1. Osteoarthritis (OA). 2. Asthma. 3. Blood dyscrasia. 4. Bone marrow malignant lymphoma. 5. Congestive heart failure. 6. Coronary artery disease. 7. Type 2 diabetes. 8. Diverticulosis. 9. End-stage renal disease, stage 4 on renal dialysis three times a week, Monday, Monday, and Monday. 10. Ganglion cyst of the left foot with an open sore. 11. Gangrene of the foot. 12. Hypertension. 13. Hypertensive heart disease. 14. Hemorrhoids. 15. Ischemic cardiomyopathy. 16. Multiple myeloma. 17. Prior myocardial infarction. 18. Peripheral vascular disease secondary to hyperparathyroidism. 19. Sigmoid polyp. ALLERGIES: No known drug allergies. HOME MEDICATIONS: - Ventolin two puffs inhaler every 4 hours as needed shortness of breath - aspirin 81 mg by mouth daily - Tums 500 mg by mouth on Monday and Monday - carvedilol 6.25 mg by mouth twice a day - vitamin D 1000 units by mouth daily - dexamethasone 20 mg by mouth every week on Monday - diazepam 2 mg by mouth every 12 hours as needed for anxiety - diphenhydramine 25 mg by mouth at bedtime as needed for sleep - Colace 100 mg by mouth daily - ferrous sulfate 325 mg by mouth daily - gabapentin 100 mg by mouth three times a day - glipizide 2.5 mg by mouth daily - hydroxyzine 25 mg by mouth at bedtime as needed for sleep - REVLIMID 5 mg by mouth taken for 14 days and 7 days off - Claritin 10 mg by mouth daily as needed for itching - melatonin 5 mg by mouth at bedtime as needed for sleep - morphine 15 mg by mouth every 4 hours as needed for pain - morphine sulfate 30 mg by mouth every 4 hours as needed for pain - Nitrostat 0.4 mg sublingual as needed for chest pain - omeprazole 40 mg by mouth daily - MiraLAX 17 grams by mouth daily as needed for constipation - telmisartan 80 mg by mouth daily - tramadol 50 mg by mouth three times a day PAST SURGICAL HISTORY: 1. Status post transmetatarsal amputation. 2. Status post right below knee amputation. 3. Status post left forearm AV fistula placement. FAMILY HISTORY: The patient has one brother and two sisters for are healthy for their age. The patient has two daughters and one son who are health for their age. The patient's father and the patient's mother at a young due to a car accident. SOCIAL HISTORY: According to his brother, the patient used to smoke for about 20-30 years, less than a pack a day, however the patient quit several years ago. Patient also was drinking alcohol occasionally, however, the patient stopped drinking two years ago. The patient never had a history of illicit drug use. The patient has not traveled outside of the [place]. The patient lives alone, however the patient has a caregiver who stays with him. Patient is . REVIEW OF SYSTEMS: Review of systems cannot be obtained due to the patient's altered mental status. PHYSICAL EXAMINATION: VITAL SIGNS: Temperature 97.1, pulse 119, respiratory rate 20, blood pressure 141/80, pulse oximetry 95% on room air. GENERAL APPEARANCE: Patient was lying in bed on the CPAP. Patient was awake, but not oriented to time or person, however, patient is oriented to place. HEENT: Normocephalic, atraumatic. Pupils are equal and reactive to light. Oral mucosa is moist. NECK: Soft, supple. No jugular venous distention (JVD). HEART: Patient is tachycardic. Normal S1 and S2. Patient has systolic murmur. LUNGS: Patient has decreased breath sounds at the base of the lungs. Patient has crackles on the left more than right. Patient also has scattered rhonchi. ABDOMEN: Soft. Nontender to palpation. Positive bowel sounds in all quadrants. RECTAL: Good sphincter tone. no active bleeding. Guaiac was negative for blood EXTREMITIES: Patient is status post left transmetatarsal amputation and status post right below knee amputation. The patient has fresh wound on the right side, however, no active bleeding or drainage was noticed. Patient still has the princess on his surgical wounds bilaterally which are intact. No swelling, rash or erythema was noticed on both lower extremities. Patient has some eschar tissues in his left wound. Patient also has upper extremity bruises, possibly secondary to IV insertion as well as aspirin and prednisone. NEURO: Neuro check cannot be obtained due to the patient's altered mental status. LABORATORY DATA: White blood cells 4.9, red blood cells 1.86, hemoglobin 5.9, hematocrit 18, MCV 96.5, MCH 31.6, MCHC 32.7, RDW 17.2, platelet count 225, neutrophil percentage 79, lymphocyte percentage 10.4, monocyte percentage 6.2, eosinophil percentage 1.4, basophil percentage 0.4, leukocyte percentage 2.6. Blood gas ABG bicarbonate standard 26.1, ABG pH 7.587, ABG pCO2 24.9, ABG pO2 432.9, ABG HCO3 23.2, ABG total CO2 24, ABG 02 saturation 99.9, ABG base excess 1.8. Sodium 142, potassium 4.4, chloride 104, carbon dioxide 230, anion 8, BUN 44, creatinine 2.43, glomerular filtration rate (GFR) 27.8, fasting glucose 98, lactic acid 0.7, calcium 7.4, total bilirubin 0.4, direct bilirubin 0.2, AST 13, ALT 10, alkaline phosphatase 18, ammonia 50, total creatinine kinase 65, CK-MB 5 , CK-MB rel index 7.69, Troponin 0.11, BNP 738, total protein 4.7, albumin 1.6, TSH 1.92. Toxicology: Ethyl alcohol was less than 0.003, acetaminophen 6.9, salicylate less than 1.7. Blood cultures is pending. IMAGING: Head CT shows diffuse atrophy and vascular calcifications noted. No acute intracranial abnormalities. Chest x-ray shows hazy increased density both bases. Right middle or lower lobe infiltration suspected. ASSESSMENT/PLAN: 1. Sepsis: qSOFA score indicated the patient has a high risk of sepsis. This could be secondary to healthcare associated pneumonia versus wound infection. Blood culture and wound culture has been obtained and results are pending at this time. Due to the possibility of the healthcare pneumonia, the patient has been started on vancomycin, Zosyn and Levaquin. At this point, I did not start the patient on IV fluids due to stable vital also unknown status of the congestive heart failure (CHF) and chronic kidney disease stage 4. Also due to anemia patient is receiving blood transfusion therefore I have not started patient on IV fluid to prevent hypervolemic state. 2. Metabolic encephalopathy. This is possibly secondary to sepsis versus opiate abuse and acute opiate withdrawal vs anemia. The patient is on opiate medication chronically; however, the patient received one dose of Narcan which could causes acute withdrawal. At this point, I have stopped all of the opiate medications. The patient is also on antibiotics regarding high risk of sepsis. 3. Symptomatic anemia. At the ER, the patient had a hemoglobin decrease to 5.9 and hematocrit of 18. This could be secondary to bleeding from the surgical amputation versus end-stage renal disease versus GI bleeding. On 09/12/2016 patient had one episode of wound dehiscence. Wound was stapled however I do not have any information regarding the amount of bleeding since then. Due to possibility of GI bleeding guaiac test was done and was negative, however I have ordered occult blood and result is pending at this time. This also could be contributed by end-stage renal disease and patient receiving Aranesp during dialysis. At this time patient is started on 2 units of red blood cells. We will check the hemoglobin and hematocrit every 6 hours. 4. Respiratory alkalosis. We will continue the patient on breathing treatments. The patient is also on IV antibiotics. We will repeat the ABG, however the results are pending at this time. Patient has a history of chronic asthma however it is less likely that this is caused by asthma. We'll continue patient on breathing treatment. 5. Diabetes mellitus. At home the patient is on glipizide, however I have stopped this medication and started the patient on sliding scale and will continue the patient on a consistent carbohydrate diet. 6. End stage renal disease. Patient is stage 4 and has renal dialysis on Monday, Monday, and Monday. I will consult nephrology. 7. Congestive heart failure (CHF). We don't know the etiology of the congestive heart failure (CHF). The patient did not have any recent studies. Therefore, I have ordered an echocardiogram and the result is pending at this time. Patient is schedule to receive 2 units of RBC. We will recheck patient regarding fluid status and if it required patient will receive dialysis. 8. Elevated troponin: Patient has history of coronary artery disease. EKG did not show any new pathology. This could be possibly ischemia secondary to severe anemia. However other possibilities include renal failure versus pulmonary stress. We will continue monitoring the patient's cardiac markers for two more sets, every 6 hours. At this point patient is a schedule to receive 2 units of RBC. 9. Deep vein thrombosis (DVT) prophylaxis. Due to the possibility of bleeding, I have started the patient on thromboembolic deterrent stockings (TEDS) and sequentials and we applied that to the upper extremities since the patient has lower extremity amputations bilaterally. 10. History of hypertension. At this point the patient's blood pressure is stable. I will continue the patient on his home medication. 11. Gastroesophageal reflux disease (GERD). We will continue the patient on omeprazole,. 12. History of asthma. I will continue the patient on breathing treatments. 13. Surgical wound bleeding. At this time, the wound does not have active bleeding. However, we will continue with wound care. The patient also has a decubitus ulcer possibly type I in the sacral area. We will ask the nursing staff to change the position of the patient in the bed frequently. 14. Multiple myeloma. The patient received REVLIMID and dexamethasone and is managed by hematology/oncology. However, at this time we will hold these medications. . My preceptor for this patient encounter was Dr. Jennie Wu. The preceptor was physically present in the building during the encounter and was fully available. As needed, all aspects of the patient interview, examination, medical decision making process, and medical care plan development were reviewed and approved by the preceptor. The preceptor is aware and concurs with the plan as stated in the body of this note and will attest to such by his/her cosignature. ELY
[2016-09-15] MEDS: GABAPENTIN 100 MG CAP PO SCH ×3 (09:00→21:00)
[2016-09-15] MEDS ORDERED: FERROUS SULFATE 325MG TAB PO SCH (09:00)
[2016-09-15] MEDS ORDERED: TELMISARTAN 20 MG TAB PO SCH (09:00)
[2016-09-15] MEDS ORDERED: ONDANSETRON 4MG/2ML VIAL (J2405) IV PRN (10:45)
[2016-09-15] MEDS ORDERED: ISOVUE-370 76% 100ML VIAL (Q9967) As Ordered ONE (11:19)
--- NOTE | 2016-09-15 13:46 | REP ---
CT ABDOMEN AND PELVIS WITH IV BUT WITHOUT ORAL CONTRAST: HISTORY: Nausea and vomiting. Comparison CT study is from May 26, 2016. CT CONTRAST DOSE: 100 mL of Isovue-370 is administered. The patient is on dialysis. CT FINDINGS: Preliminary digital legal manager radiograph shows air and stool in a nondistended colon. There is evidence of left pleural fluid. Axial CT images show bilateral pleural effusions similar to the appearance on May 26, 2016 prior study. No pericardial effusion is seen. No abdominal ascites is noted. There is a tiny gallstone in the dependent portion of the gallbladder 3-4 mm in size. No focal hepatic lesion is seen. No splenic lesion is observed. The adrenal glands are normal in appearance. No pancreatic mass is observed. Some cortical atrophy is seen in both kidneys. Symmetric function. Vascular calcification is seen at the origin of the right renal artery. There is diffuse subcutaneous edema pattern in the flank soft tissues. Urinary bladder is intact. Mild diverticulosis is seen in the distal colon without CT evidence of diverticulitis. No small or large bowel dilation is seen. No evidence of free air noted. No bony destructive lesions seen. IMPRESSION: Bilateral pleural effusions and diffuse subcutaneous edema pattern, no ascites. Normal bowel gas pattern. Cholelithiasis. Signed by Tarik Delaney MD 09/15/2016 01:47 P
--- NOTE | 2016-09-15 14:52 | RO ---
DATE OF PROCEDURE: 09/14/2016 PREPROCEDURE DIAGNOSIS: Need for vascular access and antibiotics. POSTPROCEDURE DIAGNOSIS: Need for vascular access and antibiotics. SURGEON: Keenan Valencia MD CUSTOMER ENGAGEMENT REPRESENTATIVE: ANESTHESIA: PROCEDURE: Insertion of right subclavian central line. DESCRIPTION OF PROCEDURE: The patient was prepped and draped in the usual sterile fashion. The infraclavicular fossa on the right side was infiltrated with 1% Xylocaine. The subclavian vein was found on the first pass and wired without difficulty. The tract was dilated and a triple lumen catheter was placed by Seldinger technique. The catheter ports were aspirated and flushed and the catheter was secured to the chest wall with two #3-0 silk sutures. The patient tolerated the procedure well and a chest x-ray is pending.
[2016-09-15] MEDS ORDERED: MAALOX 30 ML SUSP *UDC PO PRN (18:30)
[2016-09-15 18:46] LABS: INR 1.17
--- NOTE | 2016-09-15 19:49 | REP ---
CHEST, ONE VIEW: REASON: Assess central line placement. COMPARISON: Earlier today. Since the last examination, a right-sided subclavian central venous catheter has been placed. The tip is in the right atrium. There is a patchy opacity in the right lower lobe, increased in density from the prior exam obtained at 3:29 p.m. This could be a function of less lung field hyperexpansion on this exam compared to earlier today. Minimal left basilar opacity, status quo. No change in the cardiomediastinal silhouette or osseous structures. IMPRESSION: 1. Central venous catheter tip in the right atrium. 2. Cardiomegaly accentuated by technique. 3. Right basilar opacity and possible left basilar opacity, as described above. 4. No evidence of a pneumothorax. Signed by Kevin Rust DO 09/16/2016 11:59 A
--- NOTE | 2016-09-15 20:11 | IPN ---
DATE: 09/15/2016 The patient was admitted overnight. Reported epigastric discomfort. Continued to be mildly confused, but epigastric discomfort is worsening with swallowing pills and food. Denies any vision change or hearing change. Did have an episode of nausea and vomiting. Was on continuous positive airway pressure (CPAP) overnight. Currently, much more comfortable taken off of CPAP. VITAL SIGNS: Temperature 97.5, pulse 94, respirations 14, blood pressure 100/63, pulse oximetry 99% on 2 liters nasal cannula. LABORATORY DATA: WBC 4.5, hemoglobin and hematocrit 8.1/25.2, platelets 187. Chemistry: Sodium 142, potassium 4.7, chloride 105, bicarbonate 30, BUN 48, creatinine 2.87, troponin 0.23, 0.36, 0.44, 0.38. Respiratory panel negative. Blood culture pending. Influenza negative. PHYSICAL EXAMINATION: GENERAL: The patient is lying in bed comfortable in no acute distress, alert. Oriented to person, sometimes place. HEENT: Normocephalic, atraumatic. Pupils are equal, round and reactive. Moist oral mucosa. NECK: Supple. Positive for jugular venous distention (JVD). CARDIAC: Regular. S1, S2. 2/6 systolic murmur. PULMONARY: Decreased breath sounds bilaterally. Fine crackles. ABDOMEN: Soft, nontender. Hypoactive bowel sounds. EXTREMITIES: Bilateral below the knee amputation with anasarca up to the flank. ASSESSMENT AND PLAN: This is a 76-year-old male patient with underlying medical history of end stage renal disease, type 2 diabetes, congestive heart failure (CHF), coronary arterial disease, diverticulosis, foot gangrene status post bilateral below the knee amputations, hypertension, hypertensive heart disease, ischemic cardiomyopathy, multiple myeloma, admitted with altered mental status, also symptomatic anemia. The patient is on chronic opiates. 1. High risk for sepsis, possibly secondary to healthcare-associated pneumonia versus wound infection. Blood culture obtained. Will not give IV fluids given the patient has end stage renal disease and with evidence of anasarca and with stable blood pressure, normal lactic acid, vancomycin, Zosyn and Levaquin for pseudomonas coverage and methicillin resistant Staphylococcus aureus (MRSA) coverage. Monitor C-reactive protein. CT of the abdomen appreciated. 2. Metabolic encephalopathy, probably secondary to underlying infection versus opiates. The patient was given Narcan. Full supportive care. Continue to monitor. 3. Symptomatic anemia. The patient is transfused a total of 3 units of packed red blood cells. Source of bleeding: Fecal occult in the emergency room was negative. We will followup laboratory official tests. The patient does not have evidence of gastrointestinal bleed. The patient did have a recent below the knee amputation with wound that significantly bled. We will followup coagulopathy, hemoglobin and hematocrit. We will transfuse tomorrow during dialysis. 4. Respiratory alkalosis, has improved and resolved. Currently off CPAP. 5. Troponin elevation, likely secondary to demand ischemia due to severe anemia. Case discussed with Dr. Guzman. As per Dr. Guzman, the patient is a poor candidate for cardiac catheterization and likely has underlying chronic ischemic cardiac disease that is exacerbated by severe anemia. Would recommend transfusing the patient and trend cardiac enzymes. Telemetry monitoring. Holding aspirin for now given history of severe symptomatic anemia. We will resume later. 6. Dysphagia, possibly secondary to esophagitis versus alternate etiology. Give Maalox, proton pump inhibitor. We will continue to follow. 7. Diabetes. Insulin as per protocol. Holding oral medications. Consistent carbohydrate and renal diet. 8. End stage renal disease. Nephrology consulted. Dialysis is as per nephrology. 9. Congestive heart failure (CHF), acute CHF exacerbation. The patient is anasarca up to the flank. Nephrology consulted for further dialysis. Followup echo. 10. Coronary arterial disease. Holding aspirin for now. Case discussed with Dr. Guzman. EKG is appreciated. Trend cardiac enzymes. Optimize the patient's anemia. Continue beta blockers and Micardis. Case discussed with Dr. Guzman. 11. Hypertension. Continue current medications. 12. Gastroesophageal reflux disease (GERD). Continue proton pump inhibitor. 13. History of asthma. The patient currently has diminished breath sounds. Continue nebulizer treatment as needed. 14. Peripheral vascular disease status post bilateral below knee amputations. Wounds appreciated. 15. Sacral decubitus ulcer. Pressure ulcer precautions. Frequent turning and wound care. 16. Multiple myeloma. The patient received Revlimid and dexamethasone and is managed by hematology/oncology. Hold off these medications for now. Continue to monitor, we will restart as needed. 17. Deep vein thrombosis (DVT) prophylaxis. Given active bleeding, given severe and symptomatic anemia, we will hold off pharmacological agents. Sequential compression device (SCD) as tolerated.
[2016-09-15] MEDS ORDERED: METOCLOPRAMIDE INJ 10MG/2ML VIAL (J2765) IV ONE (22:00)
[2016-09-15] MEDS ORDERED: MAG SULF 1GM/100ML (MAG RUN) 1 GM in APPROPRIATE DILUENT 1 EA IV ONE (22:00)
--- NOTE | 2016-09-15 22:15 | CR ---
DATE OF CONSULTATION: 09/15/2016 REASON FOR CONSULTATION: To assist in the management of end-stage renal disease and severe anemia. HISTORY OF PRESENT ILLNESS: Mr. Figueroa is a 76-year-old gentleman with known history of multiple myeloma, end-stage renal disease, history of congestive heart failure, and coronary artery disease. He also has peripheral vascular disease and recently had bilateral vrwxs-wfh-lbix amputations one after the other. He was admitted to [facility] yesterday due to altered mentation and generalized weakness. Prior to this, he fell while transferring from wheelchair to the car and injured his leg stump. He was seen in the emergency room but discharged to home. He was very weak yesterday and looked very pale. His hemoglobin was below 6 on admission. The patient did complete his hemodialysis treatment prior to admission. PAST MEDICAL HISTORY: 1. History of multiple myeloma status post chemotherapy, currently on hold. 2. Coronary artery disease. 3. Congestive heart failure. 4. Type 2 diabetes. 5. Hypertension. 6. End-stage renal disease requiring maintenance hemodialysis. 7. History of osteoarthritis. 8. History of peripheral vascular disease, status post bilateral ybpwx-kyk-fndj amputation. 9. History of anemia of chronic kidney disease complicated possibly with blood loss anemia. MEDICATIONS: His home medications included: - aspirin 81 mg daily - Ventolin two puffs every 4 hours as needed for shortness of breath - Tums 500 mg with meals - carvedilol 6.25 mg twice a day - vitamin D 1000 units daily - dexamethasone 20 mg once a week while receiving chemotherapy, currently on hold - Colace 100 mg daily - ferrous sulfate 325 mg daily - gabapentin 100 mg three times a day - glipizide 2.5 mg daily - Revlimid 5 mg daily for 14 days and 7 days off, currently on hold - omeprazole 40 mg daily - Micardis 80 mg daily - tramadol 50 mg three times a day - He also received morphine 15 mg every 4 hours as needed for severe pain since his kjhlw-onu-amiy amputation. PAST SURGICAL HISTORY: Significant for: 1. Initially transmetatarsal amputation of his left foot followed by djexm-vzt-bqdl amputation and previously right viece-nzp-qkam amputation. 2. Left forearm arteriovenous (AV) fistula creation. PERSONAL AND SOCIAL HISTORY: The patient lives by himself. He quit smoking several years ago. There is no history of alcohol or drug use. FAMILY HISTORY: There is no family history of multiple myeloma or end-stage renal disease. REVIEW OF SYSTEMS: The patient has been confused at times and answers inappropriately. He probably has some baseline neurological deficit too. He denies any fever or chills. There is no headache at present. EARS, NOSE AND THROAT: Unremarkable. CARDIOVASCULAR SYSTEM: Negative for chest pain. He was short of breath yesterday, which has improved following transfusion. RESPIRATORY SYSTEM: Significant for cough without any hemoptysis or pleuritic type of chest pain. GASTROINTESTINAL SYSTEM: Significant for vomiting. He denies any abdominal pain or diarrhea. GENITOURINARY SYSTEM: Negative for dysuria or hematuria. ENDOCRINE SYSTEM: Significant for type 2 diabetes and secondary hyperparathyroidism. HEMATOLOGICAL SYSTEM: Significant for multiple myeloma and anemia. PSYCHOSOCIAL SYSTEM: Significant for depression. NEUROLOGICAL SYSTEM: Negative for known history of seizures or stroke. He does have mild baseline dementia. SKIN: Negative for rash or ulcers. His both leg stumps have stable without any drainage. PHYSICAL EXAMINATION: The patient is awake, at times somewhat confused but able to answer questions. He is unable to recall the events in detail from yesterday. Temperature 97.6 degrees Fahrenheit, heart rate 90 per minute, respiratory rate 16 per minute, blood pressure 116/63 mm of mercury, and oxygen saturation 98% on 2 liters oxygen. Head is atraumatic. Ears, nose and throat are unremarkable. Pupils are equal and reactive to light, and sclerae are anicteric. He is using oxygen via nasal cannula. Neck veins are not abnormally distended. There are no abnormal cervical lymph nodes or thyroid enlargement. Heart sounds are regular. There is no pericardial friction rub. Lungs clear to auscultation. Abdomen is somewhat full and nontender. Bowel sounds are normal. Extremities have no cyanosis or clubbing. He has bilateral yzaqy-hiv-fkwb amputations, and leg stumps are clean with princess intact. Neurologically he is awake, alert, and oriented. He does get somewhat confused at times but is able to answer questions appropriately most of the time. LABORATORY DATA: Sodium is 142, potassium 4.7, BUN 48, and creatinine 2.87. Calcium 7.3 and magnesium 1.6. AST 14, ALT 8, alkaline phosphatase 70, total protein 4.5, and albumin 1.6. His ammonia level was 50 last evening. On admission, his hemoglobin was 5.9, which has now improved to 7.0 this morning. A blood gas last evening showed a pH of 7.48, pCO2 of 40.6 and pO2 of 128. Chest x-ray done last evening showed cardiomegaly with a central venous catheter in superior vena cava. No effusions. PROBLEMS 1. End-stage renal disease. The patient had hemodialysis treatment yesterday prior to admission. He did miss his dialysis treatment once during this week. We will schedule his next hemodialysis tomorrow, which is his regular scheduled day. 2. Severe anemia. Most likely blood loss anemia related to amputations and possible gastrointestinal (GI) blood loss. I would suggest to check his stool for occult blood. The patient has been transfused 3 units of packed red blood cells (RBC). His complete blood count (CBC) will need to be repeated. For any further transfusions, we will perform during hemodialysis tomorrow due to risk of decompensated congestive heart failure. 3. Hypertension. Blood pressure is somewhat low, and I will stop his Micardis. We will continue with low-dose beta harris. 4. Altered mentation, probably related to severe anemia with hypoxemia. He does have some baseline dementia and is probably not too far from his baseline. CT scan of head was done, which showed diffuse atrophy and vascular calcification but no acute abnormality. 5. Congestive heart failure. The patient has received 3 units of packed RBC. He is at risk for decompensation, so further IV fluids or blood transfusions should be held until his next hemodialysis. I thank you for involving me in the care of Mr. Figueroa. I will follow him along with you.
[2016-09-16] VITALS: BP 117/61
[2016-09-16] MEDS: PIPERACILLIN/TAZOBACTAM SOD 3.375 GM in D5W MINI-BAG PLUS 50 ML IV SCH ×2 (03:41→16:17)
[2016-09-16 04:00] VITALS: BP 112/61
[2016-09-16 05:36] LABS: BASO % 0.5 % (0.0-1.0); EOS # 0.1 K/mm3 (0.0-0.50); EOS % 4.3 % (0.0-3.0); LARGE UNSTAINED CELL # 0.1 K/mm3 (0.0-0.4); LARGE UNSTAINED CELL % 3.1 % (0.0-4.0); LYMPH # 0.6 K/mm3 (1.5-4.5); LYMPH % 14.4 % (24.0-44.0); MEAN CORPUSCULAR HEMOGLOBIN 29.9 pg (27.0-33.0); MEAN CORPUSCULAR HGB CONC 32.6 g/dl (32.0-36.5); MEAN CORPUSCULAR VOLUME 91.9 fl (80.0-96.0); MONO # 0.2 K/mm3 (0.0-0.8); MONO % 7.2 % (0.0-5.0); NEUTROPHILS # 2.3 K/mm3 (1.8-7.7); NEUTROPHILS % 70.5 % (36.0-66.0); PLATELET COUNT, AUTOMATED 146 k/mm3 (150-450); RED CELL DISTRIBUTION WIDTH 19.9 % (11.5-14.5); WHITE BLOOD COUNT 3.3 K/mm3 (4.0-10.0)
[2016-09-16 05:49] LABS: ALBUMIN 1.6 GM/DL (3.2-5.2); ALBUMIN/GLOBULIN RATIO 0.53 (1.00-1.93); BILIRUBIN,TOTAL 0.4 MG/DL (0.2-1.0); CREATININE FOR GFR 3.68 MG/DL (0.70-1.30); GLOMERULAR FILTRATION RATE 17.2 (>42); MAGNESIUM LEVEL 1.8 MG/DL (1.8-2.4); POTASSIUM SERUM 4.3 MEQ/L (3.5-5.1); TOTAL PROTEIN 4.6 GM/DL (6.4-8.2); VANCOMYCIN RANDOM 20.9 UG/ML
--- NOTE | 2016-09-16 05:58 | PHACANCOPD ---
PHARMACY VANCOMYCIN DOSING Pt Demographics Demographics Patient Age:76 , Weight:80.600 , Gender: male Adjusted Body Weight Date: 09/14/16, Adjusted Body Weight: [71] Kg Events Past 24 Hours Events Past 24 Hours: NO: Dialysis, Diuretic Therapy, Change in CrCl, Fever, Elevation in WBC, Pending Diagnostics, Pending Procedures, Other Vancomycin Vancomycin Target Ranges: 15-20 mcg/ml Vancomycin Load Y/N: Yes Load Dose Date Time Vancomycin Load Dose: 1500MG Date: 09-14 Time: 2300 Vancomycin Dose Date: 09/14/16. Current Vancomycin Dose: Intermittent Dosing?: Yes Labs Labs Item Value Date Time White Blood Count 3.3 K/mm3 L 09/16/16446 Creatinine 3.68 MG/DL H 09/16/16446 Random Vancomycin Level 20.9 UG/ML 09/16/16446 Vital Signs Label Value Date Time Patient Temperature 97.7 degrees F 09/16/16 0400 Temperature Source Temporal 09/16/16 0400 Micro Microbiology 09/14/16 Blood Culture - Preliminary, Resulted No growth after 24 hours . All specim... 09/14/16 Blood Culture - Preliminary, Resulted No growth after 24 hours . All specim... 09/15/16 Influenza Virus Type A Antigen - Final, Complete 09/15/16 Influenza Virus Type B Antigen - Final, Complete 09/15/16 Gram Stain - Final, Resulted 09/15/16 Sputum Culture, Resulted Pending 09/15/16 Respiratory Virus Panel (PCR) (NATASHA) - Final, Complete Creatinine Clearance Date:09/14/16. Creatinine Clearance: [HD ]. Pending Labs Random - in am Assessment and Plan Maintaining Current Dose?: Yes Reason for dose change: No Dose Change Pharmacist Note Pharmacist Note Date: 09/14/16. Pharmacist note: Random level of 20.9 is slightly above target range. Patient is scheduled for dialysis today. Will dose with 1000mg after dialysis. Random level ordered for 05- in am. Will continue to monitor and make adjustments as needed. [facility] September 16, 2016 05:58
--- NOTE | 2016-09-16 07:21 | ECHO ---
DATE OF PROCEDURE: 09/15/2016 REFERRING PHYSICIAN: Dr. David Gonzales, Dr. Sammi Morales. INDICATION: Congestive heart failure. The patient measures 175 cm and weighs 85 kg. DIMENSIONS: IVS - 1.4 LV - 3.9 LVPW - 1.3 LA - 4.3 Aorta - 3.4 IVC - 2.5 FINDINGS: The study is of fair technical quality. Left ventricle is of normal size. Mild left ventricular hypertrophy is noted. There is mild global hypokinesis. Mid and distal lateral wall and apex appear almost akinetic. I estimate overall ejection fraction (EF) around 40 to 45%. Right ventricle is of normal size and systolic function. Both atria are at least mildly enlarged. Aortic valve is sclerotic. It has three cusp but relatively preserved mobility. There are also degenerative abnormalities of mitral valve with mitral annular calcifications. Tricuspid valve appears normal. Pulmonic valve was not well seen. No pericardial effusion is noted. Inferior vena cava is dilated but there is some collapse with respiration indicative of likely mildly increased central venous pressure. Aortic root is normal. Aortic arch was not well seen. Abdominal aorta seems to demonstrate significant atherosclerosis. Doppler interrogation of aortic valve reveals no significant stenosis or insufficiency. There is mild mitral insufficiency and probably mild tricuspid insufficiency. Calculated pulmonary artery pressure is at least in 30s, but the quality of TR jet was fair and this should not be considered reliable. Mitral inflow pattern and tissue Doppler imaging of mitral annulus reveal grade 2 diastolic dysfunction. (E velocity 98 cm/s. E prime septal 6.4 and E prime lateral 8.7 cm/s) CONCLUSION: 1. Study is of fair technical quality. 2. Normal LV size with global hypokinesis and segmental wall motion abnormalities noted above. Overall EF estimated around 40 to 45%. Grade 2 diastolic dysfunction. 3. Degenerative abnormalities of aortic and mitral valves but without significant functional valvular disease. 4. Elevated central venous pressure. 5. At least mild pulmonary hypertension. COMMENT: SBE prophylaxis is not recommended. MTDD
[2016-09-16 08:00] VITALS: BP 106/55
[2016-09-16] MEDS: OMEPRAZOLE 20 MG CAP PO SCH (08:20)
[2016-09-16] MEDS: CARVedilol 6.25 MG TAB PO SCH ×2 (08:20→20:28)
[2016-09-16] MEDS: CALCIUM CARBONATE 500 MG CHEW U/D PO SCH ×3 (08:20→17:31)
[2016-09-16] MEDS: HumaLOG INSULIN (NovoLOG) PER UNIT SC SCH ×4 (08:20→20:08)
[2016-09-16] MEDS: DOCUSATE SODIUM 100 MG CAP PO SCH (08:21)
[2016-09-16] MEDS: VITAMIN D 1,000 INTERNATIONAL UNITS TABLET PO SCH (08:21)
[2016-09-16] MEDS: GABAPENTIN 100 MG CAP PO SCH ×3 (08:23→20:29)
--- NOTE | 2016-09-16 08:36 | ECGEPIP ---
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
--- NOTE | 2016-09-16 10:07 | ECGEPIP ---
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
[2016-09-16] MEDS ORDERED: HEPARIN 1,000 UNITS/ML 10ML VIAL (FOR RADIOLOGY& DIALYSIS ONLY) IV ONE (11:15)
[2016-09-16] MEDS ORDERED: LIDOCAINE 1% SDV 5 ML VIAL SQ ONE (11:15)
[2016-09-16 16:15] VITALS: BP 146/56
[2016-09-16] MEDS ORDERED: VANCOMYCIN HCL 1,000 MG, VIAL MATE ADAPTER 1 EACH in D5W 250 ML IV ONE (18:00)
[2016-09-16 19:23] VITALS: BP 120/58
[2016-09-17] VITALS (7 sets, daily range): BP systolic 108–129; BP diastolic 57–81
--- NOTE | 2016-09-17 02:04 | IPN ---
DATE OF SERVICE: 09/16/2016 Patient seen and examined. Reported improvement in appetite. Denies any fevers or chills, chest pain, pressure or discomfort. Denies any abdominal pain, diarrhea, constipation. VITAL SIGNS: Temperature 98.2, pulse 95, respirations 18, blood pressure 120/58, pulse oximetry 97% on room air. LABORATORY: WBC 3.3, hemoglobin and hematocrit 7.9/24.2, platelets 146. Chemistry: Sodium 141, potassium 4.3, chloride 104, bicarbonate 29, BUN 49, creatinine 3.68. PHYSICAL EXAMINATION: GENERAL: Patient lying in bed comfortable in no acute distress, alert, oriented to person, place and time. HEENT: Normocephalic, atraumatic. Pupils are equal, round and reactive. Moist mucous membranes. NECK: Supple. Positive jugular venous distention (JVD). CARDIAC: Regular. S1, S2. 2/6 systolic murmur. PULMONARY: Decreased breath sounds bilaterally. Fine crackles. ABDOMEN: Soft, nontender. Positive bowel sounds. EXTREMITIES: Bilateral lower extremity below-knee amputation with anasarca up to the flank. ASSESSMENT AND PLAN: This is a 76-year-old male patient with underlying medical history of end-stage renal disease on hemodialysis, type 2 diabetes, congestive heart failure (CHF), coronary artery disease, diverticulosis, foot gangrene status post bilateral below-knee amputation, hypertension, hypertensive heart disease, ischemic cardiomyopathy, multiple myeloma, admitted for altered mental status, with symptomatic anemia. Patient is on chronic opiates. 1. High risk for sepsis, possibly secondary to healthcare-associated bacterial pneumonia or wound infection. Blood culture has been obtained. Intravenous (IV) fluids were not given given end-stage renal disease. Patient with anasarca, stable blood pressure, normal lactic acid, was treated with vancomycin, Zosyn and Levaquin for dual pseudomonas coverage and methicillin resistant Staphylococcus aureus (MRSA) coverage for possible pseudomonas and MRSA healthcare-associated bacterial pneumonia. Monitor C-reactive protein. CT of the abdomen appreciated. 2. Metabolic encephalopathy, probably secondary to underlying infection versus opiates versus transient ischemic attack (TIA). Patient's mental status has improved, was given Narcan. Will followup MRI for further diagnosis, but patient has no focal neurological deficit at this time. 3. Symptomatic anemia. Patient is transfused a total of 3 units of packed red blood cells and 2 more units were given during dialysis today, for a total of 5 units. Source of bleeding: Fecal occult in the emergency room was negative. Followup laboratory official fecal occult. Patient does not have evidence of gastrointestinal (GI) bleed. Patient did have an episode of recent below-knee amputation with wound that significantly bled and had to be re-stapled. Followup coagulopathy and continue further care as per nephrology. 4. Respiratory alkalosis, currently resolved and improved, off continuous positive airway pressure (CPAP). 5. Troponin elevation, likely secondary to demand ischemia due to severe anemia. Case discussed with Dr. Guzman. As per Dr. Guzman, patient is a poor candidate for cardiac catheterization and likely has underlying chronic ischemic cardiac disease that is exacerbated by severe anemia. Recommend transfusing the patient, to trend cardiac enzymes, telemetry monitoring. Holding aspirin given patient's severe symptomatic anemia. Will resume later when patient's hemoglobin and hematocrit is stable. 6. Dysphagia, likely secondary to esophagitis versus alternative etiology. Given Maalox and proton pump inhibitor (PPI) with symptom improvement, continue to monitor. 7. Diabetes. Insulin as per protocol. Holding oral medications. Consistent carbohydrate diet, renal diet. 8. End-stage renal disease (ESRD). Dialysis as per nephrology. Continue to follow. 9. Congestive heart failure (CHF) with CHF exacerbation. Patient has anasarca up to the flank. Nephrology consulted for dialysis. Echocardiogram. 10. Coronary arterial disease. Holding aspirin for now given severe symptomatic anemia. Case discussed with Dr. Guzman. EKG is appreciated. Trend cardiac enzymes. Optimize the patient's anemia. Continue beta blockers and Micardis. 11. Hypertension. Continue current medications. 12. Gastroesophageal reflux disease (GERD). Continue PPI. 13. History of asthma. Patient has diminished breath sounds, but no wheeze. Nebulizer treatment as needed. 14. Peripheral vascular disease status post below-knee amputation bilateral. Wounds appreciated. 15. Sacral decubitus ulcer. Pressure ulcer precautions. Frequent turning. Wound care. 16. Multiple myeloma. Patient receives Revlimid and dexamethasone and this is managed by hematology/oncology. Hold off these medications for now. Continue to monitor. Will restart as needed. 17. Deep venous thrombosis (DVT) prophylaxis. Given active bleeding, given severe symptomatic anemia, will hold off all pharmacological agents. Sequential compression device as tolerated. DISPOSITION: Patient and family services (PFS) consulted. Will discuss the goals of care with the patient and as well as placement in terms of with family versus custodial facility.
[2016-09-17] MEDS: PIPERACILLIN/TAZOBACTAM SOD 3.375 GM in D5W MINI-BAG PLUS 50 ML IV SCH ×2 (04:33→15:59)
[2016-09-17 05:23] LABS: BASO % 0.5 % (0.0-1.0); EOS # 0.2 K/mm3 (0.0-0.50); EOS % 3.4 % (0.0-3.0); LARGE UNSTAINED CELL # 0.1 K/mm3 (0.0-0.4); LYMPH # 0.6 K/mm3 (1.5-4.5); LYMPH % 12.2 % (24.0-44.0); MEAN CORPUSCULAR HEMOGLOBIN 30.4 pg (27.0-33.0); MEAN CORPUSCULAR HGB CONC 32.9 g/dl (32.0-36.5); MEAN CORPUSCULAR VOLUME 92.5 fl (80.0-96.0); MONO # 0.3 K/mm3 (0.0-0.8); MONO % 6.9 % (0.0-5.0); NEUTROPHILS # 3.5 K/mm3 (1.8-7.7); PLATELET COUNT, AUTOMATED 147 k/mm3 (150-450); RED CELL DISTRIBUTION WIDTH 18.4 % (11.5-14.5); WHITE BLOOD COUNT 4.8 K/mm3 (4.0-10.0)
[2016-09-17 05:43] LABS: ALBUMIN 1.6 GM/DL (3.2-5.2); ALBUMIN/GLOBULIN RATIO 0.46 (1.00-1.93); BILIRUBIN,TOTAL 0.6 MG/DL (0.2-1.0); CALCIUM LEVEL 7.5 MG/DL (8.8-10.2); CREATININE FOR GFR 2.5 MG/DL (0.70-1.30); GLOMERULAR FILTRATION RATE 26.9 (>42); MAGNESIUM LEVEL 1.7 MG/DL (1.8-2.4); POTASSIUM SERUM 3.9 MEQ/L (3.5-5.1); TOTAL PROTEIN 5.1 GM/DL (6.4-8.2)
[2016-09-17] MEDS: HumaLOG INSULIN (NovoLOG) PER UNIT SC SCH ×4 (07:18→20:56)
[2016-09-17] MEDS ORDERED: MAG SULF 1GM/100ML (MAG RUN) 1 GM in APPROPRIATE DILUENT 1 EA IV ONE (08:00)
[2016-09-17] MEDS: ASPIRIN 81 MG ENTERIC TAB PO SCH (08:16)
[2016-09-17] MEDS: VITAMIN D 1,000 INTERNATIONAL UNITS TABLET PO SCH (08:16)
[2016-09-17] MEDS: GABAPENTIN 100 MG CAP PO SCH ×3 (08:16→22:16)
[2016-09-17] MEDS: CARVedilol 6.25 MG TAB PO SCH ×2 (08:17→22:16)
[2016-09-17] MEDS: OMEPRAZOLE 20 MG CAP PO SCH (08:17)
[2016-09-17] MEDS: CALCIUM CARBONATE 500 MG CHEW U/D PO SCH ×3 (08:17→17:08)
[2016-09-17] MEDS: DOCUSATE SODIUM 100 MG CAP PO SCH (08:17)
[2016-09-17] MEDS ORDERED: LevoFLOXacin IV 750 MG in APPROPRIATE DILUENT 1 EA IV SCH (09:00)
[2016-09-17] MEDS ORDERED: VANCOMYCIN HCL 1,000 MG, VIAL MATE ADAPTER 1 EACH in D5W 250 ML IV SCH (13:45)
[2016-09-17] MEDS: CHECK TO SEE IF PATIENT IS RECEIVING DIALYSIS TODAY AND REFER TO THE VANCOMYCIN ORDER XX SCH (14:13)
--- NOTE | 2016-09-17 17:19 | IPN ---
DATE: 09/16/2016 SUBJECTIVE: The patient was seen and examined at the bedside today morning during hemodialysis procedure. The patient was tolerating the hemodialysis procedure well. The patient does not have any active complaints. REVIEW OF SYSTEMS: The patient denies any fevers, chills, rigors, headache, nausea, vomiting, chest pain, shortness of breath, pain in the abdomen, constipation or diarrhea. The rest of the review of systems is negative. OBJECTIVE: VITAL SIGNS: Temperature is 97.5 degrees Fahrenheit, blood pressure is 106/55, pulse is 89, respiratory rate of 16, saturating 98% on room air. Intake and output: Urine output recorded is 600 mL since overnight. Weight on the bed scale is 84.1 kg. PHYSICAL EXAMINATION: GENERAL: The patient is awake, alert, and oriented times three, lying in bed getting hemodialysis done. HEAD AND NECK EXAMINATION: Extraocular muscles are intact. Pupils are equal, round and reactive to light. NECK: Supple. There is no jugular venous distention (JVD). The patient has a triple lumen catheter on the right side. CARDIOVASCULAR: S1, S2. Regular rate. No murmur, rub or gallop. RESPIRATORY: Chest is clear to auscultation bilaterally. Bilateral equal air entry. No rales or rhonchi. ABDOMEN: Soft, distended. Positive bowel sounds. Nontender. No ascites. No organomegaly. EXTREMITIES: The patient has bilateral below the knee amputations and his stumps have fresh princess, no active bleeding from the amputation stump site. NEUROLOGIC: No focal neurological deficits. Power is 5/5 in bilateral upper extremities. AV ACCESS: The patient has a left forearm AV fistula, which is being used for dialysis at this time. LABORATORY REVIEW: Complete blood count (CBC) showed a WBC of 3.3, hemoglobin is 7.9, platelets are 146. Basic metabolic panel (BMP) showed sodium 141, potassium 4.3, chloride 104, bicarbonate 29, BUN 49, creatinine is 3.6. IMAGING: The patient had a CAT scan of the abdomen and pelvis done yesterday, which showed bilateral pleural effusions and diffuse subcutaneous edema. No ascites. Normal bowel gas pattern. CURRENT MEDICATIONS: The patient's medications were all reviewed by me. He continues to be on IV Zosyn and vancomycin. There are no other changes in the medications today. ASSESSMENT: 76-year-old male with a past medical history of end stage renal disease on hemodialysis, history of multiple myeloma status post chemotherapy, currently on hold, currently has severe anemia. PLAN: 1. End stage renal disease. The patient is being dialyzed according to his schedule. We shall try to do an ultrafiltration of around 2.5 kg as tolerated by his blood pressure because the patient has diffuse subcutaneous edema on the CAT scan. 2. Severe anemia. The patient recently had bleeding from the amputations sites and he also has a history of multiple myeloma. The patient is going to get 2 units of packed red blood cell transfusion during hemodialysis today. 3. Hypertension. Blood pressure is acceptable at this time. Continue current dose of Coreg 6.25 mg by mouth twice a day. 4. Congestive heart failure (CHF). The patient's volume status is being managed by hemodialysis and ultrafiltration. 5. Metabolic encephalopathy. The patient is still slightly drowsy, but otherwise oriented times three. Try to minimize [employer] medications and opioids. The rest of the management as per primary team.
--- NOTE | 2016-09-17 21:24 | IPN ---
DATE: 09/14/2016 The patient was seen and examined, in no acute events overnight. Denies any fevers or chills, chest pain, pressure or discomfort. Having good appetite. VITAL SIGNS: Temperature 97.5, pulse 91, respirations 18, blood pressure 122/81, pulse oximetry 97% on room air. LABORATORY DATA: White blood count (WBC) 4.8, hemoglobin and hematocrit 10.3/31.4, platelets 147. Chemistry: Sodium 139, potassium 3.9, chloride 101, bicarbonate 20, BUN 24, creatine 2.5. PHYSICAL EXAMINATION: GENERAL: The patient lying in bed comfortable, alert and oriented times three, in no acute distress. HEENT: Normocephalic, atraumatic. Pupils are equal, round and reactive. Moist mucous membranes. NECK: Supple. CARDIAC: Regular rate and rhythm. 2/6 systolic murmur. PULMONARY: Decreased breath bilateral base. Fine crackles. ABDOMEN: Soft, nontender. Positive bowel sounds. EXTREMITIES: Bilateral lower extremities, below-knee amputation with anasarca and edema. ASSESSMENT AND PLAN: This is a 76-year-old male patient with underlying medical history of end-stage renal disease on hemodialysis, type 2 diabetes, congestive heart failure, coronary artery disease, diverticulosis, foot gangrene, status post bilateral below-knee amputation, hypertension, hypertensive heart disease, ischemic cardiomyopathy, multiple myeloma admitted for altered mental status with symptomatic anemia. The patient is on chronic opiates, given Narcan in the emergency room. PROBLEMS: 1. Initially with questionable evidence of sepsis, possibly secondary to healthcare associated bacterial pneumonia. Blood culture obtained. IV fluid was not given given end-stage renal disease with stable blood pressure. The patient with anasarca. Lactic acid was normal. Treated with vancomycin, Zosyn and Levaquin. Will do pseudomonas coverage and methicillin-resistant Staphylococcus aureus (MRSA) coverage. Followup c-reactive protein. Abdominal CT appreciated. 2. Encephalopathy possibly secondary to underlying infection versus opiate versus transient ischemic attack (TIA). The patient currently returned to baseline. Narcan was given with no improvement in the emergency room. Magnetic Resonance Imaging (MRI) to be scheduled. Open Magnetic Resonance Imaging (MRI) on Monday. No focal neurological deficit at this time. 3. Symptomatic anemia. The patient transfused a total of five units of packed red blood cells. Source of bleeding, fecal occult negative in the emergency room, likely the patient recently had an injury to the stump of the patient's bilateral below-knee amputation, which was re-stapled. The patient lost a considerable amount of blood versus anemia of chronic disease. 4. Respiratory alkalosis, resolved, was on CPAP initially. 5. Troponin elevation likely secondary to demand ischemia due to severe anemia. Case discussed with Dr. Guzman for a candidate for cardiac catheterization, likely underlying chronic ischemic cardiac disease that is exacerbated by severe anemia. Transfusion recommended. Holding aspirin given the patient's severe symptomatic anemia. Will resume given the patient's hemoglobin and hematocrit have stabilized. 6. Dysphagia, likely esophagitis, currently resolved, post Maalox and proton pump inhibitor (PPI). 7. Type 2 diabetes. Insulin as per protocol. Followup fingerstick. 8. End-stage renal disease. Dialysis as per nephrology team, continue to follow. 9. Congestive heart failure (CHF) exacerbation. The patient with anasarca up to the flank. Nephrology consulted. Continue dialysis. Echocardiogram is appreciated, showing ejection fraction of 40% to 45% with grade 1 diastolic dysfunction. 10. Coronary arterial disease. Restarting aspirin. Severe symptomatic anemia, aspirin needs to be held. Case discussed with Dr. Guzman. Trend cardiac enzymes, beta harris and Micardis. 11. Hypertension. Continue home medication. 12. Gastroesophageal reflux disease (GERD). Continue proton pump inhibitor (PPI). 13. History of asthma. The patient not having any wheeze. Continue current medication. 14. Peripheral vascular disease, status post bilateral below-knee amputation. Physical therapy and wound care. 15. Sacral decubitus ulcer. Pressure ulcer precaution, frequent turning, wound care. 16. Multiple myeloma. The patient received Revlimid and dexamethasone as an outpatient to be monitored by hematology/oncology, initially on hold. Will restart upon the patient's discharge. 17. Deep vein thrombosis (DVT) prophylaxis; given the possibility of bleed and symptomatic anemia, will hold off pharmacological agents. Sequential compression device. DISPOSITION: Patient Family Services (PFS) consulted. The patient might need additional service at home versus placement pending Magnetic Resonance Imaging (MRI), clinical improvement.
[2016-09-18 04:45] VITALS: BP 131/74
[2016-09-18] MEDS: PIPERACILLIN/TAZOBACTAM SOD 3.375 GM in D5W MINI-BAG PLUS 50 ML IV SCH ×2 (05:30→16:28)
[2016-09-18 06:17] LABS: ALBUMIN 1.6 GM/DL (3.2-5.2); ALBUMIN/GLOBULIN RATIO 0.43 (1.00-1.93); BILIRUBIN,TOTAL 0.5 MG/DL (0.2-1.0); CALCIUM LEVEL 7.2 MG/DL (8.8-10.2); CREATININE FOR GFR 3.33 MG/DL (0.70-1.30); GLOMERULAR FILTRATION RATE 19.4 (>42); MAGNESIUM LEVEL 1.8 MG/DL (1.8-2.4); TOTAL PROTEIN 5.3 GM/DL (6.4-8.2)
[2016-09-18 07:11] LABS: BASO % 0.4 % (0.0-1.0); EOS # 0.2 K/mm3 (0.0-0.50); EOS % 4.3 % (0.0-3.0); LARGE UNSTAINED CELL # 0.1 K/mm3 (0.0-0.4); LARGE UNSTAINED CELL % 2.8 % (0.0-4.0); LYMPH # 0.7 K/mm3 (1.5-4.5); LYMPH % 13.6 % (24.0-44.0); MEAN CORPUSCULAR HEMOGLOBIN 30.2 pg (27.0-33.0); MEAN CORPUSCULAR VOLUME 94.2 fl (80.0-96.0); MONO # 0.4 K/mm3 (0.0-0.8); MONO % 8.1 % (0.0-5.0); NEUTROPHILS # 3.5 K/mm3 (1.8-7.7); NEUTROPHILS % 70.9 % (36.0-66.0); PLATELET COUNT, AUTOMATED 140 k/mm3 (150-450); RED CELL DISTRIBUTION WIDTH 18.3 % (11.5-14.5); WHITE BLOOD COUNT 4.9 K/mm3 (4.0-10.0)
[2016-09-18] MEDS: HumaLOG INSULIN (NovoLOG) PER UNIT SC SCH ×4 (07:30→21:00)
[2016-09-18 07:36] VITALS: BP 145/88
[2016-09-18] MEDS: OMEPRAZOLE 20 MG CAP PO SCH (09:03)
[2016-09-18] MEDS: ASPIRIN 81 MG ENTERIC TAB PO SCH (09:04)
[2016-09-18] MEDS: DOCUSATE SODIUM 100 MG CAP PO SCH (09:04)
[2016-09-18] MEDS: CALCIUM CARBONATE 500 MG CHEW U/D PO SCH ×3 (09:04→17:18)
[2016-09-18] MEDS: GABAPENTIN 100 MG CAP PO SCH ×3 (09:04→21:34)
[2016-09-18] MEDS: VITAMIN D 1,000 INTERNATIONAL UNITS TABLET PO SCH (09:04)
[2016-09-18] MEDS: CARVedilol 6.25 MG TAB PO SCH ×2 (09:04→21:34)
[2016-09-18] MEDS: HEPARIN SOD (PORCINE) 5000 UNITS/ML VIAL SQ SCH ×2 (11:41→21:35)
[2016-09-18 12:07] VITALS: BP 114/56
--- NOTE | 2016-09-18 13:19 | IPN ---
DATE OF SERVICE: 09/17/2016 SUBJECTIVE: The patient was seen and examined at the bedside. He does not have any acute complaints. He tolerated the hemodialysis procedure well yesterday. REVIEW OF SYSTEMS: The patient denies any fevers, chills, rigors, headache, nausea, vomiting, chest pain, shortness of breath, pain abdomen, or constipation. The rest of the review of systems is negative. OBJECTIVE: VITAL SIGNS: Temperature is 97 degrees Fahrenheit, blood pressure is 117/65, pulse is 89, respiratory rate of 18, saturating 94% on room air. INTAKE AND OUTPUT: Urine output recorded is 600 mL yesterday, 400 mL so far today since overnight. He got hemodialysis done. Ultrafiltration with hemodialysis was 2.5 liters. Weight in the bed scale is 95.1 kg today. PHYSICAL EXAMINATION: GENERAL: The patient is awake, alert, oriented times two but somewhat confused, lying in bed. No apparent distress. HEAD AND NECK EXAMINATION: Extraocular muscles intact. Pupils equally round and reactive to light. Mucous membranes are moist. NECK: Supple. There is no jugular venous distention (JVD). CARDIOVASCULAR: S1, S2. Regular rate. No murmur, rub, and gallop. RESPIRATORY: Chest is clear to auscultation bilaterally. Bilateral equal air entry. No rales or rhonchi. ABDOMEN: Soft. Positive bowel sounds. Nontender. No ascites. No organomegaly. EXTREMITIES: The patient has bilateral below-knee amputations and princess at the amputation stumps. CENTRAL NERVOUS SYSTEM ([place]): The patient is confused. Otherwise, follows commands. Power is 5/5 in bilateral upper extremities. LABORATORY REVIEW: Complete blood count (CBC) showed a WBC of 4.8, hemoglobin 10.3, platelets are 147. Basic metabolic panel (BMP) showed sodium 139, potassium 3.9, chloride 101, bicarbonate 30, BUN 24, creatinine is 2.5, calcium is 7.5, magnesium is 1.7, albumin is 1.6. CURRENT MEDICATIONS: The patient's medications were all reviewed by me. He has been started on Levaquin 700 mg intravenous (IV) every 72 hours. He was given a dose of magnesium sulfate 1 gram IV times one dose. He continues to be on IV Zosyn. There is no other change in the medications today. ASSESSMENT: A 76-year-old male with a past medical history of end-stage renal disease on hemodialysis, history of multiple myeloma, multiple other comorbidities, admitted this time because of altered mental status and symptomatic anemia. PLAN: 1. End-stage renal disease, on hemodialysis. The patient's regular dialysis days are Monday, Monday, Monday. He was dialyzed yesterday. No urgent need of hemodialysis today. Next hemodialysis session will be on Monday. 2. Severe anemia. The patient got red blood cell transfusions at hemodialysis. His hemoglobin is stable at 10.3. Continue to monitor. No need of further blood transfusion at this time. 3. Hypertension. The patient's blood pressure is acceptable at this time. Continue current dose of Coreg 6.25 mg by mouth twice a day. 4. Multiple myeloma. The patient was on revlimid and dexamethasone as outpatient, which is currently on hold. Please get in touch with hematology/oncology. Decision to start steroid and revlimid would be up to hematology/oncology.
--- NOTE | 2016-09-18 14:15 | IPN ---
DATE: 09/18/2016 The patient was seen and examined. Comfortable. Has good appetite. Denies any fever or chills, chest pain, pressure or discomfort. VITAL SIGNS: Temperature 98.1, pulse 96, respirations 19, blood pressure 114/56, pulse oximetry 93% on room air. LABORATORY DATA: White blood count (WBC) 4.9, hemoglobin and hematocrit 10.7/33.4, platelets 140. Chemistry: Sodium 137, potassium 4, chloride 101, bicarbonate 29, BUN 30, creatine 3.33. PHYSICAL EXAMINATION: GENERAL: The patient is alert and oriented times three, comfortable, in no acute distress. HEENT: Normocephalic, atraumatic. Pupils equal, round and reactive. Moist mucous membranes. NECK: Supple. CARDIAC: Regular rate and rhythm. 2/6 systolic murmur. ABDOMEN: Soft, nontender. Positive bowel sounds. EXTREMITIES: Bilateral lower extremities below-knee amputation with anasarca and edema which is much improved. ASSESSMENT AND PLAN: This is a 76-year-old male patient with underlying medical history of end-stage renal disease, type 2 diabetes, congestive heart failure, coronary artery disease, diverticulosis, foot gangrene, status post bilateral below-knee amputations, hypertension, hypertensive heart disease, ischemic cardiomyopathy, and multiple myeloma admitted for altered mental status with symptomatic anemia. The patient is on chronic opiates and given Narcan in the emergency room. PROBLEMS: 1. Questionable sepsis, possibly secondary to healthcare associated bacterial pneumonia with possible Pseudomonas, MRSA pneumonia. IV fluids were not given, given end stage renal disease with evidence of fluid overload. Lactic acid normal. Treated with vancomycin, Zosyn and Levaquin. CT scan of abdomen appreciated. X-rays appreciated. C-reactive protein appreciated. 2. Encephalopathy likely secondary to underlying infection versus opiate induced versus transient ischemic attack (TIA). The patient currently returned to baseline. Narcan was given with no effect in the emergency department. Magnetic Resonance Imaging (MRI) was unable to be done given patient with severe scoliosis. As per MR tag, patient also will not be able to conduct open MRI. No focal neurological deficit at this time. Repeat CT scan done. 3. Symptomatic anemia. The patient was transfused a total of five units of packed red blood cells. Source of bleeding, fecal occult negative. The recently injured a stump of the patient's bilateral below-knee amputation which was re-stapled with loss of a considerable amount of blood . 4. Respiratory alkalosis, resolved. 5. Troponin elevation likely secondary to demand ischemia due to severe anemia. Case discussed with Dr. Guzman. Patient was transfused. Not a candidate for cardiac catheterization as per Dr. Guzman. 6. Dysphagia, likely esophagitis, currently resolved. Maalox and proton pump inhibitor (PPI). 7. Type 2 diabetes. Insulin as per protocol. 8. End-stage renal disease. Dialysis as per nephrology. Continue to follow. 9. Congestive heart failure (CHF) exacerbation. The patient with anasarca up to the flank. Nephrology consulted. Dialysis. Echocardiogram is showing ejection fraction (EF) of 40% to 45% with grade 1 diastolic dysfunction. 10. Coronary arterial disease. Restarting aspirin. Severe symptomatic anemia, aspirin initially held. Case discussed with Dr. Guzman. Trend cardiac enzymes, beta harris and Micardis. 11. Hypertension. Continue current medication. 12. Gastroesophageal reflux disease (GERD). Continue proton pump inhibitor (PPI). 13. History of asthma. The patient not having any wheeze. Continue to monitor. Continue current medication. 14. Peripheral vascular disease, status post bilateral below-knee amputation. Physical therapy and wound care. 15. Sacral decubitus ulcer. Pressure ulcer precaution, frequent turning, wound care. 16. Multiple myeloma. The patient receives Revlimid and dexamethasone as an outpatient. The patient is in the process of moving to [facility]. Will discuss hematology/oncology if they want to resume medication and remain for outpatient therapy. 17. Deep vein thrombosis (DVT) prophylaxis. Heparin subcutaneous restarted. DISPOSITION: Patient Family Services (PFS) consulted. Will consult oncology on Monday. Likely discharge on next week.
--- NOTE | 2016-09-18 14:38 | REP ---
CT BRAIN WITHOUT CONTRAST: CT brain is performed without IV contrast and compared to prior study of 09/14/2016. Once again, there is mild atrophy. There is no midline shift. No abnormal densities are seen in the brain. There is no acute hemorrhage. There is no extra-axial fluid collection. There is no change since the prior exam. Once again there are vascular calcifications in the carotid siphons. IMPRESSION: Chronic changes appear stable. No acute intracranial abnormality identified. Signed by Jaylon Gomez MD 09/18/2016 07:58 P
[2016-09-18] MEDS: CHECK TO SEE IF PATIENT IS RECEIVING DIALYSIS TODAY AND REFER TO THE VANCOMYCIN ORDER XX SCH (16:00)
--- NOTE | 2016-09-18 19:14 | IPN ---
DATE: 09/18/2016 SUBJECTIVE: Patient was seen and examined at the bedside this morning. He is much more awake and alert today. Patient reports that he could not get his MRI done because of scoliosis. He is waiting for the open MRI at this time. Patient otherwise is hemodynamically stable and asymptomatic at this time. REVIEW OF SYMPTOMS. Patient denies any fever or chills, rigors, headache, nausea, vomiting, chest pain, shortness of breath, abdominal pain, constipation or diarrhea. The rest of review of systems is negative. OBJECTIVE: VITAL SIGNS: Temperature 97.6 degrees Fahrenheit, blood pressure 145/88, pulse 87, respiratory rate 18, saturating 95% on room air. INTAKE AND OUTPUT: Urine output is 700 mL since overnight. Bed scale weight is not recorded. PHYSICAL EXAMINATION: GENERAL: Patient is awake, alert, oriented times three, laying in bed in no apparent distress. HEAD AND NECK EXAMINATION: Extraocular muscles intact. Pupils equally round and reactive to light. Neck is supple. There is no jugular venous distention (JVD). Patient has a triple lumen catheter on the right subclavian. CARDIOVASCULAR: S1, S2. Regular rate. No murmurs, rubs or gallops. RESPIRATORY: Chest is clear to auscultation bilaterally. Bilateral equal air entry. No rales or rhonchi. ABDOMEN: Soft. Positive bowel sounds. Nontender. No ascites. No organomegaly. EXTREMITIES: Patient has bilateral below-knee amputations. His amputation stumps have princess. Otherwise, wounds are healing well. CENTRAL NERVOUS SYSTEM: No focal neurological deficits. Power is 5/5 in bilateral upper extremities. ATRIOVENTRICULAR (AV) ACCESS: Patient has a left forearm AV fistula with positive trill and bruit. LABORATORY REVIEW: CBC showed a WBC 4.9, hemoglobin 10.7, platelets 140. BMP showed sodium 137, potassium 4, chloride 101, bicarbonate 29, BUN 30, creatinine 3.3. Albumin 1.6 CURRENT MEDICATIONS: Patient's medications were all reviewed by me. There is no change in the medications today as compared with yesterday. ASSESSMENT: A 76-year-old male with past medical history of end-stage renal disease on hemodialysis and history of multiple myeloma status post chemotherapy, admitted this time because of severe anemia. PLAN: 1. End-stage renal disease. Patient's regular days of dialysis are Monday, Monday and Monday. He will be dialyzed tomorrow, according to his regular schedule. 2. Severe anemia. Patient's hemoglobin is 10.7 at this time, which is acceptable. No more need of blood transfusion at this time. I would give him a dose of Aranesp with hemodialysis tomorrow. 3. Hypertension. Blood pressure is acceptable at this time. Continue current dose of Coreg 6.25 mg by mouth twice a day. 4. Metabolic encephalopathy. Patient is much more alert and awake today. He was able to communicate. He could not get his MRI done. He is waiting for open MRI at this time. 5. Possible healthcare-associated pneumonia. Patient is currently on vancomycin, Zosyn and Levaquin. Dose and duration of antibiotics is as per primary team. DISPOSITION: Patient is planning to move to [place] with his daughter. He is requesting his records to be transferred to [place] and he wants to find a dialysis center close to his daughter's home. I would relay that information to nursing staff at dialysis center tomorrow morning and, if needed, we shall transfer his records to [place] to a [facility] close to his home. Plan of care was discussed with the hospitalist team, Dr. Sammi Morales.
[2016-09-19] MEDS: PIPERACILLIN/TAZOBACTAM SOD 3.375 GM in D5W MINI-BAG PLUS 50 ML IV SCH (03:48)
[2016-09-19 05:46] LABS: BASO % 0.6 % (0.0-1.0); EOS # 0.2 K/mm3 (0.0-0.50); EOS % 3.9 % (0.0-3.0); LARGE UNSTAINED CELL # 0.1 K/mm3 (0.0-0.4); LARGE UNSTAINED CELL % 2.3 % (0.0-4.0); LYMPH # 0.9 K/mm3 (1.5-4.5); LYMPH % 15.7 % (24.0-44.0); MEAN CORPUSCULAR HEMOGLOBIN 31.7 pg (27.0-33.0); MEAN CORPUSCULAR HGB CONC 34.2 g/dl (32.0-36.5); MEAN CORPUSCULAR VOLUME 92.8 fl (80.0-96.0); MONO # 0.4 K/mm3 (0.0-0.8); MONO % 8.3 % (0.0-5.0); NEUTROPHILS # 3.4 K/mm3 (1.8-7.7); NEUTROPHILS % 69.2 % (36.0-66.0); PLATELET COUNT, AUTOMATED 144 k/mm3 (150-450); RED CELL DISTRIBUTION WIDTH 18.3 % (11.5-14.5); WHITE BLOOD COUNT 4.9 K/mm3 (4.0-10.0)
[2016-09-19 06:09] LABS: ALBUMIN 1.6 GM/DL (3.2-5.2); ALBUMIN/GLOBULIN RATIO 0.48 (1.00-1.93); BILIRUBIN,TOTAL 0.5 MG/DL (0.2-1.0); CALCIUM LEVEL 6.9 MG/DL (8.8-10.2); CREATININE FOR GFR 3.83 MG/DL (0.70-1.30); GLOMERULAR FILTRATION RATE 16.5 (>42); MAGNESIUM LEVEL 1.8 MG/DL (1.8-2.4); POTASSIUM SERUM 4.3 MEQ/L (3.5-5.1); TOTAL PROTEIN 4.9 GM/DL (6.4-8.2)
[2016-09-19] MEDS ORDERED: SODIUM CHLORIDE 0.9% INJ 10 ML SYR IV PRN (06:15)
[2016-09-19] MEDS: HumaLOG INSULIN (NovoLOG) PER UNIT SC SCH ×4 (06:17→20:30)
[2016-09-19] MEDS: CARVedilol 6.25 MG TAB PO SCH ×2 (06:40→20:47)
[2016-09-19] MEDS: CALCIUM CARBONATE 500 MG CHEW U/D PO SCH ×3 (06:50→17:44)
[2016-09-19] MEDS: OMEPRAZOLE 20 MG CAP PO SCH (06:50)
[2016-09-19] MEDS: DOCUSATE SODIUM 100 MG CAP PO SCH (06:51)
[2016-09-19] MEDS: VITAMIN D 1,000 INTERNATIONAL UNITS TABLET PO SCH (06:51)
[2016-09-19] MEDS: GABAPENTIN 100 MG CAP PO SCH ×3 (06:51→20:46)
[2016-09-19] MEDS: HEPARIN SOD (PORCINE) 5000 UNITS/ML VIAL SQ SCH ×2 (06:52→20:47)
[2016-09-19] MEDS: ASPIRIN 81 MG ENTERIC TAB PO SCH (06:57)
[2016-09-19] MEDS ORDERED: DARBEPOETIN 100 MCG/0.5 ML *DIALYSIS* SYRINGE (J0882) IV SCH (08:00)
--- NOTE | 2016-09-19 10:32 | IPN ---
DATE: 09/19/2016 SUBJECTIVE: Patient was seen and examined at the bedside this morning. The patient does not have any active complaints at this time. The patient is much more awake and alert and he is hemodynamically stable at this time. The patient reports that he got his CT scan of the head done yesterday. REVIEW OF SYMPTOMS. Patient denies any fever or chills, rigors, headache, nausea, vomiting, chest pain, shortness of breath, pain in the abdomen, constipation or diarrhea. The rest of review of systems is negative. OBJECTIVE: VITAL SIGNS: Temperature 98.1 degrees Fahrenheit, blood pressure 114/56, pulse 96, respiratory rate 18, saturating 93% on room air. INTAKE AND OUTPUT: Urine output recorded was 700 mL yesterday and 400 mL so far today since overnight. Weight on the bed scale is 86.4 kg. PHYSICAL EXAMINATION: GENERAL: Patient is awake, alert, oriented times three, laying in bed in no apparent distress. HEAD AND NECK EXAMINATION: Extraocular muscles intact. Pupils equally round and reactive to light. Neck is supple. There is no jugular venous distention (JVD). Patient has a right subclavian triple lumen catheter. CARDIOVASCULAR: S1, S2. Regular rate. No murmurs, rubs or gallops. RESPIRATORY: Chest is clear to auscultation bilaterally. Bilateral equal air entry. No rales or rhonchi. ABDOMEN: Soft. Positive bowel sounds. Nontender. No ascites. No organomegaly. EXTREMITIES: Patient has bilateral below-knee amputations and he has princess on the bilateral amputation stumps. CENTRAL NERVOUS SYSTEM: No focal neurological deficits. Power is 5/5 in bilateral upper extremities. ATRIOVENTRICULAR (AV) ACCESS: Patient has a left forearm AV fistula with positive trill and bruit. LABORATORY REVIEW: CBC showed a WBC 4.9, hemoglobin 11.3, platelets 144. BMP showed sodium 136, potassium 4.3, chloride 99, bicarbonate 28, BUN 34, creatinine 3.8, calcium is 6.9, magnesium is 1.8, albumin is 1.6. IMAGING: The patient got a CAT scan of the head done yesterday, which showed chronic changes. No acute intracranial abnormality. CURRENT MEDICATIONS: Patient's medications were all reviewed by me. There is no change in the medications today as compared with yesterday. ASSESSMENT: A 76-year-old male with past medical history of end-stage renal disease on hemodialysis and history of multiple myeloma status post chemotherapy, currently gets weekly chemotherapy as an outpatient. Admitted this time because of severe anemia. PLAN: 1. End-stage renal disease on hemodialysis. The patient gets Monday, Monday, Monday dialysis, today is regular day of dialysis. The patient will be dialyzed according to his regular schedule today in the afternoon. 2. Anemia and end stage renal disease and recent blood loss. The patient's hemoglobin is improving. It is 11.3 now. Continue current dose of Aranesp 100 mcg IV with hemodialysis. No further need of blood transfusion at this time. 3. Hypertension. Blood pressure is acceptable at this time. Continue current dose of carvedilol 6.25 mg by mouth daily. 4. Metabolic encephalopathy. Patient is much more alert and awake now. His anemia has improved. He could not get his MRI done. Repeat CAT scan did not show any acute abnormalities. 5. Healthcare-associated pneumonia. Patient is getting Levaquin, Zosyn and Flagyl at this time. Duration of antibiotics is as per primary team. Zosyn dose is adequate for his renal function. 6. Multiple myeloma. His chemotherapy is on hold and to be restarted once patient is discharged from the hospital. 7. Bilateral below the knee amputations. The patient's wounds are healed now. He still has princess at the bilateral lower extremities. We need to get vascular surgery on board. I have informed the primary team. DISPOSITION: Patient will likely be discharged on this coming . The patient is also planning to move to [place] and once he gives us the information about his future address, we shall try to get a dialysis center for him over there.
[2016-09-19] MEDS ORDERED: HEPARIN 1,000 UNITS/ML 10ML VIAL (FOR RADIOLOGY& DIALYSIS ONLY) IV ONE (11:45)
[2016-09-19 14:00] VITALS: BP 142/82
[2016-09-19] MEDS: SODIUM CHLORIDE 0.9% INJ 10 ML SYR IV SCH ×2 (14:00→22:12)
[2016-09-19] MEDS: CHECK TO SEE IF PATIENT IS RECEIVING DIALYSIS TODAY AND REFER TO THE VANCOMYCIN ORDER XX SCH (16:00)
--- NOTE | 2016-09-19 16:26 | IPN ---
DATE: 09/19/2016 Patient seen and examined. No acute events overnight. Denies any fevers or chills, chest pain, pressure or discomfort. VITAL SIGNS: Temperature 98.1, pulse 88, respirations 19, blood pressure 140/74, pulse oximetry 93% on room air. LABORATORY DATA: WBC 4.9, hemoglobin and hematocrit 11.3 over 33.2, platelets 144. Chemistry: Sodium 136, potassium 4.3, chloride 99, bicarbonate 28, BUN 34, creatinine 3.83. PHYSICAL EXAMINATION: GENERAL: Patient alert and oriented times three, comfortable, in no acute distress. HEENT: Normocephalic, atraumatic. Pupils equally round and reactive. Moist mucous membranes. NECK: Supple. CARDIAC: Regular rate and rhythm, 2/6 systolic murmur. ABDOMEN: Soft, nontender, positive bowel sounds. EXTREMITIES: Bilateral lower extremity below-knee amputation. Mild edema, improved after dialysis. ASSESSMENT AND PLAN: This is a 76-year-old male patient with underlying medical history of end-stage renal disease, type 2 diabetes, congestive heart failure, coronary artery disease, diverticulosis, foot gangrene, status post bilateral below-knee amputation, hypertension, hypertensive heart disease, ischemic cardiomyopathy, multiple myeloma, admitted for altered mental status with symptomatic anemia. Patient on chronic opioids and given Narcan in the emergency room. Problems: 1. Questionable sepsis possibly secondary to health-care associated bacterial pneumonia with possible Pseudomonas or methicillin-resistant Staphylococcus aureus (MRSA) pneumonia. IV fluids not given end-stage renal disease. Lactic acid normal. Treated with vancomycin, Zosyn, Levaquin. Currently culture has been negative. Subsequently, antibiotics discontinued today. CT scan of the abdomen appreciated. X-ray appreciated. C-reactive protein appreciated. 2. Encephalopathy. Possibly secondary to infectious versus opioid induced versus transient ischemic attack (TIA). Patient's current mental status returned to baseline. Narcan was not effective in the emergency room. Unable to tolerate MRI or open MRI. Repeat CT scan has been negative. Currently, the patient has been at baseline. As per social media content manager, the patient has been very poorly compliant with dialysis and home medication. 3. Symptomatic anemic. Transfuse a total of five units packed red blood cells. Source of bleeding, fecal occult negative. In the emergency room recently, injury to the foot stump and with considerable blood loss. 4. Respiratory alkalosis, resolved. 5. Troponin elevation. Likely secondary to demand ischemia due to severe anemia. Case discussed with Dr. Guzman. The patient was transfused, not a candidate for cardiac catheterization as per Dr. Guzman. 6. Dysphagia. Likely esophagitis. Currently resolved. Maalox, proton pump inhibitor (PPI). 7. Type 2 diabetes. Insulin as per protocol. 8. End-stage renal disease. Dialysis as per nephrology. Continue to follow. 9. Congestive heart failure (CHF) exacerbation. Patient initially with anasarca. Dialysis as per nephrology. Echo appreciated show an ejection fraction (EF) of 40 to 45%, grade 1 diastolic dysfunction. 10. Coronary artery disease. Restarting aspirin. Initially presented with severe symptomatic anemia. Aspirin was initially held. Case discussed with Dr. Guzman. Trend cardiac enzymes appreciated. Beta harris, Micardis. 11. Hypertension. Continue current medication. 12. Gastroesophageal reflux disease (GERD). Continue proton pump inhibitor. 13. History of asthma. Patient not having any wheeze. Continue current medications. 14. Peripheral vascular disease, status post bilateral below-knee amputation. Physical therapy and wound care. Vascular surgery, Dr. Navarro, has been consulted , cell phone number [phone], for possible staple removal. 15. Sacral decubitus ulcer. Pressure ulcer precaution. Frequent turning. Wound care. 16. Multiple myeloma. Patient received Revlimid and dexamethasone at home. Case discussed with Dr. Raya. Informed that the patient is in the process of moving to [place]. Dr. Raya recommended followup with oncology office in a week after discharge for arrangement of chemo regimen in [place]. 17. Deep vein thrombosis (DVT) prophylaxis. Heparin subcutaneously. DISPOSITION: Patient and family services consulted. The patient is in the process of moving to [place]. Case discussed with Dr. Raya. Okay to hold Revlimid and dexamethasone as per Dr. Raya while the patient is here and followup with oncology 1 week after discharge. Likely discharge on this week. MTDD
[2016-09-19 22:00] VITALS: BP 135/76
[2016-09-20 00:06] LABS: ORGANISM ID Not indicated. (.); SPECIMEN SOURCE Urine (.)
[2016-09-20] MEDS: diazePAM 2 MG TAB PO PRN (00:53)
[2016-09-20] MEDS: SODIUM CHLORIDE 0.9% INJ 10 ML SYR IV SCH ×3 (05:16→21:05)
[2016-09-20 05:43] LABS: BASO % 0.5 % (0.0-1.0); EOS # 0.2 K/mm3 (0.0-0.50); EOS % 3.9 % (0.0-3.0); LARGE UNSTAINED CELL # 0.1 K/mm3 (0.0-0.4); LARGE UNSTAINED CELL % 2.3 % (0.0-4.0); LYMPH # 0.7 K/mm3 (1.5-4.5); LYMPH % 14.7 % (24.0-44.0); MEAN CORPUSCULAR HEMOGLOBIN 30.4 pg (27.0-33.0); MEAN CORPUSCULAR HGB CONC 32.6 g/dl (32.0-36.5); MEAN CORPUSCULAR VOLUME 93.4 fl (80.0-96.0); MONO # 0.4 K/mm3 (0.0-0.8); MONO % 9.9 % (0.0-5.0); NEUTROPHILS # 2.9 K/mm3 (1.8-7.7); NEUTROPHILS % 68.7 % (36.0-66.0); PLATELET COUNT, AUTOMATED 149 k/mm3 (150-450); RED CELL DISTRIBUTION WIDTH 18.3 % (11.5-14.5); WHITE BLOOD COUNT 4.2 K/mm3 (4.0-10.0)
[2016-09-20 06:00] VITALS: BP 132/68
[2016-09-20 06:04] LABS: ALBUMIN 1.6 GM/DL (3.2-5.2); ALKALINE PHOSPHATASE 70 U/L (45-117); ALT/SGPT < 6 U/L (12-78); ANION GAP 6 MEQ/L (8-16); AST/SGOT 11 U/L (15-37); BILIRUBIN,TOTAL 0.3 MG/DL (0.2-1.0); BLOOD UREA NITROGEN 20 MG/DL (7-18); CALCIUM LEVEL 7.3 MG/DL (8.8-10.2); CARBON DIOXIDE LEVEL 32 MEQ/L (21-32); CHLORIDE LEVEL 101 MEQ/L (98-107); CREATININE FOR GFR 2.93 MG/DL (0.70-1.30); GLOMERULAR FILTRATION RATE 22.4 (>42); GLUCOSE, FASTING 135 MG/DL (83-110); MAGNESIUM LEVEL 1.9 MG/DL (1.8-2.4); POTASSIUM SERUM 4.1 MEQ/L (3.5-5.1); SODIUM LEVEL 139 MEQ/L (136-145); TOTAL PROTEIN 4.8 GM/DL (6.4-8.2)
[2016-09-20] MEDS: OMEPRAZOLE 20 MG CAP PO SCH (08:14)
[2016-09-20] MEDS: CALCIUM CARBONATE 500 MG CHEW U/D PO SCH ×3 (08:14→17:55)
[2016-09-20] MEDS: GABAPENTIN 100 MG CAP PO SCH ×3 (08:14→21:04)
[2016-09-20] MEDS: HumaLOG INSULIN (NovoLOG) PER UNIT SC SCH ×4 (08:14→20:55)
[2016-09-20] MEDS: ASPIRIN 81 MG ENTERIC TAB PO SCH (08:14)
[2016-09-20] MEDS: DOCUSATE SODIUM 100 MG CAP PO SCH (08:14)
[2016-09-20] MEDS: VITAMIN D 1,000 INTERNATIONAL UNITS TABLET PO SCH (08:15)
[2016-09-20] MEDS: HEPARIN SOD (PORCINE) 5000 UNITS/ML VIAL SQ SCH ×2 (08:15→21:04)
[2016-09-20] MEDS: CARVedilol 6.25 MG TAB PO SCH ×2 (08:19→21:04)
--- NOTE | 2016-09-20 11:46 | IPN ---
DATE OF SERVICE: 09/20/2016 SUBJECTIVE: The patient was seen and examined at the bedside today morning. He does not have any acute complaints. The patient is afebrile, hemodynamically stable. He tolerated the hemodialysis procedure well yesterday. REVIEW OF SYSTEMS: The patient denies any fevers, chills, rigors, headache, nausea, vomiting, chest pain, shortness of breath, pain abdomen, constipation, or diarrhea. The rest of the review of systems is negative. OBJECTIVE: VITAL SIGNS: Temperature is 97.6 degrees Fahrenheit, blood pressure is 132/68, pulse is 88, respiratory rate of 18, saturating 96% on room air. INTAKE AND OUTPUT: Urine output is 775 mL yesterday. No urine output is recorded today. Ultrafiltration with hemodialysis was 1.5 liters. Bed scale weight is not available. PHYSICAL EXAMINATION: GENERAL: The patient is awake, alert, oriented times three, laying in bed. No apparent distress. HEAD AND NECK EXAMINATION: Extraocular muscles intact. Pupils equally round and reactive to light. NECK: Supple. There is no jugular venous distention (JVD). The patient has a right subclavian triple-lumen catheter. CARDIOVASCULAR: S1, S2. Regular rate. No murmur, rub, and gallop. RESPIRATORY: Chest is clear to auscultation bilaterally. Bilateral equal air entry. No rales or rhonchi. ABDOMEN: Soft. Positive bowel sounds. Nontender. No ascites. No organomegaly. EXTREMITIES: No clubbing or cyanosis. The patient has bilateral below-knee amputations, and he has princess on the amputation stumps. CENTRAL NERVOUS SYSTEM (COMPUTATIONAL PHYSICIST): No focal neurologic deficit. Power is 5/5 in bilateral upper extremities. AV ACCESS: The patient has a left forearm AV fistula with positive thrill and bruit. LABORATORY REVIEW: Complete blood count (CBC) showed a WBC of 4.2, hemoglobin 11.1. Basic metabolic panel (BMP) showed sodium 139, potassium 4.1, chloride 101, bicarbonate 32, BUN 20, creatinine is 2.9, calcium is 7.3, albumin is 1.6. CURRENT MEDICATIONS: The patient's medications were all reviewed by me. There is no change in the medications today as compared with yesterday. However, his Zosyn and Levaquin intravenous (IV) has been stopped. ASSESSMENT: A 76-year-old male with a past medical history of end-stage renal disease on hemodialysis and history of multiple myeloma status post chemotherapy, admitted this time because of severe anemia. PLAN: 1. End-stage renal disease, on hemodialysis. The patient's regular dialysis days are Monday, Monday, Monday. He was dialyzed yesterday. Next hemodialysis session will be tomorrow. 2. Anemia in end-stage renal disease and blood loss. His hemoglobin is stable at 11.1, which is acceptable for his end-stage renal disease. Continue current dose of Aranesp 100 microgram IV with hemodialysis. 3. Hypertension. Optimized at this time. Continue Coreg 6.25 mg by mouth twice a day. 4. Bilateral below-knee amputations. The patient has princess on the stumps. He will be evaluated by vascular surgery today for removal of princess. 5. Possible healthcare-associated pneumonia. The patient was on IV antibiotics. Antibiotics have been stopped by the primary team now.
[2016-09-20 14:00] VITALS: BP 160/83
[2016-09-20] MEDS: CHECK TO SEE IF PATIENT IS RECEIVING DIALYSIS TODAY AND REFER TO THE VANCOMYCIN ORDER XX SCH (15:04)
[2016-09-20 22:00] VITALS: BP 164/92
[2016-09-21 02:00] VITALS: BP 162/85
[2016-09-21] MEDS: diazePAM 2 MG TAB PO PRN ×2 (02:09→21:08)
[2016-09-21] MEDS: SODIUM CHLORIDE 0.9% INJ 10 ML SYR IV SCH ×3 (05:03→21:09)
[2016-09-21 05:26] LABS: BASO % 0.4 % (0.0-1.0); EOS # 0.2 K/mm3 (0.0-0.50); LARGE UNSTAINED CELL # 0.1 K/mm3 (0.0-0.4); LARGE UNSTAINED CELL % 2.2 % (0.0-4.0); LYMPH # 0.4 K/mm3 (1.5-4.5); LYMPH % 7.2 % (24.0-44.0); MEAN CORPUSCULAR HEMOGLOBIN 31.2 pg (27.0-33.0); MEAN CORPUSCULAR HGB CONC 32.5 g/dl (32.0-36.5); MEAN CORPUSCULAR VOLUME 95.9 fl (80.0-96.0); MONO # 0.6 K/mm3 (0.0-0.8); MONO % 9.3 % (0.0-5.0); NEUTROPHILS # 4.8 K/mm3 (1.8-7.7); PLATELET COUNT, AUTOMATED 167 k/mm3 (150-450); RED CELL DISTRIBUTION WIDTH 17.8 % (11.5-14.5); WHITE BLOOD COUNT 6.2 K/mm3 (4.0-10.0)
[2016-09-21 05:39] LABS: ALBUMIN 1.8 GM/DL (3.2-5.2); ALBUMIN/GLOBULIN RATIO 0.53 (1.00-1.93); BILIRUBIN,TOTAL 0.4 MG/DL (0.2-1.0); CALCIUM LEVEL 6.9 MG/DL (8.8-10.2); CREATININE FOR GFR 3.46 MG/DL (0.70-1.30); GLOMERULAR FILTRATION RATE 18.5 (>42); MAGNESIUM LEVEL 1.5 MG/DL (1.8-2.4); POTASSIUM SERUM 4.2 MEQ/L (3.5-5.1); TOTAL PROTEIN 5.2 GM/DL (6.4-8.2)
[2016-09-21 06:00] VITALS: BP 155/83
[2016-09-21] MEDS: DOCUSATE SODIUM 100 MG CAP PO SCH (06:25)
[2016-09-21] MEDS: CALCIUM CARBONATE 500 MG CHEW U/D PO SCH ×3 (06:25→17:56)
[2016-09-21] MEDS: ASPIRIN 81 MG ENTERIC TAB PO SCH (06:26)
[2016-09-21] MEDS: OMEPRAZOLE 20 MG CAP PO SCH (06:27)
[2016-09-21] MEDS: CARVedilol 6.25 MG TAB PO SCH ×2 (06:27→21:08)
[2016-09-21] MEDS: GABAPENTIN 100 MG CAP PO SCH ×3 (06:27→21:08)
[2016-09-21] MEDS: VITAMIN D 1,000 INTERNATIONAL UNITS TABLET PO SCH (06:27)
[2016-09-21] MEDS: HumaLOG INSULIN (NovoLOG) PER UNIT SC SCH ×4 (06:49→21:00)
[2016-09-21] MEDS: HEPARIN SOD (PORCINE) 5000 UNITS/ML VIAL SQ SCH ×2 (06:49→21:09)
[2016-09-21] MEDS ORDERED: HEPARIN 1,000 UNITS/ML 10ML VIAL (FOR RADIOLOGY& DIALYSIS ONLY) IV ONE (11:15)
[2016-09-21] MEDS ORDERED: LIDOCAINE 1% SDV 5 ML VIAL SQ ONE (11:15)
[2016-09-21] MEDS: MULTIVITAMINS/MINERALS THERAP 1 TAB PO SCH (12:49)
--- NOTE | 2016-09-21 13:38 | IPN ---
DATE: 09/21/2016 SUBJECTIVE: The patient was seen and examined at the bedside today morning during hemodialysis procedure. The patient was tolerating the hemodialysis procedure well. He does not have any active complaints. REVIEW OF SYSTEMS: The patient denies any fevers, chills, rigors, headache, nausea, vomiting, chest pain, shortness of breath, pain abdomen, constipation, or diarrhea. The rest of the review of systems is negative. OBJECTIVE: VITAL SIGNS: Temperature is 98.6 degrees Fahrenheit, blood pressure is 155/83, pulse is 108, respiratory rate of 18, saturating 97% on room air. INTAKE AND OUTPUT: Urine output recorded is 125 mL so far today. Weight on the bed scale is 88.1 kg. PHYSICAL EXAMINATION: GENERAL: The patient is awake, alert, oriented times three, laying in bed getting hemodialysis. No apparent distress. HEAD AND NECK EXAMINATION: Extraocular muscles intact. Pupils equally round and reactive to light. NECK: Supple. There is no jugular venous distention (JVD). The patient has a right subclavian triple-lumen catheter. CARDIOVASCULAR: S1, S2. Regular rate. No murmur, rub, and gallop. RESPIRATORY: Chest is clear to auscultation bilaterally. Bilateral equal air entry. No rales or rhonchi. ABDOMEN: Soft. Positive bowel sounds. Nontender. No ascites. No organomegaly. EXTREMITIES: No clubbing or cyanosis. The patient has bilateral below-knee amputations, and he still has princess on the amputation stumps. CENTRAL NERVOUS SYSTEM (EGG SMELLER): No focal neurologic deficit. Power is 5/5 in all extremities. AV ACCESS: The patient has a left forearm AV fistula with positive thrill and it is being used for dialysis at this time with no problems. LABORATORY REVIEW: Complete blood count (CBC) showed a WBC of 6.2, hemoglobin 11.9, platelets 167. Basic metabolic panel (BMP) showed sodium 138, potassium 4.2, chloride 101, bicarbonate 29, BUN 26, creatinine is 3.4, magnesium is 1.5, calcium is 6.9, albumin is 1.8. CURRENT MEDICATIONS: The patient's medications were all reviewed by me. There is no change in the medications today as compared with yesterday. His Aranesp has been stopped. ASSESSMENT: A 76-year-old male with a past medical history of end-stage renal disease on hemodialysis and history of multiple myeloma status post chemotherapy, admitted this time because of severe anemia. PLAN: 1. End-stage renal disease. Today is the patient's regular hemodialysis day. He is getting dialyzed according to his regular schedule and we are dialyzing him with a 3 K bath. 2. Anemia in end-stage renal disease. His hemoglobin is improved above 11. I am going to hold the Aranesp dose at this time. 3. Hypertension. Blood pressure is acceptable at this time. Continue current dose of Coreg 6.25 mg by mouth twice a day. 4. Bilateral below-knee amputations. The patient is pending removal of princess by surgical service and he is pending physical therapy (PT) evaluation as well. DISCHARGE PLANNING: The patient should be ready to be discharged by tomorrow morning.
[2016-09-21 14:00] VITALS: BP 159/80
--- NOTE | 2016-09-21 15:34 | IPN ---
DATE: 09/21/2016 SUBJECTIVE: The patient today tells me that he feels well. He has no complaints other than he is frustrated with physical therapy as he was not able to work effectively with them yesterday. He denies any chest pain, shortness of breath, fever or chills, nausea, vomiting or diarrhea. OBJECTIVE: VITAL SIGNS: Temperature 98.6, pulse 108, respiratory rate 18, blood pressure 155/80, O2 sat 97% on room air. GENERAL: He is an obese elderly man laying in bed at a 60 degree angle. He does not appear to be in any acute distress. He was examined during hemodialysis where he was sleeping peacefully when I entered the room, but easily aroused with verbal stimuli. HEENT: He has moist mucous membranes. No elevation of his jugular venous pressure. Cranial nerves II through XII appear to be grossly intact. CARDIOVASCULAR: S1, S2, regular. RESPIRATORY: Fairly clear. ABDOMEN: Obese. EXTREMITIES: No clubbing, cyanosis or appreciable edema. He still has princess in place from his bilateral below the knee amputations. LABORATORY STUDIES: Today, WBC 6.2, hemoglobin 11.9, stable. Platelet count 157. Chemistry panel: Sodium 138, potassium 4.2, chloride 101, bicarbonate 29, BUN 26, creatinine 3.4. Magnesium 1.5. Microbiology: All negative. No new imaging. ASSESSMENT AND PLAN: This is a 76-year-old man with symptomatic anemia. 1. Symptomatic anemia. The patient has recent surgery with above knee amputations and end-stage renal disease. He has received a total of 5 units of packed red blood cells with positive response which remains stable. Since that time the patient is doing well. 2. Metabolic encephalopathy. There is concern the patient may have been noncompliant with appropriate medications, and taking the medications as prescribed, inadvertently taking too much. There was also concern that the patient may have had a sepsis syndrome upon presentation. He was initially treated empirically with antibiotics, but his cultures have remained negative and the antibiotics have all been discontinued. The patient did not have repeat CT scanning which was negative. 3. Troponin elevation, likely secondary to advanced ischemia. Dr. Guzman felt the patient is not a candidate for cardiac catheterization. The patient will followup with Dr. Guzman after discharge. 4. Respiratory alkalosis, resolved. 5. Dysphagia. Likely esophagitis. It did resolve with Maalox and proton pump inhibitor (PPI). 6. Type 2 diabetes. He is on insulin sliding scale with fingersticks, under control. 7. End-stage renal disease. Dialysis as per nephrology. 8. Peripheral vascular disease. Vascular surgery assured me that they will remove his princess today. 9. He is status post below knee amputations. He is receiving physical therapy and wound care. 10. Hypertension. Continue with current medication. 11. Coronary artery disease. He is on aspirin and a beta harris. Will defer to his electronics installer regarding statin therapy. 12. Gastroesophageal reflux disease. As outlined above he is on PPI. 13. Decubitus ulcer. He is requiring frequent turning and wound care. 14. Multiple myeloma. He is on Revlimid and dexamethasone at home. The patient is in the process of moving to [place]. He will followup with oncology following discharge to arrange for further chemotherapy and transfer of care to [place]. 15 deep venous thrombosis (DVT). He is on heparin, subcutaneous. DISPOSITION: We are awaiting clearance from physical therapy. The patient assured me that he has 24/7 care at home as he is going to have his neighbor come and stay with him. I suspect he may be able to be discharged home as early as tomorrow with new prescriptions for all his medications as reportedly all his medications at home have fallen on the floor. The patient is agreeable to this plan.
[2016-09-21 18:00] VITALS: BP_SYST 145; BP_SYST 151; BP_DIAS 66; BP_DIAS 84
[2016-09-21 22:00] VITALS: BP 149/79
--- NOTE | 2016-09-21 22:28 | IPN ---
DATE: 09/20/2016 SUBJECTIVE: The patient tells me that he is feeling quite well today. He feels improved. Denies any chest pain, shortness of breath, lightheadedness, dizziness, nausea, vomiting or diarrhea. OBJECTIVE: VITAL SIGNS: Temperature 97.6, pulse 88, respiratory rate 18, blood pressure 130/68, oxygen saturation 96% on room air. GENERAL: He is an elderly man sitting up in bed. He does not appear to be in any acute distress. HEENT: Cranial nerves II-XII are grossly intact. He has poor dentition. Moist mucous membranes. No appreciable of central venous pressure at this time. CARDIOVASCULAR EXAMINATION: S1, S2. Regular. RESPIRATORY EXAMINATION: Fairly clear. ABDOMINAL EXAMINATION: Obese. Bowel sounds present. Abdomen soft. EXTREMITIES: No clubbing, cyanosis or appreciable edema. LABORATORY STUDIES: WBC 4.3, hemoglobin 11.1, stable, hematocrit 34.2, platelet count 149. Chemistry panel: Sodium 139, potassium 4.1, chloride 101, bicarbonate 32, BUN 20, creatinine 2.9. MICROBIOLOGY: Blood cultures are negative for five days. Respiratory panel is negative. Sputum cultures are negative. Influenza swab is negative. Patient received 5 units of packed red blood cells during his stay. IMAGING: Patient had a CT scan of the head on 09/19/2016 which revealed chronic changes. No acute intracranial abnormality. ASSESSMENT AND PLAN: This is a 76-year-old man who presented with symptomatic anemia. PROBLEMS: 1. Symptomatic anemia. The patient was encephalopathic, likely secondary to opiates versus transient ischemic attack (TIA) versus symptomatic anemia. At the time of his presentation, he has anemia of end-stage renal disease, as well as likely related to recent operative procedure. He did receive a total of 5 units packed red blood cells with stabilization of his hemoglobin and hematocrit (H H) . Nephrology's help has been greatly appreciated. 2. Metabolic encephalopathy. Likely opioid induced versus transient ischemic attack (TIA) versus symptomatic anemia. It is resolved at this time without recurrence. 3. Questionable sepsis at time of admission. Patient was initially treated for healthcare-associated pneumonia; however, all his cultures remain negative and at this time all antibiotics have been discontinued. 4. End-stage renal disease on hemodialysis. Nephrology's help is greatly appreciated. He is scheduled for a regular hemodialysis for tomorrow. Disposition planning for Thursday. Coordinating with physical therapy, the patient's caregiver and healthcare proxy as well as home services. [facility] Family Services (PFS) is on board and helping us with this case. 5. Respiratory alkalosis. Resolved. 6. Troponinemia. Likely related to demand ischemia and end-stage renal disease. Recommend outpatient followup with his manager document control. The case was discussed with Dr. Guzman earlier and his hospitalization by Dr. Morales. The patient was transfused and felt not to be a candidate for cardiac catheterization as per Dr Guzman. 7. Dysphagia. Likely secondary to esophagitis. He is currently on Maalox partial parenteral nutrition (PPN) to proton pump inhibitor (PPI). His symptoms do appear to be improving. 8. Type 2 diabetes. He is on insulin sliding scale. His fingersticks are controlled. 9. Congestive heart failure. He was initially pronounced with anasarca. His volume status is being controlled with hemodialysis. He has some amount of systolic dysfunction as well as grade 1 diastolic dysfunction. 10. Coronary artery disease. He is on aspirin, beta harris, and Micardis. He is not on a statin Will defer to his outpatient manager document control. 11. Hypertension. Continue his current medication. 12. Peripheral vascular disease. He is status post [id number] amputation (BKA) bilaterally. He continues to work with physical therapy. Vascular surgery, Dr. Navarro has been consulted and he will help with removal of the princess. Patient will follow up outpatient with prosthetics to receive new prosthetic limbs. 13. Sacral decubitus ulcer. He is receiving wound care, frequent turning. 14. Multiple myeloma. Patient receiving a followup with Dr. Raya. He previously received Revlimid and dexamethasone. He will need to follow up in oncology one week after discharge in order to coordinate transfer of his care to [place], as he plans to move there in the coming months. 15. Deep venous thrombosis (DVT) prophylaxis. Patient is on heparin. 16. Anxiety. Patient is on diazepam as needed. DISPOSITION: We are planning for discharge on . СВЕТЛАНАD
[2016-09-22 02:00] VITALS: BP 140/83
[2016-09-22] MEDS: SODIUM CHLORIDE 0.9% INJ 10 ML SYR IV SCH (05:25)
[2016-09-22 06:00] VITALS: BP 151/85
[2016-09-22] MEDS: HumaLOG INSULIN (NovoLOG) PER UNIT SC SCH (07:50)
[2016-09-22] MEDS: CALCIUM CARBONATE 500 MG CHEW U/D PO SCH (07:50)
[2016-09-22] MEDS ORDERED: ASPI1TAB PO (09:59)
[2016-09-22] MEDS ORDERED: CARV6.25 PO (09:59)
[2016-09-22] MEDS ORDERED: MELA5TAB14 PO (09:59)
[2016-09-22] MEDS ORDERED: VITA100066 PO (09:59)
[2016-09-22] MEDS ORDERED: NITR4TASL SL (09:59)
[2016-09-22] MEDS ORDERED: DIPH25CA PO (09:59)
[2016-09-22] MEDS ORDERED: ACET65TA PO (09:59)
[2016-09-22] MEDS ORDERED: GABA-279 PO (09:59)
[2016-09-22] MEDS ORDERED: GLIP-163 PO (09:59)
[2016-09-22] MEDS ORDERED: ALBU17IN INH (09:59)
[2016-09-22] MEDS ORDERED: MIRA3350 PO (09:59)
[2016-09-22] MEDS ORDERED: TUMS500C PO (09:59)
[2016-09-22] MEDS ORDERED: CLAR1TAB2 PO (09:59)
[2016-09-22] MEDS ORDERED: HYDR25T PO (09:59)
[2016-09-22] MEDS ORDERED: DIAZ2TAB PO (09:59)
[2016-09-22] MEDS ORDERED: OMEP40CA2 PO (09:59)
[2016-09-22] MEDS ORDERED: COLA100C3 PO (09:59)
[2016-09-22] MEDS ORDERED: FERR325T3 PO (09:59)
[2016-09-22 10:00] VITALS: BP 178/88
[2016-09-22 10:17] VITALS: BP 178/88
[2016-09-22] MEDS: CARVedilol 6.25 MG TAB PO SCH (10:17)
[2016-09-22] MEDS: VITAMIN D 1,000 INTERNATIONAL UNITS TABLET PO SCH (10:17)
[2016-09-22] MEDS: DOCUSATE SODIUM 100 MG CAP PO SCH (10:17)
[2016-09-22] MEDS: ASPIRIN 81 MG ENTERIC TAB PO SCH (10:17)
[2016-09-22] MEDS: GABAPENTIN 100 MG CAP PO SCH (10:18)
[2016-09-22] MEDS: MULTIVITAMINS/MINERALS THERAP 1 TAB PO SCH (10:18)
[2016-09-22] MEDS: OMEPRAZOLE 20 MG CAP PO SCH (10:18)
[2016-09-22] MEDS: HEPARIN SOD (PORCINE) 5000 UNITS/ML VIAL SQ SCH (10:18)
--- NOTE | 2016-09-22 11:07 | REP ---
AP PORTABLE CHEST: 09/22/2016 COMPARISON: 09/14/2016. CLINICAL HISTORY: Dyspnea. End-stage renal disease. FINDINGS: There is a right upper extremity central catheter with tip in right atrium. This is unchanged. There is cardiomegaly evident. Left effusion is seen blunting the CP angle with vascular redistribution and both alveolar and interstitial edema evident. Right middle lobe shows a large opacity silhouetting the right heart border representing consolidative atelectasis, infiltrate or alveolar edema. No pneumothorax. The aorta is mildly tortuous, unchanged. Airway intact. There are degenerative changes in the spine. IMPRESSION: 1. New right base consolidative opacity abutting the right heart border in the middle lobe representing alveolar edema or infiltrates with left effusion and pulmonary edema. Superimposed pneumonitis difficult to exclude. 2. Right subclavian central catheter with tip in the right atrium. Signed by Ajit Lopes MD 09/22/2016 02:15 P
[2016-09-22] MEDS ORDERED: IPRATROPIUM 0.5MG/ALBUTEROL 2.5MG INH SOL UD 3ML (DUONEB)(J7620) NEB SCH (12:00)
--- NOTE | 2016-09-22 13:14 | IPN ---
DATE OF SERVICE: 09/22/2016 SUBJECTIVE: The patient was seen and examined at the bedside today in the morning. He was complaining of respiratory distress. Patient was requesting nebulization this morning. Patient was given a DuoNeb nebulization and stat chest x-ray was done and chest x-ray does show some developing pulmonary edema. Patient was dialyzed yesterday and about 2.5 liter of ultrafiltration was done. REVIEW OF SYSTEMS: The patient denies any fevers, chills, rigors, headache, nausea, vomiting, chest pain. He does report some shortness of breath and he reports that he does have these episodes sometimes at home as well. He denies any pain in abdomen, constipation, or diarrhea. The rest of the review of systems is negative. OBJECTIVE: VITAL SIGNS: Temperature is 98.0 degrees Fahrenheit, blood pressure is 178/88, pulse is 85, respiratory rate of 18, saturating 97% on room air. INTAKE AND OUTPUT: Urine output recorded is 225 mL yesterday, 100 mL so far today since overnight. Weight on the bed scale is 85.9 kg. Ultrafiltration done yesterday was 2.5 liters. PHYSICAL EXAMINATION: GENERAL: The patient is awake, alert, oriented times three, sitting in bed in mild respiratory distress. HEAD AND NECK EXAMINATION: Extraocular muscles intact. Pupils equally round and reactive to light. NECK: Supple. There is no jugular venous distention (JVD). Right subclavian triple-lumen catheter has been taken out. CARDIOVASCULAR: S1, S2. Regular rate. No murmur, rub, and gallop. RESPIRATORY: Decreased breath sounds at the bases. Mild expiratory rhonchi at the bases and right is worse than the left. ABDOMEN: Soft. Positive bowel sounds. Nontender. No ascites. No organomegaly. EXTREMITIES: No clubbing or cyanosis. The patient has bilateral below-knee amputations, he still has princess on the amputation stumps, and he has 1+ edema of the thighs. CENTRAL NERVOUS SYSTEM (RV SERVICE TECHNICIAN): No focal neurologic deficit. Power is 5/5 in all extremities. AV ACCESS: The patient has a left forearm AV fistula with positive thrill and bruit. LABORATORY REVIEW: Complete blood count (CBC) showed a WBC of 6.2, hemoglobin 11.9, platelets 167. Basic metabolic panel (BMP) showed sodium 138, potassium 4.2, chloride 101, bicarbonate 29, BUN 26, creatinine is 3.4, calcium is 6.9, magnesium is 1.5, albumin is 1.8. IMAGING: A chest x-ray done this morning showed new right base consolidative opacity in the middle lobe representing alveolar edema or infiltrate and he had a left effusion and pulmonary edema as well. CURRENT MEDICATIONS: The patient's medications were all reviewed by me. There is no change in the medications today as compared with yesterday. ASSESSMENT: 76-year-old male with a past medical history of end-stage renal disease on hemodialysis. History of multiple myeloma, admitted this time because of severe anemia. PLAN: 1. End-stage renal disease. Patient regular hemodialysis days are Monday, Monday, and Monday. He was dialyzed yesterday according to his regular schedule. Next hemodialysis session is tomorrow. I offered him another session of ultrafiltration, but patient is refusing at this time. 2. Pulmonary edema and shortness of breath. Patient's chest x-ray does show some worsening infiltrate and possible pulmonary edema on the x-ray, but patient absolutely does not want to stay in the hospital, he wants to home. He is promising that he would show up for hemodialysis tomorrow morning as an outpatient. If patient leaves the hospital it would have to be against medical advice. 3. Hypertension. Blood pressure is acceptable at this time. Continue Coreg 6.25 mg by mouth twice a day. Transient increase in the blood pressure would be secondary to DuoNeb nebulization. 4. Anemia in end-stage renal disease. Patient's hemoglobin is stable at this time. It is 11.9 at this tome. Continue to monitor. No need of Aranesp at this time. 5. Multiple myeloma. Patient is supposed to followup at oncology for further continuation of chemotherapy. The plan of care was discussed with the patient's RN and with the hospitalist service, Dr. Karen Galvin.
--- NOTE | 2016-09-22 18:58 | DSES ---
DATE OF ADMISSION: 09/14/2016 DATE OF LEAVING AGAINST MEDICAL ADVICE: 09/22/2016 DISCHARGE DIAGNOSES: 1. Symptomatic anemia. 2. Decompensated congestive heart failure. 3. Metabolic encephalopathy. 4. Opioid toxicity. 5. End-stage renal disease on hemodialysis. 6. Non-ST elevation myocardial infarction (NSTEMI). 7. Respiratory alkalosis. 8. Type 2 diabetes. 9. Coronary artery disease. 10. Hypertension. 11. Peripheral vascular disease. 12. Sacral decubitus ulcer. 13. Multiple myeloma. 14. Anxiety. HOSPITAL COURSE: The patient is a 76-year-old man who initially presented lethargic and encephalopathic, felt to be secondary to symptomatic anemia. His hemoglobin was significantly low requiring 5 units of transfusions, felt to be related to end-stage renal disease in addition to recent below knee amputations (BKAs), and also potentially opiate toxicity. The patient did improve. He was also found to be grossly fluid overloaded and did improve with ultrafiltration and fluid removal during hemodialysis. The patient was seen in consultation by nephrology. He had an echocardiogram completed during his stay that revealed global hypokinesis, segmental wall motion abnormalities, with ejection fraction (EF) estimated to be about 40-45%, grade 2 diastolic dysfunction, central venous pressure. The patient remained in hospital working with physical therapy while optimizing his volume status and he gradually clinically improved. There were significant difficulties in arranging for disposition for the patient and he refused discharge until his healthcare proxy was able to present to the area. He was waiting for arrangements for 24/7 care at home. Today, there was a plan for potential discharge, however he did appear to be fluid overloaded by his xray and clinical exam. He was offered hemodialysis for further ultrafiltration, however the patient adamantly refused and elected to leave the hospital AGAINST MEDICAL ADVICE despite me having had discussions with him today and on previous days regarding the risks of doing so and the possibility that his insurance may not cover his hospital stay. He still elected to LEAVE AGAINST MEDICAL ADVICE. This was discussed by both myself and Dr. Loaiza. SUBJECTIVE: The patient reports that he has mild shortness of breath but he wants to go home. OBJECTIVE: VITAL SIGNS: Temperature 97.1, pulse 85, respiratory rate 18, blood pressure 131/85, oxygen saturation 98% on room air. GENERAL: He is a morbidly obese, elderly, man sitting up in bed. He does not appear to be in any acute distress. HEENT: Moist mucous membranes. I do appreciate some mild elevation in his central venous pressure (CVP). CARDIOVASCULAR EXAM: S1, S2, regular. RESPIRATORY EXAM: He has rales at the bases. ABDOMINAL EXAM: Grossly obese. EXTREMITIES: Status post BKA, his princess are still in place. LABORATORY STUDIES: Labs from 09/21/2016: WBC 6.2, hemoglobin 11.9, platelet count 167. Chemistry panel: Sodium 138, potassium 4.2, chloride 101, bicarbonate 29, BUN 26, creatinine 3.4, magnesium level is 1.5. Chest xray from today revealed new right basilar consolidative opacity in the right middle lobe representing alveolar edema or infiltrates with left effusion and pulmonary edema, superimposed pneumonitis difficult to exclude, right subclavian central catheter with tip in the right atrium. ASSESSMENT AND PLAN: This is a 76-year-old man with decompensated congestive heart failure. 1. Decompensated congestive heart failure. The patient has mild systolic dysfunction and diastolic dysfunction. Lung status is optimized with hemodialysis. At this present time he is not euvolemic but he is leaving the hospital AGAINST MEDICAL ADVICE and he promises he will present to hemodialysis tomorrow. 2. Symptomatic anemia, likely related to end-stage renal disease and recent surgery. 3. Metabolic encephalopathy, likely symptomatic anemia versus opiate toxicity. He has been in the hospital for 8 days and not required any opiate therapy. He will not be discharged on any opiate therapy. He can followup with his primary care provider regarding this. His metabolic encephalopathy did completely resolve. 4. Questionable sepsis. Was concern for healthcare-associated pneumonia at the time of arrival, however all his cultures have remained negative and he has been discontinued from antibiotics. 5. Respiratory alkalosis, resolved. 6. Troponinemia and the patient has segmental wall motion abnormalities on his echocardiogram. He likely has some underlying coronary disease. Recommend he followup with cardiology. Case was discussed with his wire mill operator, Dr. Guzman, who felt he was not a candidate for cardiac catheterization. 7. Dysphagia. This is likely secondary to reflux. He has improved on proton pump inhibitor (PPI) and Maalox. 8. Type 2 diabetes. He has been on sliding scale insulin. 9. Coronary artery disease. Will defer to his outpatient wire mill operator, however he is on an aspirin and beta harris. 10. Hypertension. He is on a beta harris and Micardis. 11. Peripheral vascular disease status post below knee amputations bilaterally. He has worked with physical therapy. Vascular surgery, Dr. Navarro, had been consulted. Unfortunately, he was unable to take out princess while in the hospital but he will follow with the patient for stump evaluation within the next week. 12. Sacral decubitus ulcer. He requires frequent turning. He has been receiving wound care while in hospital. 13. Multiple myeloma. He is to followup with Dr. Raya within 1 week. His chemotherapy is being reordered by oncology. He is relocating to [place], he will have to have new providers established there and transition of care arranged through his primary care provider and subspecialty providers. 14. Deep venous thrombosis (DVT) prophylaxis. He has been on heparin. 15. Anxiety. He is on diazepam as needed. DISPOSITION: The patient is leaving the hospital AGAINST MEDICAL ADVICE. He has 24/ care at home, with this in place physical therapy had cleared him. He is to followup with dialysis tomorrow, transportation for this has been arranged. He is provided new prescriptions for all of his medications as his previous medications had fallen on the floor and gone bad. His activity and diet are as prior to admission. He is to return to the emergency room (ER) if his symptoms worsen. MEDICATIONS: At the time of discharge: - acetaminophen 650 mg every 4 hours as needed for mild pain or fever - Ventolin HFA two puffs every 4 hours as needed for shortness of breath - aspirin 81 mg daily - Tums 500 mg with meals - carvedilol 6.25 mg twice a day - vitamin D 1000 units daily - dexamethasone 20 mg every Monday - diphenhydramine 25 mg nightly as needed for sleep - Colace 100 mg daily - ferrous sulfate 325 mg daily - gabapentin 100 mg three times a day - glipizide extended release 2.5 mg daily - hydroxyzine 25 mg nightly as needed for sleep - Revlimid 5 mg as directed for 14 days on, 17 days off - Claritin 10 mg daily as needed for itching - melatonin 5 mg as needed for sleep - Nitrostat 0.4 mg sublingually as needed for chest pain - omeprazole 40 mg daily - MiraLax powder 17 grams daily as needed for constipation - diazepam 2 mg every 12 hours as needed for anxiety, maximum daily dose two tablets per day Greater than 45 minutes attempting to arrange for as safe a disposition as possible.
== END 2016-09-22 12:58 | disposition left against medical advice (07) | DRG 682 ==
LOC: EDBD 15:02 → M ED 16:17 → M ED INP 21:14 → M ICU 22:17 → M PCU 09-16 16:09 → M MSPAV 09-18 12:00
PROVIDERS: ADMIT Hospitalist; ATTEND Internal Medicine
PROC: 30233N1 Transfusion of Nonautologous Red Blood Cells into Peripheral Vein, Percutaneous Approach (ICD-10-PCS; principal; 2016-09-14)
DX: I13.11 Hypertensive heart and chronic kidney disease without heart failure, with stage 5 chronic kidney disease, or end stage renal disease (principal); G93.41 Metabolic encephalopathy; I50.41 Acute combined systolic (congestive) and diastolic (congestive) heart failure; N18.6 End stage renal disease; E87.3 Alkalosis; C90.00 Multiple myeloma not having achieved remission; N25.81 Secondary hyperparathyroidism of renal origin; D63.1 Anemia in chronic kidney disease; E11.9 Type 2 diabetes mellitus without complications; I25.10 Atherosclerotic heart disease of native coronary artery without angina pectoris; F41.9 Anxiety disorder, unspecified; I73.9 Peripheral vascular disease, unspecified; K21.9 Gastro-esophageal reflux disease without esophagitis; Z89.511 Acquired absence of right leg below knee; Z89.512 Acquired absence of left leg below knee; L89.159 Pressure ulcer of sacral region, unspecified stage; Z79.82 Long term (current) use of aspirin; Z79.899 Other long term (current) drug therapy; M19.90 Unspecified osteoarthritis, unspecified site; J45.909 Unspecified asthma, uncomplicated; K57.30 Diverticulosis of large intestine without perforation or abscess without bleeding; I25.2 Old myocardial infarction; K20.9 Esophagitis, unspecified; D50.0 Iron deficiency anemia secondary to blood loss (chronic)

== ENCOUNTER 2016-09-26 10:10 | Inpatient (IN) | payer MEDICARE ==
[~2016-09-26] VITALS: Ht 175.3 cm; Wt 84.6 kg
[~2016-09-26 10:10] MED LIST changes: +ACET65TA PO; +GABA-279 PO; +PATIENT COMMENT
[2016-09-26] MEDS ORDERED: PATIENT COMMENT (11:24)
--- NOTE | 2016-09-26 11:47 | REP ---
CT HEAD WITHOUT CONTRAST: HISTORY: Altered mental status. COMPARISON: 09/18/2016. Areas of decreased attenuation are present in the periventricular white matter. This represents small vessel ischemic disease. There is no intraparenchymal hemorrhage, mass or midline shift. The ventricular system and cortical sulci are dilated consistent with mild volume loss. There is no extracerebral collection. The visualized sinuses are clear. IMPRESSION: 1. Small vessel ischemic disease. 2. Mild volume loss. Signed by Steve Smiley MD 09/26/2016 11:58 A
--- NOTE | 2016-09-26 11:51 | REP ---
Clinical: Altered mental status. Comparison: 09/22/2016. Findings: Increasing bilateral perihilar and lower lobe opacities with pleural effusions most compatible with CHF and pulmonary interstitial edema. No pneumothorax. Underlying consolidation and atelectasis cannot be excluded. Impression: Findings most compatible with moderate CHF and pulmonary edema including bibasilar opacities and pleural effusions. Signed by Harley Loza MD 09/26/2016 11:42 A
[2016-09-26 12:32] LABS: ABG BASE EXCESS -0.2 (-2.0-2.0); ABG PARTIAL PRESSURE CO2 37.8 mmHg (35.0-45.0); ABG PARTIAL PRESSURE O2 73.9 mmHg (75.0-100.0); ABG STANDARD HCO3 24.3 MEQ/L (22.0-26.0); ABG TOTAL CO2 25.2 MEQ/L (23.0-31.0); ABG pH (ARTERIAL) 7.421 UNITS (7.350-7.450)
[2016-09-26 12:49] LABS: BASO % 0.3 % (0.0-1.0); EOS # 0.1 K/mm3 (0.0-0.50); EOS % 0.8 % (0.0-3.0); LARGE UNSTAINED CELL # 0.1 K/mm3 (0.0-0.4); LARGE UNSTAINED CELL % 1.1 % (0.0-4.0); LYMPH # 0.5 K/mm3 (1.5-4.5); MEAN CORPUSCULAR HEMOGLOBIN 31.5 pg (27.0-33.0); MEAN CORPUSCULAR HGB CONC 32.5 g/dl (32.0-36.5); MEAN CORPUSCULAR VOLUME 96.9 fl (80.0-96.0); MONO # 0.8 K/mm3 (0.0-0.8); MONO % 6.3 % (0.0-5.0); NEUTROPHILS % 87.5 % (36.0-66.0); PLATELET COUNT, AUTOMATED 192 k/mm3 (150-450); RED CELL DISTRIBUTION WIDTH 17.7 % (11.5-14.5); WHITE BLOOD COUNT 12.6 K/mm3 (4.0-10.0)
[2016-09-26 13:54] LABS: OSMOLALITY SERUM 293 MOSM/KG (280-301)
[2016-09-26 14:26] LABS: ALBUMIN 2.1 GM/DL (3.2-5.2); ALBUMIN/GLOBULIN RATIO 0.57 (1.00-1.93); ALKALINE PHOSPHATASE 98 U/L (45-117); ALT/SGPT 13 U/L (12-78); ANION GAP 8 MEQ/L (8-16); AST/SGOT 15 U/L (15-37); BILIRUBIN,DIRECT 0.2 MG/DL (0.0-0.2); BILIRUBIN,TOTAL 0.6 MG/DL (0.2-1.0); BLOOD UREA NITROGEN 40 MG/DL (7-18); CALCIUM LEVEL 7.3 MG/DL (8.8-10.2); CARBON DIOXIDE LEVEL 26 MEQ/L (21-32); CHLORIDE LEVEL 103 MEQ/L (98-107); CREATININE FOR GFR 3.59 MG/DL (0.70-1.30); GLOMERULAR FILTRATION RATE 17.7 (>42); GLUCOSE, FASTING 75 MG/DL (83-110); SODIUM LEVEL 137 MEQ/L (136-145); TOTAL PROTEIN 5.8 GM/DL (6.4-8.2)
[2016-09-26 14:33] LABS: POTASSIUM SERUM 5.4 MEQ/L (3.5-5.1)
[2016-09-26] MEDS ORDERED: SOD POLYSTYRENE SULFONATE SUSP 15 GM/60 ML UD PO ONE (15:00)
--- NOTE | 2016-09-26 15:02 | ECGEPIP ---
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
--- NOTE | 2016-09-26 15:34 | HPEPDOC ---
Medical History and Physical Date of Admission 09/26/16 History and Physical ATTENDING: Dr. Collins PCP/Nephrology: Dr Fernandes CC: Left AMA this AM HPI: 76yoM with a past medical history significant for recent B/L BKA who was noted to be lethargic by home health aid this AM. Pt had most recently been admitted to [facility] 09/14/16-09/22/16 when he signed out AMA. He had been treated for symptomatic anemia and decompensated CHF. Friend with Pt states he has a difficult time taking his medications related to Pt blindness. Reports last HD last Monday, on // schedule. Denies any fevers, chills, weakness, fatigue, COBOS , CP, SOB, cough, palpitations, abdominal pain, N/V/D or changes in bowel or bladder habits. Upon presentation to the hospital the patient was found to have decompensated CHF, thus the hospitalist team was consulted. PMHx: ESRD, HD as per Dr Fernandes M// CHF/HTN/HHD Ischemic CMP/CAD/H/O GA. TTE EF40-45%, Grade 2 DD metabolic encephalopathy DM2 PVD sacral decubitus ulcer multiple myeloma anxiety Blindness OA Asthma Anemia related to ESRD PSHX: B/L BKA transmetatarsal amputation left arm fistula SOCHX: Resides in: lives alone, has home health aid. Tobacco use: quit several years ago ETOH: quit 2 years ago Illicit Drugs: Denies Recent travel: denies Advanced directives: HCP [facility] [phone]. FAMHX: Children: 2 dtrs, 1 son Alive, well ROS: As noted in HPI, otherwise 11pt ROS of systems reviewed and remarkable only for noticing some SOB last PM and this AM. Trouble sleeping past 3-4 days. PE: GEN: 76yoM. No acute distress. Alert and oriented to person, place some confusion with time. Pleasant, interactive. HEENT: Normocephalic, atraumatic. Pupils are equal, round, and reactive to light. Extraocular movements are intact. No nystagmus appreciated. Sclera are nonicteric. Conjunctiva without injection. Nose midline. Nasal turbinates without bogginess. EACs both patent BL. TMs both visualized and palmer with good cone of light, no bulging or erythema. No facial asymmetry. Moist mucous membranes. Dentition fair. Pharynx pink and moist, no cobblestoning. Neck supple , trachea midline. No lymphadenopathy or thyromegaly appreciated. CHEST: Regular rate and rhythm, +S1, +S2. LUNGS: Rales noted bases bilaterally. No wheezes, or rhonchi. Breathing appears symmetric and easy. Patient is speaking in full sentences. No accessory muscle use. ABD: Round, soft, non-tender, non-distended. +Bowel sounds throughout. No rebound or guarding. No costovertebral angle tenderness. EXT: B/L BKA. SKIN: [place], dry, warm. sacral erythema noted. No rashes. bruises and abrasions noted UEs B/L. Pt still has princess intact in surgical wounds B/L. no drainage. NEURO: Cranial nerves III-XII are intact. No focal deficits appreciated. CXR: Findings most compatible with moderate CHF and pulmonary edema including bibasilar opacities and pleural effusions. CT: Small vessel ischemic disease. Mild volume loss. EKG: SINUS TACHYCARDIA WITH SHORT MT INTERVAL MODERATE INTRAVENTRICULAR CONDUCTION DELAY RATE INCREASE COMPARED TO 09/15/16 BLOOD CULTURES: x 2 pending. A&P: 76yoM with a past medical history significant for recent B/L BKA who was noted to be lethargic by home health aid this AM. Pt had most recently been admitted to [facility] 09/14/16-09/22/16 when he signed out AMA. He had been treated for symptomatic anemia and decompensated CHF. Friend with Pt states he has a difficult time taking his medications related to Pt blindness. The patient will be admitted to PCU for at least [address] Collins's service. Pt is discussed with Dr Fowler. 1. Acute metabolic encephalopathy. Possibly related to mis-dosing medications. Pt with blindness and has difficulty seeing them, remembering what he took. BC/ UC pending. Ammonia level AM. CIP/Trop x 3. Monitor labs. Hold off on abx at this time afebrile, WBC 12.6. Hold po meds valium, hydroxyzine, gabapentin, benadryl HS. 2. ESRD/HD. Dr Fernandes is aware and planning to see Pt. Planning for HD tomorrow. 3. s/p B/L BKA. PT/OT/PFS. Pt states has f/u with surgery St . Tylenol as needed. 4. H/O anemia in ESRD. Aranesp as per nephrology. Hgb 11.4, monitor. 5. DM2. Glipizide on hold. SSI/CC diet. 6. HHD/CHF. HD as per Dr Fernandes. 7. CAD/CMP/H/O GA. Coreg with hold parameters. 8. Multiple Myeloma. managed as per Hematology/Oncology. Revlimid/ dexamethasone. 9. H/O sacral ulcer. Turning/repositioning. DVT prophylaxis. The patient is a Full code. Vital Signs Vital Signs Date Time Temp Pulse Resp B/P (MAP) Pulse Ox O2 Delivery O2 Flow Rate FiO2 09/26/16 10:41 09/26/16 10:20 99.3 124 18 91 Room Air Laboratory Data Labs 24H Laboratory Tests 2 09/26/16 11:37: Bedside Glucose (Misc Panel) 84 09/26/16 12:24: Blood Gas Bicarbonate Standard 24.3, Arterial Blood pH 7.421, Arterial Blood Partial Pressure CO2 37.8, Arterial Blood Partial Pressure O2 73.9L, Arterial Blood Total CO2 25.2, Arterial Blood HCO3 24.0, Arterial Blood Base Excess -0.2 , Arterial Blood Oxygen Saturation 95.2 09/26/16 12:29: Lactic Acid Level 1.2, Ammonia 91H 09/26/16 12:30: White Blood Count 12.6H, Red Blood Count 3.61L, Hemoglobin 11.4L, Hematocrit 35.0L, Mean Corpuscular Volume 96.9H, Mean Corpuscular Hemoglobin 31.5, Mean Corpuscular Hemoglobin Concent 32.5, Red Cell Distribution Width 17.7H, Platelet Count 192, Neutrophils (%) (Auto) 87.5H, Lymphocytes (%) (Auto) 4.0L, Monocytes (%) (Auto) 6.3H, Eosinophils (%) (Auto) 0.8, Basophils (%) (Auto) 0.3 , Neutrophils # (Auto) 11.0H, Lymphocytes # (Auto) 0.5L, Monocytes # (Auto) 0.8 , Eosinophils # (Auto) 0.1, Basophils # (Auto) 0.0, Large Unclassified Cells % 1.1, Large Unclassified Cells # 0.1 09/26/16 13:16: Anion Gap 8, Glomerular Filtration Rate 17.7L, Osmolality 293, Calcium Level 7.3L, Aspartate Amino Transf (AST/SGOT) 15, Alanine Aminotransferase (ALT/SGPT) 13, Alkaline Phosphatase 98, Total Bilirubin 0.6, Direct Bilirubin 0.2, Total Creatine Kinase 80, Creatine Kinase MB 7.4H, Creatine Kinase MB Relative Index 9.25H, Troponin I 0.14H, Total Protein 5.8L, Albumin 2.1L, Albumin/Globulin Ratio 0.57L, Thyroid Stimulating Hormone (TSH) 3.060, Salicylates Level < 1.7L, Acetaminophen Level 2.9L, Ethyl Alcohol Level < 0.003 CBC/BMP Laboratory Tests 09/26/16 12:30 Red Blood Count 3.61 L, Mean Corpuscular Volume 96.9 H, Mean Corpuscular Hemoglobin 31.5, Mean Corpuscular Hemoglobin Concent 32.5, Red Cell Distribution Width 17.7 H, Neutrophils (%) (Auto) 87.5 H, Lymphocytes (%) (Auto ) 4.0 L, Monocytes (%) (Auto) 6.3 H, Eosinophils (%) (Auto) 0.8, Basophils (%) ( Auto) 0.3, Neutrophils # (Auto) 11.0 H, Lymphocytes # (Auto) 0.5 L, Monocytes # (Auto) 0.8, Eosinophils # (Auto) 0.1, Basophils # (Auto) 0.0 09/26/16 13:16 Microbiology Microbiology 09/26/16 Blood Culture, Received Pending 09/26/16 Blood Culture, Received Pending Home Medications Scheduled Aspirin (Aspirin 81) 81 Mg Tab, 81 MG PO DAILY Calcium Carbonate (Tums) 500 Mg Chw, 500 MG PO WM Carvedilol (Carvedilol) 6.25 Mg Tab, 6.25 MG PO BID Cholecalciferol (Vitamin D) 1,000 Unit Tab, 1,000 UNIT PO DAILY Dexamethasone (Dexamethasone) 4 Mg Tab, 20 MG PO QWEEK WEDNESDAYS Docusate Sodium (Colace) 100 Mg Cap, 100 MG PO DAILY Ferrous Sulfate (Ferrous Sulfate) 325 Mg Tab, 325 MG PO DAILY Gabapentin (Gabapentin) 100 Mg Cap, 100 MG PO TID Glipizide (Glipizide Xl) 2.5 Mg Tab, 2.5 MG PO DAILY Lenalidomide (Revlimid) 5 Mg Cap, 5 MG PO ASDIRECTED TAKE FOR 14 DAYS ON, 7 DAYS OFF Omeprazole (Omeprazole) 40 Mg Cap, 40 MG PO DAILY Scheduled PRN Acetaminophen (Mapap) 325 Mg Tab, 650 MG PO Q4HP PRN for MILD PAIN OR FEVER Albuterol Sulfate (Ventolin Hfa) 200 Puff/8 Gm Aers, 2 PUFF INH Q4H PRN for SHORTNESS OF BREATH Diazepam (Diazepam) 2 Mg Tab, 2 MG PO Q12H PRN for ANXIETY Diphenhydramine HCl (Diphenhydramine HCl) 25 Mg Cap, 25 MG PO QHS PRN for SLEEP Hydroxyzine HCl (Hydroxyzine HCl) 25 Mg Tab, 25 MG PO QHS PRN for SLEEP Loratadine (Claritin) 10 Mg Tab, 10 MG PO DAILY PRN for ITCHING Melatonin (Melatonin) 5 Mg Tab, 5 MG PO QHS PRN for SLEEP Nitroglycerin (Nitrostat) 0.4 Mg Subl, 0.4 MG SL PRN PRN for CHEST PAIN Polyethylene Glycol (Miralax) 1 Pow Pow, 17 GM PO DAILY PRN for CONSTIPATION Miscellaneous Medications [Patient Comment ] PT UNABLE TO VERIFY MEDS OR IF HE HAD THEM TODAY- LEFT AMA FROM A DIFFERENT HOSPITAL A FEW DAYS AGO- GOING BY WHAT HE WAS DISCHARGED ON 09/22/16 Allergies Coded Allergies: No Known Allergies (Unverified , 09/14/16) Lauren Rendon September 26, 2016 15:34
[2016-09-26] MEDS ORDERED: LORATADINE 10 MG TAB PO PRN (15:45)
[2016-09-26] MEDS ORDERED: GLUCOSE 4 GM CHEW TABLET PO PRN (15:45)
[2016-09-26] MEDS ORDERED: ALBUTEROL 90 MCG/ACT 8GM HFA INHALER INH PRN (15:45)
[2016-09-26] MEDS ORDERED: ACETAMINOPHEN TAB 650MG DOSE (2X325MG) PO PRN (15:45)
[2016-09-26] MEDS ORDERED: GLUCAGON FOR INJ 1 MG VIAL (J1610) SC PRN (15:45)
[2016-09-26] MEDS ORDERED: MIRALAX *UNIT DOSE* 17GM PACKET PO PRN (15:45)
[2016-09-26] MEDS ORDERED: DEXTROSE 50% 50 ML SYRINGE IV PRN (15:45)
[2016-09-26] MEDS: HumaLOG INSULIN (NovoLOG) PER UNIT SC SCH ×2 (17:30→21:00)
[2016-09-26] MEDS: CALCIUM CARBONATE 500 MG CHEW U/D PO SCH (18:13)
[2016-09-26 21:00] VITALS: BP 170/88
[2016-09-26] MEDS ORDERED: SLF 3 ML SYR IV PRN (21:15)
[2016-09-26] MEDS: CARVedilol 6.25 MG TAB PO SCH (21:17)
[2016-09-26] MEDS: SLF 3 ML SYR IV SCH (21:18)
[2016-09-27 00:10] VITALS: BP 99/56
[2016-09-27 04:20] VITALS: BP 107/56
[2016-09-27 05:38] LABS: MEAN CORPUSCULAR HEMOGLOBIN 30.8 pg (27.0-33.0); MEAN CORPUSCULAR HGB CONC 31.3 g/dl (32.0-36.5); MEAN CORPUSCULAR VOLUME 98.3 fl (80.0-96.0); RED CELL DISTRIBUTION WIDTH 17.7 % (11.5-14.5); WHITE BLOOD COUNT 6.3 K/mm3 (4.0-10.0)
[2016-09-27] MEDS: SLF 3 ML SYR IV SCH ×3 (06:00→21:47)
[2016-09-27 06:01] LABS: ALBUMIN 1.8 GM/DL (3.2-5.2); ALBUMIN/GLOBULIN RATIO 0.51 (1.00-1.93); BILIRUBIN,TOTAL 0.5 MG/DL (0.2-1.0); CALCIUM LEVEL 7.4 MG/DL (8.8-10.2); CREATININE FOR GFR 3.98 MG/DL (0.70-1.30); GLOMERULAR FILTRATION RATE 15.8 (>42); TOTAL PROTEIN 5.3 GM/DL (6.4-8.2)
[2016-09-27 07:30] VITALS: BP 99/56
[2016-09-27] MEDS: HumaLOG INSULIN (NovoLOG) PER UNIT SC SCH ×4 (07:30→21:00)
[2016-09-27] MEDS: CALCIUM CARBONATE 500 MG CHEW U/D PO SCH ×3 (08:00→17:30)
[2016-09-27] MEDS: CARVedilol 6.25 MG TAB PO SCH ×2 (09:00→21:48)
[2016-09-27] MEDS ORDERED: ENTER DRUG NAME HERE (PATIENT'S OWN MED) PO SCH (09:00)
[2016-09-27] MEDS: DOCUSATE SODIUM 100 MG CAP PO SCH (10:28)
[2016-09-27] MEDS ORDERED: HEPARIN 1,000 UNITS/ML 10ML VIAL (FOR RADIOLOGY& DIALYSIS ONLY) IV ONE (11:30)
[2016-09-27] MEDS ORDERED: LIDOCAINE 1% SDV 5 ML VIAL SC ONE (11:30)
--- NOTE | 2016-09-27 13:32 | IPN ---
DATE: 09/27/2016 A 76-year-old gentleman seen at bedside. No overnight issues reported. He is resting comfortably. Denies fevers, chills, cough, or productive sputum. No hemoptysis. PHYSICAL EXAMINATION: Temperature is 98.4, pulse 100, respiratory rate is 20, blood pressure is 99/56, SPO2 is 99% on two liters. GENERAL: The patient appears to be in no acute distress. He is alert, pleasant. HEENT: Unremarkable. LUNGS: Diminished bibasilar breath sounds, otherwise clear. HEART: Regular rate and rhythm. ABDOMEN: Soft. EXTREMITIES: No edema. Status post bilateral above-knee amputations (AKAs) recently with wounds healing well. He does have princess in place which are to be removed this coming . LABORATORY DATA: White count 6.3, hemoglobin 9.8, platelets 129,000. Sodium 140, potassium 5.0, chloride 106, bicarbonate 26, anion gap 8, BUN is 49, creatinine 3.98, glucose is 80, calcium 7.4, total bilirubin 0.5, AST 12, ALT 10, alkaline phosphatase is 85, ammonia is 23, troponin 0.06, albumin 1.8, TSH 3.060. Alcohol level less than 0.03. Blood cultures pending times two. Chest x-ray: Pulmonary edema is noted with some mild bibasilar opacities and pleural effusions noted. Head CT on admission: Small vessel ischemic disease with some mild volume loss. Intake and output recorded: He is net negative 50 mL since midnight. ASSESSMENT AND PLAN: 1. Acute metabolic encephalopathy, likely related to missed dosing of his medications. He does appear to be doing much better today. 2. End-stage renal disease. Appreciate Dr. Fernandes's assistance, planned hemodialysis today. 3. Status post bilateral above-knee amputations (AKAs). Physical therapy (PT), occupational therapy (OT), patient and family services (PFS) is involved. He is to followup with [facility] on for staple removal. 4. History of anemia on end-stage renal disease. Continue Aranesp per nephrology. 5. Diabetes. Continue with sliding scale coverage, consistent-carbohydrate diet. Hold glipizide. 6. Hypertensive heart disease with congestive heart failure. He does appear to be more euvolemic today. 7. Coronary artery disease, history of myocardial infarction (MT). Coreg with hold parameters in place. 8. Multiple myeloma. Followup outpatient hematology/oncology. Continue on Revlimid and dexamethasone 9. History of sacral ulcer. Turning and repositioning. 10. Deep vein thrombosis (DVT) prophylaxis, on board. DISPOSITION: The patient does appear to be doing well. We will anticipate home discharge tomorrow and we will see if we need to reinstate services. He should followup with [facility] on for staple removal and reevaluation of wounds involving his bilateral lower extremity above-knee amputations (AKAs).
[2016-09-27] MEDS: VITAMIN D 1,000 INTERNATIONAL UNITS TABLET PO SCH (14:44)
[2016-09-27] MEDS: OMEPRAZOLE 20 MG CAP PO SCH (14:44)
[2016-09-27] MEDS: ASPIRIN 81 MG ENTERIC TAB PO SCH (14:44)
[2016-09-27] MEDS: FERROUS SULFATE 325MG TAB PO SCH (14:45)
[2016-09-27 16:00] VITALS: BP 127/71
[2016-09-27 19:42] VITALS: BP 136/77
--- NOTE | 2016-09-27 22:02 | IPN ---
DATE: 09/27/2016 Mr. Figueroa is seen this morning on his bedside. He had a large liquid bowel movement which was quite foul smelling. The patient has no nausea or vomiting. He denies any dyspnea or chest pain. He was given Kayexalate yesterday which most likely contributed to large stools. PHYSICAL EXAMINATION: Temperature 98.4 degrees Fahrenheit, heart rate 104 per minute, respiratory rate 20 per minute. Blood pressure 99/56 mmHg and oxygen saturation 99% on 2 liters oxygen. Head is atraumatic. Neck is supple and neck veins are mildly distended. There is no thyroid enlargement. Ears, nose and throat are unremarkable. Heart exam reveals tachycardia with slightly irregular rhythm. Lungs are clear to auscultation. Abdomen soft and nontender and bowel sounds are normal. Extremities have no cyanosis or clubbing. Neurologically he is awake, alert and oriented times three. Today's labs show sodium level 140 and potassium 5.0. BUN 49 and creatinine 3.98. PROBLEMS: 1. Hyperkalemia. Potassium level has improved with Kayexalate. The patient will be dialyzed with 2.0 mEq potassium bath. 2. End-stage renal disease. The patient is going to be dialyzed this morning. We will remove about 2-3 liters of fluid as tolerated. 3. Altered mentation. He is back to his baseline mentation at this point. I do not see any evidence of acute infection. I suggest to get physical and occupational therapy evaluation for potential discharge. 4. Anemia. His anemia has been mild. Today's hemoglobin is slightly below yesterday's range. We will monitor and recheck his CBC tomorrow morning. All in all Mr. Figueroa wishes to go home as soon as possible.
--- NOTE | 2016-09-27 23:57 | CR ---
DATE OF CONSULTATION: 09/26/2016 REQUESTED BY: Urban Collins D.O. REASON FOR CONSULTATION: Hyperkalemia in this gentleman with end-stage renal disease. HISTORY OF PRESENT ILLNESS: Mr. Figueroa is a 76-year-old gentleman with a quite complicated medical history. He has end-stage renal disease related to multiple myeloma. He has bilateral mckmj-ivw-kwfp amputation recently due to peripheral vascular disease. His other medical problems include history of congestive heart failure, type 2 diabetes, ischemic cardiomyopathy, history of anxiety and anemia. He was brought to emergency room yesterday due to altered mentation. His neighbor found him lethargic in his house as he lives by himself. In the emergency room he was found to be hyperkalemic. The patient missed his dialysis in the morning due to being in the emergency room. Nephrology consultation was requested and patient is seen in the emergency room. PAST MEDICAL HISTORY: Significant for: 1. History of multiple myeloma. 2. Hypertension. 3. Diabetes. 4. Peripheral vascular disease, status post bilateral xpgxs-jnk-[id number] amputation. 5. History of congestive heart failure. 6. History of coronary artery disease with prior myocardial infarction (IA). 7. History of systolic congestive heart failure. 8. History of anemia. 9. History of sacral decubitus ulcer. 10. History of asthma. 11. There is history of osteoarthritis. PAST SURGICAL HISTORY: Significant for: 1. Initial transmetatarsal amputation followed by bilateral beuvc-bhi-stxd amputation. 2. Left arm atrioventricular (AV) fistula creation. 3. History of Perma-Cath placement, which has been removed. PERSONAL AND SOCIAL HISTORY: Patient lives by himself. He does not smoke or drink. FAMILY HISTORY: Negative for end-stage renal disease. REVIEW OF SYSTEMS: Patient was initially lethargic on arrival. At the time of my visit in the afternoon on 09/26/2016, he is quite awake, alert and oriented timed three. He is sitting on the stretcher. He denies any fever or chills. Patient has not been sleeping well at night and reports that his asthma make him weak and lethargic. EARS, NOSE and THROAT: Unremarkable. He has history of recurrent blindness. CARDIOVASCULAR SYSTEM: Negative for chest pain or palpitations. RESPIRATORY SYSTEM: Negative for cough or hemoptysis. GASTROINTESTINAL (GI) SYSTEM: Negative for nausea, vomiting or abdominal pain. He does get loose stools. ENDOCRINE SYSTEM: Significant for diabetes and secondary hyperparathyroidism. MUSCULOSKELETAL SYSTEM: Significant for bilateral kejve-dgy-gibe amputations. He also has significant degenerative arthritis. HEMATOLOGICAL SYSTEM: Significant for anemia and multiple myeloma. NEUROLOGICAL SYSTEM: Negative for seizures. PSYCHOSOCIAL SYSTEM: Significant for anxiety. On physical examination, patient is awake and alert at the time of my visit. He is sitting on the stretcher. Temperature 98.5 degrees Fahrenheit, heart rate 118 per minute and respiratory rate 20 per minute. Blood pressure 130/80 mmHg and oxygen saturation 96% on room air. Head is atraumatic. Pupils are equal and reactive to light and sclera is anicteric. Ears, nose and throat are unremarkable. Neck is supple and without any thyroid enlargement. Neck veins are mildly distended. Heart sounds are tachycardiac. Lungs sound clear to auscultation. Abdomen soft and nontender. Extremities have no cyanosis or clubbing. Left forearm atrioventricular (AV) fistula is patent. He has bilateral uuhrg-huz-zpdg amputation and leg stumps still have princess and them. Neurologically he is awake and alert, oriented times three. LABORATORY DATA: WBC count 12.6, hemoglobin 11.4 and hematocrit 35.0. Sodium 137, potassium 5.4. BUN 40 and creatinine 3.59. Calcium level 7.3 and ammonia level was 23. CPK was 80 and troponin 0.14. Total protein 5.8 and albumin 2.1. PROBLEMS: 1. End-stage renal disease. Patient missed his dialysis treatment on the day of the emergency room visit. We will plan to dialyze him in the morning of 09/27/2016. 2. Hyperkalemia. This is related to end-stage renal disease and dietary indiscretion. Patient will be treated with one dose of Kayexalate 15 grams. We will dialyze him with 2.0 mEq potassium bath. His electrolytes will be checked tomorrow morning. 3. Congestive heart failure. Patient has known history of systolic and diastolic congestive heart failure. His volume status seems to be reasonable. At this point there is no emergent indication for dialysis right away. We will plan to dialyze him on 09/27/2016. 4. Generalized weakness. Patient has been quite weak since his bilateral dkwdx-szs-kigs amputation. He has declined skilled nursing placement. 5. Peripheral vascular disease. The patient has bilateral wurkr-tkw-atto amputations. He did have rehabilitation done and insists to stay home with assistance from his family and friends. He also has a home health aid. Thank you for involving me in the care of Mr. Figueroa. I will follow him along with you.
[2016-09-28 00:11] VITALS: BP 103/60
[2016-09-28] MEDS ORDERED: diphenhydrAMINE 25 MG CAP PO PRN (00:30)
[2016-09-28 04:27] VITALS: BP 126/71
[2016-09-28] MEDS: SLF 3 ML SYR IV SCH (05:18)
[2016-09-28 05:30] LABS: MEAN CORPUSCULAR HEMOGLOBIN 30.7 pg (27.0-33.0); MEAN CORPUSCULAR HGB CONC 31.6 g/dl (32.0-36.5); MEAN CORPUSCULAR VOLUME 97.1 fl (80.0-96.0); RED CELL DISTRIBUTION WIDTH 17.4 % (11.5-14.5); WHITE BLOOD COUNT 5.9 K/mm3 (4.0-10.0)
[2016-09-28 05:49] LABS: ALBUMIN 1.7 GM/DL (3.2-5.2); ALBUMIN/GLOBULIN RATIO 0.41 (1.00-1.93); BILIRUBIN,TOTAL 0.5 MG/DL (0.2-1.0); CALCIUM LEVEL 7.4 MG/DL (8.8-10.2); CREATININE FOR GFR 2.74 MG/DL (0.70-1.30); GLOMERULAR FILTRATION RATE 24.2 (>42); POTASSIUM SERUM 3.9 MEQ/L (3.5-5.1); TOTAL PROTEIN 5.8 GM/DL (6.4-8.2)
[2016-09-28] MEDS: HumaLOG INSULIN (NovoLOG) PER UNIT SC SCH (07:20)
[2016-09-28 07:30] VITALS: BP 128/69
[2016-09-28] MEDS: DOCUSATE SODIUM 100 MG CAP PO SCH (09:00)
[2016-09-28] MEDS: VITAMIN D 1,000 INTERNATIONAL UNITS TABLET PO SCH (09:14)
[2016-09-28] MEDS: ASPIRIN 81 MG ENTERIC TAB PO SCH (09:14)
[2016-09-28] MEDS: OMEPRAZOLE 20 MG CAP PO SCH (09:14)
[2016-09-28] MEDS: FERROUS SULFATE 325MG TAB PO SCH (09:14)
[2016-09-28] MEDS: CALCIUM CARBONATE 500 MG CHEW U/D PO SCH (09:14)
[2016-09-28 09:15] VITALS: BP 128/69
[2016-09-28] MEDS: CARVedilol 6.25 MG TAB PO SCH (09:15)
--- NOTE | 2016-09-28 14:29 | DSES ---
DATE OF ADMISSION: 09/26/2016 DATE OF DISCHARGE: 09/28/2016 PRIMARY CARE PROVIDER: Dr. Fernandes CONSULTANTS: Dr. Fernandes PROCEDURES: None. COMPLICATIONS: None. ADMISSION/DISCHARGE DIAGNOSES: 1. Acute metabolic encephalopathy, which is resolved, likely related to missed dosing of medications with negative cardiac enzymes, negative ammonia level. Blood cultures and urine culture were unremarkable. 2. End-stage renal disease requiring hemodialysis. 3. Status post bilateral below the knee amputations requiring ongoing physical therapy (PT), occupational therapy (OT). Patient and family services (PFS) has been involved and followup with [facility] tomorrow for staple removal. 4. History of anemia. He does have end-stage renal disease requiring periodic Aranesp injections. 5. Diabetes. 6. Hypertensive heart disease with congestive heart failure (CHF). 7. Coronary artery disease, history of myocardial infarction, stable. 8. Multiple myeloma, stable. Follows with outpatient Hematology/Oncology. 9. History of sacral ulcer requiring turning repositioning. BRIEF HOSPITAL COURSE: Mr. Figueroa is a pleasant 76-year-old gentleman with recent bilateral below the knee amputations and was noted to be lethargic, brought to the emergency department, does have care provided by home health agency. He did have what appeared to be some decompensated congestive heart failure and volume overload, admitted for further evaluation. Dr. Fernandes was consulted. Chest x-ray did have pulmonary edema bibasilar opacifications with pleural effusions noted. Head CT: Small vessel ischemic disease with mild volume loss. EKG: Sinus tachycardia with short SD interval, moderate intraventricular conduction delay and his rate was 120 with sinus rhythm. At any rate, he was admitted for further evaluation. Dr. Fernandes was consulted. He did receive dialysis. Initially, he had leukocytosis with white count 12.6 and that did resolve over the next 24 hours. He remained afebrile. Blood cultures were negative and his workup was negative. On the day of discharge, he was felt to be back to baseline, appropriate for discharge and he will be due for dialysis on Monday. PHYSICAL EXAMINATION: Temperature is 98.3, pulse 100, respiratory rate 22, blood pressure 128/69, SpO2 is 90% on 2 liters, which was weaned from prior to discharge. LUNGS: Clear. HEART: Regular rate and rhythm. ABDOMEN: Soft. EXTREMITIES: Bilateral BKA. Good granulation of the wound site. [place] were intact. He will followup at [facility] tomorrow for staple removal. Discharge condition is good. DISPOSITION: Discharge to home with appropriate home health care. MEDICATIONS: - Tylenol 650 mg every 4 hours as needed - Ventolin HFA two puffs every 4 hours - aspirin 81 mg daily - Tums 500 mg with meals - Carvedilol 6.25 mg twice a day - vitamin D 1000 units daily - dexamethasone 20 mg weekly - diazepam 2 mg every 12 hours as needed - diphenhydramine 25 mg at night as needed - Colace 100 mg daily - ferrous sulfate 325 mg daily - gabapentin 100 mg three times a day - glipizide XL 2.5 mg daily - hydroxyzine 25 mg at night as needed - Revlimid 5 mg as directed - Claritin 10 mg daily - melatonin 5 mg at night as needed for sleep - sublingual nitroglycerin 0.4 mg sublingually as needed - omeprazole 40 mg daily - MiraLax one package 17 grams daily DISCHARGE INSTRUCTIONS: Discharge home. Activity as tolerated. Renal diet. Should keep followup with [facility] tomorrow for stable removal of recent below the knee amputation. Additional followup and fitting for lower extremity prosthesis. Otherwise, he appears to be doing well. Should followup with his primary care provider in a week. He is instructed to seek medical attention if symptoms worsen or progress. He voices understanding.
--- NOTE | 2016-09-28 21:46 | IPN ---
DATE: 09/28/2016 Mr. Figueroa is seen this morning on his bedside. He is sitting at the edge of the bed. He wants to go home and is waiting for physical therapist for home safety evaluation. The patient underwent hemodialysis yesterday which he tolerated very well. No nausea or vomiting. He is quite stressed about going to [place] tomorrow for removal of princess from his stumps. He is planning to move to [place] to live with his daughter within the next month. PHYSICAL EXAMINATION: On physical examination, temperature 98 degree Fahrenheit , heart rate 76 per minute, respiratory rate 18 per minute. Blood pressure 128/69 mmHg and oxygen saturation 96% on RA. Head is atraumatic. Neck is supple and without any jugular venous distention (JVD) or thyroid enlargement. Pupils are equal and reactive to light and sclerae anicteric. Ears, nose and throat are unremarkable. Heart sounds are tachycardiac. Lungs are clear to auscultation. Abdomen is soft and nontender and bowel sounds are normal. Extremities have no cyanosis or clubbing. He has bilateral yamjs-ltr-xbta amputations. Skin is dry and a mild rash is noted on his arms. There is mild erythema on his stumps and princess are intact. Neurologically, he is awake, alert and at his baseline mentation. LABORATORY DATA: Today's laboratories show WBC count 5.9, hemoglobin 9.2 and hematocrit 29.1. Platelets 142. Sodium 139 and potassium 3.9. BUN 31 and creatinine 2.74. Calcium level is 7.4, AST 13, ALT 11, alkaline phosphatase 93, total protein 5.8 and albumin 1.7. PROBLEMS: 1. End-stage renal disease. The patient was dialyzed yesterday and his volume status is well-compensated. Electrolytes are within normal range. There is no indication for dialysis today. I feel that the patient can be scheduled for dialysis on Monday as an outpatient. 2. Altered mentation. He did have some altered mentation on arrival to the emergency room which has resolved and there is no evidence of stroke or infection at this point. He is back to his baseline mentation. 3. Anemia. His anemia is multifactorial. This is being managed with hemodialysis. There is no active bleeding. We will continue to give him MAXIMO during dialysis along with iron. 4. Hypertension. Blood pressure seems to be reasonably well-controlled on current antihypertensives. He is somewhat tachycardiac. He remains on low-dose beta harris. 5. Multiple myeloma. The patient is off chemotherapy due to medical complications. He will followup with oncology as an outpatient. DISPOSITION: From a renal standpoint, the patient can be discharged to home and will return for next hemodialysis on Monday as outpatient. MTDD
== END 2016-09-28 12:08 | disposition home or self-care (01) | DRG 70 ==
LOC: EDBD 10:10 → M ED 11:48 → M ED INP 15:23 → M PCU 20:51
PROVIDERS: ADMIT Internal Medicine Nephrology; ATTEND Hospitalist
PROC: 5A1D60Z (ICD-10-PCS; principal; 2016-09-27)
DX: G93.41 Metabolic encephalopathy (principal); N18.6 End stage renal disease; I50.33 Acute on chronic diastolic (congestive) heart failure; I13.2 Hypertensive heart and chronic kidney disease with heart failure and with stage 5 chronic kidney disease, or end stage renal disease; C90.00 Multiple myeloma not having achieved remission; N25.81 Secondary hyperparathyroidism of renal origin; I25.10 Atherosclerotic heart disease of native coronary artery without angina pectoris; I25.2 Old myocardial infarction; I25.5 Ischemic cardiomyopathy; E11.51 Type 2 diabetes mellitus with diabetic peripheral angiopathy without gangrene; F41.9 Anxiety disorder, unspecified; L89.152 Pressure ulcer of sacral region, stage 2; T50.906A Underdosing of unspecified drugs, medicaments and biological substances, initial encounter; J45.909 Unspecified asthma, uncomplicated; D63.1 Anemia in chronic kidney disease; M19.90 Unspecified osteoarthritis, unspecified site; H54.0 Blindness, both eyes; Z89.511 Acquired absence of right leg below knee; Z89.512 Acquired absence of left leg below knee; Z87.891 Personal history of nicotine dependence; Z99.2 Dependence on renal dialysis; Z79.82 Long term (current) use of aspirin; Z79.899 Other long term (current) drug therapy; Z79.84 Long term (current) use of oral hypoglycemic drugs